=== PATIENT | male | born 1935 | race Caucasian/White ===

== ENCOUNTER 2019-06-11 15:56 | Inpatient (IN) ==
[2019-06-11 16:52] LABS: Basophils # (auto) 0.01 K/uL (0-0.2); Basophils % (auto) 0.1 %; Hematocrit (blood only) 39.3 % (42-52); Hemoglobin 13.4 g/dL (14.0-18.0); Immature Granulocytes # (auto) 0.04 K/uL (0.00-0.02); Immature Granulocytes % (auto) 0.3 %; Lymphocytes # (auto) 0.35 K/uL (1.2-3.4); Lymphocytes % (auto) 2.5 %; Mean Corpuscular Hemoglobin 33.5 pg (25-34); Mean Corpuscular Hgb Conc 34.1 g/dL (32-36); Mean Corpuscular Volume 98.3 fL (80-100); Mean Platelet Volume 10.8 fL (7.4-10.4); Monocytes % (auto) 14.4 %; Neutrophils # (auto) 11.45 K/uL (1.4-6.5); Neutrophils % (auto) 82.7 %; Platelet Count 128 K/uL (130-400); RDW Coefficient of Variation 13.3 % (11.5-14.5); White Blood Count 13.85 K/uL (4.8-10.8)
--- NOTE | 2019-06-11 16:52 | XRay Report ---
XR chest 1V portable CLINICAL HISTORY: weakness dyspnea COMPARISON STUDY: 12/17/2014 FINDINGS: The bones soft tissues and hemidiaphragms are normal. The cardiomediastinal silhouette is n ormal. The lungs are clear. The pulmonary vasculature is normal. IMPRESSION: Negative chest. ACT 112: Negative or not required by law. The above report was generated using voice recognition software. It may contain grammatical, syntax or spelling errors. Electronically signed by: Paul Lind M.D. 06/11/2019 4:51 PM
--- NOTE | 2019-06-11 17:07 | CT Scan Report ---
CT head/brain wo con CT DOSE: 1296.64 mGy.cm HISTORY: Mental status change. Neuropathy. leg weakness/fall eval for bleed TECHNIQUE: Multiaxial CT images of the head were performed without the use of intravenous contrast. A dose lowering technique was utilized adhering to the principles of ALARA. Comparison: None. Findings: The paranasal sinuses and mastoid air cells are clear. The calvarium and skull base are int act. The ventricles and sulci are within normal limits. There is no mass, hematoma, midline shift, or acute infarct. Impression: No acute intracranial abnormality. Age-related atrophy and chronic small vessel change. Note is made with a small defect of the anterior arch of C1 on image 1. This isn't not easily seen on the prior st udy of 2013. A CT of the cervical spine is suggested. ACT 112: Negative or not required by law. The above report was generated using voice recognition software. It may contain grammatical, syntax or spelling errors. Electronically signed by: Paul Lind M.D. 06/11/2019 5:06 PM
--- NOTE | 2019-06-11 17:11 | CT Scan Report ---
CT lumbar spine wo con CT DOSE: HISTORY: pain/leg weakness eval for fx TECHNIQUE: Multiaxial CT images of the lumbar spine were performed and reformatted in the sagittal an d coronal plane without the use of contrast. A dose lowering technique was utilized adhering to the principles of ALARA. COMPARISON: None. FINDINGS: Severe degenerative disc change throughout the entire lumbar region. No evidence for an acu te compression deformity. Considerable scoliosis of the lumbar spine. No evidence for compression deformity. No major compromise of the spinal canal based on CT criteria. IMPRESSION: 1. Severe degenerative change of the entire lumbar region. 2. Superimposed scoliosis. 3. No acute process. ACT 112: Negative or not required by law. The above report was generated using voice recognition software. It may contain grammatical, syntax or spelling errors. Electronically signed by: Paul Lind M.D. 06/11/2019 5:09 PM
[2019-06-11 17:19] LABS: Alanine Aminotransferase 32 U/L (12-78); Albumin Level 4.3 gm/dl (3.4-5.0); Aspartate Aminotransferase 50 U/L (15-37); BUN Creatinine Ratio 22.3 (10-20); Blood Urea Nitrogen 31 mg/dl (7-18); Calcium 9.7 mg/dl (8.5-10.1); Carbon Dioxide 24 mmol/L (21-32); Chloride 101 mmol/L (98-107); Creatinine Clr Calc Pharmacy 41.9 ml/min; Est GFR (African American) 53.6; Est GFR (Non-African American) 46.2; Glucose 137 mg/dl (70-99); Potassium 4.9 mmol/L (3.5-5.1); Sodium 132 mmol/L (136-145)
[2019-06-11 17:28] LABS: Alkaline Phosphatase 59 U/L (45-117); Bilirubin,Total 1.5 mg/dl (0.2-1); Globulin 4.1 gm/dl (2.5-4.0); Total Protein 8.4 gm/dl (6.4-8.2); Troponin I < 0.015 ng/ml (0-0.045)
[2019-06-11 17:46] LABS: Appearance Urine Clear (Clear); Bilirubin Urine Negative (Negative); Blood Urine Negative (Negative); Color Urine Yellow; Glucose Urine UA Negative (Negative); Ketones Urine Trace (Negative); Leukocyte Esterase Urine Negative (Negative); Nitrite Urine Negative (Negative); Protein Urine Negative (Negative); Specific Gravity Urine 1.021 (1.000-1.030); Urobilinogen Urine Negative (Negative); pH Urine 5.5 (4.5-7.5)
[2019-06-11 18:24] LABS: Partial Thromboplastin Ratio 1.6; Partial Thromboplastin Time 42.6 Seconds (21.0-31.0); Prothrombin Time 34.6 Seconds (9.0-12.0)
--- NOTE | 2019-06-11 18:28 | CT Scan Report ---
CT cervical spine wo con CT DOSE: 236.60 mGy.cm HISTORY: Trauma fall eval for fx TECHNIQUE: Multiaxial CT images of the cervical spine were performed and reformatted in the sagittal and coronal plane without the use of contrast. A dose lowering technique was utilized adhering to th e principles of ALARA. COMPARISON: None. FINDINGS: Severe degenerative disc changes throughout the entire cervical region. No evidence for com pression deformity. Grade 1 anterolisthesis of C4 on C5 felt to be an anatomic variation. Incomplete fusion of the anterior arch of C1. This is felt to be an anatomic variant. Transaxial imag es show degenerative changes of the posterior and lateral elements throughout. No acute fracture is i dentified. IMPRESSION: 1. Severe degenerative disc change. 2. No acute bony abnormality. 3. Small defect of the anterior arch of C1 felt to be an anatomic variant. ACT 112: Negative or not required by law. The above report was generated using voice recognition software. It may contain grammatical, syntax or spelling errors. Electronically signed by: Paul Lind M.D. 06/11/2019 6:26 PM
[2019-06-11 18:31] LABS: INR 3.7 (0.9-1.1)
[2019-06-11] MEDS ORDERED: TRAMADOL HCL 50 MG TABLET PO STA (19:34)
[2019-06-11] MEDS ORDERED: SODIUM CHLORIDE 0.9% 1000ML 1,000 ML IV ONE (19:57)
[2019-06-11 20:03] LABS: Magnesium 1.7 mg/dl (1.8-2.4)
--- NOTE | 2019-06-11 20:31 | History & Physical Report ---
Date of Service June 11, 2019 Assessment & Plan (1) Recurrent falls: Ambulatory dysfunction Mild clinical dehydration with note of ketonuria possibly contributory to weakness AF, on oral anticoagulation Rate controlled, INR therapeutic HTN, stable hyperlipidemia on statin Rx hx TIA as per records chronic back pain/history scoliosis as per patient, history of prostate cancer status post surgery, stable as per recent outpatient Urology note from last year prediabetes as per records, hemoglobin A1c of 6.20 October 2017 OBS GMF IVF PT OT eval DVT prophylaxis. Coumadin INR goal between 2 and 3 Full code History of Present Illness Chief Complaint: Recurrent falls Primary Care Provider: Sandra Dahl MD History obtained from patient and records. HPI: Medical history significant for chronic AF on oral anticoagulation, HTN, hyperlipidemia, history TIA as per records, chronic back pain/history scoliosis as per patient, history of prostate cancer status post surgery, peripheral neuropathy as per records, prediabetes as per records. Recent confinement October 2013 for probable TIA. Last few days patient has had recurrent falls from legs giving out, trouble with standing up. No chest pain, no S OB, no syncope. Usual back pain from scoliosis and arthritis as per patient. No new incontinence symptoms. Right shoulder pain follow doing injury this morning. Patient evaluated at [facility]. X-rays were negative as per patient. Pain attributed to injured right rotator cuff . RUE sling recommended. Patient consulted ER for evaluation. MEDICAL HISTORY: As above. SURGERIES: Back surgery, hip surgery, urologic procedures, tonsillectomy, vasectomy, shoulder surgery FAMILY HISTORY: Heart disease, prostate cancer, ovarian cancer, dementia PERSONAL SOCIAL HISTORY: Nonsmoker. No chronic intake of alcoholic beverages. 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 Allergies Allergy/AdvReac Type Severity Reaction Status Date / Time Penicillins Allergy Mild Rash Verified 06/11/19 17:31 fenofibrate Allergy Unknown MUSCLE Verified 06/11/19 17:31 WEAKNESS Home Medications Home Medications Medication Instructions Recorded Confirmed Type lidocaine 5 % topical patch 1 patch TOPICAL DAILY PRN ea 01/29/19 06/11/19 History aspirin 81 mg PO QPM 06/11/19 06/11/19 History atorvastatin 40 mg PO QPM 06/11/19 06/11/19 History baclofen 10 mg PO TID 06/11/19 06/11/19 History digoxin 250 mcg PO QPM 06/11/19 06/11/19 History duloxetine 20 mg PO QPM 06/11/19 06/11/19 History gabapentin 100 mg PO TID 06/11/19 06/11/19 History lisinopril 2.5 mg PO QPM 06/11/19 06/11/19 History metoprolol succinate [Toprol XL] 25 mg PO QPM 06/11/19 06/11/19 History multivitamin 1 tab PO QPM 06/11/19 06/11/19 History niacin [Niaspan Extended-Release] 1,000 mg PO QPM 06/11/19 06/11/19 History tramadol 50 mg PO TID PRN 06/11/19 06/11/19 History warfarin See Rx Instructions .ROUTE .COMPLEX 06/11/19 06/11/19 History Past Med/Surg History Medical History Aphasia (Acute 10/22/13) Atrial fibrillation (Chronic) Back pain, chronic (Chronic) DJD of shoulder (Acute) History of prostate cancer (Chronic) Hyperlipemia (Chronic) Mitral regurgitation (Chronic) Systolic CHF, chronic (Chronic) "LVEF 35%" TIA (transient ischemic attack) (Acute) Family History Other Family history non-contributory Social History Preferred Language: Albanian Communication Ability: Effective Train Operations Supervisor Required: No Beliefs That Will Affect Care: None Current Living Situation: Spouse Other Information That Helps Us Care for You: No Feels Safe at Home: Yes Safety Concerns: Feels Safe At This Time Smoking Status: Never smoker Hx Alcohol Use: Yes Alcohol type: wine Hx Substance Use: No Review of Systems Review of Systems: As per HPI, all 10 systems reviewed, all other ROS negative Physical Exam Physical Exam: GENERAL: Comfortable, pleasant, no respiratory distress SKIN: Normal color, warm HEENT: Alopecia, pink palpebral conjunctivae, no ptosis, dry buccal mucosa NECK : Supple, no tenderness CHEST : CTA, no tenderness HEART : Irregular , systolic murmur ABDOMEN: Soft, nontender EXTREMITIES : RUE sling, minimal LE swelling, no LE tenderness, no other conspicuous deformities noted NEUROLOGIC : Coherent, no facial asymmetry, MMTS BLE 4/5 (R>L, chronic as per patient ), gait and stance not assessed, no other gross focality Results & Data Vital Signs (Past 12 Hours) Vital Signs Temp Pulse Pulse Resp BP BP Pulse Ox 06/11/19 19:14 97 06/11/19 19:00 82 20 115/64 97 06/11/19 17:38 99 H 22 147/76 H 99 06/11/19 16:01 37.1 C 97 H 20 145/85 H 95 Laboratory Results Laboratory Results WBC 13.85 K/uL (4.8-10.8) H 06/11/19 16:44 RBC 4.00 M/uL (4.7-6.1) L 06/11/19 16:44 Hgb 13.4 g/dL (14.0-18.0) L 06/11/19 16:44 Hct 39.3 % (42-52) L 06/11/19 16:44 MCV 98.3 fL (80-100) 06/11/19 16:44 MCH 33.5 pg (25-34) 06/11/19 16:44 MCHC 34.1 g/dL (32-36) 06/11/19 16:44 RDW Std Deviation 48.0 fL (36.4-46.3) H 06/11/19 16:44 RDW Coeff of Ligia 13.3 % (11.5-14.5) 06/11/19 16:44 Plt Count 128 K/uL (130-400) L 06/11/19 16:44 MPV 10.8 fL (7.4-10.4) H 06/11/19 16:44 Immature Gran % (Auto) 0.3 % 06/11/19 16:44 Neut % (Auto) 82.7 % 06/11/19 16:44 Lymph % (Auto) 2.5 % 06/11/19 16:44 O'Brien % (Auto) 14.4 % 06/11/19 16:44 Eos % (Auto) 0.0 % 06/11/19 16:44 Baso % (Auto) 0.1 % 06/11/19 16:44 Immature Gran # (Auto) 0.04 K/uL (0.00-0.02) H 06/11/19 16:44 Neut # (Auto) 11.45 K/uL (1.4-6.5) H 06/11/19 16:44 Lymph # (Auto) 0.35 K/uL (1.2-3.4) L 06/11/19 16:44 O'Brien # (Auto) 2.00 K/uL (0.11-0.59) H 06/11/19 16:44 Eos # (Auto) 0.00 K/uL (0-0.5) 06/11/19 16:44 Baso # (Auto) 0.01 K/uL (0-0.2) 06/11/19 16:44 PT 34.6 Seconds (9.0-12.0) H 06/11/19 17:44 INR 3.7 (0.9-1.1) H 06/11/19 17:44 APTT 42.6 Seconds (21.0-31.0) H 06/11/19 17:44 PTT Ratio 1.6 06/11/19 17:44 Sodium 132 mmol/L (136-145) L 06/11/19 16:44 Potassium 4.9 mmol/L (3.5-5.1) 06/11/19 16:44 Chloride 101 mmol/L (98-107) 06/11/19 16:44 Carbon Dioxide 24 mmol/L (21-32) 06/11/19 16:44 Anion Gap 7.0 (3-11) 06/11/19 16:44 BUN 31 mg/dl (7-18) H 06/11/19 16:44 Creatinine 1.39 mg/dl (0.6-1.4) 06/11/19 16:44 Est Cr Clr Drug Dosing 41.9 ml/min 06/11/19 16:44 Est GFR ( Amer) 53.6 06/11/19 16:44 Est GFR (Non-Af Amer) 46.2 06/11/19 16:44 BUN/Creatinine Ratio 22.3 (10-20) H 06/11/19 16:44 Glucose 137 mg/dl (70-99) H 06/11/19 16:44 Calcium 9.7 mg/dl (8.5-10.1) 06/11/19 16:44 Magnesium 1.7 mg/dl (1.8-2.4) L 06/11/19 16:44 Total Bilirubin 1.5 mg/dl (0.2-1) H 06/11/19 16:44 AST 50 U/L (15-37) H 06/11/19 16:44 ALT 32 U/L (12-78) 06/11/19 16:44 Alkaline Phosphatase 59 U/L (45-117) 06/11/19 16:44 Troponin I < 0.015 ng/ml (0-0.045) 06/11/19 16:44 Total Protein 8.4 gm/dl (6.4-8.2) H 06/11/19 16:44 Albumin 4.3 gm/dl (3.4-5.0) 06/11/19 16:44 Globulin 4.1 gm/dl (2.5-4.0) H 06/11/19 16:44 Albumin/Globulin Ratio 1.0 (0.9-2) 06/11/19 16:44 TSH 1.390 uIu/ml (0.300-4.500) 06/11/19 16:44 Specimen Hemolysis 06/11/19 16:44 Urine Color Yellow 06/11/19 17:34 Urine Appearance Clear (Clear) 06/11/19 17:34 Urine pH 5.5 (4.5-7.5) 06/11/19 17:34 Ur Specific [place] 1.021 (1.000-1.030) 06/11/19 17:34 Urine Protein Negative (Negative) 06/11/19 17:34 Urine Glucose (UA) Negative (Negative) 06/11/19 17:34 Urine Ketones Trace (Negative) H 06/11/19 17:34 Urine Blood Negative (Negative) 06/11/19 17:34 Urine Nitrite Negative (Negative) 06/11/19 17:34 Urine Bilirubin Negative (Negative) 06/11/19 17:34 Urine Urobilinogen Negative (Negative) 06/11/19 17:34 Ur Leukocyte Esterase Negative (Negative) 06/11/19 17:[address] head: No acute intracranial abnormality. Age-related atrophy and chronic small vessel change. Note is made with a small defect of the anterior arch of C1 on image CT cervical spine: 1. Severe degenerative disc change. 2. No acute bony abnormality. 3. Small defect of the anterior arch of C1 felt to be an anatomic variant. Lumbar spine CT: 1. Severe degenerative change of the entire lumbar region. 2. Superimposed scoliosis. 3. No acute process. Chest x-ray : Negative EKG as per my interpretation : Rate 75, A. fib, LAD, LAFB, J-point elevation inferior leads, PA WP Code Status & VTE Plan VTE Prophylaxis Plan VTE Prophylaxis will be ordered: Yes
[2019-06-11 20:54] LABS: Creatine Kinase 317 U/L (39-308)
[2019-06-11] MEDS ORDERED: PROMETHAZINE HCL 12.5 MG in SODIUM CHLORIDE 0.9% 50 ML IV PRN (21:39)
[2019-06-11] MEDS ORDERED: ASPIRIN 81 MG ECTAB PO SCH (21:39)
[2019-06-11] MEDS: METOPROLOL SUCC 25MG EXT REL TAB PO SCH (22:25)
[2019-06-11] MEDS: GABAPENTIN 100 MG CAP PO SCH (22:25)
[2019-06-11] MEDS: NIACIN EXTENDED REL 500 MG TABCR PO SCH (22:25)
[2019-06-11] MEDS: BACLOFEN 10 MG TAB PO SCH (22:26)
[2019-06-11] MEDS: ATORVASTATIN 40 MG TAB PO SCH (22:26)
[2019-06-11] MEDS: DULOXETINE HCL 20 MG CAP PO SCH (22:26)
[2019-06-11] MEDS: MULTIVITAMIN TAB PO SCH (22:26)
--- NOTE | 2019-06-11 23:17 | Emergency Department Note ---
Entered by Ethan Calderon acting as a scribe for History of Present Illness General Chief complaint: Leg Weakness, Bilateral Stated complaint: LEG WEAKNESS Time Seen by Provider: 06/11/19 16:07 Source: patient History of Present Illness Provider complaint: Weakness Onset (ago): day(s) 1 Location: lower extremity, left and right Pain Consistency: + intermittent Maximum Pain Intensity: 7 Current Pain Intensity: 7 Quality: + burning Relieved By: + none Associated symptoms: + other (Back pain); no confusion, no chest pain, no fever/chills, no headaches and no shortness of breath The patient is an 83 year old male who presents to the Emergency Room with complaints of intermittent bilateral proximal lower extremity weakness that he started to notice yesterday. The patient states that he fell yesterday due to this weakness resulting in an injured right rotator cuff. He adds that he saw [facility] this morning and had x-rays done that were negative. The patient reports that today he fell 3 more times due to the weakness in his legs. The patient notes the weakness lasts for about 5 minutes and after it had resolved he was able to slowly get himself up. He also mentioned that he sometimes experiences a burning sensation in his bilateral legs. The patient also relates that for the falls that occurred today he has been able to slowly lower himself to the ground so he did not injure himself. The patient is on Coumadin and denies any head trauma or headaches. The patient endorses worsening back pain that has been chronic due to his history of scoliosis and spinal stenosis. The patient rates this pain as a 7/10 and notes it has been getting worse as of late, however he did not injure his back during the falls. The patient also mentioned that due to his history of back issues, his left leg has been weaker than his right at baseline. The patient denies any confusion, dizziness, numbness, neck pain, chest pain, shortness of breath, abdominal pain, or incontinence. The patient does endorses erectile dysfunction but notes this has been present since he had prostate surgery 8 years ago. The patient states he had a PNA and 2 shingles vaccines in the past 6 months and a flu vaccine 4 months ago. Home Medications Home Medications Medication Instructions Recorded Confirmed Type lidocaine 5 % topical patch 1 patch TOPICAL DAILY PRN ea 01/29/19 06/11/19 Hi story aspirin 81 mg PO QPM 06/11/19 06/11/19 History atorvastatin 40 mg PO QPM 06/11/19 06/11/19 History baclofen 10 mg PO TID 06/11/19 06/11/19 History digoxin 250 mcg PO QPM 06/11/19 06/11/19 History duloxetine 20 mg PO QPM 06/11/19 06/11/19 History gabapentin 100 mg PO TID 06/11/19 06/11/19 History lisinopril 2.5 mg PO QPM 06/11/19 06/11/19 History metoprolol succinate [Toprol XL] 25 mg PO QPM 06/11/19 06/11/19 History multivitamin 1 tab PO QPM 06/11/19 06/11/19 History niacin [Niaspan Extended-Release] 1,000 mg PO QPM 06/11/19 06/11/19 History tramadol 50 mg PO TID PRN 06/11/19 06/11/19 History warfarin See Rx Instructions .ROUTE .COMPLEX 06/11/19 06/11/19 History Allergies Allergy/AdvReac Type Severity Reaction Status Date / Time Penicillins Allergy Mild Rash Verified 06/11/19 17:31 fenofibrate Allergy Unknown MUSCLE Verified 06/11/19 17:31 WEAKNESS Past Med/Surg History Medical History Aphasia (Acute 10/22/13) Atrial fibrillation (Chronic) Back pain, chronic (Chronic) DJD of shoulder (Acute) History of prostate cancer (Chronic) Hyperlipemia (Chronic) Mitral regurgitation (Chronic) Systolic CHF, chronic (Chronic) "LVEF 35%" TIA (transient ischemic attack) (Acute) Family History Other Family history non-contributory Social History Preferred Language: Slovak Communication Ability: Effective Sawyer Helper Required: No Beliefs That Will Affect Care: None Current Living Situation: Spouse Other Information That Helps Us Care for You: No Feels Safe at Home: Yes Safety Concerns: Feels Safe At This Time Smoking Status: Never smoker Hx Alcohol Use: Yes Alcohol type: wine Hx Substance Use: No Review of Systems See HPI for pertinent positives & negatives. and A total of 10 systems reviewed and were otherwise negative Physical Exam Vital Signs Vital Signs - 24 hr 06/11/19 16:01 06/11/19 17:38 06/11/19 19:00 Temperature 37.1 C Temperature Source Oral Pulse Rate 97 H Pulse Rate [Left Finger] 99 H 82 Respiratory Rate 20 22 20 Blood Pressure 145/85 H Blood Pressure [Left Arm] 147/76 H 115/64 Blood Pressure Mean 105 Blood Pressure Mean [Left Arm] 99 81 Blood Pressure Position Sitting Blood Pressure Position [Left Arm] Sitting Pulse Oximetry 95 99 97 Oxygen Delivery Method Room Air Sepsis Recent Fever Within 48 Hours No Sepsis New/Unexplained Change in Mental Status No Sepsis Action Taken by Nursing No Action Required 06/11/19 19:14 Temperature Temperature Source Pulse Rate Pulse Rate [Left Finger] Respiratory Rate Blood Pressure Blood Pressure [Left Arm] Blood Pressure Mean Blood Pressure Mean [Left Arm] Blood Pressure Position Blood Pressure Position [Left Arm] Pulse Oximetry 97 Oxygen Delivery Method Room Air Sepsis Recent Fever Within 48 Hours Sepsis New/Unexplained Change in Mental Status Sepsis Action Taken by Nursing Constitutional: Vital signs reviewed. Eyes: Pupils are equal round reactive to light. Conjunctiva are noninjected. ENT: Pharynx is clear without erythema or exudate. Mucous membranes are moist. Neck supple without meningeal signs. Respiratory: Clear to auscultation bilaterally. Breath sounds are equal bilaterally. Cardiovascular: Regular rate and rhythm. No rubs or gallops. GI: Soft, nondistended and nontender. Bowel sounds are present. No pulsatile masses. 2+ bounding femoral pulses. Musculoskeletal: No peripheral edema. No lower extremity tenderness. RUE is in sling. Integumentary: No cyanosis. Neurological: The patient is awake and alert. Cranial nerves II-XII are intact. Motor is 5 out of 5 all extremities. Sensation is intact to light touch all extremities. Left left DTR are 0, right leg is 1+. Normal speech. Psychiatric: Normal affect. Course Course 160: Past medical records reviewed. The patient was evaluated in room A02, and a complete history and physical examination were performed. 1746: I reevaluated the patient and discussed the test results. The patient denies any neck pain. The patient's urine was just sent and her INR was repeated. 1917: I discussed the test results with the patient. I recommended hospitalization given his frequent falls and elevated INR. The patient requested pain medication for his shoulder[facility]: I spoke to Dr. Sabiha Mortensen Hospitalist about the patient's case. He agreed to accept the patient for further evaluation. Consultations Consultation #1: I spoke to Dr. Sabiha Jimenez about the patient's case. He agreed to accept the patient for further evaluation. Time: 19:40 Administered Medications Aspirin (Ecotrin Ectab) 81 mg PO QPM TRAVIS Stop: 07/11/19 21:38 Last Admin: 06/11/19 22:26 Dose: 81 mg Documented by: [id number] Atorvastatin Calcium (Lipitor) 40 mg PO QPM TRAVIS Stop: 07/11/19 21:38 Last Admin: 06/11/19 22:26 Dose: 40 mg Documented by: [id number] Baclofen (Lioresal) 10 mg PO TID TRAVIS Stop: 07/11/19 21:38 Last Admin: 06/11/19 22:26 Dose: 10 mg Documented by: [id number] Duloxetine HCl (Cymbalta) 20 mg PO QPM TRAVIS Stop: 07/11/19 21:38 Last Admin: 06/11/19 22:26 Dose: 20 mg Documented by: [id number] Gabapentin (Neurontin) 100 mg PO TID TRAVIS Stop: 07/11/19 21:38 Last Admin: 06/11/19 22:25 Dose: 100 mg Documented by: [id number] Sodium Chloride (Nss 1000ml) 1,000 mls @ 75 mls/hr IV .[id number] ONE Stop: 06/12/19 09:16 Last Admin: 06/11/19 20:08 Dose: 75 mls/hr Documented by: [id number] Metoprolol Succinate (Toprol Xl) 25 mg PO QPM TRAVIS Stop: 07/11/19 21:38 Last Admin: 06/11/19 22:25 Dose: 25 mg Documented by: [id number] Multivitamins (Multivitamin Tab) 1 tab PO QPM TRAVIS Stop: 07/11/19 21:38 Last Admin: 06/11/19 22:26 Dose: 1 tab Documented by: [id number] Niacin (Niaspan Extended Rel) 1,000 mg PO QPM TRAVIS Stop: 07/11/19 21:38 Last Admin: 06/11/19 22:25 Dose: 1,000 mg Documented by: [id number] Discontinued Medications Tramadol HCl (Ultram) 50 mg PO NOW STA Stop: 06/11/19 19:35 Last Admin: 06/11/19 20:04 Dose: 50 mg Documented by: [id number] Medical Decision Making Differential Diagnosis Differential Diagnosis includes: Spinal stenosis, compression fracture, lumbar disc disease, cauda equina syndrome, AAA, and Guillain-[place] syndrome, amongst others. Medical Records Attestation: I reviewed the patient's medical records. I did perform a limited focused review of portions of the patient's old chart on the electronic medical record. The patient has had no recent pertinent visits to this hospital. Home Medications Current Medication List: was personally reviewed by me Laboratory Data Attestation: I reviewed the patient's lab results. Result diagrams: 06/11/19 16:44 06/11/19 16:44 Lab Results 06/11/19 06/11/19 06/11/19 Range/Units 16:44 16:44 16:44 WBC 13.85 H (4.8-10.8) K/uL RBC 4.00 L (4.7-6.1) M/uL Hgb 13.4 L (14.0-18.0) g/dL Hct 39.3 L (42-52) % MCV 98.3 (80-100) fL MCH 33.5 (25-34) pg MCHC 34.1 (32-36) g/dL RDW Std Deviation 48.0 H (36.4-46.3) fL RDW Coeff of Ligia 13.3 (11.5-14.5) % Plt Count 128 L (130-400) K/uL MPV 10.8 H (7.4-10.4) fL Immature Gran % (Auto) 0.3 % Neut % (Auto) 82.7 % Lymph % (Auto) 2.5 % [place] % (Auto) 14.4 % Eos % (Auto) 0.0 % Baso % (Auto) 0.1 % Immature Gran # (Auto) 0.04 H (0.00-0.02) K/uL Neut # (Auto) 11.45 H (1.4-6.5) K/uL Lymph # (Auto) 0.35 L (1.2-3.4) K/uL [place] # (Auto) 2.00 H (0.11-0.59) K/uL Eos # (Auto) 0.00 (0-0.5) K/uL Baso # (Auto) 0.01 (0-0.2) K/uL PT Cancelled INR Cancelled APTT Cancelled PTT Ratio Cancelled Sodium 132 L (136-145) mmol/L Potassium 4.9 (3.5-5.1) mmol/L Chloride 101 (98-107) mmol/L Carbon Dioxide 24 (21-32) mmol/L Anion Gap 7.0 (3-11) BUN 31 H (7-18) mg/dl Creatinine 1.39 (0.6-1.4) mg/dl Est Cr Clr Drug Dosing 41.9 ml/min Est GFR ( Amer) 53.6 Est GFR (Non-Af Amer) 46.2 BUN/Creatinine Ratio 22.3 H (10-20) Glucose 137 H (70-99) mg/dl Calcium 9.7 (8.5-10.1) mg/dl Magnesium 1.7 L (1.8-2.4) mg/dl Total Bilirubin 1.5 H (0.2-1) mg/dl AST 50 H (15-37) U/L ALT 32 (12-78) U/L Alkaline Phosphatase 59 (45-117) U/L Total Creatine Kinase 317 H (39-308) U/L Troponin I < 0.015 (0-0.045) ng/ml Total Protein 8.4 H (6.4-8.2) gm/dl Albumin 4.3 (3.4-5.0) gm/dl Globulin 4.1 H (2.5-4.0) gm/dl Albumin/Globulin Ratio 1.0 (0.9-2) TSH 1.390 (0.300-4.500) uIu/ml Specimen Hemolysis Urine Color Urine Appearance (Clear) Urine pH (4.5-7.5) Ur Specific [place] (1.000-1.030) Urine Protein (Negative) Urine Glucose (UA) (Negative) Urine Ketones (Negative) Urine Blood (Negative) Urine Nitrite (Negative) Urine Bilirubin (Negative) Urine Urobilinogen (Negative) Ur Leukocyte Esterase (Negative) Digoxin (0.8-2.0) ng/ml 06/11/19 06/11/19 06/11/19 Range/Units 17:34 17:44 20:06 WBC (4.8-10.8) K/uL RBC (4.7-6.1) M/uL Hgb (14.0-18.0) g/dL Hct (42-52) % MCV (80-100) fL MCH (25-34) pg MCHC (32-36) g/dL RDW Std Deviation (36.4-46.3) fL RDW Coeff of [place]ia (11.5-14.5) % Plt Count (130-400) K/uL MPV (7.4-10.4) fL Immature Gran % (Auto) % Neut % (Auto) % Lymph % (Auto) % [place] % (Auto) % Eos % (Auto) % Baso % (Auto) % Immature Gran # (Auto) (0.00-0.02) K/uL Neut # (Auto) (1.4-6.5) K/uL Lymph # (Auto) (1.2-3.4) K/uL [place] # (Auto) (0.11-0.59) K/uL Eos # (Auto) (0-0.5) K/uL Baso # (Auto) (0-0.2) K/uL PT 34.6 H INR 3.7 H APTT 42.6 H PTT Ratio 1.6 Sodium (136-145) mmol/L Potassium (3.5-5.1) mmol/L Chloride (98-107) mmol/L Carbon Dioxide (21-32) mmol/L Anion Gap (3-11) BUN (7-18) mg/dl Creatinine (0.6-1.4) mg/dl Est Cr Clr Drug Dosing ml/min Est GFR ( Amer) Est GFR (Non-Af Amer) BUN/Creatinine Ratio (10-20) Glucose (70-99) mg/dl Calcium (8.5-10.1) mg/dl Magnesium (1.8-2.4) mg/dl Total Bilirubin (0.2-1) mg/dl AST (15-37) U/L ALT (12-78) U/L Alkaline Phosphatase (45-117) U/L Total Creatine Kinase (39-308) U/L Troponin I (0-0.045) ng/ml Total Protein (6.4-8.2) gm/dl Albumin (3.4-5.0) gm/dl Globulin (2.5-4.0) gm/dl Albumin/Globulin Ratio (0.9-2) TSH (0.300-4.500) uIu/ml Specimen Hemolysis Urine Color Yellow Urine Appearance Clear (Clear) Urine pH 5.5 (4.5-7.5) Ur Specific [place] 1.021 (1.000-1.030) Urine Protein Negative (Negative) Urine Glucose (UA) Negative (Negative) Urine Ketones Trace H (Negative) Urine Blood Negative (Negative) Urine Nitrite Negative (Negative) Urine Bilirubin Negative (Negative) Urine Urobilinogen Negative (Negative) Ur Leukocyte Esterase Negative (Negative) Digoxin 1.2 (0.8-2.0) ng/ml Imaging Data Radiologist's Impression: Radiology results as stated below per my review and the radiologist's interpretation: XR chest 1V portable CLINICAL HISTORY: weakness dyspnea COMPARISON STUDY: 12/17/2014 FINDINGS: The bones soft tissues and hemidiaphragms are normal. The cardiomediastinal silhouette is normal. The lungs are clear. The pulmonary vasculature is normal. IMPRESSION: Negative chest. ACT 112: Negative or not required by law. The above report was generated using voice recognition software. It may contain grammatical, syntax or spelling errors. Electronically signed by: Paul Lind M.D. 06/11/2019 4:[address] head/brain wo con CT DOSE: 1296.64 mGy.cm HISTORY: Mental status change. Neuropathy. leg weakness/fall eval for bleed TECHNIQUE: Multiaxial CT images of the head were performed without the use of i ntravenous contrast. A dose lowering technique was utilized adhering to the principles of ALARA. Comparison: None. Findings: The paranasal sinuses and mastoid air cells are clear. The calvarium and skull base are intact. The ventricles and sulci are within normal limits. There is no mass, hematoma, midline shift, or acute infarct. Impression: No acute intracranial abnormality. Age-related atrophy and chronic small vessel change. Note is made with a small defect of the anterior arch of C1 on image 1. This isn't not easily seen on the prior study of 2013. A CT of the cervical spine is suggested. ACT 112: Negative or not required by law. The above report was generated using voice recognition software. It may contain grammatical, syntax or spelling errors. Electronically signed by: Paul Lind M.D. 06/11/2019 5:[address] cervical spine wo con CT DOSE: 236.60 mGy.cm HISTORY: Trauma fall eval for fx TECHNIQUE: Multiaxial CT images of the cervical spine were performed and reformatted in the sagittal and coronal plane without the use of contrast. A dose lowering technique was utilized adhering to the principles of ALARA. COMPARISON: None. FINDINGS: Severe degenerative disc changes throughout the entire cervical region. No evidence for compression deformity. Grade 1 anterolisthesis of C4 on C5 felt to be an anatomic variation. Incomplete fusion of the anterior arch of C1. This is felt to be an anatomic variant. Transaxial images show degenerative changes of the posterior and lateral elements throughout. No acute fracture is identified. IMPRESSION: 1. Severe degenerative disc change. 2. No acute bony abnormality. 3. Small defect of the anterior arch of C1 felt to be an anatomic variant. ACT 112: Negative or not required by law. The above report was generated using voice recognition software. It may contain grammatical, syntax or spelling errors. Electronically signed by: Paul Lind M.D. 06/11/2019 6:[address] lumbar spine wo con CT DOSE: HISTORY: pain/leg weakness eval for fx TECHNIQUE: Multiaxial CT images of the lumbar spine were performed and reformatted in the sagittal and coronal plane without the use of contrast. A dose lowering technique was utilized adhering to the principles of ALARA. COMPARISON: None. FINDINGS: Severe degenerative disc change throughout the entire lumbar region. No evidence for an acute compression deformity. Considerable scoliosis of the lumbar spine. No evidence for compression deformity. No major compromise of the spinal canal based on CT criteria. IMPRESSION: 1. Severe degenerative change of the entire lumbar region. 2. Superimposed scoliosis. 3. No acute process. ACT 112: Negative or not required by law. The above report was generated using voice recognition software. It may contain grammatical, syntax or spelling errors. Electronically signed by: Paul Lind M.D. 06/11/2019 5:09 PM ECG Data Attestation: I personally reviewed and interpreted this ECG as follows: Indication: + weakness Rate (beats per minute): 77 Rhythm: + atrial fibrillation ECG [place]: + Left axis deviation ECG ST segments: + ST depression (Leads 1 and aVL) Comparison ECG Date: from (11/2014 and 10/2013) Change: no significant change Blood Pressure Blood Pressure Findings: Elevated blood pressure Blood Pressure Disposition: Referred to patients primary care provider MDM Narrative I did evaluate the patient as noted above. The patient is presenting with several falls over the past 2 days. The patient fell yesterday and hurt his right shoulder. He was seen at orthopedics and diagnosed with a rotator cuff injury and placed in a sling. He already had x-rays. He is here today because he almost fell 3 times today. He slowly slid himself down to the floor 3 times because he had proximal leg weakness bilaterally. He does state that he has chronic left leg weakness due to his scoliosis and spinal stenosis which has not changed. He otherwise denies any numbness or new weakness to the legs except as described above. He denies any incontinence or saddle anesthesia. He does have diminished reflexes on the left leg but states that he chronically has issues with that leg due to his spinal problems. IV access was established. I did order and personally review the patient's 12-lead EKG as described above. He has atrial fibrillation with nonspecific changes that are unchanged from his previous EKGs as described above. I did order and review the patient's blood work as noted in the electronic medical record. He has leukocytosis. He has mild anemia and thrombocytopenia. Electrolytes demonstrate a sodium 132. INR is elevated at 3.7. I did order and personally reviewed the images of the patient's chest x-ray as described above. There is no evidence of pneumonia. I did order a urine analysis. He does not have a UTI. I did order a CT of the head and lumbar spine. I did review the images myself as well as the radiology report as described above. There is no evidence of acute process within the head or lumbar spine. He did have a questionable defect in C1 and so the radi ologist recommended a CT of the cervical spine. He was placed in a cervical collar and sent back to CAT scan. CT of the cervical spine was negative and the collar was removed. I did discuss the test results with the patient. I did recommend hospitalization given his weakness and frequent falls and elevated INR. He was agreeable and I did discuss the case with the hospitalist and binder caser. Impression & Plan Bilateral leg weakness, Frequent falls, Supratherapeutic INR, Hyponatremia Discharge Plan Visit Data *Final* Discharge Date/Time: 06/11/19 20:54 Chief Complaint: Leg Weakness, Bilateral Stated Complaint: LEG WEAKNESS ED Provider: Garrick Smart Discharge Problem: Bilateral leg weakness, Frequent falls, Supratherapeutic INR, Hyponatremia Patient Disposition: Admitted As Inpatient Discharge Instructions Interventions: ED Discharge Assessment Last Done: 06/11/19 20:54 The scribe's documentation has been prepared under my direction and personally reviewed by me in its entirety. I confirm that the note above accurately reflects all work, treatment, procedures, and medical decision making performed by me.
[2019-06-12 05:42] LABS: Basophils # (auto) 0.01 K/uL (0-0.2); Basophils % (auto) 0.1 %; Eosinophils # (auto) 0.01 K/uL (0-0.5); Eosinophils % (auto) 0.1 %; Hematocrit (blood only) 36.6 % (42-52); Hemoglobin 12.3 g/dL (14.0-18.0); Immature Granulocytes # (auto) 0.05 K/uL (0.00-0.02); Immature Granulocytes % (auto) 0.4 %; Lymphocytes # (auto) 0.53 K/uL (1.2-3.4); Lymphocytes % (auto) 3.7 %; Mean Corpuscular Hemoglobin 33.2 pg (25-34); Mean Corpuscular Hgb Conc 33.6 g/dL (32-36); Mean Corpuscular Volume 98.7 fL (80-100); Mean Platelet Volume 11.1 fL (7.4-10.4); Monocytes # (auto) 2.34 K/uL (0.11-0.59); Monocytes % (auto) 16.5 %; Neutrophils # (auto) 11.28 K/uL (1.4-6.5); Neutrophils % (auto) 79.2 %; Platelet Count 118 K/uL (130-400); RDW Coefficient of Variation 13.4 % (11.5-14.5); Red Blood Count 3.71 M/uL (4.7-6.1); White Blood Count 14.22 K/uL (4.8-10.8)
[2019-06-12 06:04] LABS: Prothrombin Time 38.4 Seconds (9.0-12.0)
[2019-06-12 06:15] LABS: BUN Creatinine Ratio 21.7 (10-20); Calcium 9.2 mg/dl (8.5-10.1); Creatinine Clr Calc Pharmacy 50.7 ml/min; Est GFR (African American) 67.4; Est GFR (Non-African American) 58.1; INR 4.1 (0.9-1.1); Potassium 4.1 mmol/L (3.5-5.1)
[2019-06-12] MEDS: BACLOFEN 10 MG TAB PO SCH ×3 (08:00→20:02)
[2019-06-12] MEDS: GABAPENTIN 100 MG CAP PO SCH ×3 (08:01→20:04)
--- NOTE | 2019-06-12 15:31 | Hospitalist Progress Note ---
Date of Service June 12, 2019 Assessment & Plan (1) Recurrent falls: at baseline pt was very active at least few weeks back was going to [place] developed severe pain on rt knee last week -made him off balance and fall landing on rt shoulder pt has severe scoliosis , usually puts weight on his rt lower ext to ambulate was seen at [facility] office , Xray of shoulder showed no fracture -per pt admitted with worsening of ambulatory dysfunction , appreciate input from PT/OT recommends rehab -referral made to [facility] RIGHT SHOULDER PAIN : recent fall on rt side has limited ROM on rt arm /on sling MRI Of Rt shoulder ordered for eval : Rotator cuff tear /also rule out hematoma ( INR elevated ) LOW BACK PAIN WITH RADIATION TO LOWER EXT : ct of lumber spine : severe DJD /scoliosis MRI of lumber spine ordered for radiculopathy (2) Bilateral leg weakness: check MRI of lumber spine Ortho eval requested pt was recently seen at [facility] office (3) Supratherapeutic INR: HX of Afib on coumadin INR >4 no bleeding episode Coumadin on hold ordered to hold Aspirin if MRI of shoulder shows evidence of hematoma , will need vit k repeat INR in AM Subjective complains of continued rt shoulder pain generalized weakness , low back pain -chronic , but worse now very poor appetite no fever or chills no cough or SOB Review of Systems Review of Systems: All systems reviewed & are unremarkable except as noted in HPI & below Musculoskeletal: + back pain, + joint pain (right shoulder pain ) and + limited range of motion (right shoulder ) Neurologic: + gait abnormality, + unsteadiness, + falls and + generalized weakness Physical Exam Constitutional: WD/WN, vitals as above + thin; no acute distress Eyes: PERRL, conjunctivae normal, anicteric sclerae ENMT: external ear and nose normal, oropharynx normal Neck: trachea midline, no thyromegaly Respiratory: normal respiratory effort, lungs clear to auscultation Cardiovascular: RRR, no murmur, no edema Gastrointestinal (Abdomen): normal bowel sounds, soft, nontender, no hepatosplenomegaly Musculoskeletal: Extremities: + joint enlargement (rt shoulder pain /+ tendernress ) Skin: no rashes, warm and dry Neurologic: PERRL, EOMI, accommodation nl, no face palsy, no dysarthria Psychiatric: A+Ox3, euthymic affect Results & Data Vital Signs (Past 12 Hours) Vital Signs Temp Pulse Resp BP Pulse Ox 06/12/19 07:36 36.8 C 84 18 115/72 95
[2019-06-12] MEDS ORDERED: SODIUM CHLORIDE 0.9% 1000ML 1,000 ML IV SCH (19:30)
[2019-06-12] MEDS: LIDOCAINE 5% 1 PATCH TD SCH (20:00)
[2019-06-12] MEDS: ATORVASTATIN 40 MG TAB PO SCH (20:02)
[2019-06-12] MEDS: DIGOXIN 0.25 MG TAB PO SCH (20:02)
[2019-06-12] MEDS: METOPROLOL SUCC 25MG EXT REL TAB PO SCH (20:03)
[2019-06-12] MEDS: MULTIVITAMIN TAB PO SCH (20:03)
[2019-06-12] MEDS: DULOXETINE HCL 20 MG CAP PO SCH (20:04)
[2019-06-12] MEDS: NIACIN EXTENDED REL 500 MG TABCR PO SCH (20:05)
--- NOTE | 2019-06-12 22:21 | Magnetic Resonance Report ---
MR shoulder RT wo con CLINICAL HISTORY: 83 years-old Male presenting with right shoulder pain /possible rotator cuff injury . TECHNIQUE: Multisequence, multiplanar MR imaging of the right shoulder was performed without the use of intravenous contrast. IV contrast: None. COMPARISON: None. FINDINGS: Localizer images: Unremarkable. Bone marrow: Normal bone marrow signal intensity. No bony edema. Extensive cystic change of the rotat or cuff insertional footplate. Articular cartilage: Diffuse thinning of articular cartilage. No significant osteophytosis at the gle nohumeral joint. Labrum: Diffuse blunting of the glenoid labrum. Extensive tears of the superior labrum extending from anterior to posterior. Biceps and triceps tendons: Long head of the biceps tendon intact apart from the biceps-labral comple x, which appears distorted, amorphous, and torn. Long head of the biceps medially subluxed in the sup erior portion of the intertubercular groove though well seated more inferiorly. Short head of the bic eps tendon intact. Rotator cuff: Complete tear of the supraspinatus with significant fraying and retraction of fibers. T he tendon gap measures at least 2 cm. Full-thickness tear of the anterior to mid fibers of the infras pinatus with a prominent intralaminar extension of the tear extending to the myotendinous junction. T eres minor tendon intact. Full-thickness tear of the superior fibers of the subscapularis. The mid to inferior fibers are grossly intact. Acromioclavicular joint: Widening of the AC joint with fluid within the joint. Fluid may be secondary . Underlying degenerative change. Shoulder joint effusion: Large glenohumeral joint effusion. Significant fluid in the subacromial-subd eltoid bursa. Muscle: Diffuse muscle atrophy. Diffuse muscle edema is also evident. Superficial soft tissue: Superficial edema along the superior aspect of the shoulder. IMPRESSION: 1. Complete tear of the supraspinatus tendon. 2. Full-thickness tear of the superior portion of the subscapularis tendon. 3. Full-thickness tear of the anterior fibers of the infraspinatus with intralaminar extension to th e myotendinous junction. 4. Use muscle atrophy and edema. 5. Large glenohumeral joint effusion, which is the likely cause of the extensive surrounding fluid i ncluding fluid which distends the AC joint. 6. SLAP tear. 7. Additional findings as above. ACT 112: Negative or not required by law. Electronically signed by: Stanton Del Rio M.D. 06/12/2019 10:20 PM
[2019-06-12] MEDS ORDERED: GADOBUTROL 65ML VIAL IV PRN (22:30)
--- NOTE | 2019-06-12 22:45 | Magnetic Resonance Report ---
MR lumbar spine wo/w con CLINICAL HISTORY: 83 years-old Male presenting with low back pain with radiation to bilateral thighs, history of scoliosis, fall on [place]. TECHNIQUE: Multisequence, multiplanar MR imaging of the lumbar spine was performed before and after t he administration of intravenous contrast. IV contrast: 8 mL of Gadavist. COMPARISON: CT on 06/11/2019. FINDINGS: Localizer images: Moderate dextroscoliosis centered at L3. Hepatic and renal cysts noted. Moderate dextroscoliosis of the lumbar spine centered at L3 (36 degrees). This results in asymmetric multilevel degenerative changes and degrades evaluation. Lordosis is otherwise maintained. Vertebral bodies demonstrate slight asymmetric height loss due to scoliotic curvature. Mild fatty and edematous endplate changes at L1-2 on a degenerative basis. No bony edema elsewhere. No evidence of a fracture . Diffuse intervertebral disc desiccation with asymmetric height loss due to scoliosis. A level by le cailin analysis is further detail below: L1-2: Disc bulge, facet arthropathy, and mild ligamentum flavum thickening. Moderate effacement of th e ventral thecal sac. Moderate to severe bilateral neural foraminal narrowing. L2-3: Disc bulge eccentrically worse along the posterior left lateral aspect. Mild right and severe l eft neural foraminal narrowing. Suspected mass effect on the exiting left L2 nerve root. L3-4: Disc osteophyte complex, advanced facet arthropathy, ligamentum flavum thickening result in sev ere circumferential effacement of the thecal sac. No residual CSF. Severe bilateral neural foraminal narrowing with suspected mass effect on the exiting L3 nerve roots. L4-5: Disc osteophyte complex and advanced facet arthropathy. Circumferential effacement of the ventr al thecal sac. Severe bilateral neural foraminal narrowing with suspected mass effect on the exiting L4 nerve roots. L5-S1: Disc bulge results in mild effacement of the ventral thecal sac. Mild right. Moderate to sever e right and mild to moderate left neural foraminal narrowing. Spinal cord terminates in good position at T12. Cauda equina buckling may be present. No evidence of an epidural collection or mass. No abnormal enhancement of the nerve roots. No paraspinal muscle brittney a. Visualized portion of the sacrum intact. No abnormal enhancement apart from mild enhancement assoc iated with degenerative change. Flow voids within the vasculature preserved. Remainder the visualized soft tissues are unremarkable for age-related muscle atrophy renal cysts. IMPRESSION: 1. Moderate dextroscoliosis with resultant severe multilevel degenerative changes. 2. No acute osseous injury. 3. Severe spinal canal stenosis at L3-4 with buckling of the cauda equina concerning for impingement . Correlate clinically. 4. Severe multilevel neural foraminal narrowing as detailed above. Some degenerative changes asymmet asaf related to the presence of scoliosis. The report will be called/faxed according to standard departmental protocol. ACT 112: Negative or not required by law. Electronically signed by: Stanton Del Rio M.D. 06/12/2019 10:44 PM
--- NOTE | 2019-06-12 22:54 | Electrocardiogram Report ---
Test Reason : Blood Pressure : / mmHG Vent. Rate : 077 BPM Atrial Rate : 079 BPM P-R Int : 000 ms QRS Dur : 120 ms QT Int : 372 ms P-R-T Axes : 000 -61 077 degrees QTc Int : 420 ms Atrial fibrillation Left axis deviation Anterior infarct (cited on or before 22-OCT-2013) Abnormal ECG When compared with ECG of 17-DEC-2014 14:27, No significant change was found Confirmed by Faizan Maki ([id number]) on 06/12/2019 10:54:35 PM Referred By: REFERRED SELF Confirmed By:Faizan Maki
[2019-06-13 05:56] LABS: Hematocrit (blood only) 33.5 % (42-52); Hemoglobin 11.4 g/dL (14.0-18.0); Mean Corpuscular Hemoglobin 33.1 pg (25-34); Mean Corpuscular Volume 97.4 fL (80-100); Platelet Count 113 K/uL (130-400); RDW Coefficient of Variation 13.4 % (11.5-14.5); RDW Standard Deviation 48.1 fL (36.4-46.3); Red Blood Count 3.44 M/uL (4.7-6.1)
[2019-06-13 06:09] LABS: Prothrombin Time 28.2 Seconds (9.0-12.0)
[2019-06-13 06:27] LABS: Calcium 8.7 mg/dl (8.5-10.1); Creatinine Clr Calc Pharmacy 48.4 ml/min; Est GFR (African American) 71.1; Est GFR (Non-African American) 61.3; Potassium 3.8 mmol/L (3.5-5.1)
[2019-06-13] MEDS: BACLOFEN 10 MG TAB PO SCH ×3 (07:45→20:21)
[2019-06-13] MEDS: GABAPENTIN 100 MG CAP PO SCH ×3 (07:45→20:23)
--- NOTE | 2019-06-13 11:05 | Orthopedic Consultation ---
Date of Consultation June 13, 2019 Assessment & Plan (1) Right rotator cuff tear: Effusion noted on MRI with the rotator cuff tear. This is likely a hemarthrosis secondary to his supra therapeutic INR. Continue sling of right upper extremity. We discussed that he would have to watch the swelling of his right shoulder and make sure is not increasing. Ice to right shoulder to help with discomfort and any further swelling that may occur. Range of motion of the wrist and elbow can be performed and the sling can be adjusted as needed. Patient currently has pain medications written for. Consider Lidoderm patch as well. He will need to follow-up with Dr. [facility] to discuss possible repair of his rotator cuff tear. If he can tolerate it, he can use a platform walker for ambulation versus a hemiwalker of which I think they have been attempting. We will plan to get an x-ray of his right knee. Assuming he has some history of DJD of the knee and patient states he has a history of gout. However at this time, he is having minimal pain at this time. His effusion is not tense and I do not feel aspiration is warranted at this time. He does have a noted increase in his white count but with his current shoulder injury and his knee otherwise appearing totally benign I do not believe infection is involved. He can be weightbearing as tolerated on his right lower extremity. With his ambulatory dysfunction and frequent falls, I will ask Dr. Lennon to review his MRI of his lumbar spine films which show severe spinal canal narrowing at L3-L4 and severe foraminal narrowing. Supervising Physician Co-Signing Physician Notes Patient seen and examined, agree with above assessment and plan. ice/elevation right knee and ice to right shoulder, lidoderm path, PT/OT, follow up as outpatient with Dr. Guzman or Dr. Silvestre, who the patient has seen in the past, . Patient will likely benefit from conservative treatment at this time vs reverse TSA, can discuss options further as outpatient. Thank you for the consultation. History of Present Illness Reason for Consultation: Right shoulder pain; right knee pain. Attending Physician: Viridiana Rivera MD History of Present Illness Patient is a 83-year-old white male who states he had a fall at home in his living room earlier in the week. Patient has been having ambulatory dysfunction over period of time with weakness and multiple falls. After his latest fall, he had moderate right shoulder pain to the point where he wanted to be evaluated. He went to [facility] to be seen and was seen by Dr. Patel. Plain films were ordered and showed no fracture or dislocation. Patient was started on conservative care and sling to the right upper extremity with plans for MRI. Patient also states that he has been having knee pain in the right knee for some time. He states that overall, that the knee has been feeling better of recent. Patient denies any severe low back pain of recent. He has a history of scoliosis and states that he has had low back problems for years. This does not seem to be accentuated other than he is now having more weakness at times and ambulatory dysfunction. We have been asked to see him for his right shoulder and right knee pain. Allergies Allergy/AdvReac Type Severity Reaction Status Date / Time Penicillins Allergy Mild Rash Verified 06/11/19 17:31 fenofibrate Allergy Unknown MUSCLE Verified 06/11/19 17:31 WEAKNESS Home Medications Home Medications Medication Instructions Recorded Confirmed Type lidocaine 5 % topical patch 1 patch TOPICAL DAILY PRN ea 01/29/19 06/11/19 History aspirin 81 mg PO QPM 06/11/19 06/11/19 History atorvastatin 40 mg PO QPM 06/11/19 06/11/19 History baclofen 10 mg PO TID 06/11/19 06/11/19 History digoxin 250 mcg PO QPM 06/11/19 06/11/19 History duloxetine 20 mg PO QPM 06/11/19 06/11/19 History gabapentin 100 mg PO TID 06/11/19 06/11/19 History lisinopril 2.5 mg PO QPM 06/11/19 06/11/19 History metoprolol succinate [Toprol XL] 25 mg PO QPM 06/11/19 06/11/19 History multivitamin 1 tab PO QPM 06/11/19 06/11/19 History niacin [Niaspan Extended-Release] 1,000 mg PO QPM 06/11/19 06/11/19 History tramadol 50 mg PO TID PRN 06/11/19 06/11/19 History warfarin See Rx Instructions .ROUTE .COMPLEX 06/11/19 06/11/19 History Patient History Medical History Aphasia (Acute 10/22/13) Atrial fibrillation (Chronic) Back pain, chronic (Chronic) DJD of shoulder (Acute) History of prostate cancer (Chronic) Hyperlipemia (Chronic) Mitral regurgitation (Chronic) Systolic CHF, chronic (Chronic) "LVEF 35%" TIA (transient ischemic attack) (Acute) Surgical History History of arthroplasty of left shoulder Family History Other Family history non-contributory Social History Preferred Language: [place]an Communication Ability: Effective Nursing Teacher Required: No Beliefs That Will Affect Care: None Current Living Situation: Spouse Other Information That Helps Us Care for You: No Feels Safe at Home: Yes Safety Concerns: Feels Safe At This Time Smoking Status: Never smoker Hx Alcohol Use: Yes Alcohol type: wine Hx Substance Use: No Physical Exam Physical Exam: Patient is an elderly white male who appears his stated age. He is awake and alert and oriented x3. Pleasant and cooperative. No acute distress. He is currently sitting up in bed talking with company. Focusing the initial exam on his right shoulder, he is in a sling at this point time which is left on. He has some notable swelling of the right shoulder compared to the left. I can notice some bruising of the anterior portion of the shoulder. He is tender on palpation throughout most of the shoulder exam. He has limited range of motion at this time due to pain in the right shoulder. He has good range of motion of his right elbow and is nontender. Right wrist,hand, and fingers are within normal limits as far as range of motion. He states that sensation is essentially intact however that he has some slight numbness and t ingling in his thumb compared to the left. Capillary refill is less than 2 seconds. Examination of the right knee shows a moderate effusion but is not tense. Increased heat of the right knee compared to the left but not overtly so. He has no erythema at this time. He has minimal tenderness on palpation which is mostly over the lateral joint line. Range of motion is essentially within andre l limits. He has no overt pain with range of motion at this time. He has no complaints of the left lower extremity at this time. He is able to do straight leg raises of both lower extremities but is weaker on the left. There is no overt pain with straight leg raises in the low back area. He has no increased pain with either lower extremity consistent with shooting pains down the legs into his feet or decreased sensation. Calves are soft nontender. Results & Data Vital Signs (Past 12 Hours) Vital Signs Temp Pulse Resp BP Pulse Ox 06/13/19 07:01 36.5 C 103 H 18 143/73 H 93 06/12/19 23:19 37.2 C 128 H 18 91/52 L 95 Diagnostic Findings Patient: PRO SIEGEL Date: 06/12/19 MR#: [id number]: [address] Acct ID:[id number]: Date: 1935[facility] Zip: [place] [address] Age: 83Location: 4W Sex: M Room/Bed: [facility] Att Phy: Viridiana Rivera MDDiagnosis: RECURRENT FALLS Mariah Phy: Sandra Dahl MDService Date: 06/12/19 Fam Phy:Interpreting Phy: Stanton Del Rio MD Admit Phy: Delmar Landis MD Ordering Phy: Viridiana Rivera MD cc: ~ MR shoulder RT wo con CLINICAL HISTORY: 83 years-old Male presenting with right shoulder pain /possible rotator cuff injury. TECHNIQUE: Multisequence, multiplanar MR imaging of the right shoulder was performed without the use of intravenous contrast. IV contrast: None. COMPARISON: None. FINDINGS: Localizer images: Unremarkable. Bone marrow: Normal bone marrow signal intensity. No bony edema. Extensive cystic change of the rotator cuff insertional footplate. Articular cartilage: Diffuse thinning of articular cartilage. No significant osteophytosis at the glenohumeral joint. Labrum: Diffuse blunting of the glenoid labrum. Extensive tears of the superior labrum extending from anterior to posterior. Biceps and triceps tendons: Long head of the biceps tendon intact apart from the biceps-labral complex, which appears distorted, amorphous, and torn. Long head of the biceps medially subluxed in the superior portion of the intertubercular groove though well seated more inferiorly. Short head of the biceps tendon intact. Rotator cuff: Complete tear of the supraspinatus with significant fraying and retraction of fibers. The tendon gap measures at least 2 cm. Full-thickness tear of the anterior to mid fibers of the infraspinatus with a prominent intralaminar extension of the tear extending to the myotendinous junction. Teres minor tendon intact. Full-thickness tear of the superior fibers of the subscapularis. The mid to inferior fibers are grossly intact. Acromioclavicular joint: Widening of the AC joint with fluid within the joint. Fluid may be secondary. Underlying degenerative change. Shoulder joint effusion: Large glenohumeral joint effusion. Significant fluid in the subacromial-subdeltoid bursa. Muscle: Diffuse muscle atrophy. Diffuse muscle edema is also evident. Superficial soft tissue: Superficial edema along the superior aspect of the shoulder. IMPRESSION: 1. Complete tear of the supraspinatus tendon. 2. Full-thickness tear of the superior portion of the subscapularis tendon. 3. Full-thickness tear of the anterior fibers of the infraspinatus with intralaminar extension to the myotendinous junction. 4. Use muscle atrophy and edema. 5. Large glenohumeral joint effusion, which is the likely cause of the extensive surrounding fluid including fluid which distends the AC joint. 6. SLAP tear. 7. Additional findings as above. MR lumbar spine wo/w con CLINICAL HISTORY: 83 years-old Male presenting with low back pain with radiation to bilateral thighs, history of scoliosis, fall on Monday. TECHNIQUE: Multisequence, multiplanar MR imaging of the lumbar spine was performed before and after the administration of intravenous contrast. IV contrast: 8 mL of Gadavist. COMPARISON: CT on 06/11/2019. FINDINGS: Localizer images: Moderate dextroscoliosis centered at L3. Hepatic and renal cysts noted. Moderate dextroscoliosis of the lumbar spine centered at L3 (36 degrees). This results in asymmetric multilevel degenerative changes and degrades evaluation. Lordosis is otherwise maintained. Vertebral bodies demonstrate slight asymmetric height loss due to scoliotic curvature. Mild fatty and edematous endplate changes at L1-2 on a degenerative basis. No bony edema elsewhere. No evidence of a fracture. Diffuse intervertebral disc desiccation with asymmetric height loss due to scoliosis. A level by level analysis is further detail below: L1-2: Disc bulge, facet arthropathy, and mild ligamentum flavum thickening. Moderate effacement of the ventral thecal sac. Moderate to severe bilateral neural foraminal narrowing. L2-3: Disc bulge eccentrically worse along the posterior left lateral aspect. Mild right and severe left neural foraminal narrowing. Suspected mass effect on the exiting left L2 nerve root. L3-4: Disc osteophyte complex, advanced facet arthropathy, ligamentum flavum thickening result in severe circumferential effacement of the thecal sac. No re sidual CSF. Severe bilateral neural foraminal narrowing with suspected mass effect on the exiting L3 nerve roots. L4-5: Disc osteophyte complex and advanced facet arthropathy. Circumferential effacement of the ventral thecal sac. Severe bilateral neural foraminal narrowing with suspected mass effect on the exiting L4 nerve roots. L5-S1: Disc bulge results in mild effacement of the ventral thecal sac. Mild right. Moderate to severe right and mild to moderate left neural foraminal narrowing. Spinal cord terminates in good position at T12. Cauda equina buckling may be present. No evidence of an epidural collection or mass. No abnormal enhancement of the nerve roots. No paraspinal muscle edema. Visualized portion of the sacrum intact. No abnormal enhancement apart from mild enhancement associated with degenerative change. Flow voids within the vasculature preserved. Remainder the visualized soft tissues are unremarkable for age-related muscle atrophy renal cysts. IMPRESSION: 1. Moderate dextroscoliosis with resultant severe multilevel degenerative changes. 2. No acute osseous injury. 3. Severe spinal canal stenosis at L3-4 with buckling of the cauda equina concerning for impingement. Correlate clinically. 4. Severe multilevel neural foraminal narrowing as detailed above. Some degenerative changes asymmetric related to the presence of scoliosis. The report will be called/faxed according to standard departmental protocol. ACT 112: Negative or not required by law. Electronically signed by: Stanton Del Rio M.D. 06/12/2019 10:44 PM
--- NOTE | 2019-06-13 12:09 | XRay Report ---
XR knee RT 3V CLINICAL HISTORY: right knee pain COMPARISON STUDY: None. FINDINGS: No fracture or dislocation within the right knee. Extensive chondrocalcinosis. [id number]-[id number] rate tricompartmental cartilage space narrowing with tiny marginal osteophytes. This is consistent wi th osteoarthritis. Vascular calcifications are noted. Small knee effusion. IMPRESSION: 1. No fractures within the right knee. 2. Mild to moderate tricompartmental osteoarthritis. 3. Chondrocalcinosis. 4. Small knee effusion. ACT 112: Negative or not required by law. Electronically signed by: Girma Ashton M.D. 06/13/2019 12:08 PM
[2019-06-13] MEDS: LIDOCAINE 5% 1 PATCH TD SCH (12:47)
[2019-06-13] MEDS: OXYCODONE HCL IR 5 MG TAB (IMMEDIATE RELEASE) PO PRN ×2 (12:47→20:22)
[2019-06-13] MEDS ORDERED: PHYTONADIONE 5 MG TAB PO STA (14:12)
--- NOTE | 2019-06-13 15:05 | Consultation ---
Date of Consultation June 13, 2019 Assessment & Plan (1) Bilateral leg weakness: Had a very long discussion with the patient reviewing his MRI findings as well as clinical status. Dr. Lennon has also reviewed the images. Options have been reviewed including very conservative treatment versus ultimately surgical intervention. Surgical intervention would be quite extensive in nature. His predominant pain currently is the right shoulder. He remains extremely active despite his impressive lumbar MRI findings. He is currently not interested in pursuing any type of surgical intervention. We will continue current activity level. We will follow-up with an as-needed basis. Supervising Physician Co-Signing Physician Notes Dr. Santy Lennon History of Present Illness Pro is a very pleasant 83-year-old gentleman that we are asked to see in consultation regarding his lumbar spine. He reports he has had issues with his lower back for the past 40 years. He is actually seen Dr. William Matos in [place] several years ago for his surgical opinion. At that point in time none was offered. He has managed conservatively. At home he takes tramadol, medical marijuana and occasional oxycodone. He has been extremely active and highly functional. He goes to the [facility] 2 hours a day several days a week. 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 He does report with any standing or walking after a few minutes he will have an onset of back pain that causes him to either sit or lean forward. Ambulates independently at home. Denies radicular leg pain. Does report bilateral lower extremity weakness. Denies bowel or bladder changes/dysfunction. Does report bilateral lower extremity heaviness as well. Patient does report currently most significant pain is his right shoulder. He suffered a fall rough at home roughly 2 weeks ago after his right lower extremity/knee gave out from him. He has had right knee pain since. Attending Physician: Viridiana Rivera MD Allergies Allergy/AdvReac Type Severity Reaction Status Date / Time Penicillins Allergy Mild Rash Verified 06/11/19 17:31 fenofibrate Allergy Unknown MUSCLE Verified 06/11/19 17:31 WEAKNESS Home Medications Home Medications Medication Instructions Recorded Confirmed Type lidocaine 5 % topical patch 1 patch TOPICAL DAILY PRN ea 01/29/19 06/11/19 History aspirin 81 mg PO QPM 06/11/19 06/11/19 History atorvastatin 40 mg PO QPM 06/11/19 06/11/19 History baclofen 10 mg PO TID 06/11/19 06/11/19 History digoxin 250 mcg PO QPM 06/11/19 06/11/19 History duloxetine 20 mg PO QPM 06/11/19 06/11/19 History gabapentin 100 mg PO TID 06/11/19 06/11/19 History lisinopril 2.5 mg PO QPM 06/11/19 06/11/19 History metoprolol succinate [Toprol XL] 25 mg PO QPM 06/11/19 06/11/19 History multivitamin 1 tab PO QPM 06/11/19 06/11/19 History niacin [Niaspan Extended-Release] 1,000 mg PO QPM 06/11/19 06/11/19 History tramadol 50 mg PO TID PRN 06/11/19 06/11/19 History warfarin See Rx Instructions .ROUTE .COMPLEX 06/11/19 06/11/19 History Patient History Medical History Aphasia (Acute 10/22/13) Atrial fibrillation (Chronic) Back pain, chronic (Chronic) DJD of shoulder (Acute) History of prostate cancer (Chronic) Hyperlipemia (Chronic) Mitral regurgitation (Chronic) Systolic CHF, chronic (Chronic) "LVEF 35%" TIA (transient ischemic attack) (Acute) Surgical History History of arthroplasty of left shoulder Family History Other Family history non-contributory Social History Preferred Language: Spanish Communication Ability: Effective 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 Alert and oriented x3. Right shoulder is in a sling. He reports he is unable to stand and walk around due to loss of balance around the room. Strength is 5 5 bilateral EHL, dorsiflexion, plantarflexion, quadriceps, hamstrings, hip flexors, hip abductor's and hip adductor's. Negative logrolling bilaterally. Negative tension signs bilaterally. No evidence of ankle clonus bilaterally. Constitutional: WD/WN, vitals as above Eyes: normal visual borrego by confrontation ENMT: external ear and nose normal, oropharynx normal Neck: normal visual inspection Respiratory: normal respiratory effort Cardiovascular: Extremities: normal capillary refill Gastrointestinal (Abdomen): Inspection/Auscultation: abdomen normal to inspection Musculoskeletal: Extremities: strength 5/5 throughout Skin: no rashes, warm and dry Neurologic: normal touch/pain/proprioception, deep tendon reflexes 2+ bilaterally and moves all extremities Psychiatric: A+Ox3, euthymic affect Results & Data Vital Signs (Past 12 Hours) Vital Signs Temp Pulse Resp BP Pulse Ox 06/13/19 07:01 36.5 C 103 H 18 143/73 H 93 Diagnostic Findings Magnetic Resonance Report Patient: PRO SIEGEL Date: 06/12/19 MR#: [id number]: [id number] [facility] Acct ID:[id number]: Date: [address] [place] [address] Zip: [place] [address] Age: 83Location: 4W Sex: M Room/Bed: [facility] Att Phy: Viridiana Rivera MDDiagnosis: RECURRENT FALLS Mariah Phy: Sandra Dahl MDService Date: 06/12/19 Fam Phy:Interpreting Phy: Stanton Del Rio MD Admit Phy: Delmar Landis MD Ordering Phy: Viridiana Rivera MD cc: ~ MR lumbar spine wo/w con CLINICAL HISTORY: 83 years-old Male presenting with low back pain with radiation to bilateral thighs, history of scoliosis, fall on Monday. TECHNIQUE: Multisequence, multiplanar MR imaging of the lumbar spine was performed before and after the administration of intravenous contrast. IV contrast: 8 mL of Gadavist. COMPARISON: CT on 06/11/2019. FINDINGS: Localizer images: Moderate dextroscoliosis centered at L3. Hepatic and renal cysts noted. Moderate dextroscoliosis of the lumbar spine centered at L3 (36 degrees). This results in asymmetric multilevel degenerative changes and degrades evaluation. Lordosis is otherwise maintained. Vertebral bodies demonstrate slight asymmetric height loss due to scoliotic curvature. Mild fatty and edematous endplate changes at L1-2 on a degenerative basis. No bony edema elsewhere. No evidence of a fracture. Diffuse intervertebral disc desiccation with asymmetric height loss due to scoliosis. A level by level analysis is further detail below: L1-2: Disc bulge, facet arthropathy, and mild ligamentum flavum thickening. Moderate effacement of the ventral thecal sac. Moderate to severe bilateral neural foraminal narrowing. L2-3: Disc bulge eccentrically worse along the posterior left lateral aspect. Mild right and severe left neural foraminal narrowing. Suspected mass effect on the exiting left L2 nerve root. L3-4: Disc osteophyte complex, advanced facet arthropathy, ligamentum flavum thickening result in severe circumferential effacement of the thecal sac. No residual CSF. Severe bilateral neural foraminal narrowing with suspected mass effect on the exiting L3 nerve roots. L4-5: Disc osteophyte complex and advanced facet arthropathy. Circumferential effacement of the ventral thecal sac. Severe bilateral neural foraminal narrowing with suspected mass effect on the exiting L4 nerve roots. L5-S1: Disc bulge results in mild effacement of the ventral thecal sac. Mild right. Moderate to severe right and mild to moderate left neural foraminal narrowing. Spinal cord terminates in good position at T12. Cauda equina buckling may be present. No evidence of an epidural collection or mass. No abnormal enhancement of the nerve roots. No paraspinal muscle edema. Visualized portion of the sacrum intact. No abnormal enhancement apart from mild enhancement associated with degenerative change. Flow voids within the vasculature preserved. Remainder the visualized soft tissues are unremarkable for age-related muscle atrophy renal cysts. IMPRESSION: 1. Moderate dextroscoliosis with resultant severe multilevel degenerative changes. 2. No acute osseous injury. 3. Severe spinal canal stenosis at L3-4 with buckling of the cauda equina concerning for impingement. Correlate clinically. 4. Severe multilevel neural foraminal narrowing as detailed above. Some degenerative changes asymmetric related to the presence of scoliosis. The report will be called/faxed according to standard departmental protocol. ACT 112: Negative or not required by law. Electronically signed by: Stanton Del Rio M.D. 06/12/2019 10:44 PM Dictated: 06/12/19 2232
[2019-06-13] MEDS: TRAMADOL HCL 50 MG TABLET PO PRN (15:17)
--- NOTE | 2019-06-13 17:00 | Hospitalist Progress Note ---
Date of Service June 13, 2019 Assessment & Plan (1) Recurrent falls: at baseline pt was very active at least few weeks back was going to [place] developed severe pain on rt knee last week -made him off balance and fall landing on rt shoulder pt has severe scoliosis , usually puts weight on his rt lower ext to ambulate was seen at [facility] office , Xray of shoulder showed no fracture -per pt admitted with worsening of ambulatory dysfunction , appreciate input from PT/OT recommends rehab -referral made to [facility] RIGHT SHOULDER PAIN : recent fall on rt side has limited ROM on rt arm /on sling MRI of rt shoulder: 1. Complete tear of the supraspinatus tendon. 2. Full-thickness tear of the superior portion of the subscapularis tendon. 3. Full-thickness tear of the anterior fibers of the infraspinatus with intralaminar extension to the myotendinous junction. 4. Use muscle atrophy and edema. 5. Large glenohumeral joint effusion, which is the likely cause of the extensive surrounding fluid including fluid which distends the AC joint. Appreciate input from orthopedics, patient has significant rotator cuff injury, Recommend conservative management with sling, ice application to prevent any further swelling Outpatient follow-up with Dr. mcdowell at [facility] to discuss possible surgical repair of his right third rotator cuff tear Right shoulder hemarthrosis MRI showed large glenohumeral joint effusion Patient had a recent fall with injury to right shoulder INR has been elevated more than 3 Coumadin has been kept on hold, ordered for p.o. vitamin K Stop aspirin 81 mg daily Continue to monitor clinically, Expect to be spontaneous resolution of hemarthrosis Needs to be off anticoagulation for at least several weeks LOW BACK PAIN WITH RADIATION TO LOWER EXT : ct of lumber spine : severe DJD /scoliosis MRI of lumber spine shows severe multilevel DJD with spinal stenosis compression to cauda equina Appreciate input from spinal orthopedics Patient is very reluctant for any surgical procedure, recommend conservative approach with PT OT outpatient follow-up (2) Bilateral leg weakness: Secondary to significant lumbar spinal stenosis Ortho eval appreciated, patient was seen by Dr. Lennon Patient still reluctant for any surgical procedure, conservative management with PT OT (3) Supratherapeutic INR: HX of Afib on coumadin INR >4 no bleeding episode Coumadin on hold ordered to hold Aspirin MRI of shoulder shows evidence of hematoma , ordered for vitamin K repeat INR in AM Disposition: Patient will need acute rehab on discharge from hospital, referral made to [facility] Subjective rt shoulder pain a bit better with pain medication has chronic low back pain , but tolerable appetite is the same no fever or chills Review of Systems Review of Systems: As per HPI, all 10 systems reviewed, all other ROS negative Musculoskeletal: + back pain, + joint pain (right shoulder pain ) and + limited range of motion (right shoulder ) Neurologic: + gait abnormality, + unsteadiness, + falls and + generalized weakness Physical Exam Constitutional: WD/WN, vitals as above + thin; no acute distress Eyes: PERRL, conjunctivae normal, anicteric sclerae ENMT: external ear and nose normal, oropharynx normal Neck: trachea midline, no thyromegaly Respiratory: normal respiratory effort, lungs clear to auscultation Cardiovascular: RRR, no murmur, no edema Gastrointestinal (Abdomen): normal bowel sounds, soft, nontender, no hepatosplenomegaly Musculoskeletal: Extremities: + joint enlargement (rt shoulder pain /+ tendernress ) Skin: no rashes, warm and dry Neurologic: PERRL, EOMI, accommodation nl, no face palsy, no dysarthria Psychiatric: A+Ox3, euthymic affect Results & Data Vital Signs (Past 12 Hours) Vital Signs Temp Pulse Resp BP Pulse Ox 06/13/19 15:08 36.6 C 101 H 18 130/81 93 06/13/19 07:01 36.5 C 103 H 18 143/73 H 93
[2019-06-13] MEDS: METOPROLOL SUCC 25MG EXT REL TAB PO SCH (20:21)
[2019-06-13] MEDS: DIGOXIN 0.25 MG TAB PO SCH (20:21)
[2019-06-13] MEDS: MULTIVITAMIN TAB PO SCH (20:21)
[2019-06-13] MEDS: ATORVASTATIN 40 MG TAB PO SCH (20:21)
[2019-06-13] MEDS: DULOXETINE HCL 20 MG CAP PO SCH (20:21)
[2019-06-13] MEDS: NIACIN EXTENDED REL 500 MG TABCR PO SCH (20:22)
[2019-06-14] MEDS: LIDOCAINE 5% 1 PATCH TD SCH (08:17)
[2019-06-14] MEDS: GABAPENTIN 100 MG CAP PO SCH ×3 (08:18→20:46)
[2019-06-14] MEDS: BACLOFEN 10 MG TAB PO SCH ×3 (08:18→20:45)
[2019-06-14] MEDS: TRAMADOL HCL 50 MG TABLET PO PRN (15:23)
[2019-06-14] MEDS: OXYCODONE HCL IR 5 MG TAB (IMMEDIATE RELEASE) PO PRN (15:24)
[2019-06-14 16:04] LABS: INR 1.3 (0.9-1.1); Prothrombin Time 13.2 Seconds (9.0-12.0)
[2019-06-14] MEDS ORDERED: WARFARIN SOD 1 MG TAB PO SCH (16:45)
--- NOTE | 2019-06-14 16:54 | Hospitalist Progress Note ---
Date of Service June 14, 2019 Assessment & Plan (1) Recurrent falls: Multifactorial, deconditioning after right rotator cuff injury, right shoulder pain Has severe spinal stenosis with chronic radicular pain, scoliosis at baseline pt was very active at least few weeks back was going to [place] developed severe pain on rt knee last week -made him off balance and fall landing on rt shoulder pt has severe scoliosis , usually puts weight on his rt lower ext to ambulate was seen at [facility] office , Xray of shoulder showed no fracture -per pt admitted with worsening of ambulatory dysfunction , appreciate input from PT/OT recommends rehab -referral made to [facility] Rotator cuff injury of right shoulder with hemarthrosis recent fall on rt side has limited ROM on rt arm /on sling MRI of rt shoulder: 1. Complete tear of the supraspinatus tendon. 2. Full-thickness tear of the superior portion of the subscapularis tendon. 3. Full-thickness tear of the anterior fibers of the infraspinatus with intralaminar extension to the myotendinous junction. 4. Use muscle atrophy and edema. 5. Large glenohumeral joint effusion, which is the likely cause of the extensive surrounding fluid including fluid which distends the AC joint. Appreciate input from orthopedics, patient has significant rotator cuff injury, Recommend conservative management with sling, ice application to prevent any further swelling Outpatient follow-up with Dr. Ibrahim at [facility] to discuss possible surgical repair of his right third rotator cuff tear Right shoulder hemarthrosis MRI showed large glenohumeral joint effusion Patient had a recent fall with injury to right shoulder INR has been elevated more than 3 Was given vitamin K, INR 1.3 subtherapeutic today Stop aspirin 81 mg daily EKG showed rate controlled A. 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 Citlalli Patient still reluctant for any surgical procedure, conservative management with PT OT Will need acute inpatient rehab (3) Supratherapeutic INR: Coumadin resumed on low-dose, as INR 1.3 Disposition: Patient will need acute rehab on discharge from hospital, referral made to [facility] Subjective Patient seen sitting on chair, More weak and tired today, Right shoulder pain bothering him more No fever or chills, No chest pain no shortness of breath appetite fair Review of Systems Review of Systems: As per HPI, all 10 systems reviewed, all other ROS negative Musculoskeletal: + back pain, + joint pain (right shoulder pain ) and + limited range of motion (right shoulder ) Neurologic: + unsteadiness, + falls and + generalized weakness Physical Exam Constitutional: WD/WN, vitals as above + thin; no acute distress Eyes: PERRL, conjunctivae normal, anicteric sclerae ENMT: external ear and nose normal, oropharynx normal Neck: trachea midline, no thyromegaly Respiratory: normal respiratory effort, lungs clear to auscultation Cardiovascular: RRR, no murmur, no edema Gastrointestinal (Abdomen): normal bowel sounds, soft, nontender, no hepatosplenomegaly Musculoskeletal: Extremities: + joint enlargement (rt shoulder pain /+ tendernress ) Skin: no rashes, warm and dry Neurologic: PERRL, EOMI, accommodation nl, no face palsy, no dysarthria Psychiatric: A+Ox3, euthymic affect Results & Data Vital Signs (Past 12 Hours) Vital Signs Temp Pulse Resp BP Pulse Ox 06/14/19 14:56 36.6 C 93 H 18 139/80 94 06/14/19 07:09 36.7 C 103 H 18 150/89 H 98
[2019-06-14] MEDS: ATORVASTATIN 40 MG TAB PO SCH (20:45)
[2019-06-14] MEDS: MULTIVITAMIN TAB PO SCH (20:45)
[2019-06-14] MEDS: DIGOXIN 0.25 MG TAB PO SCH (20:45)
[2019-06-14] MEDS: DULOXETINE HCL 20 MG CAP PO SCH (20:45)
[2019-06-14] MEDS: NIACIN EXTENDED REL 500 MG TABCR PO SCH (20:46)
[2019-06-14] MEDS: METOPROLOL SUCC 25MG EXT REL TAB PO SCH (20:46)
[2019-06-15] MEDS: TRAMADOL HCL 50 MG TABLET PO PRN (04:00)
[2019-06-15 06:40] LABS: INR 1.3 (0.9-1.1); Prothrombin Time 12.9 Seconds (9.0-12.0)
[2019-06-15] MEDS: LIDOCAINE 5% 1 PATCH TD SCH (08:42)
[2019-06-15] MEDS: GABAPENTIN 100 MG CAP PO SCH ×3 (08:43→20:14)
[2019-06-15] MEDS: BACLOFEN 10 MG TAB PO SCH ×3 (08:43→20:16)
--- NOTE | 2019-06-15 11:16 | Hospitalist Progress Note ---
Date of Service June 15, 2019 Assessment & Plan (1) Recurrent falls: RIGHT KNEE PAIN : possible acute gout attack rt knee + swelling, tenderness , and increased pain , and redness ordered for PO Prednisone symptomatic tx with ice pack , pain control wt bearing as tolerated RT SHOULDER ROTATOR CUFF INJURY : at baseline pt was very active at least few weeks back was going to [place] developed severe pain on rt knee last week( possible acute gout ) -made him off balance and fall landing on rt shoulder pt has severe scoliosis , usually puts weight on his rt lower ext to ambulate was seen at [facility] office , Xray of shoulder showed no fracture -per pt admitted with worsening of ambulatory dysfunction , appreciate input from PT/OT recommends rehab -referral made to [facility] Rotator cuff injury of right shoulder with hemarthrosis recent fall on rt side has limited ROM on rt arm /on sling MRI of rt shoulder: 1. Complete tear of the supraspinatus tendon. 2. Full-thickness tear of the superior portion of the subscapularis tendon. 3. Full-thickness tear of the anterior fibers of the infraspinatus with intralaminar extension to the myotendinous junction. 4. Use muscle atrophy and edema. 5. Large glenohumeral joint effusion, which is the likely cause of the extensive surrounding fluid including fluid which distends the AC joint. Appreciate input from orthopedics, patient has significant rotator cuff injury, Recommend conservative management with sling, ice application to prevent any further swelling Outpatient follow-up with Dr. Ibrahim at [facility] to discuss possible surgical repair of his right third rotator cuff tear Right shoulder hemarthrosis MRI showed large glenohumeral joint effusion Patient had a recent fall with injury to right shoulder INR has been elevated more than 3 Was given vitamin K, INR 1.3 EKG showed rate controlled A. 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 Lennon Patient still reluctant for any surgical procedure, conservative management with PT OT Will need acute inpatient rehab (3) Supratherapeutic INR: Coumadin resumed on low-dose, as INR 1.3 Disposition: Patient will need acute rehab on discharge from hospital, referral made to [facility] Subjective complains of rt knee pain legs are weak rt shoulder pain is much better , no pain at rest no fever or chills no other discomfort Physical Exam Constitutional: WD/WN, vitals as above + thin; no acute distress Eyes: PERRL, conjunctivae normal, anicteric sclerae normal visual borrego by confrontation ENMT: external ear and nose normal, oropharynx normal Neck: trachea midline, no thyromegaly normal visual inspection Respiratory: normal respiratory effort, lungs clear to auscultation normal respiratory effort Cardiovascular: RRR, no murmur, no edema Extremities: normal capillary refill Gastrointestinal (Abdomen): normal bowel sounds, soft, nontender, no hepatosplenomegaly Inspection/Auscultation: abdomen normal to inspection Musculoskeletal: Extremities: + joint enlargement (rt shoulder pain /+ tendernress ) and strength 5/5 throughout Skin: no rashes, warm and dry Neurologic: PERRL, EOMI, accommodation nl, no face palsy, no dysarthria normal touch/pain/proprioception, deep tendon reflexes 2+ bilaterally and moves all extremities Psychiatric: A+Ox3, euthymic affect Results & Data Vital Signs (Past 12 Hours) Vital Signs Temp Pulse Resp BP Pulse Ox 06/15/19 07:31 36.7 C 67 18 121/72 92 06/14/19 23:15 37 C 98 H 20 95
[2019-06-15] MEDS ORDERED: predniSONE 20 MG TAB PO STA (11:29)
[2019-06-15] MEDS ORDERED: KETOROLAC TROMETHAMINE 15 MG/ML VIAL IV ONE (11:29)
[2019-06-15] MEDS ORDERED: KETOROLAC TROMETHAMINE 15 MG/ML VIAL IV PRN (11:33)
[2019-06-15] MEDS: WARFARIN SOD 2 MG TAB PO SCH (16:14)
[2019-06-15] MEDS: DIGOXIN 0.25 MG TAB PO SCH (20:09)
[2019-06-15] MEDS: ATORVASTATIN 40 MG TAB PO SCH (20:09)
[2019-06-15] MEDS: NIACIN EXTENDED REL 500 MG TABCR PO SCH (20:13)
[2019-06-15] MEDS: DULOXETINE HCL 20 MG CAP PO SCH (20:14)
[2019-06-15] MEDS: METOPROLOL SUCC 25MG EXT REL TAB PO SCH (20:14)
[2019-06-15] MEDS: MULTIVITAMIN TAB PO SCH (20:14)
[2019-06-16] MEDS: TRAMADOL HCL 50 MG TABLET PO PRN (02:35)
--- NOTE | 2019-06-16 06:10 | Ultrasound Report ---
BILATERAL LOWER EXTREMITY VENOUS DOPPLER HISTORY: Acute bilateral lower extremity pain leg pain , subtheraputic INR COMPARISON STUDY: None. FINDINGS: There is normal compressibility, flow, and augmentation within the bilateral lower extremit y deep venous systems. IMPRESSION: No DVT within the right or left lower extremity. ACT 112: Negative or not required by law. Electronically signed by: Nael Baltazar M.D. 06/16/2019 6:08 AM
--- NOTE | 2019-06-16 06:11 | Ultrasound Report ---
US venous doppler UE RT HISTORY: 83 years-old Male rt arm pain and swelling acute pain and swelling of the right upper extre mity COMPARISON: None available TECHNIQUE: Multiple real-time sonographic images of the right upper extremity deep venous structures were obtained assessing grayscale appearance, color and spectral flow FINDINGS: Normal flow, compressibility and phasicity of the right upper extremity deep venous structures. Mild nonspecific subcutaneous edema. IMPRESSION: No sonographic evidence of deep venous thrombosis. ACT 112: Negative or not required by law. The above report was generated using voice recognition software. It may contain grammatical, syntax o r spelling errors. Electronically signed by: Nael Baltazar M.D. 06/16/2019 6:10 AM
[2019-06-16 07:27] LABS: Hematocrit (blood only) 34.1 % (42-52); Hemoglobin 11.7 g/dL (14.0-18.0); Immature Granulocytes # (auto) 0.06 K/uL (0.00-0.02); Immature Granulocytes % (auto) 0.4 %; Lymphocytes # (auto) 0.49 K/uL (1.2-3.4); Lymphocytes % (auto) 3.3 %; Mean Corpuscular Hemoglobin 33.4 pg (25-34); Mean Corpuscular Hgb Conc 34.3 g/dL (32-36); Mean Corpuscular Volume 97.4 fL (80-100); Mean Platelet Volume 10.2 fL (7.4-10.4); Monocytes # (auto) 1.68 K/uL (0.11-0.59); Monocytes % (auto) 11.3 %; Neutrophils # (auto) 12.58 K/uL (1.4-6.5); Platelet Count 179 K/uL (130-400); RDW Coefficient of Variation 13.2 % (11.5-14.5); RDW Standard Deviation 46.8 fL (36.4-46.3); White Blood Count 14.81 K/uL (4.8-10.8)
[2019-06-16] MEDS: allopurinoL 100 MG TAB PO SCH (07:35)
[2019-06-16] MEDS: predniSONE 20 MG TAB PO SCH (07:35)
[2019-06-16] MEDS: GABAPENTIN 100 MG CAP PO SCH ×3 (07:35→20:08)
[2019-06-16 07:37] LABS: INR 1.6 (0.9-1.1); Prothrombin Time 16.1 Seconds (9.0-12.0)
[2019-06-16] MEDS: BACLOFEN 10 MG TAB PO SCH ×3 (09:09→20:10)
[2019-06-16] MEDS: LIDOCAINE 5% 1 PATCH TD SCH (09:10)
--- NOTE | 2019-06-16 10:59 | Hospitalist Progress Note ---
Date of Service June 16, 2019 Assessment & Plan (1) Recurrent falls: RIGHT KNEE PAIN : Improved after starting on p.o. prednisone possible acute gout attack rt knee + swelling, tenderness , and increased pain , and redness Started on allopurinol symptomatic tx with ice pack , pain control wt bearing as tolerated RT SHOULDER ROTATOR CUFF INJURY : Pain has improved somewhat at baseline pt was very active at least few weeks back was going to [place] developed severe pain on rt knee last week( possible acute gout ) -made him off balance and fall landing on rt shoulder pt has severe scoliosis , usually puts weight on his rt lower ext to ambulate was seen at [facility] office , Xray of shoulder showed no fracture -per pt admitted with worsening of ambulatory dysfunction , appreciate input from PT/OT recommends rehab -referral made to rehab-given patient's limitation of right s houlder movement skilled rehab would be appropriate Rotator cuff injury of right shoulder with hemarthrosis recent fall on rt side has limited ROM on rt arm /on sling MRI of rt shoulder: 1. Complete tear of the supraspinatus tendon. 2. Full-thickness tear of the superior portion of the subscapularis tendon. 3. Full-thickness tear of the anterior fibers of the infraspinatus with intralaminar extension to the myotendinous junction. 4. Use muscle atrophy and edema. 5. Large glenohumeral joint effusion, which is the likely cause of the extensive surrounding fluid including fluid which distends the AC joint. Appreciate input from orthopedics, patient has significant rotator cuff injury, Recommend conservative management with sling, ice application to prevent any further swelling Outpatient follow-up with Dr. Ibrahim at [facility] to discuss possible surgical repair of his right third rotator cuff tear Right shoulder hemarthrosis MRI showed large glenohumeral joint effusion Patient had a recent fall with injury to right shoulder INR has been elevated more than 3 Was given vitamin K, INR 1.3 EKG showed rate controlled A. 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 Lennon Patient still reluctant for any surgical procedure, conservative management with PT OT Will need skilled rehab Lower extremity Doppler negative for DVT (3) Supratherapeutic INR: Presented with elevated INR more than 4 Even vitamin K, Was found to be subtherapeutic 1.3, low-dose Coumadin resumed INR 1.6 now, goal 23 No bridge therapy with IV heparin is recommended secondary large right shoulder hemarthrosis Disposition: Will need to skilled rehab, referral made to [facility] Subjective left knee pain has improved markedly, Minimal swelling, redness Minimal pain and tenderness on right shoulder as well No cough no fever or chills Improvement of swelling of right hand and right arm Doppler of right arm no DVT bilateral lower extremity Doppler negative for DVT as Review of Systems Review of Systems: All systems reviewed & are unremarkable except as noted in HPI & below Musculoskeletal: + joint pain (Improved left knee pain) and + limited range of motion (On right shoulder secondary to rotator cuff injury) Physical Exam Constitutional: WD/WN, vitals as above + thin; no acute distress Eyes: PERRL, conjunctivae normal, anicteric sclerae ENMT: external ear and nose normal, oropharynx normal Neck: trachea midline, no thyromegaly normal visual inspection Respiratory: normal respiratory effort, lungs clear to auscultation Cardiovascular: RRR, no murmur, no edema Gastrointestinal (Abdomen): normal bowel sounds, soft, nontender, no hepatosplenomegaly Inspection/Auscultation: abdomen normal to inspection Musculoskeletal: Extremities: + joint enlargement (rt shoulder pain /+ tendernress ) Skin: no rashes, warm and dry Neurologic: PERRL, EOMI, accommodation nl, no face palsy, no dysarthria Psychiatric: A+Ox3, euthymic affect Results & Data Vital Signs (Past 12 Hours) Vital Signs Temp Pulse Resp BP Pulse Ox 06/16/19 07:28 36.8 C 68 18 137/82 98
[2019-06-16] MEDS: WARFARIN SOD 2 MG TAB PO SCH (16:33)
[2019-06-16] MEDS: NIACIN EXTENDED REL 500 MG TABCR PO SCH (20:05)
[2019-06-16] MEDS: DIGOXIN 0.25 MG TAB PO SCH (20:05)
[2019-06-16] MEDS: METOPROLOL SUCC 25MG EXT REL TAB PO SCH (20:05)
[2019-06-16] MEDS: MULTIVITAMIN TAB PO SCH (20:05)
[2019-06-16] MEDS: ATORVASTATIN 40 MG TAB PO SCH (20:05)
[2019-06-16] MEDS: DULOXETINE HCL 20 MG CAP PO SCH (20:08)
[2019-06-16] MEDS: OXYCODONE HCL IR 5 MG TAB (IMMEDIATE RELEASE) PO PRN (20:10)
[2019-06-17 06:21] LABS: INR 2.2 (0.9-1.1); Prothrombin Time 21.2 Seconds (9.0-12.0)
[2019-06-17] MEDS: LIDOCAINE 5% 1 PATCH TD SCH (08:08)
[2019-06-17] MEDS: GABAPENTIN 100 MG CAP PO SCH ×3 (08:09→20:07)
[2019-06-17] MEDS: allopurinoL 100 MG TAB PO SCH (08:09)
[2019-06-17] MEDS: predniSONE 20 MG TAB PO SCH (08:09)
[2019-06-17] MEDS: BACLOFEN 10 MG TAB PO SCH ×3 (08:24→20:03)
--- NOTE | 2019-06-17 11:04 | Hospitalist Progress Note ---
Date of Service June 17, 2019 Assessment & Plan (1) Recurrent falls: RIGHT KNEE PAIN : Symptom has resolved, able to participate in occupational therapy able to get out of bed and managed to ambulate without significant pain or discomfort or gait instability Severe acute right knee pain: Possible acute gout attack : Symptom resolved after steroids rt knee + swelling, tenderness , and increased pain , and redness Started on allopurinol for chronic prophylaxis Rotator cuff injury of right shoulder with hemarthrosis recent fall on rt side has limited ROM on rt arm /on sling MRI of rt shoulder: 1. Complete tear of the supraspinatus tendon. 2. Full-thickness tear of the superior portion of the subscapularis tendon. 3. Full-thickness tear of the anterior fibers of the infraspinatus with intralaminar extension to the myotendinous junction. 4. Use muscle atrophy and edema. 5. Large glenohumeral joint effusion, which is the likely cause of the extensive surrounding fluid including fluid which distends the AC joint. Appreciate input from orthopedics, Recommend conservative management with sling, ice application to prevent any further swelling Likely has improved, will need rehab Outpatient follow-up with Dr. 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 Lennon Will need skilled rehab Lower extremity Doppler negative for DVT (3) Supratherapeutic INR: Presented with elevated INR more than 4 Even vitamin K, Was found to be subtherapeutic 1.3, low-dose Coumadin resumed INR therapeutic Disposition: Will need to skilled rehab, referral made to [facility] She is medically stable to be transition to rehab when insurance authorization, rehab bed available available Subjective Does not have any right knee pain, able to participate in occupational therapy, able to be out of bed and bear weight, Shoulder pain has improved, Patient is very happy with his to this performance of PT OT, He encouraged that he can do weightbearing, does not have bilateral lower extremity weakness Review of Systems Review of Systems: All systems reviewed & are unremarkable except as noted in HPI & below Physical Exam Constitutional: WD/WN, vitals as above + thin; no acute distress Eyes: PERRL, conjunctivae normal, anicteric sclerae normal visual borrego by confrontation ENMT: external ear and nose normal, oropharynx normal Neck: trachea midline, no thyromegaly normal visual inspection Respiratory: normal respiratory effort, lungs clear to auscultation normal respiratory effort Cardiovascular: RRR, no murmur, no edema Extremities: normal capillary refill Gastrointestinal (Abdomen): normal bowel sounds, soft, nontender, no hepatos plenomegaly Inspection/Auscultation: abdomen normal to inspection Musculoskeletal: Extremities: + joint enlargement (Right knee pain improved, able to bear weight, resolution of swelling tenderness) Skin: no rashes, warm and dry Neurologic: PERRL, EOMI, accommodation nl, no face palsy, no dysarthria normal touch/pain/proprioception, deep tendon reflexes 2+ bilaterally and moves all extremities Psychiatric: A+Ox3, euthymic affect Results & Data Vital Signs (Past 12 Hours) Vital Signs Temp Pulse Resp BP Pulse Ox 06/17/19 07:41 36.3 C L 88 18 125/70 95
[2019-06-17] MEDS ORDERED: methylPREDNISolone 4 MG TAB, 6 DAY TAPER PO SCH (14:45)
[2019-06-17] MEDS ORDERED: WARFARIN SOD 0.5 MG TAB PO SCH (16:00)
[2019-06-17] MEDS: TRAMADOL HCL 50 MG TABLET PO PRN (20:02)
[2019-06-17] MEDS: ATORVASTATIN 40 MG TAB PO SCH (20:03)
[2019-06-17] MEDS: DULOXETINE HCL 20 MG CAP PO SCH (20:04)
[2019-06-17] MEDS: METOPROLOL SUCC 25MG EXT REL TAB PO SCH (20:06)
[2019-06-17] MEDS: DIGOXIN 0.25 MG TAB PO SCH (20:06)
[2019-06-17] MEDS: NIACIN EXTENDED REL 500 MG TABCR PO SCH (20:07)
[2019-06-17] MEDS: MULTIVITAMIN TAB PO SCH (20:07)
[2019-06-17] MEDS: DICLOFENAC SOD 1% GEL 100 GM TUBE EXT SCH ×2 (20:08→20:10)
[2019-06-18 06:58] VITALS: BP 121/74; PULSE 72; TEMP 97.9; O2SAT 95
[2019-06-18] MEDS ORDERED: methylPREDNISolone 4 MG TAB PO SCH ×2 (07:00→13:00)
[2019-06-18] MEDS: LIDOCAINE 5% 1 PATCH TD SCH (08:30)
[2019-06-18] MEDS: GABAPENTIN 100 MG CAP PO SCH ×2 (08:30→14:05)
[2019-06-18] MEDS: allopurinoL 100 MG TAB PO SCH (08:31)
[2019-06-18] MEDS: DICLOFENAC SOD 1% GEL 100 GM TUBE EXT SCH (08:42)
[2019-06-18] MEDS: BACLOFEN 10 MG TAB PO SCH ×2 (09:35→14:04)
--- NOTE | 2019-06-18 10:21 | Hospitalist Progress Note ---
Date of Service June 18, 2019 Assessment & Plan (1) Recurrent falls: RIGHT KNEE PAIN /ACUTE GOUT ATTACK : Symptom has resolved, able to participate in occupational therapy able to get out of bed and managed to ambulate without significant pain or discomfort or gait instability developed Severe acute right knee pain: Possible acute gout attack : Symptom resolved after steroids Started on allopurinol for chronic prophylaxis Will be discharged on Medrol Dose pack Rotator cuff injury of right shoulder with hemarthrosis symptom has resolved recent fall on rt side has limited ROM on rt arm /on sling MRI of rt shoulder: 1. Complete tear of the supraspinatus tendon. 2. Full-thickness tear of the superior portion of the subscapularis tendon. 3. Full-thickness tear of the anterior fibers of the infraspinatus with intralaminar extension to the myotendinous junction. 4. Use muscle atrophy and edema. 5. Large glenohumeral joint effusion, which is the likely cause of the extensive surrounding fluid including fluid which distends the AC joint. Appreciate input from orthopedics, Recommend conservative management with sling, ice application to prevent any further swelling Likely has improved, will need rehab/will be transferred to [facility] to Outpatient follow-up with Dr. 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 Lennon Will need skilled rehab Lower extremity Doppler negative for DVT (3) Supratherapeutic INR: Presented with elevated INR more than 4 Even vitamin K, Was found to be subtherapeutic 1.3, low-dose Coumadin resumed INR therapeutic Disposition: Will need to skilled rehab, referral made to [facility] stable to transfer to [facility] Subjective feels well rt shoulder pain has improved no pain or discomfort on knee able to walk stable to be transferred to [facility] for rehab Review of Systems Musculoskeletal: + joint pain (Improved left knee pain) and + limited range of motion (rt shoulder rotator cuff injury ) Physical Exam Constitutional: WD/WN, vitals as above + thin; no acute distress Eyes: PERRL, conjunctivae normal, anicteric sclerae normal visual borrego by confrontation ENMT: external ear and nose normal, oropharynx normal Neck: trachea midline, no thyromegaly normal visual inspection Respiratory: normal respiratory effort, lungs clear to auscultation normal respiratory effort Cardiovascular: RRR, no murmur, no edema Extremities: normal capillary refill Gastrointestinal (Abdomen): normal bowel sounds, soft, nontender, no hepatosplenomegaly Inspection/Auscultation: abdomen normal to inspection Musculoskeletal: Extremities: + joint enlargement (Right knee pain improved, able to bear weight, resolution of swelling tenderness) Skin: no rashes, warm and dry Neurologic: PERRL, EOMI, accommodation nl, no face palsy, no dysarthria normal touch/pain/proprioception, deep tendon reflexes 2+ bilaterally and moves all extremities Psychiatric: A+Ox3, euthymic affect Results & Data Vital Signs (Past 12 Hours) Vital Signs Temp Pulse Resp BP Pulse Ox 06/18/19 06:57 36.6 C 72 20 121/74 95 06/17/19 23:00 36.5 C 84 22 120/69 97
--- NOTE | 2019-06-18 15:45 | Discharge Summary ---
Date of Service June 18, 2019 Admission HPI Per Admitting Provider History obtained from patient and records. HPI: Medical history significant for chronic AF on oral anticoagulation, HTN, hyperlipidemia, history TIA as per records, chronic back pain/history scoliosis as per patient, history of prostate cancer status post surgery, peripheral neuropathy as per records, prediabetes as per records. Recent confinement October 2013 for probable TIA. Last few days patient has had recurrent falls from legs giving out, trouble with standing up. No chest pain, no S OB, no syncope. Usual back pain from scoliosis and arthritis as per patient. No new incontinence symptoms. Right shoulder pain follow doing injury this morning. Patient evaluated [place] [facility] [place]. X-rays were negative as per patient. Pain attributed to injured right rotator cuff . RUE sling recommended. Patient consulted ER for evaluation. MEDICAL HISTORY: As above. SURGERIES: Back surgery, hip surgery, urologic procedures, tonsillectomy, vasectomy, shoulder surgery FAMILY HISTORY: Heart disease, prostate cancer, ovarian cancer, dementia PERSONAL SOCIAL HISTORY: Nonsmoker. No chronic intake of alcoholic beverages. 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 Principal Diagnosis RIGHT ROTATOR CUFF INJURY /LUMBER SPINE STENOSIS , ACUTE GOUT OF RIGHT KNEE AMBULATORY DYSFUNCTION Discharge Exam Constitutional WD/WN, vitals as above + thin; no acute distress Eyes PERRL, conjunctivae normal, anicteric sclerae normal visual borrego by confrontation ENMT external ear and nose normal, oropharynx normal Neck trachea midline, no thyromegaly normal visual inspection Respiratory normal respiratory effort, lungs clear to auscultation normal respiratory effort Cardiovascular RRR, no murmur, no edema Extremities: normal capillary refill Gastrointestinal (Abdomen) normal bowel sounds, soft, nontender, no hepatosplenomegaly Inspection/Auscultation: abdomen normal to inspection Musculoskeletal Extremities: + joint enlargement (Right knee pain improved, able to bear weight, resolution of swelling tenderness) Skin no rashes, warm and dry Neurologic PERRL, EOMI, accommodation nl, no face palsy, no dysarthria normal touch/pain/proprioception, deep tendon reflexes 2+ bilaterally and moves all extremities Psychiatric A+Ox3, euthymic affect Discharge Data Allergies Allergy/AdvReac Type Severity Reaction Status Date / Time Penicillins Allergy Mild Rash Verified 06/11/19 17:31 fenofibrate Allergy Unknown MUSCLE Verified 06/11/19 17:31 WEAKNESS Consultations 06/11/19 19:22 ED Decision to Admit Stat 06/12/19 18:20 Consult Orthopedic Surgery Routine 06/13/19 14:47 Consult Orthopedic Surgery Routine Ordered Studies 06/11/19 16:23 CT head/brain wo con Stat CT lumbar spine wo con Stat 06/11/19 17:39 CT cervical spine wo con Stat 06/12/19 18:32 MR lumbar spine wo/w con Routine 06/12/19 18:45 MR shoulder RT wo con Routine 06/15/19 15:24 US venous doppler LE BI Routine US venous doppler UE RT Routine Hospital Course (1) Recurrent falls: RIGHT KNEE PAIN /ACUTE GOUT ATTACK : Symptom has resolved, able to participate in occupational therapy able to get out of bed and managed to ambulate without significant pain or discomfort or gait instability developed Severe acute right knee pain: Possible acute gout attack : Symptom resolved after steroids Started on allopurinol for chronic prophylaxis Will be discharged on Medrol Dose pack Rotator cuff injury of right shoulder with hemarthrosis symptom has resolved recent fall on rt side has limited ROM on rt arm /on sling MRI of rt shoulder: 1. Complete tear of the supraspinatus tendon. 2. Full-thickness tear of the superior portion of the subscapularis tendon. 3. Full-thickness tear of the anterior fibers of the infraspinatus with intralaminar extension to the myotendinous junction. 4. Use muscle atrophy and edema. 5. Large glenohumeral joint effusion, which is the likely cause of the extensive surrounding fluid including fluid which distends the AC joint. Appreciate input from orthopedics, Recommend conservative management with sling, ice application to prevent any further swelling Likely has improved, will need rehab/will be transferred to [facility] Outpatient follow-up with Dr. 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 Lennon Will need skilled rehab Lower extremity Doppler negative for DVT (3) Supratherapeutic INR: Presented with elevated INR more than 4 Even vitamin K, Was found to be subtherapeutic 1.3, low-dose Coumadin resumed INR therapeutic Disposition: Will need to skilled rehab, referral made to [facility] stable to transfer to [facility] Total Time Total Time Spent Total Time Spent (In Minutes): approx 40 mins Total Time Includes: Examination of the Patient, Discharge Planning and Medication Reconciliation Discharge Plan Discharge Items Patient Disposition: Transfer [facility] Fac Reason For Visit: RECURRENT FALLS Discharge Diagnosis: RIGHT ROTATOR CUFF INJURY /LUMBER SPINE STENOSIS , ACUTE GOUT OF RIGHT KNEE AMBULATORY DYSFUNCTION Activity: Per Instructions section Activity Comment: CONTINUE PHYSICAL THERAPY /OCCUPATIONAL THERPY AT REHAB Non-emergency contact: Primary Care Provider Call non-emergency contact if: you have any medication questions Follow-up/Referrals: Sandra Dahl MD [Primary Care Provider] - Stanton Guzman MD [Surgeon] - (Follow up after discharge from Rehab for rt shoulder rotator cuff injury ) Diet: Heart Healthy Addtl Attending Provider Instructions: Orthopedics follow up with Dr Guzman for rt shoulder rotator cuff injury Pending Studies at Discharge: No Stand-Alone Forms: My [facility] Skilled Items Patient informed of condition?: Yes DNR: No Discharge Level of Care: Skilled Communicable Disease: No Discharge Prognosis: Stable Lines: None Urinary Catheter: No Medications and DC Order Prescriptions: New allopurinol 100 mg Tablet 100 mg PO DAILY 30 Days Qty: 30 RF: 0 lidocaine 5 % Adhesive Patch,Medicated 1 patch transdermal QAM 30 Days Qty: 30 RF: 0 diclofenac sodium [Voltaren] 1 % Gel 2 g EXT BID 30 Days Qty: 1 RF: 0 methylprednisolone [Medrol (Raul)] 4 mg tablets,dose pack 4 mg PO UD Qty: 21 RF: 0 tramadol 50 mg tablet 50 mg PO TID PRN (Reason: Pain) Qty: 10 RF: 0 Continued lidocaine 5 % adhesive patch,medicated 1 patch topical DAILY PRN (Reason: Pain) RF: 0 atorvastatin 40 mg tablet 40 mg PO QPM RF: 0 niacin [Niaspan Extended-Release] 1,000 mg tablet extended release 24 hr 1,000 mg PO QPM RF: 0 digoxin 250 mcg (0.25 mg) tablet 250 mcg PO QPM RF: 0 baclofen 10 mg tablet 10 mg PO TID RF: 0 warfarin 2 mg tablet See Rx Instructions .ROUTE .COMPLEX RF: 0 gabapentin 100 mg capsule 100 mg PO TID RF: 0 metoprolol succinate [Toprol XL] 25 mg tablet extended release 24 hr 25 mg PO QPM RF: 0 lisinopril 2.5 mg tablet 2.5 mg PO QPM RF: 0 duloxetine 20 mg capsule,delayed release(DR/EC) 20 mg PO QPM RF: 0 aspirin 81 mg Tablet,Delayed Release (Dr/Ec) 81 mg PO QPM RF: 0 multivitamin Tablet 1 tab PO QPM RF: 0 Discharge Orders: Discharge Order (Routine); Ordered 06/18/19 Ordered By: Viridiana Rivera Admission Data Admit Date/Time: 06/12/19 19:26 Attending Provider: Viridiana Rivera Admit Provider: Delmar Landis Primary Care Provider: Sandra Dahl Other Providers: Delmar Landis ; [facility] ; [facility] ; Santy Lennon ; Placido Pichardo ; Eugene Blackman ; Alissa Fuentes Thomas J ; Jacinta Cruz ; Yovani Sawant ; Paul Bess ; Brody Gramajo ; Paul Simms Andrew J. ; Brody Fraser ; Yaya Medina ; Beto Saha ; Gerson Silvestre ; Stanton Guzman ; Fer Davis ; Jacinta Berry Casey R ; Jj [address] ; Leeroy Connor Other Interventions: Discharge Summary Assessment (RN) Last Done: 06/18/19 14:12
[2019-06-19] MEDS ORDERED: methylPREDNISolone 4 MG TAB PO SCH ×2 (07:00→21:00)
[2019-06-20] MEDS ORDERED: methylPREDNISolone 4 MG TAB PO SCH (07:00)
[2019-06-21] MEDS ORDERED: methylPREDNISolone 4 MG TAB PO SCH (07:00)
[2019-06-22] MEDS ORDERED: methylPREDNISolone 4 MG TAB PO SCH (07:00)
[2019-06-23] MEDS ORDERED: methylPREDNISolone 4 MG TAB PO SCH (07:00)
== END 2019-06-18 16:18 | DRG 558 ==
LOC: 4W 15:56 → ED 15:56 → 4W 20:54

== ENCOUNTER 2019-10-01 17:55 | Inpatient (IN) ==
[2019-10-01] MEDS ORDERED: SODIUM CHLORIDE 0.9% 250 ML IV PRN ×2 (18:01→22:26)
[2019-10-01] MEDS ORDERED: PANTOprazole 40 MG in SYRINGE 0 ML IV ONE (18:04)
--- NOTE | 2019-10-01 18:20 | Emergency Department Note ---
Impression & Plan Acute upper gastrointestinal bleeding, Anemia, Weakness, FIELD (dyspnea on exertion) ED Provider Note NAME: PRO SIEGEL AGE: 83 SEX: M : 1935 ARRIVES VIA: Ambulance INFORMANT: Patient, ED PROVIDER(S): Nicho Sanabria DO CHIEF COMPLAINT: Shortness of breath and weakness. HPI: The patient is an 83-year-old male who presented to the emergency department for generalized weakness and shortness of breath with exertion. The patient states that he is noticed the symptoms for approximately 3 to 4 weeks. His symptoms continue to worsen. He also complains of dark stool. He scheduled a follow-up appointment with his family doctor today. He was seen by his family doctor and sent to the emergency department after routine laboratory studies revealed a hemoglobin that was very low. The patient denies having any recent falls. He denies having any chest pain. He does complain of lower extremity weakness which is bilateral. He does not have any abdominal pain nausea or vomiting. He denies ever having a history of GI bleeding in the past and has never had an upper endoscopy as far as he knows. The patient is agreeable to blood transfusion. ROS: See above HPI for pertinent positives & negatives. A total of 10 systems reviewed and were otherwise negative. PAST MEDICAL HISTORY: See Below PAST SURGICAL HISTORY: See Below FAMILY HISTORY: See Below SOCIAL HISTORY: See Below HOME MEDICATIONS: See Below ALLERGIES: See Below VITALS: See Below PHYSICAL EXAMINATION: GENERAL: The patient is awake and alert. He appears comfortable EYES: The conjunctivae are pale. The pupils are round and reactive. EARS, NOSE, MOUTH AND THROAT: The nose is without any evidence of any deformity. Mucous membranes are dry NECK: The neck is nontender and supple. RESPIRATORY: Normal respiratory effort is noted there is no evidence of wheezing rhonchi or rales CARDIOVASCULAR: Irregular rhythm was noted to auscultation. There is no definite murmur. GASTROINTESTINAL: The abdomen is soft. Abdomen is nontender. Rectal exam revealed black stool which was heme positive. MUSCULOSKELETAL/EXTREMITIES: There is no evidence of gross deformity full range of motion is noted in the hips and shoulders. SKIN: There is no obvious evidence of any rash. Trace pedal edema was noted bilaterally. NEUROLOGIC: Patient is awake alert and oriented x3. MEDICAL DECISION MAKING: The patient is an 83-year-old male who presented to the emergency department for an evaluation of generalized weakness and dyspnea on exertion. The patient does take Coumadin for atrial fibrillation. He has noticed over the last few days that he has had dark stool. He was found to have heme positive stool in the emergency department. He was treated with Protonix. He also had a blood transf usion ordered in the emergency department. I consented the patient for transfusion. I discussed the patient's laboratory and radiographic studies with him. He was seen by his primary care physician prior to arrival in the emergency department. He did have outpatient laboratory studies which showed he had a hemoglobin that was very low. The patient's use of blood thinners for his chronic atrial fibrillation may also complicate the matter. For this reason I feel he requires inpatient management and transfusion. The patient was reevaluated and was feeling somewhat improved at rest. Triage Nursing notes reviewed. Prior medical records reviewed Vital Signs: reviewed and remarkable for tachycardia. Differential diagnosis: Diverticulosis, AVM, coagulopathy, colitis, inflammatory bowel disease, malignancy, Dahlia-Stanton tear, esophagitis, peptic ulcer disease, variceal bleed, gastritis, epistaxis, fissure, hemorrhoids, as well as other pathologies. ER treatment provided: See below Diagnostics interpreted by me: ECG: EKG was obtained in the emergency department. My interpretation is atrial fibrillation at 76 bpm. There were no PVCs. Lateral ST depressions were noted. This was compared to a tracing from June 11, 2019. No significant changes were noted. Cardiac Monitoring: An order was placed for continuous cardiac monitoring. The monitor shows a rate of 88 with atrial fibrillation rhythm. Laboratory studies: As stated above and show below. Imaging studies: See below Consultation(s): 1840: I discussed this case with Dr. Toussaint. She was on-call for the [facility] hospitalist group. They have agreed to evaluate the patient in the emergency department for further management and disposition. ED COURSE: Procedures: none PDMP:reviewed and no issues Critical Care: I have personally spent greater than 45 minutes of critical care time in the direct management of this patient. This includes bedside care, interpretation of diagnostic studies, and testing, discussion with consultants, patient, and family members, and other required patient management activities. This 45 minutes is in excess of all separately billable procedures. Past Med/Surg History Medical History Aphasia (Acute 10/22/13) Arthritis Atrial fibrillation (Chronic) On warfarin Back pain, chronic (Chronic) SCOLIOSIS Bilateral leg weakness Likely what precipitated fall, which injured shoulder DJD of shoulder (Acute) History of prostate cancer (Chronic) Hyperlipemia (Chronic) Mitral regurgitation (Chronic) On anticoagulant therapy Sleep apnea BIPAP Systolic CHF, chronic (Chronic) H/O reduced systolic function as low as 35%, but resolved to 56% on most recent echo from 2017. TIA (transient ischemic attack) 2-3yrs ago, despite being on Coumadin. ASA 81mg added. Surgical History History of arthroplasty of left shoulder History of cardiac cath 2015? NO STENTS NEEDED [facility] History of colonoscopy History of cryosurgery FOR PROSTATE CANCER History of esophagogastroduodenoscopy (EGD) History of total hip arthroplasty LEFT Family History Other Family history non-contributory Social History Preferred Language: Romansh Communication Ability: Effective Yarn Dumper Required: No Beliefs That Will Affect Care: None Current Living Situation: Spouse Feels Safe at Home: Yes Smoking Status: Never smoker Second Hand Exposure: Yes (VERY SELDOM) ; Hx Alcohol Use: Yes Alcohol type: wine Hx Substance Use: No Allergies Allergies Allergy/AdvReac Type Severity Reaction Status Date / Time Penicillins Allergy Mild Rash Verified 07/18/19 15:11 fenofibrate Allergy Unknown MUSCLE Verified 07/18/19 15:11 WEAKNESS dronabinol [From Marinol] AdvReac Confusion Verified 07/24/19 11:33 Home Meds Home Medications Medication Instructions Recorded Confirmed lidocaine 5 % topical patch 1 patch TOPICAL DAILY PRN ea 01/29/19 07/18/19 aspirin 81 mg PO QPM 06/11/19 07/18/19 atorvastatin 40 mg PO QPM 06/11/19 07/18/19 baclofen 10 mg PO TID 06/11/19 07/18/19 digoxin 250 mcg PO QPM 06/11/19 07/18/19 duloxetine 20 mg PO BID 06/11/19 07/18/19 gabapentin 100 mg PO TID 06/11/19 07/18/19 metoprolol succinate [Toprol XL] 25 mg PO QPM 06/11/19 07/18/19 multivitamin 1 tab PO QPM 06/11/19 07/18/19 niacin [Niaspan Extended-Release] 1,000 mg PO QPM 06/11/19 07/18/19 warfarin 1 - 2 mg PO QPM 06/11/19 07/18/19 allopurinol 100 mg PO QPM 07/18/19 07/18/19 loratadine [Claritin] 10 mg PO QAM 07/18/19 07/18/19 Previous Rx's Medication Instructions Recorded tramadol 50 mg PO TID PRN #10 tab 06/18/19 Results & Data (ED) Vital Signs Vital Signs - 24 hr 10/01/19 18:15 Temperature 36.7 C Temperature Source Oral Pulse Rate 98 H Pulse Rate [Finger] 98 H Respiratory Rate 21 Respiratory Effort / Characteristics Non-Labored Spontaneous Respiratory Depth Normal Respiratory Pattern Regular Blood Pressure 100/65 Blood Pressure [Right Arm] 100/65 Blood Pressure Mean 76 Blood Pressure Mean [Right Arm] 76 Pulse Oximetry 91 Oxygen Delivery Method Room Air Sepsis Recent Fever Within 48 Hours No Sepsis New/Unexplained Change in Mental Status No Sepsis Action Taken by Nursing No Action Required Home Medications Current Medication List: was personally reviewed by me Laboratory Data Attestation: I reviewed the patient's lab results. Result diagrams: 10/01/19 18:07 10/01/19 18:07 Lab Results 10/01/19 10/01/19 10/01/19 Range/Units 18:07 18:07 18:07 WBC 7.80 (4.8-10.8) K/uL RBC 1.81 L (4.7-6.1) M/uL Hgb 5.4 L* (14.0-18.0) g/dL Hct 17.4 L* (42-52) % MCV 96.1 (80-100) fL MCH 29.8 (25-34) pg MCHC 31.0 L (32-36) g/dL RDW Std Deviation 53.7 H (36.4-46.3) fL RDW Coeff of Ligia 15.2 H (11.5-14.5) % Plt Count 215 (130-400) K/uL MPV 8.4 (7.4-10.4) fL Immature Gran % (Auto) 0.3 % Neut % (Auto) 68.7 % Lymph % (Auto) 15.4 % [place] % (Auto) 14.0 % Eos % (Auto) 1.2 % Baso % (Auto) 0.4 % Immature Gran # (Auto) 0.02 (0.00-0.02) K/uL Neut # (Auto) 5.37 (1.4-6.5) K/uL Lymph # (Auto) 1.20 (1.2-3.4) K/uL [place] # (Auto) 1.09 H (0.11-0.59) K/uL Eos # (Auto) 0.09 (0-0.5) K/uL Baso # (Auto) 0.03 (0-0.2) K/uL Polychromasia 1+ Anisocytosis Present PT 25.2 H (9.0-12.0) Seconds INR 2.5 H (0.9-1.1) APTT 30.8 (21.0-31.0) Seconds PTT Ratio 1.1 Sodium (136-145) mmol/L Potassium (3.5-5.1) mmol/L Chloride (98-107) mmol/L Carbon Dioxide (21-32) mmol/L Anion Gap (3-11) BUN (7-18) mg/dl Creatinine (0.6-1.4) mg/dl Est Cr Clr Drug Dosing ml/min Est GFR ( Amer) Est GFR (Non-Af Amer) BUN/Creatinine Ratio (10-20) Glucose (70-99) mg/dl Calcium (8.5-10.1) mg/dl Magnesium (1.8-2.4) mg/dl Total Bilirubin (0.2-1) mg/dl AST (15-37) U/L ALT (12-78) U/L Alkaline Phosphatase (45-117) U/L Troponin I (0-0.045) ng/ml Total Protein (6.4-8.2) gm/dl Albumin (3.4-5.0) gm/dl Globulin (2.5-4.0) gm/dl Albumin/Globulin Ratio (0.9-2) Digoxin (0.8-2.0) ng/ml Blood Type O Positive Antibody Screen NEGATIVE Crossmatch See Detail 10/01/19 10/01/19 Range/Units 18:07 18:07 WBC (4.8-10.8) K/uL RBC (4.7-6.1) M/uL Hgb (14.0-18.0) g/dL Hct (42-52) % MCV (80-100) fL MCH (25-34) pg MCHC (32-36) g/dL RDW Std Deviation (36.4-46.3) fL RDW Coeff of Ligia (11.5-14.5) % Plt Count (130-400) K/uL MPV (7.4-10.4) fL Immature Gran % (Auto) % Neut % (Auto) % Lymph % (Auto) % [place] % (Auto) % Eos % (Auto) % Baso % (Auto) % Immature Gran # (Auto) (0.00-0.02) K/uL Neut # (Auto) (1.4-6.5) K/uL Lymph # (Auto) (1.2-3.4) K/uL [place] # (Auto) (0.11-0.59) K/uL Eos # (Auto) (0-0.5) K/uL Baso # (Auto) (0-0.2) K/uL Polychromasia Anisocytosis PT (9.0-12.0) Seconds INR (0.9-1.1) APTT (21.0-31.0) Seconds PTT Ratio Sodium 139 (136-145) mmol/L Potassium 4.2 (3.5-5.1) mmol/L Chloride 109 H (98-107) mmol/L Carbon Dioxide 23 (21-32) mmol/L Anion Gap 7.0 (3-11) BUN 30 H (7-18) mg/dl Creatinine 1.27 (0.6-1.4) mg/dl Est Cr Clr Drug Dosing 38.7 ml/min Est GFR ( Amer) 59.7 Est GFR (Non-Af Amer) 51.5 BUN/Creatinine Ratio 23.7 H (10-20) Glucose 140 H (70-99) mg/dl Calcium 8.2 L (8.5-10.1) mg/dl Magnesium 1.9 (1.8-2.4) mg/dl Total Bilirubin 0.4 (0.2-1) mg/dl AST 20 (15-37) U/L ALT 21 (12-78) U/L Alkaline Phosphatase 65 (45-117) U/L Troponin I < 0.015 (0-0.045) ng/ml Total Protein 6.3 L (6.4-8.2) gm/dl Albumin 3.2 L (3.4-5.0) gm/dl Globulin 3.1 (2.5-4.0) gm/dl Albumin/Globulin Ratio 1.0 (0.9-2) Digoxin 1.0 (0.8-2.0) ng/ml Blood Type Antibody Screen Crossmatch Imaging Data Radiologist's Impression: XR chest 1V portable CLINICAL HISTORY: Dyspnea COMPARISON STUDY: Chest radiograph June 11, 2019. FINDINGS: Incidental note is made of a left shoulder arthroplasty. Cardiomediastinal silhouette is stable. There is no evidence for pulmonary edema. No pneumothorax or pleural effusion is noted. There is no consolidation. The appearance of the chest is unchanged. IMPRESSION: No acute cardiopulmonary findings. ACT 112: Negative or not required by law. Electronically signed by: Ede Gloria M.D. 10/01/2019 6:55 PM Dictated: 10/01/191846 Transcribed: 10/01/191846 Blood Pressure Blood Pressure Findings: Normal blood pressure Discharge Plan Visit Data Chief Complaint: Shortness of Breath/Dyspnea Stated Complaint: SOB ED Provider: Nicho Sanabria Discharge Problem: Acute upper gastrointestinal bleeding, Anemia, Weakness, FIELD (dyspnea on exertion) Patient Disposition: Being Evaluated by Hospitalist Condition: Good Forms Stand Alone Forms: My [facility] Mark media Prescriptions Prescriptions: No Action lidocaine 5 % adhesive patch,medicated 1 patch topical DAILY PRN (Reason: Pain) RF: 0 atorvastatin 40 mg tablet 40 mg PO QPM RF: 0 niacin [Niaspan Extended-Release] 1,000 mg tablet extended release 24 hr 1,000 mg PO QPM RF: 0 digoxin 250 mcg (0.25 mg) tablet 250 mcg PO QPM RF: 0 baclofen 10 mg tablet 10 mg PO TID RF: 0 warfarin 2 mg tablet 1 - 2 mg PO QPM RF: 0 gabapentin 100 mg capsule 100 mg PO TID RF: 0 metoprolol succinate [Toprol XL] 25 mg tablet extended release 24 hr 25 mg PO QPM RF: 0 duloxetine 20 mg capsule,delayed release(DR/EC) 20 mg PO BID RF: 0 aspirin 81 mg Tablet,Delayed Release (Dr/Ec) 81 mg PO QPM RF: 0 multivitamin Tablet 1 tab PO QPM RF: 0 tramadol 50 mg tablet 50 mg PO TID PRN (Reason: Pain) Qty: 10 RF: 0 allopurinol 100 mg Tablet 100 mg PO QPM RF: 0 loratadine [Claritin] 10 mg Tablet 10 mg PO QAM RF: 0 Referrals Referrals: Sandra Dahl MD [Primary Care Provider] -
[2019-10-01 18:23] LABS: Hematocrit (blood only) 17.4 % (42-52); Hemoglobin 5.4 g/dL (14.0-18.0); Mean Corpuscular Hemoglobin 29.8 pg (25-34); Mean Corpuscular Volume 96.1 fL (80-100); Mean Platelet Volume 8.4 fL (7.4-10.4); Platelet Count 215 K/uL (130-400); RDW Coefficient of Variation 15.2 % (11.5-14.5); RDW Standard Deviation 53.7 fL (36.4-46.3); Red Blood Count 1.81 M/uL (4.7-6.1)
[2019-10-01 18:26] LABS: INR 2.5 (0.9-1.1); Partial Thromboplastin Ratio 1.1; Partial Thromboplastin Time 30.8 Seconds (21.0-31.0); Prothrombin Time 25.2 Seconds (9.0-12.0)
[2019-10-01 18:34] LABS: Alanine Aminotransferase 21 U/L (12-78); Albumin Level 3.2 gm/dl (3.4-5.0); Aspartate Aminotransferase 20 U/L (15-37); BUN Creatinine Ratio 23.7 (10-20); Blood Urea Nitrogen 30 mg/dl (7-18); Calcium 8.2 mg/dl (8.5-10.1); Carbon Dioxide 23 mmol/L (21-32); Chloride 109 mmol/L (98-107); Creatinine Clr Calc Pharmacy 38.7 ml/min; Est GFR (African American) 59.7; Est GFR (Non-African American) 51.5; Glucose 140 mg/dl (70-99); Magnesium 1.9 mg/dl (1.8-2.4); Potassium 4.2 mmol/L (3.5-5.1); Sodium 139 mmol/L (136-145)
[2019-10-01 18:38] LABS: Anisocytosis Present; Basophils # (auto) 0.03 K/uL (0-0.2); Basophils % (auto) 0.4 %; Eosinophils # (auto) 0.09 K/uL (0-0.5); Eosinophils % (auto) 1.2 %; Immature Granulocytes # (auto) 0.02 K/uL (0.00-0.02); Immature Granulocytes % (auto) 0.3 %; Lymphocytes % (auto) 15.4 %; Monocytes # (auto) 1.09 K/uL (0.11-0.59); Neutrophils # (auto) 5.37 K/uL (1.4-6.5); Neutrophils % (auto) 68.7 %; Polychromasia 1+
[2019-10-01 18:39] LABS: Alkaline Phosphatase 65 U/L (45-117); Bilirubin,Total 0.4 mg/dl (0.2-1); Globulin 3.1 gm/dl (2.5-4.0); Total Protein 6.3 gm/dl (6.4-8.2); Troponin I < 0.015 ng/ml (0-0.045)
--- NOTE | 2019-10-01 18:56 | XRay Report ---
XR chest 1V portable CLINICAL HISTORY: Dyspnea COMPARISON STUDY: Chest radiograph June 11, 2019. FINDINGS: Incidental note is made of a left shoulder arthroplasty. Cardiomediastinal silhouette is st able. There is no evidence for pulmonary edema. No pneumothorax or pleural effusion is noted. There i s no consolidation. The appearance of the chest is unchanged. IMPRESSION: No acute cardiopulmonary findings. ACT 112: Negative or not required by law. Electronically signed by: Ede Gloria M.D. 10/01/2019 6:55 PM
--- NOTE | 2019-10-01 19:43 | History & Physical Report ---
Date of Service October 01, 2019 Assessment & Plan (1) Acute upper gastrointestinal bleeding: (2) Anemia: (3) Weakness: (4) FIELD (dyspnea on exertion): Patient presenting to the ED with severe anemia likely secondary to GI bleeding. The patient has been having black stools x 2-3 weeks. He has no known history of GI bleeding. EKG stable. Chronic Afib. Vitals stable. Anticipated to receive 2 units of FFB and PRBCs. HOLD Warfarin and ASA for now. Recheck INR in the AM Recheck Hgb after PRBCs tonight. Recheck CBC and BMP in the AM O2 PRN Fall precautions. Consult GI. NPO after midnight. Continue Protonix drip (5) Atrial fibrillation: Rate controlled at this time. Continue metoprolol. Repeat EKG in the AM Admit to PCU for monitoring (6) Sleep apnea: Patient unsure of BiPAP settings. Ordered RT protocol for BiPAP (7) DVT prophylaxis: SCDs only for now History of Present Illness Chief Complaint: Anemia, SOB, weakness Primary Care Provider: Sandra Dahl MD Patient is an 83 yo male who goes by "Wyatt" with history of chronic Afib, dyslipidemia, TIA, gout, sleep apnea on BiPAP, HTN, essential mixed cryoglobulinemia, PVD, right rotator cuff tear, idiopathic scoliosis, and spinal stenosis who presented to the ED at the recommendation of Dr. Kendal Moreira after evaluation outpatient today. The patient has been complaining of weakness, SOB, & FIELD x 1 week. He has had black stools x 2-3 weeks. He has no history of GI bleeding that he knows of. He initially had diarrhea but now his stools have been formed. Last moved his bowels 2 days ago. He typically does not have any SOB other than if he really exerts himself. He does have chronic Afib and follows with Dr. Goodwin as an outpatient. He is chronically on Coumadin and ASA 81 mg due to history of AFib and TIA while on Coumadin. He has no chest pain, palpitations, lightheadedness/dizziness, headache, abdominal pain , N/V/D, or peripheral edema. Patient states that he has had a colonoscopy before but it was many years ago. He had an EGD in 2004 which showed Grade A esophagitis and gastropathy but no ulceration/bleeding. His appetite has been good. No dysphagia. EKG Stable in the ED compared to priorr. Hgb 5.4 in the ED. He is expected to receive 2 units FFP and 2 units PRBCs. Vitals are stable otherwise. He has no pain or discomfort currently. INR 2.5. CXR showed no acute findings. Allergies Allergy/AdvReac Type Severity Reaction Status Date / Time Penicillins Allergy Mild Rash Verified 10/01/19 19:53 fenofibrate Allergy Unknown MUSCLE Verified 10/01/19 19:53 WEAKNESS dronabinol [From Marinol] AdvReac Confusion Verified 07/24/19 11:33 Home Medications Home Medications Medication Instructions Recorded Confirmed Type lidocaine 5 % topical patch 1 patch TOPICAL DAILY PRN ea 01/29/19 10/01/19 History aspirin 81 mg PO QPM 06/11/19 10/01/19 History atorvastatin 40 mg PO QPM 06/11/19 10/01/19 History baclofen 10 mg PO TID 06/11/19 10/01/19 History digoxin 250 mcg PO QPM 06/11/19 10/01/19 History duloxetine 20 mg PO BID 06/11/19 10/01/19 History gabapentin 100 mg PO TID 06/11/19 10/01/19 History metoprolol succinate [Toprol XL] 25 mg PO QPM 06/11/19 10/01/19 History multivitamin 1 tab PO QPM 06/11/19 10/01/19 History niacin [Niaspan Extended-Release] 1,000 mg PO QPM 06/11/19 10/01/19 History warfarin 1 - 2 mg PO QPM 06/11/19 10/01/19 History tramadol 50 mg PO TID PRN #10 tab 06/18/19 10/01/19 Rx allopurinol 100 mg PO QPM 07/18/19 10/01/19 History loratadine [Claritin] 10 mg PO QAM 07/18/19 10/01/19 History diclofenac sodium 2 g TOPICAL QID PRN 10/01/19 10/01/19 History Past Med/Surg History Medical History Aphasia (Resolved 10/22/13) Arthritis Atrial fibrillation (Chronic) On warfarin Back pain, chronic (Chronic) SCOLIOSIS Bilateral leg weakness Likely what precipitated fall, which injured shoulder DJD of shoulder (Acute) History of prostate cancer (Chronic) Hyperlipemia (Chronic) Mitral regurgitation (Chronic) On anticoagulant therapy Sleep apnea BIPAP Systolic CHF, chronic (Chronic) H/O reduced systolic function as low as 35%, but resolved to 56% on most recent echo from 2017. TIA (transient ischemic attack) 2-3yrs ago, despite being on Coumadin. ASA 81mg added. Surgical History History of arthroplasty of left shoulder History of cardiac cath 2016? NO STENTS NEEDED [facility] History of colonoscopy History of cryosurgery FOR PROSTATE CANCER History of esophagogastroduodenoscopy (EGD) History of total hip arthroplasty LEFT Family History Other Family history non-contributory Social History Preferred Language: Tuvaluan Communication Ability: Effective Water Resources Program Director Required: No Beliefs That Will Affect Care: None Current Living Situation: Spouse Other Information That Helps Us Care for You: No Feels Safe at Home: Yes Safety Concerns: Feels Safe At This Time Smoking Status: Never smoker Do You Dip or Chew Tobacco: No ; Second Hand Exposure: No ; Tobacco Cessation Education Requested by Patient: No Hx Alcohol Use: No Hx Substance Use: No Review of Systems Review of Systems: All systems reviewed & are unremarkable except as noted in HPI & below Physical Exam Constitutional: WD/WN, vitals as above + thin; no acute distress Eyes: PERRL, conjunctivae normal, anicteric sclerae ENMT: external ear and nose normal, oropharynx normal Neck: trachea midline, no thyromegaly Respiratory: normal respiratory effort, lungs clear to auscultation Cardiovascular: Rate/Rhythm: regular rate; + abnormal rhythm (AFIB) Heart Sounds: no murmur Gastrointestinal (Abdomen): normal bowel sounds, soft, nontender, no hepatosplenomegaly Musculoskeletal: Trace B/L LE Edema Skin: no rashes, warm and dry Neurologic: PERRL, EOMI, accommodation nl, no face palsy, no dysarthria CN's II-XI intact bilaterally Results & Data Results & Data ([facility]) Vital Signs (Past 12 Hours) Vital Signs Temp Pulse Pulse Resp BP BP Pulse Ox 05/12/20 19:35 36.6 C 85 22 129/64 99 10/01/19 18:15 36.7 C 98 H 98 H 21 100/65 100/65 91 Laboratory Results Laboratory Results - last 24 hr 10/01/19 10/01/19 10/01/19 18:07 18:07 18:07 WBC 7.80 RBC 1.81 L Hgb 5.4 L* Hct 17.4 L* MCV 96.1 MCH 29.8 MCHC 31.0 L RDW Std Deviation 53.7 H RDW Coeff of Ligia 15.2 H Plt Count 215 MPV 8.4 Immature Gran % (Auto) 0.3 Neut % (Auto) 68.7 Lymph % (Auto) 15.4 [place] % (Auto) 14.0 Eos % (Auto) 1.2 Baso % (Auto) 0.4 Immature Gran # (Auto) 0.02 Neut # (Auto) 5.37 Lymph # (Auto) 1.20 [place] # (Auto) 1.09 H Eos # (Auto) 0.09 Baso # (Auto) 0.03 Polychromasia 1+ Anisocytosis Present PT 25.2 H INR 2.5 H APTT 30.8 PTT Ratio 1.1 Sodium Potassium Chloride Carbon Dioxide Anion Gap BUN Creatinine Est Cr Clr Drug Dosing Est GFR ( Amer) Est GFR (Non-Af Amer) BUN/Creatinine Ratio Glucose Calcium Magnesium Total Bilirubin AST ALT Alkaline Phosphatase Troponin I Total Protein Albumin Globulin Albumin/Globulin Ratio Digoxin Blood Type O Positive Antibody Screen NEGATIVE Crossmatch See Detail 10/01/19 10/01/19 18:07 18:07 WBC RBC Hgb Hct MCV MCH MCHC RDW Std Deviation RDW Coeff of Ligia Plt Count MPV Immature Gran % (Auto) Neut % (Auto) Lymph % (Auto) [place] % (Auto) Eos % (Auto) Baso % (Auto) Immature Gran # (Auto) Neut # (Auto) Lymph # (Auto) [place] # (Auto) Eos # (Auto) Baso # (Auto) Polychromasia Anisocytosis PT INR APTT PTT Ratio Sodium 139 Potassium 4.2 Chloride 109 H Carbon Dioxide 23 Anion Gap 7.0 BUN 30 H Creatinine 1.27 Est Cr Clr Drug Dosing 38.7 Est GFR ( Amer) 59.7 Est GFR (Non-Af Amer) 51.5 BUN/Creatinine Ratio 23.7 H Glucose 140 H Calcium 8.2 L Magnesium 1.9 Total Bilirubin 0.4 AST 20 ALT 21 Alkaline Phosphatase 65 Troponin I < 0.015 Total Protein 6.3 L Albumin 3.2 L Globulin 3.1 Albumin/Globulin Ratio 1.0 Digoxin 1.0 Blood Type Antibody Screen Crossmatch Diagnostic Findings CXR: IMPRESSION: No acute cardiopulmonary findings. Code Status & VTE Plan VTE Prophylaxis Plan VTE Prophylaxis will be ordered: Yes Supervising Physician Co-Signing Physician Notes Pt seen and examined by me in the ED, care coordinated with Jovita Chung PA-C. Pt is a very pleasant 83 yo male who goes by "Wyatt" with history of chronic Afib (on coumadin), dyslipidemia, TIA (on ASA), sleep apnea on BiPAP, HTN, essential mixed cryoglobulinemia, PVD who presented to the ED at recommendation of his PCP. The patient has been complaining of weakness, shortness of breath, and dyspnea on exertion x 1 week. He has had black stools x 2-3 weeks. In ED he was found to be profoundly anemic with Hgb of 5.4. INR therapeutic at 2.5. Pt takes ASA. FOBT positive. Pt denies any prior hx of GI bleed or any gross bleeding. Had EGD more recently, also reports remote hx of colonoscopy. Currently lying in bed, in NAD, hemodynamically stable, able to answer questions appropriately and w/o difficulty. Heart sounds irregular, but rate well controlled at 80s. Lung sounds clear to auscultation, no wheezing, rhonchi or crackles. Abdomen is soft, nontender, nondistended, positive bowel sounds. Pt is moving all extremities spontaneously and w/o difficulty. 2 units of pRBCs and 2 units of FFP ordered. IV PPI. Hold warfarin and ASA. Monitor H&H. Supervisor [facility] aware. NPO. GI, Dr. Hopper, contacted and aware of the pt. Plan for likely endoscopy tomorrow AM. MD Frankie (1) Anemia Anemia type: unspecified type Qualified Code(s): D64.9 - Anemia, unspecified (2) Atrial fibrillation Atrial fibrillation type: permanent Qualified Code(s): I48.21 - Permanent atrial fibrillation
[2019-10-01] MEDS ORDERED: ONDANSETRON INJ 2 MG/ML 2 ML VIAL IV PRN (20:32)
[2019-10-01] MEDS ORDERED: ACETAMINOPHEN 325 MG TAB PO PRN (20:32)
[2019-10-01] MEDS ORDERED: ATORVASTATIN 40 MG TAB PO SCH (21:00)
[2019-10-01] MEDS ORDERED: allopurinoL 100 MG TAB PO SCH (21:00)
[2019-10-01] MEDS ORDERED: NIACIN EXTENDED REL 500 MG TABCR PO SCH (21:00)
[2019-10-01] MEDS ORDERED: METOPROLOL SUCC 25MG EXT REL TAB PO SCH (21:00)
[2019-10-01] MEDS: PANTOprazole 40 MG in DEXTROSE 5% 100 ML IV SCH (21:31)
[2019-10-01] MEDS: DIGOXIN 0.25 MG TAB PO SCH (21:31)
[2019-10-01] MEDS: BACLOFEN 10 MG TAB PO SCH (21:32)
[2019-10-01] MEDS: GABAPENTIN 100 MG CAP PO SCH (21:33)
[2019-10-01] MEDS: DULOXETINE HCL 20 MG CAP PO SCH (21:33)
[2019-10-01] MEDS: MULTIVITAMIN TAB PO SCH (21:33)
[2019-10-02] MEDS: PANTOprazole 40 MG in DEXTROSE 5% 100 ML IV SCH ×5 (01:55→22:47)
[2019-10-02 05:50] LABS: Hematocrit (blood only) 19.9 % (42-52); Hemoglobin 6.5 g/dL (14.0-18.0); Mean Corpuscular Hemoglobin 30.1 pg (25-34); Mean Corpuscular Hgb Conc 32.7 g/dL (32-36); Mean Corpuscular Volume 92.1 fL (80-100); Mean Platelet Volume 8.4 fL (7.4-10.4); Platelet Count 149 K/uL (130-400); RDW Coefficient of Variation 15.8 % (11.5-14.5); RDW Standard Deviation 53.4 fL (36.4-46.3); Red Blood Count 2.16 M/uL (4.7-6.1); White Blood Count 6.68 K/uL (4.8-10.8)
[2019-10-02] MEDS ORDERED: SODIUM CHLORIDE 0.9% 250 ML IV PRN (05:55)
[2019-10-02 06:05] LABS: INR 1.8 (0.9-1.1); Prothrombin Time 18.2 Seconds (9.0-12.0)
[2019-10-02 06:12] LABS: BUN Creatinine Ratio 20.6 (10-20); Calcium 8.1 mg/dl (8.5-10.1); Creatinine Clr Calc Pharmacy 45.6 ml/min; Est GFR (African American) 73.5; Est GFR (Non-African American) 63.4; Potassium 4.1 mmol/L (3.5-5.1)
[2019-10-02] MEDS: BACLOFEN 10 MG TAB PO SCH ×3 (08:08→19:58)
[2019-10-02] MEDS: DULOXETINE HCL 20 MG CAP PO SCH ×2 (08:09→19:57)
[2019-10-02] MEDS: GABAPENTIN 100 MG CAP PO SCH ×3 (08:10→19:58)
--- NOTE | 2019-10-02 09:08 | Gastrointestinal Consultation ---
Date of Consultation October 02, 2019 Assessment & Plan (1) Anemia: 83 year old female with chronic afib, dyslipidemia, TIA, gout, sleep apnea on BiPAP, HTN, essential mixed cryoglobulinemia, PVD, right rotator cuff tear, idiopathic scoliosis, and spinal stenosis presenting with progressive SOB, dark stooles anemia w/ slight BUN elevation. S/P RBCs x 2 units, repeat HGB pending. NPO IV PPI Tentative plan for EGD Hold ASA Hold coumadin Trend HGG Monitor and document GI output Transfuse PRN Thank you for allowing us to participate in the care of this patient. Please call with any acute changes, questions or concerns. Please see addendum below with additional recommendation from my supervising physician. Supervising Physician Co-Signing Physician Notes I have personally seen and examined the patient with LILIAN Contreras. Her note reflects my exam and findings. I agree with her impression and plan. Follow H/H, transfuse as need be and will arrange EGD for acute GI bleed. Carlos Alberto Weaver M.D. History of Present Illness Reason for Consultation: anemia, GIB Requesting Physician: Norbert Attending Physician: Cyrus Toussaint MD History of Present Illness 83 year odl male with chronic afib, dyslipidemia, TIA, gout, sleep apnea on BiPAP, HTN, essential mixed cryoglobulinemia, PVD, right rotator cuff tear, idiopathic scoliosis, and spinal stenosis who presented to the ED at the recommendation of Dr. Kendal Moreira after evaluation outpatient today showing anemia - GI asked to evaluate. Pt was seen and evaluated. Has received 2 units RBC has a unit hanging and an additional unit pending. He notes that over the past week he has had progressive weakness, SOB associated with a change in BM noting dark, black stools 1-2 times daily that were tarry. No BRB. No UGI symptoms. Denies nausea/vomiting or prior episdoes of hematemesis or coffee ground emesis. He is on ASA, coumadin suggests he had INR over 4 last week. No fever, chills, CP. No weight loss. On arrival, HGB 5.4 w/ slight BUN elevation 30 w/ normal creatinine. He was made NPO, started on IV PPI w/ coumadin and ASA held. He denies further dark stools since admission. EGD 2005: LA Grade A reflux esophagitis. Biopsied. Hiatus hernia. Non-bleeding erythematous gastropathy. Normal examined duodenum. Colonoscopy: years ago per patient but I cannot find records. Allergies Allergy/AdvReac Type Severity Reaction Status Date / Time Penicillins Allergy Mild Rash Verified 10/01/19 19:53 fenofibrate Allergy Unknown MUSCLE Verified 10/01/19 19:53 WEAKNESS dronabinol [From Marinol] AdvReac Confusion Verified 07/24/19 11:33 Home Medications Home Medications Medication Instructions Recorded Confirmed Type lidocaine 5 % topical patch 1 patch TOPICAL DAILY PRN ea 01/29/19 10/01/19 History aspirin 81 mg PO QPM 06/11/19 10/01/19 History atorvastatin 40 mg PO QPM 06/11/19 10/01/19 History baclofen 10 mg PO TID 06/11/19 10/01/19 History digoxin 250 mcg PO QPM 06/11/19 10/01/19 History duloxetine 20 mg PO BID 06/11/19 10/01/19 History gabapentin 100 mg PO TID 06/11/19 10/01/19 History metoprolol succinate [Toprol XL] 25 mg PO QPM 06/11/19 10/01/19 History multivitamin 1 tab PO QPM 06/11/19 10/01/19 History niacin [Niaspan Extended-Release] 1,000 mg PO QPM 06/11/19 10/01/19 History warfarin 1 - 2 mg PO QPM 06/11/19 10/01/19 History tramadol 50 mg PO TID PRN #10 tab 06/18/19 10/01/19 Rx allopurinol 100 mg PO QPM 07/18/19 10/01/19 History loratadine [Claritin] 10 mg PO QAM 07/18/19 10/01/19 History diclofenac sodium 2 g TOPICAL QID PRN 10/01/19 10/01/19 History Patient History Medical History Aphasia (Resolved 10/22/13) Arthritis Atrial fibrillation (Chronic) On warfarin Back pain, chronic (Chronic) SCOLIOSIS Bilateral leg weakness Likely what precipitated fall, which injured shoulder DJD of shoulder (Acute) History of prostate cancer (Chronic) Hyperlipemia (Chronic) Mitral regurgitation (Chronic) On anticoagulant therapy Sleep apnea BIPAP Systolic CHF, chronic (Chronic) H/O reduced systolic function as low as 35%, but resolved to 56% on most recent echo from 2017. TIA (transient ischemic attack) 2-3yrs ago, despite being on Coumadin. ASA 81mg added. Surgical History History of arthroplasty of left shoulder History of cardiac cath 2016? NO STENTS NEEDED [facility] History of colonoscopy History of cryosurgery FOR PROSTATE CANCER History of esophagogastroduodenoscopy (EGD) History of total hip arthroplasty LEFT Family History Other Family history non-contributory Social History Preferred Language: Setswana Communication Ability: Effective Remnant Sorter Required: No Beliefs That Will Affect Care: None Current Living Situation: Spouse Other Information That Helps Us Care for You: No Feels Safe at Home: Yes Safety Concerns: Feels Safe At This Time Smoking Status: Never smoker Do You Dip or Chew Tobacco: No ; Second Hand Exposure: No ; Tobacco Cessation Education Requested by Patient: No Hx Alcohol Use: No Hx Substance Use: No Review of Systems Constitutional: + fatigue; no fever and no chills Respiratory: + dyspnea on exertion; no cough Cardiovascular: no chest pain Gastrointestinal: no abdominal pain, no nausea and no vomiting Physical Exam Constitutional: + thin; no acute distress Neck: trachea midline Gastrointestinal (Abdomen): Inspection/Auscultation: normal bowel sounds Percussion/Palpation: abdomen soft; abdomen nontender Skin: no rashes, warm and dry Results & Data ([facility]) Vital Signs (Past 12 Hours) Vital Signs Temp Pulse Resp BP Pulse Ox 10/02/19 09:00 36.8 C 18 L 18 107/63 99 10/02/19 08:55 72 10/02/19 08:30 36.6 C 72 18 107/61 96 10/02/19 08:00 36.8 C 75 18 107/60 98 10/02/19 07:30 36.8 C 76 18 109/63 98 10/02/19 06:59 36.9 C 87 17 103/62 96 10/02/19 06:45 36.8 C 76 18 106/62 10/02/19 06:33 36.9 C 75 18 105/54 L 96 10/02/19 04:27 36.5 C 75 18 105/61 96 10/02/19 03:43 36.6 C 85 20 115/58 L 97 10/02/19 02:43 36.6 C 76 18 113/65 98 10/02/19 02:13 36.9 C 70 17 110/68 100 10/02/19 01:58 36.4 C L 70 18 116/69 100 10/02/19 01:42 36.6 C 59 L 18 119/62 100 10/02/19 01:29 36.8 C 67 20 120/61 100 10/02/19 01:00 36.8 C 73 18 113/64 98 10/02/19 00:45 36.7 C 80 20 115/66 98 10/02/19 00:29 36.5 C 82 18 118/65 99 10/02/19 00:10 36.8 C 69 18 111/64 100 10/01/19 23:44 89 10/01/19 23:28 36.6 C 86 20 118/61 98 10/01/19 22:28 36.6 C 80 18 111/52 L 100 10/01/19 21:58 36.8 C 87 18 123/65 96 10/01/19 21:43 36.4 C L 71 18 145/62 H 100 10/01/19 21:31 89 10/01/19 21:27 36.6 C 89 18 118/69 99 10/01/19 21:14 36.8 C 85 18 128/71 99 Laboratory Results 10/02/19 10/02/19 10/02/19 Range/Units 05:21 05:21 05:21 WBC (4.8-10.8) K/uL RBC (4.7-6.1) M/uL Hgb Cancelled (14.0-18.0) g/dL Hct (42-52) % MCV (80-100) fL MCH (25-34) pg MCHC (32-36) g/dL RDW Std Deviation (36.4-46.3) fL RDW Coeff of Ligia (11.5-14.5) % Plt Count (130-400) K/uL MPV (7.4-10.4) fL Immature Gran % (Auto) % Neut % (Auto) % Lymph % (Auto) % O'Brien % (Auto) % Eos % (Auto) % Baso % (Auto) % Immature Gran # (Auto) (0.00-0.02) K/uL Neut # (Auto) (1.4-6.5) K/uL Lymph # (Auto) (1.2-3.4) K/uL O'Brien # (Auto) (0.11-0.59) K/uL Eos # (Auto) (0-0.5) K/uL Baso # (Auto) (0-0.2) K/uL Polychromasia Anisocytosis PT 18.2 H (9.0-12.0) Seconds INR 1.8 H (0.9-1.1) APTT (21.0-31.0) Seconds PTT Ratio Sodium 141 (136-145) mmol/L Potassium 4.1 (3.5-5.1) mmol/L Chloride 110 H (98-107) mmol/L Carbon Dioxide 25 (21-32) mmol/L Anion Gap 6.0 (3-11) BUN 22 H (7-18) mg/dl Creatinine 1.07 (0.6-1.4) mg/dl Est Cr Clr Drug Dosing 45.6 ml/min Est GFR ( Amer) 73.5 Est GFR (Non-Af Amer) 63.4 BUN/Creatinine Ratio 20.6 H (10-20) Glucose 117 H (70-99) mg/dl Calcium 8.1 L (8.5-10.1) mg/dl Magnesium (1.8-2.4) mg/dl Total Bilirubin (0.2-1) mg/dl AST (15-37) U/L ALT (12-78) U/L Alkaline Phosphatase (45-117) U/L Troponin I (0-0.045) ng/ml Total Protein (6.4-8.2) gm/dl Albumin (3.4-5.0) gm/dl Globulin (2.5-4.0) gm/dl Albumin/Globulin Ratio (0.9-2) Digoxin (0.8-2.0) ng/ml Blood Type Antibody Screen Crossmatch 10/02/19 10/01/19 10/01/19 Range/Units 05:21 18:07 18:07 WBC 6.68 (4.8-10.8) K/uL RBC 2.16 L (4.7-6.1) M/uL Hgb 6.5 L* (14.0-18.0) g/dL Hct 19.9 L* (42-52) % MCV 92.1 (80-100) fL MCH 30.1 (25-34) pg MCHC 32.7 (32-36) g/dL RDW Std Deviation 53.4 H (36.4-46.3) fL RDW Coeff of Ligia 15.8 H (11.5-14.5) % Plt Count 149 (130-400) K/uL MPV 8.4 (7.4-10.4) fL Immature Gran % (Auto) % Neut % (Auto) % Lymph % (Auto) % O'Brien % (Auto) % Eos % (Auto) % Baso % (Auto) % Immature Gran # (Auto) (0.00-0.02) K/uL Neut # (Auto) (1.4-6.5) K/uL Lymph # (Auto) (1.2-3.4) K/uL O'Brien # (Auto) (0.11-0.59) K/uL Eos # (Auto) (0-0.5) K/uL Baso # (Auto) (0-0.2) K/uL Polychromasia Anisocytosis PT (9.0-12.0) Seconds INR (0.9-1.1) APTT (21.0-31.0) Seconds PTT Ratio Sodium 139 (136-145) mmol/L Potassium 4.2 (3.5-5.1) mmol/L Chloride 109 H (98-107) mmol/L Carbon Dioxide 23 (21-32) mmol/L Anion Gap 7.0 (3-11) BUN 30 H (7-18) mg/dl Creatinine 1.27 (0.6-1.4) mg/dl Est Cr Clr Drug Dosing 38.7 ml/min Est GFR ( Amer) 59.7 Est GFR (Non-Af Amer) 51.5 BUN/Creatinine Ratio 23.7 H (10-20) Glucose 140 H (70-99) mg/dl Calcium 8.2 L (8.5-10.1) mg/dl Magnesium 1.9 (1.8-2.4) mg/dl Total Bilirubin 0.4 (0.2-1) mg/dl AST 20 (15-37) U/L ALT 21 (12-78) U/L Alkaline Phosphatase 65 (45-117) U/L Troponin I < 0.015 (0-0.045) ng/ml Total Protein 6.3 L (6.4-8.2) gm/dl Albumin 3.2 L (3.4-5.0) gm/dl Globulin 3.1 (2.5-4.0) gm/dl Albumin/Globulin Ratio 1.0 (0.9-2) Digoxin 1.0 (0.8-2.0) ng/ml Blood Type Antibody Screen Crossmatch 10/01/19 10/01/19 10/01/19 Range/Units 18:07 18:07 18:07 WBC 7.80 (4.8-10.8) K/uL RBC 1.81 L (4.7-6.1) M/uL Hgb 5.4 L* (14.0-18.0) g/dL Hct 17.4 L* (42-52) % MCV 96.1 (80-100) fL MCH 29.8 (25-34) pg MCHC 31.0 L (32-36) g/dL RDW Std Deviation 53.7 H (36.4-46.3) fL RDW Coeff of Ligia 15.2 H (11.5-14.5) % Plt Count 215 (130-400) K/uL MPV 8.4 (7.4-10.4) fL Immature Gran % (Auto) 0.3 % Neut % (Auto) 68.7 % Lymph % (Auto) 15.4 % O'Brien % (Auto) 14.0 % Eos % (Auto) 1.2 % Baso % (Auto) 0.4 % Immature Gran # (Auto) 0.02 (0.00-0.02) K/uL Neut # (Auto) 5.37 (1.4-6.5) K/uL Lymph # (Auto) 1.20 (1.2-3.4) K/uL O'Brien # (Auto) 1.09 H (0.11-0.59) K/uL Eos # (Auto) 0.09 (0-0.5) K/uL Baso # (Auto) 0.03 (0-0.2) K/uL Polychromasia 1+ Anisocytosis Present PT 25.2 H (9.0-12.0) Seconds INR 2.5 H (0.9-1.1) APTT 30.8 (21.0-31.0) Seconds PTT Ratio 1.1 Sodium (136-145) mmol/L Potassium (3.5-5.1) mmol/L Chloride (98-107) mmol/L Carbon Dioxide (21-32) mmol/L Anion Gap (3-11) BUN (7-18) mg/dl Creatinine (0.6-1.4) mg/dl Est Cr Clr Drug Dosing ml/min Est GFR ( Amer) Est GFR (Non-Af Amer) BUN/Creatinine Ratio (10-20) Glucose (70-99) mg/dl Calcium (8.5-10.1) mg/dl Magnesium (1.8-2.4) mg/dl Total Bilirubin (0.2-1) mg/dl AST (15-37) U/L ALT (12-78) U/L Alkaline Phosphatase (45-117) U/L Troponin I (0-0.045) ng/ml Total Protein (6.4-8.2) gm/dl Albumin (3.4-5.0) gm/dl Globulin (2.5-4.0) gm/dl Albumin/Globulin Ratio (0.9-2) Digoxin (0.8-2.0) ng/ml Blood Type O Positive Antibody Screen NEGATIVE Crossmatch See Detail (1) Anemia Anemia type: unspecified type Qualified Code(s): D64.9 - Anemia, unspecified
[2019-10-02] MEDS ORDERED: PROPOFOL IV EMULSION 10 MG/ML 20 ML VIAL IV ONE (09:57)
[2019-10-02] MEDS ORDERED: LIDOCAINE HCL 2% 2 ML VIAL/AMP(20MG/ML) INFIL ONE (09:57)
--- NOTE | 2019-10-02 10:17 | Anesthesiology Consultation ---
Date of Service October 02, 2019 Assessment & Plan (1) Encounter for pre-operative examination: History Surgery Operation Date: 10/02/19 16:00 Proposed Procedures p Esophagogastroduodenoscopy Dr Owen Weaver Height/Weight Height: 5 ft 8 in Weight: 62.8 kg Allergies Allergy/AdvReac Type Severity Reaction Status Date / Time Penicillins Allergy Mild Rash Verified 10/01/19 19:53 fenofibrate Allergy Unknown MUSCLE Verified 10/01/19 19:53 WEAKNESS dronabinol [From Marinol] AdvReac Confusion Verified 07/24/19 11:33 Medications Home Medications Medication Instructions Recorded Confirmed Last Taken lidocaine 5 % topical patch 1 patch TOPICAL DAILY PRN ea 01/29/19 10/01/19 Unknown aspirin 81 mg PO QPM 06/11/19 10/01/19 06/10/19 atorvastatin 40 mg PO QPM 06/11/19 10/01/19 06/10/19 baclofen 10 mg PO TID 06/11/19 10/01/19 06/11/19 15:00 digoxin 250 mcg PO QPM 06/11/19 10/01/19 06/10/19 duloxetine 20 mg PO BID 06/11/19 10/01/19 06/10/19 gabapentin 100 mg PO TID 06/11/19 10/01/19 06/11/19 15:00 metoprolol succinate [Toprol XL] 25 mg PO QPM 06/11/19 10/01/19 06/10/19 multivitamin 1 tab PO QPM 06/11/19 10/01/19 06/10/19 niacin [Niaspan Extended-Release] 1,000 mg PO QPM 06/11/19 10/01/19 06/10/19 warfarin 1 - 2 mg PO QPM 06/11/19 10/01/19 06/10/19 1 MG tramadol 50 mg PO TID PRN #10 tab 06/18/19 10/01/19 Unknown allopurinol 100 mg PO QPM 07/18/19 10/01/19 Unknown loratadine [Claritin] 10 mg PO QAM 07/18/19 10/01/19 Unknown diclofenac sodium 2 g TOPICAL QID PRN 10/01/19 10/01/19 Unknown Active Medications Generic Name Dose Route Start Last Admin Trade Name Freq PRN Reason Stop Dose Admin Allopurinol 100 mg 10/01/19 21:00 10/01/19 21:32 Zyloprim PO 10/31/19 20:59 100 mg QPM TRAVIS Administration Atorvastatin Calcium 40 mg 10/01/19 21:00 10/01/19 21:31 Lipitor PO 10/31/19 20:59 40 mg QPM TRAVIS Administration Baclofen 5 mg 10/01/19 21:00 10/02/19 08:08 Lioresal PO 10/31/19 20:59 5 mg TID TRAVIS Administration Digoxin 0.25 mg 10/01/19 21:00 10/01/19 21:31 Lanoxin PO 10/31/19 20:59 0.25 mg QPM TRAVIS Administration Duloxetine HCl 20 mg 10/01/19 21:00 10/02/19 08:09 Cymbalta PO 10/31/19 20:59 20 mg BID TRAVIS Administration Gabapentin 100 mg 10/01/19 21:00 10/02/19 08:10 Neurontin PO 10/31/19 20:59 100 mg TID TRAVIS Administration Pantoprazole Sodium 40 mg/ 100 mls @ 20 mls/hr 10/01/19 21:00 10/02/19 06:42 Dextrose IV 10/31/19 20:59 8 mg/hr Q5H TRAVIS 20 mls/hr Administration 8 MG/HR Metoprolol Succinate 25 mg 10/01/19 21:00 10/01/19 21:32 Toprol Xl PO 10/31/19 20:59 25 mg QPM TRAVIS Administration Multivitamins 1 tab 10/01/19 21:00 10/01/19 21:33 Multivitamin Tab PO 10/31/19 20:59 1 tab QPM TRAVIS Administration Niacin 1,000 mg 10/01/19 21:00 10/01/19 21:33 Niaspan Extended Rel PO 10/31/19 20:59 1,000 mg QPM TRAVIS Administration Past Medical History Medical History Aphasia (Resolved 10/22/13) Arthritis Atrial fibrillation (Chronic) On warfarin Back pain, chronic (Chronic) SCOLIOSIS Bilateral leg weakness Likely what precipitated fall, which injured shoulder DJD of shoulder (Acute) History of prostate cancer (Chronic) Hyperlipemia (Chronic) Mitral regurgitation (Chronic) On anticoagulant therapy Sleep apnea BIPAP Systolic CHF, chronic (Chronic) H/O reduced systolic function as low as 35%, but resolved to 56% on most re cent echo from 2017. TIA (transient ischemic attack) 2-3yrs ago, despite being on Coumadin. ASA 81mg added. Past Family History Family History Other Family history non-contributory Past Surgical History Surgical History History of arthroplasty of left shoulder History of cardiac cath 2015? NO STENTS NEEDED [facility] History of colonoscopy History of cryosurgery FOR PROSTATE CANCER History of esophagogastroduodenoscopy (EGD) History of total hip arthroplasty LEFT Social History Smoking Status: Never smoker Do You Dip or Chew Tobacco: No Hx Alcohol Use: No Alcohol type: wine alcohol intake frequency: a few times a month Hx Substance Use: No Substance Use Type Other:: CBD oil Physical Exam Vital Signs Last Vital Signs Temp 36.6 C 10/02/19 09:55 Pulse 63 10/02/19 09:55 Resp 18 10/02/19 09:55 BP 114/65 10/02/19 09:55 Pulse Ox 97 10/02/19 09:55 Testing Laboratory Results 10/02/19 05:21 10/02/19 05:21 PT 18.2 Seconds (9.0-12.0) H 10/02/19 05:21 INR 1.8 (0.9-1.1) H 10/02/19 05:21 APTT 30.8 Seconds (21.0-31.0) 10/01/19 18:07 Blood Type O Positive 10/01/19 18:07 Antibody Screen NEGATIVE 10/01/19 18:07 Electrocardiogram Date: 10/02/19 Atrial fibrillation Left axis deviation Minimal voltage criteria for LVH, may be normal variant ( Gilmer product ) Anterior infarct (cited on or before 22-OCT-2013) Abnormal ECG When compared with ECG of 01-OCT-2019 18:04, (unconfirmed) No significant change was found Chest X-Ray Date: 10/01/19 Findings: + NAD Echocardiogram Date: 01/02/15 EF: 35-39% LV hypokineses at rest
[2019-10-02] MEDS ORDERED: BENZOCAIN/TETRACA/BUTAM SPRAY 200 APPLN/20 GM SPRY EXT ONE ×2 (11:27→12:03)
[2019-10-02] MEDS ORDERED: PHENYLEPHRINE 100MCG/ML 5ML SYR ONE (11:44)
[2019-10-02] MEDS ORDERED: ePHEDrine sulfate 50 MG/ML SYR ONE (11:44)
--- NOTE | 2019-10-02 11:46 | GI REPORT ---
Patient Name: Sebastian Joel Procedure Date: 10/02/2019 11:28 AM Date of : 1935 Admit Type: Inpatient Age: 83 Gender: Male Attending MD: Carlos Alberto Weaver MD Procedure: Upper GI endoscopy Providers: Carlos Alberto Weaver MD Referring MD: Viridiana Rivera Indications: Acute post hemorrhagic anemia, Melena - EGD is necessary during this viral pandemic because of acute GI bleed and risk of advanced pathology needing risk assessment and possible therapeutics. Medicines: See the Anesthesia note for documentation of the administered medications Complications: No immediate complications. Estimated Blood Loss: Estimated blood loss: none. Procedure: Pre-Anesthesia Assessment: - Prior to the procedure, a History and Physical was performed, and patient medications, allergies and sensitivities were reviewed. The patient's tolerance of previous anesthesia was reviewed. - The risks and benefits of the procedure and the sedation options and risks were discussed with the patient. All questions were answered and informed consent was obtained. - Patient identification and proposed procedure were verified prior to the procedure by the physician and the nurse. The procedure was verified in the pre-procedure area. - Pre-procedure physical examination revealed no contraindications to sedation. - After reviewing the risks and benefits, the patient was deemed in satisfactory condition to undergo the procedure. After obtaining informed consent, the endoscope was passed under direct vision. Throughout the procedure, the patient's blood pressure, pulse, and oxygen saturations were monitored continuously. The Endoscope was introduced through the mouth, and advanced to the third part of duodenum. The upper GI endoscopy was accomplished without difficulty. The patient tolerated the procedure well. Findings: The esophagus was normal. Multiple non-bleeding erosions were found in the gastric antrum. There were no stigmata of recent bleeding. The examined duodenum was normal. The cardia and gastric fundus were normal on retroflexion. Impression: - Normal esophagus. - Gastric erosions without bleeding. - No blood seen in stomach. - Normal examined duodenum. - No specimens collected. Recommendation: - Return patient to [facility] for ongoing care. - Perform a colonoscopy tomorrow. Carlos Alberto Weaver M.D. Carlos Alberto Weaver MD 10/02/2019 11:45:50 AM This report has been signed electronically. Note Initiated On: 10/02/2019 11:28 AM Number of Addenda: 0 I attest to the content of the Intraoperative Record and orders documented therein, exceptions below {[id number]}
--- NOTE | 2019-10-02 12:01 | Anesthesiology Progress Note ---
Date of Service October 02, 2019 Anesthesia Post Procedure Vital Signs Vital Signs: Temp Pulse Pulse Resp BP BP Pulse Ox 10/02/19 11:45 68 16 97/57 L 100 10/02/19 11:41 36.2 C L 61 16 97/57 L 99 10/02/19 11:18 36.2 C L 71 20 111/63 97 10/02/19 10:56 36.6 C 65 18 112/63 96 10/02/19 10:26 36.6 C 62 18 110/62 97 10/02/19 10:10 36.6 C 63 18 114/65 97 10/02/19 09:55 36.6 C 63 18 114/65 97 10/02/19 09:00 36.8 C 18 L 18 107/63 99 10/02/19 08:55 72 10/02/19 08:30 36.6 C 72 18 107/61 96 10/02/19 08:00 36.8 C 75 18 107/60 98 10/02/19 07:30 36.8 C 76 18 109/63 98 10/02/19 06:59 36.9 C 87 17 103/62 96 10/02/19 06:45 36.8 C 76 18 106/62 10/02/19 06:33 36.9 C 75 18 105/54 L 96 10/02/19 04:27 36.5 C 75 18 105/61 96 10/02/19 03:43 36.6 C 85 20 115/58 L 97 10/02/19 02:43 36.6 C 76 18 113/65 98 10/02/19 02:13 36.9 C 70 17 110/68 100 10/02/19 01:58 36.4 C L 70 18 116/69 100 10/02/19 01:42 36.6 C 59 L 18 119/62 100 10/02/19 01:29 36.8 C 67 20 120/61 100 10/02/19 01:00 36.8 C 73 18 113/64 98 10/02/19 00:45 36.7 C 80 20 115/66 98 10/02/19 00:29 36.5 C 82 18 118/65 99 10/02/19 00:10 36.8 C 69 18 111/64 100 10/01/19 23:44 89 05/12/20 23:28 36.6 C 86 20 118/61 98 10/01/19 22:28 36.6 C 80 18 111/52 L 100 10/01/19 21:58 36.8 C 87 18 123/65 96 10/01/19 21:43 36.4 C L 71 18 145/62 H 100 10/01/19 21:31 89 10/01/19 21:27 36.6 C 89 18 118/69 99 10/01/19 21:14 36.8 C 85 18 128/71 99 10/01/19 20:52 36.5 C 85 18 145/70 H 99 10/01/19 20:49 36.8 C 68 18 133/72 99 10/01/19 20:27 36.5 C 85 18 145/70 H 99 10/01/19 20:24 100 H 10/01/19 19:57 36.8 C 88 24 125/68 98 10/01/19 19:50 75 35 H 100 10/01/19 19:40 96 H 27 H 10/01/19 19:35 36.6 C 74 25 H 129/64 98 10/01/19 19:30 82 25 H 132/62 10/01/19 19:20 96 H 27 H 100 10/01/19 19:10 88 21 92 10/01/19 19:00 92 H 30 H 132/53 L 94 10/01/19 18:50 82 26 H 96 10/01/19 18:40 77 26 H 96 10/01/19 18:31 87 27 H 125/65 100 10/01/19 18:30 85 23 10/01/19 18:20 75 24 100 10/01/19 18:15 36.7 C 98 H 98 H 21 100/65 100/65 91 10/01/19 18:10 88 26 H 10/01/19 18:06 75 26 H 98 10/01/19 18:02 89 24 100/65 97 Transfer of Care Handoff Completed per policy Notes Mental Status: alert / awake / arousable and participated in evaluation Patient Amnestic to Procedure: Yes Nausea / Vomiting: adequately controlled Pain: adequately controlled Airway Patency, RR, SpO2: stable & adequate BP & HR: stable & adequate Hydration State: stable & adequate Anesthetic Complications: no major complications apparent and Pt Satisfied with anesthetic care
[2019-10-02 12:12] LABS: iSTAT Creatinine 1.1 mg/dl (0.6-1.3); iSTAT Hemoglobin 7.8 g/dl (14.0-18.0); iSTAT Ionized Calcium 1.29 mmol/l (1.12-1.32); iSTAT Potassium 4.2 mmol/L (3.3-5.0)
--- NOTE | 2019-10-02 12:56 | Hospitalist Progress Note ---
Date of Service October 02, 2019 Assessment & Plan (1) Acute upper gastrointestinal bleeding: reports of black stools x 2-3 weeks. Patient presenting to the ED with severe anemia likely secondary to GI bleeding. Hb 5.4 Coumadin and Aspirin kept on hold s/p 2 units of FFB to correct coagulopathy received 4 units of PRBC tx Protonix drip appreciate GI eval s/p EGD today plan for colonoscopy in AM (2) Acute blood loss anemia: Acute blood loss anemia presented with FIELD : anemia : H&H 5.4 g/dl and 17.4% in the setting of GI bleed. pt was transfused 4 units of PRBC no evidence of GI bleed since admission Hb improved > 9 after PRBC tx GI eval , s/p EGD : multiple non bleeding erosion in gastric antrum without stigmata of acute bleeding normal deudenum plan for colonoscopy in am (3) Weakness: due to above (4) FIELD (dyspnea on exertion): due to symptomatic anemia (5) Atrial fibrillation: Rate controlled at this time. Continue metoprolol. coumadin on hold for GI bleed (6) Sleep apnea: Patient unsure of BiPAP settings. Ordered RT protocol for BiPAP (7) DVT prophylaxis: SCDs no pharmachological anticoagualtion due to GI bleed FULL CODE Admission and Anticipated Discharge Date Admission Date: October 01, 2019 Subjective no bowel movement since admission no complain of abdominal pain, no nausea or vomiting Review of Systems Review of Systems: All systems reviewed & are unremarkable except as noted in HPI & below Gastrointestinal: no abdominal pain, no nausea, no vomiting and no blood in stools Physical Exam Constitutional: WD/WN, vitals as above + ill appearing; no acute distress Eyes: PERRL, conjunctivae normal, anicteric sclerae ENMT: external ear and nose normal, oropharynx normal Neck: trachea midline, no thyromegaly Respiratory: normal respiratory effort, lungs clear to auscultation Cardiovascular: RRR, no murmur, no edema Gastrointestinal (Abdomen): Inspection/Auscultation: normal bowel sounds Percussion/Palpation: abdomen soft; abdomen nontender Musculoskeletal: no cyanosis or clubbing, extremities motor strength 5/5 Skin: no rashes, warm and dry Neurologic: PERRL, EOMI, accommodation nl, no face palsy, no dysarthria Psychiatric: A+Ox3, euthymic affect Results & Data Results & Data ([facility]) Vital Signs (Past 12 Hours) Vital Signs Temp Pulse Pulse Resp BP BP Pulse Ox 10/02/19 12:14 63 16 112/62 97 10/02/19 12:01 59 L 16 108/67 96 10/02/19 11:45 68 16 97/57 L 100 10/02/19 11:41 36.2 C L 61 16 97/57 L 99 10/02/19 11:18 36.2 C L 71 20 111/63 97 10/02/19 10:56 36.6 C 65 18 112/63 96 10/02/19 10:26 36.6 C 62 18 110/62 97 10/02/19 10:10 36.6 C 63 18 114/65 97 10/02/19 09:55 36.6 C 63 18 114/65 97 10/02/19 09:00 36.8 C 18 L 18 107/63 99 10/02/19 08:55 72 10/02/19 08:30 36.6 C 72 18 107/61 96 10/02/19 08:00 36.8 C 75 18 107/60 98 10/02/19 07:30 36.8 C 76 18 109/63 98 10/02/19 06:59 36.9 C 87 17 103/62 96 10/02/19 06:45 36.8 C 76 18 106/62 10/02/19 06:33 36.9 C 75 18 105/54 L 96 10/02/19 04:27 36.5 C 75 18 105/61 96 10/02/19 03:43 36.6 C 85 20 115/58 L 97 10/02/19 02:43 36.6 C 76 18 113/65 98 10/02/19 02:13 36.9 C 70 17 110/68 100 10/02/19 01:58 36.4 C L 70 18 116/69 100 10/02/19 01:42 36.6 C 59 L 18 119/62 100 10/02/19 01:29 36.8 C 67 20 120/61 100 10/02/19 01:00 36.8 C 73 18 113/64 98 (1) Atrial fibrillation Atrial fibrillation type: permanent Qualified Code(s): I48.21 - Permanent atrial fibrillation
--- NOTE | 2019-10-02 13:02 | Anesthesiology Progress Note ---
Date of Service October 02, 2019 Anesthesia Post Procedure Vital Signs Vital Signs: Temp Pulse Pulse Resp BP BP BP 10/02/19 12:55 36.6 C 75 19 114/62 10/02/19 12:14 63 16 112/62 10/02/19 12:01 59 L 16 108/67 10/02/19 11:45 68 16 97/57 L 10/02/19 11:41 36.2 C L 61 16 97/57 L 10/02/19 11:18 36.2 C L 71 20 111/63 10/02/19 10:56 36.6 C 65 18 112/63 10/02/19 10:26 36.6 C 62 18 110/62 10/02/19 10:10 36.6 C 63 18 114/65 10/02/19 09:55 36.6 C 63 18 114/65 10/02/19 09:00 36.8 C 18 L 18 107/63 10/02/19 08:55 72 10/02/19 08:30 36.6 C 72 18 107/61 10/02/19 08:00 36.8 C 75 18 107/60 10/02/19 07:30 36.8 C 76 18 109/63 10/02/19 06:59 36.9 C 87 17 103/62 10/02/19 06:45 36.8 C 76 18 106/62 10/02/19 06:33 36.9 C 75 18 105/54 L 10/02/19 04:27 36.5 C 75 18 105/61 10/02/19 03:43 36.6 C 85 20 115/58 L 10/02/19 02:43 36.6 C 76 18 113/65 10/02/19 02:13 36.9 C 70 17 110/68 10/02/19 01:58 36.4 C L 70 18 116/69 10/02/19 01:42 36.6 C 59 L 18 119/62 10/02/19 01:29 36.8 C 67 20 120/61 10/02/19 01:00 36.8 C 73 18 113/64 10/02/19 00:45 36.7 C 80 20 115/66 10/02/19 00:29 36.5 C 82 18 118/65 10/02/19 00:10 36.8 C 69 18 111/64 10/01/19 23:44 89 10/01/19 23:28 36.6 C 86 20 118/61 10/01/19 22:28 36.6 C 80 18 111/52 L 10/01/19 21:58 36.8 C 87 18 123/65 10/01/19 21:43 36.4 C L 71 18 145/62 H 10/01/19 21:31 89 10/01/19 21:27 36.6 C 89 18 118/69 10/01/19 21:14 36.8 C 85 18 128/71 10/01/19 20:52 36.5 C 85 18 145/70 H 10/01/19 20:49 36.8 C 68 18 133/72 10/01/19 20:27 36.5 C 85 18 145/70 H 10/01/19 20:24 100 H 10/01/19 19:57 36.8 C 88 24 125/68 10/01/19 19:50 75 35 H 10/01/19 19:40 96 H 27 H 10/01/19 19:35 36.6 C 74 25 H 129/64 10/01/19 19:30 82 25 H 132/62 10/01/19 19:20 96 H 27 H 10/01/19 19:10 88 21 10/01/19 19:00 92 H 30 H 132/53 L 10/01/19 18:50 82 26 H 10/01/19 18:40 77 26 H 10/01/19 18:31 87 27 H 125/65 10/01/19 18:30 85 23 10/01/19 18:20 75 24 10/01/19 18:15 36.7 C 98 H 98 H 21 100/65 100/65 10/01/19 18:10 88 26 H 10/01/19 18:06 75 26 H 10/01/19 18:02 89 24 100/65 Pulse Ox 10/02/19 12:55 100 10/02/19 12:14 97 10/02/19 12:01 96 10/02/19 11:45 100 10/02/19 11:41 99 10/02/19 11:18 97 10/02/19 10:56 96 10/02/19 10:26 97 10/02/19 10:10 97 10/02/19 09:55 97 05/13/20 09:00 99 10/02/19 08:55 10/02/19 08:30 96 10/02/19 08:00 98 10/02/19 07:30 98 10/02/19 06:59 96 10/02/19 06:45 10/02/19 06:33 96 10/02/19 04:27 96 10/02/19 03:43 97 10/02/19 02:43 98 10/02/19 02:13 100 10/02/19 01:58 100 10/02/19 01:42 100 10/02/19 01:29 100 10/02/19 01:00 98 10/02/19 00:45 98 10/02/19 00:29 99 10/02/19 00:10 100 10/01/19 23:44 10/01/19 23:28 98 10/01/19 22:28 100 10/01/19 21:58 96 10/01/19 21:43 100 10/01/19 21:31 10/01/19 21:27 99 10/01/19 21:14 99 10/01/19 20:52 99 10/01/19 20:49 99 10/01/19 20:27 99 10/01/19 20:24 10/01/19 19:57 98 10/01/19 19:50 100 10/01/19 19:40 10/01/19 19:35 98 10/01/19 19:30 10/01/19 19:20 100 10/01/19 19:10 92 10/01/19 19:00 94 10/01/19 18:50 96 10/01/19 18:40 96 10/01/19 18:31 100 10/01/19 18:30 10/01/19 18:20 100 10/01/19 18:15 91 10/01/19 18:10 10/01/19 18:06 98 10/01/19 18:02 97 Transfer of Care Handoff Completed per policy Notes Mental Status: alert / awake / arousable and participated in evaluation Patient Amnestic to Procedure: Yes Nausea / Vomiting: adequately controlled Pain: adequately controlled Airway Patency, RR, SpO2: stable & adequate BP & HR: stable & adequate Hydration State: stable & adequate Anesthetic Complications: no major complications apparent and Pt Satisfied with anesthetic care
[2019-10-02 13:20] LABS: Hematocrit (blood only) 29.4 % (42-52); Hemoglobin 9.5 g/dL (14.0-18.0)
--- NOTE | 2019-10-02 16:28 | Electrocardiogram Report ---
Test Reason : Blood Pressure : / mmHG Vent. Rate : 076 BPM Atrial Rate : 052 BPM P-R Int : 000 ms QRS Dur : 106 ms QT Int : 334 ms P-R-T Axes : 000 -51 092 degrees QTc Int : 375 ms Atrial fibrillation Left axis deviation Anteroseptal infarct (cited on or before 22-OCT-2013) Abnormal ECG When compared with ECG of 11-JUN-2019 16:35, ST no longer elevated in Anterior leads Confirmed by Faizan Maki ([id number]) on 10/02/2019 4:28:17 PM Referred By: REFERRED SELF Confirmed By:Faizan Maki
[2019-10-02] MEDS ORDERED: LAVAGE SOLUTION 4000ML PO ONE (18:00)
[2019-10-02] MEDS: MULTIVITAMIN TAB PO SCH (19:58)
[2019-10-02] MEDS: DIGOXIN 0.25 MG TAB PO SCH (20:02)
[2019-10-03] MEDS: PANTOprazole 40 MG in DEXTROSE 5% 100 ML IV SCH ×2 (03:16→10:35)
--- NOTE | 2019-10-03 05:54 | Electrocardiogram Report ---
Test Reason : Blood Pressure : / mmHG Vent. Rate : 070 BPM Atrial Rate : 000 BPM P-R Int : 000 ms QRS Dur : 110 ms QT Int : 364 ms P-R-T Axes : 000 -54 090 degrees QTc Int : 393 ms Atrial fibrillation Left axis deviation Minimal voltage criteria for LVH, may be normal variant Anteroseptal infarct Abnormal ECG When compared with ECG of 01-OCT-2019 18:04, No significant change was found Confirmed by Faizan Maki ([id number]) on 10/03/2019 5:54:28 AM Referred By: REFERRED SELF Confirmed By:Faizan Maki
[2019-10-03 07:46] LABS: Hematocrit (blood only) 27.1 % (42-52)
[2019-10-03 08:01] LABS: INR 2.4 (0.9-1.1); Prothrombin Time 24.1 Seconds (9.0-12.0)
--- NOTE | 2019-10-03 08:54 | History & Physical Report ---
Date of Service October 03, 2019 Assessment & Plan (1) GI bleed: stable for colonoscopy History of Present Illness Chief Complaint: Acute anemia from GI bleeding/melena Primary Care Provider: Sandra Dahl MD Pt with acute GI bleed and anemia. symptoms concerning for advanced pathology. Given these symptoms and risk of sinister pathology, this colonoscopy is necessary during the viral pandemic. Allergies Allergy/AdvReac Type Severity Reaction Status Date / Time Penicillins Allergy Mild Rash Verified 10/01/19 19:53 fenofibrate Allergy Unknown MUSCLE Verified 10/01/19 19:53 WEAKNESS dronabinol [From Marinol] AdvReac Confusion Verified 07/24/19 11:33 Home Medications Home Medications Medication Instructions Recorded Confirmed Type lidocaine 5 % topical patch 1 patch TOPICAL DAILY PRN ea 01/29/19 10/01/19 History aspirin 81 mg PO QPM 06/11/19 10/01/19 History atorvastatin 40 mg PO QPM 06/11/19 10/01/19 History baclofen 10 mg PO TID 06/11/19 10/01/19 History digoxin 250 mcg PO QPM 06/11/19 10/01/19 History duloxetine 20 mg PO BID 06/11/19 10/01/19 History gabapentin 100 mg PO TID 06/11/19 10/01/19 History metoprolol succinate [Toprol XL] 25 mg PO QPM 06/11/19 10/01/19 History multivitamin 1 tab PO QPM 06/11/19 10/01/19 History niacin [Niaspan Extended-Release] 1,000 mg PO QPM 06/11/19 10/01/19 History warfarin 1 - 2 mg PO QPM 06/11/19 10/01/19 History tramadol 50 mg PO TID PRN #10 tab 06/18/19 10/01/19 Rx allopurinol 100 mg PO QPM 07/18/19 10/01/19 History loratadine [Claritin] 10 mg PO QAM 07/18/19 10/01/19 History diclofenac sodium 2 g TOPICAL QID PRN 10/01/19 10/01/19 History Past Med/Surg History Medical History Aphasia (Resolved 10/22/13) Arthritis Atrial fibrillation (Chronic) On warfarin Back pain, chronic (Chronic) SCOLIOSIS Bilateral leg weakness Likely what precipitated fall, which injured shoulder DJD of shoulder (Acute) History of prostate cancer (Chronic) Hyperlipemia (Chronic) Mitral regurgitation (Chronic) On anticoagulant therapy Sleep apnea BIPAP Systolic CHF, chronic (Chronic) H/O reduced systolic function as low as 35%, but resolved to 56% on most recent echo from 2017. TIA (transient ischemic attack) 2-3yrs ago, despite being on Coumadin. ASA 81mg added. Surgical History History of arthroplasty of left shoulder History of cardiac cath 2015? NO STENTS NEEDED 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 Beliefs That Will Affect Care: None Current Living Situation: Spouse Other Information That Helps Us Care for You: No Feels Safe at Home: Yes Safety Concerns: Feels Safe At This Time Smoking Status: Never smoker Do You Dip or Chew Tobacco: No ; Second Hand Exposure: No ; Tobacco Cessation Education Requested by Patient: No Hx Alcohol Use: No Hx Substance Use: No Physical Exam Constitutional: WD/WN, vitals as above Respiratory: normal respiratory effort, lungs clear to auscultation Cardiovascular: RRR, no murmur, no edema Gastrointestinal (Abdomen): normal bowel sounds, soft, nontender, no hepatosplenomegaly Results & Data Vital Signs (Past 12 Hours) Vital Signs Temp Pulse Pulse Resp BP Pulse Ox 10/03/19 08:00 70 10/03/19 07:14 36.7 C 95 H 17 115/65 94 10/03/19 04:00 36.6 C 79 18 120/61 96 10/03/19 00:01 68 10/02/19 23:55 37.1 C 72 18 132/74 98 Code Status & VTE Plan VTE Prophylaxis Plan VTE Prophylaxis will be ordered: Yes
[2019-10-03] MEDS ORDERED: PROPOFOL IV EMULSION 10 MG/ML 20 ML VIAL IV ONE ×2 (08:58→09:29)
[2019-10-03] MEDS ORDERED: LIDOCAINE HCL 2% 2 ML VIAL/AMP(20MG/ML) INFIL ONE (08:58)
[2019-10-03] MEDS ORDERED: PHENYLEPHRINE 100MCG/ML 5ML SYR ONE (09:29)
--- NOTE | 2019-10-03 09:49 | Anesthesiology Progress Note ---
Date of Service October 03, 2019 Anesthesia Post Procedure Vital Signs Vital Signs: Temp Pulse Pulse Resp BP BP BP 10/03/19 09:45 76 18 117/69 10/03/19 09:31 75 16 101/59 L 10/03/19 08:00 70 10/03/19 07:14 36.7 C 95 H 17 115/65 10/03/19 04:00 36.6 C 79 18 120/61 10/03/19 00:01 68 10/02/19 23:55 37.1 C 72 18 132/74 10/02/19 20:02 57 L 10/02/19 19:43 36.4 C L 70 18 113/68 10/02/19 14:55 36.4 C L 69 18 99/46 L 10/02/19 13:10 36.6 C 65 18 107/60 10/02/19 12:55 36.6 C 75 19 114/62 10/02/19 12:14 63 16 112/62 10/02/19 12:01 59 L 16 108/67 10/02/19 11:45 68 16 97/57 L 10/02/19 11:41 36.2 C L 61 16 97/57 L 10/02/19 11:18 36.2 C L 71 20 111/63 10/02/19 10:56 36.6 C 65 18 112/63 10/02/19 10:26 36.6 C 62 18 110/62 10/02/19 10:10 36.6 C 63 18 114/65 10/02/19 09:55 36.6 C 63 18 114/65 Pulse Ox 10/03/19 09:45 100 10/03/19 09:31 100 10/03/19 08:00 10/03/19 07:14 94 10/03/19 04:00 96 10/03/19 00:01 10/02/19 23:55 98 10/02/19 20:02 10/02/19 19:43 99 10/02/19 14:55 98 10/02/19 13:10 97 10/02/19 12:55 100 10/02/19 12:14 97 10/02/19 12:01 96 10/02/19 11:45 100 10/02/19 11:41 99 10/02/19 11:18 97 10/02/19 10:56 96 10/02/19 10:26 97 10/02/19 10:10 97 10/02/19 09:55 97 Transfer of Care Handoff Completed per policy Notes Mental Status: alert / awake / arousable and participated in evaluation Patient Amnestic to Procedure: Yes Nausea / Vomiting: adequately controlled Pain: adequately controlled Airway Patency, RR, SpO2: stable & adequate BP & HR: stable & adequate Hydration State: stable & adequate Anesthetic Complications: no major complications apparent and Pt Satisfied with anesthetic care
--- NOTE | 2019-10-03 09:53 | GI REPORT ---
Patient Name: Sebastian Joel Procedure Date: 10/03/2019 8:20 AM Date of : 1935 Admit Type: Inpatient Age: 83 Gender: Male Attending MD: Carlos Alberto Weaver MD Procedure: Colonoscopy Providers: Carlos Alberto Weaver MD Referring MD: Viridiana Rivera Indications: Melena, Acute post hemorrhagic anemia - procedure necessary because of acute symptoms concerning for advanced pathology and it's associated morbidity Medicines: See the Anesthesia note for documentation of the administered medications Complications: No immediate complications. Estimated Blood Loss: Estimated blood loss was minimal. Procedure: Pre-Anesthesia Assessment: - Prior to the procedure, a History and Physical was performed, and patient medications, allergies and sensitivities were reviewed. The patient's tolerance of previous anesthesia was reviewed. - The risks and benefits of the procedure and the sedation options and risks were discussed with the patient. All questions were answered and informed consent was obtained. - Patient identification and proposed procedure were verified prior to the procedure by the physician and the nurse. The procedure was verified in the pre-procedure area. - Pre-procedure physical examination revealed no contraindications to sedation. - After reviewing the risks and benefits, the patient was deemed in satisfactory condition to undergo the procedure. After I obtained informed consent, the scope was passed under direct vision. Throughout the procedure, the patient's blood pressure, pulse, and oxygen saturations were monitored continuously. The Colonoscope was introduced through the anus and advanced to the cecum, identified by appendiceal orifice and ileocecal valve. The colonoscopy was performed without difficulty. The patient tolerated the procedure well. The quality of the bowel preparation was good. Findings: The perianal and digital rectal examinations were normal. A single small angioectasia with bleeding was found in the proximal ascending colon. Coagulation for hemostasis using monopolar probe was successful. For hemostasis, one hemostatic clip was successfully placed (MR conditional). There was no bleeding at the end of the procedure. Estimated blood loss was minimal. Multiple small-mouthed diverticula were found in the sigmoid colon. No additional abnormalities were found on retroflexion. Impression: - A single bleeding colonic angioectasia. Treated with a monopolar probe. Clip (MR conditional) was placed. - Diverticulosis in the sigmoid colon. - No specimens collected. Recommendation: - Return patient to [facility] for ongoing care. Carlos Alberto Weaver M.D. Carlos Alberto Weaver MD 10/03/2019 9:52:26 AM This report has been signed electronically. Note Initiated On: 10/03/2019 8:20 AM Number of Addenda: 0 I attest to the content of the Intraoperative Record and orders documented therein, exceptions below {[id number]}
[2019-10-03] MEDS: BACLOFEN 10 MG TAB PO SCH ×2 (10:45→14:18)
[2019-10-03] MEDS: DULOXETINE HCL 20 MG CAP PO SCH (10:45)
[2019-10-03] MEDS: GABAPENTIN 100 MG CAP PO SCH ×2 (10:45→14:18)
[2019-10-03] MEDS ORDERED: DICLOFENAC SOD 1% GEL 100 GM TUBE EXT PRN (14:06)
[2019-10-03] MEDS ORDERED: LIDOCAINE 5% 1 PATCH TD PRN (14:06)
[2019-10-03] MEDS ORDERED: TRAMADOL HCL 50 MG TABLET PO PRN (14:06)
--- NOTE | 2019-10-03 17:56 | Hospitalist Progress Note ---
Date of Service October 03, 2019 Assessment & Plan (1) GI bleed: reports of black stools x 2-3 weeks. Patient presented to the ED with severe anemia likely secondary to GI bleeding. Hb 5.4 Coumadin and Aspirin kept on hold s/p 2 units of FFB to correct coagulopathy received 4 units of PRBC tx : H&H been stable was on Protonix drip appreciate GI eval s/p EGD 10/02/19: colonoscopy today 10/03/19 : single small angioectasia with bleeding was found in the proximal ascending colon, heat coagulation with monopolar probe followed by single hemostatic clip was placed . pt did not had any further episode of GI bleed /melanotic stool diet advanced , tolerating well stable to be discharged home today asked to hold Aspirin for 2 more days Coumadin can be resumed in next 48 hrs if no more dark stool pt is very high risk for future thromboembolic event -given chronic afib /prior hx of TIA repeat CBC in a week and close monitoring of H&H or any evidence of GI bleed (2) Acute blood loss anemia: Acute blood loss anemia presented with FIELD : anemia : H&H 5.4 g/dl and 17.4% in the setting of GI bleed. pt was transfused 4 units of PRBC no evidence of GI bleed since admission Hb improved > 9 after PRBC tx GI eval , s/p EGD : multiple non bleeding erosion in gastric antrum without stigmata of acute bleeding normal deudenum colonsocopy as above (3) Weakness: due to above symptoms resolved, energy back to base line after correction of anemia and resolution of GI bleed (4) FIELD (dyspnea on exertion): due to symptomatic anemia symptoms has resolved , no hypxia, SOB or FIELD noted (5) Atrial fibrillation: chronic /parmanent Afib rate controlled with beta bernadette high risk for thromboembolic phenomenon -with discontinuation of anticoagulation coumadin resumed on lower dose 1 mg daily close monitoring of PT/INR and H&H to assess anemia (6) Sleep apnea: Patient unsure of BiPAP settings. Ordered RT protocol for BiPAP (7) DVT prophylaxis: Coumadin FULL CODE DISPOSITION : Stable to be discharged home today Admission and Anticipated Discharge Date Admission Date: October 01, 2019 Subjective pt is sitting up feeling fine had colonoscopy earlier today no bowel movement after colonoscopic prep vitals and H&H stable tolerating solid diet stable to be discharged home today Review of Systems Review of Systems: All systems reviewed & are unremarkable except as noted in HPI & below Gastrointestinal: no abdominal pain, no nausea, no vomiting, no blood in stools and no melena Physical Exam Constitutional: WD/WN, vitals as above + ill appearing; no acute distress Eyes: PERRL, conjunctivae normal, anicteric sclerae ENMT: external ear and nose normal, oropharynx normal Neck: trachea midline, no thyromegaly Respiratory: normal respiratory effort, lungs clear to auscultation Cardiovascular: RRR, no murmur, no edema Gastrointestinal (Abdomen): Inspection/Auscultation: normal bowel sounds Percussion/Palpation: abdomen soft; abdomen nontender Musculoskeletal: no cyanosis or clubbing, extremities motor strength 5/5 Skin: no rashes, warm and dry Neurologic: PERRL, EOMI, accommodation nl, no face palsy, no dysarthria Psychiatric: A+Ox3, euthymic affect Results & Data Results & Data ([facility]) Vital Signs (Past 12 Hours) Vital Signs Temp Pulse Pulse Resp BP BP Pulse Ox 10/03/19 16:01 36.4 C L 80 18 122/67 95 10/03/19 15:21 82 10/03/19 13:15 36.4 C L 68 18 128/70 98 10/03/19 11:06 36.3 C L 73 18 122/78 98 10/03/19 09:56 73 18 118/72 98 10/03/19 09:45 76 18 117/69 100 10/03/19 09:31 75 16 101/59 L 100 10/03/19 08:00 70 10/03/19 07:14 36.7 C 95 H 17 115/65 94 (1) GI bleed GI bleed type/associated pathology: melena Qualified Code(s): K92.1 - Melena (2) Atrial fibrillation Atrial fibrillation type: permanent Qualified Code(s): I48.21 - Permanent atrial fibrillation
--- NOTE | 2019-10-03 18:43 | Discharge Summary ---
Date of Service October 03, 2019 Admission HPI Per Admitting Provider Pt with acute GI bleed and anemia. symptoms concerning for advanced pathology. Given these symptoms and risk of sinister pathology, this colonoscopy is necessary during the viral pandemic. Principal Diagnosis GI BLEED . ACUTE BLOOD LOSS ANEMIA Discharge Exam Constitutional WD/WN, vitals as above no acute distress Eyes PERRL, conjunctivae normal, anicteric sclerae ENMT external ear and nose normal, oropharynx normal Neck trachea midline, no thyromegaly Respiratory normal respiratory effort, lungs clear to auscultation Cardiovascular RRR, no murmur, no edema Gastrointestinal (Abdomen) Inspection/Auscultation: normal bowel sounds Percussion/Palpation: abdomen soft; abdomen nontender Musculoskeletal no cyanosis or clubbing, extremities motor strength 5/5 Skin no rashes, warm and dry Neurologic PERRL, EOMI, accommodation nl, no face palsy, no dysarthria Psychiatric A+Ox3, euthymic affect Discharge Data Allergies Allergy/AdvReac Type Severity Reaction Status Date / Time Penicillins Allergy Mild Rash Verified 10/03/19 09:03 fenofibrate Allergy Unknown MUSCLE Verified 10/03/19 09:03 WEAKNESS dronabinol [From Marinol] AdvReac Confusion Verified 10/03/19 09:03 Consultations 10/01/19 18:29 ED Decision to Admit Stat 10/01/19 20:32 Consult Case Management - Discharge Planning Routine Consult Gastroenterology Routine Procedures Performed Operation Date: 10/02/19 16:00 Actual Procedures p Esophagogastroduodenoscopy - Carlos Alberto Weaver Operation Date: 10/03/19 08:30 Actual Procedures p Colonoscopy Hemostasis - Carlos Alberto Weaver Hospital Course (1) GI bleed: reports of black stools x 2-3 weeks. Patient presented to the ED with severe anemia likely secondary to GI bleeding. Hb 5.4 Coumadin and Aspirin kept on hold s/p 2 units of FFB to correct coagulopathy received 4 units of PRBC tx : H&H been stable was on Protonix drip appreciate GI eval s/p EGD 10/02/19: colonoscopy today 10/03/19 : single small angioectasia with bleeding was found in the proximal ascending colon, heat coagulation with monopolar probe followed by single hemostatic clip was placed . pt did not had any further episode of GI bleed /melanotic stool diet advanced , tolerating well stable to be discharged home today asked to hold Aspirin for 2 more days Coumadin can be resumed in next 48 hrs if no more dark stool pt is very high risk for future thromboembolic event -given chronic afib /prior hx of TIA repeat CBC in a week and close monitoring of H&H or any evidence of GI bleed (2) Acute blood loss anemia: Acute blood loss anemia presented with FIELD : anemia : H&H 5.4 g/dl and 17.4% in the setting of GI bleed. pt was transfused 4 units of PRBC no evidence of GI bleed since admission Hb improved > 9 after PRBC tx GI eval , s/p EGD : multiple non bleeding erosion in gastric antrum without stigmata of acute bleeding normal deudenum colonsocopy as above (3) Weakness: due to above symptoms resolved, energy back to base line after correction of anemia and resolution of GI bleed (4) FIELD (dyspnea on exertion): due to symptomatic anemia symptoms has resolved , no hypxia, SOB or FIELD noted (5) Atrial fibrillation: chronic /parmanent Afib rate controlled with beta bernadette high risk for thromboembolic phenomenon -with discontinuation of anticoagulation coumadin resumed on lower dose 1 mg daily close monitoring of PT/INR and H&H to assess anemia (6) Sleep apnea: Patient unsure of BiPAP settings. Ordered RT protocol for BiPAP (7) DVT prophylaxis: Coumadin FULL CODE DISPOSITION : Stable to be discharged home today Total Time Total Time Spent Total Time Spent (In Minutes): 35 mins Total Time Includes: Examination of the Patient, Discharge Planning and Medication Reconciliation Discharge Plan Discharge Items Patient Disposition: Home - Self-Care Reason For Visit: ANEMIA,SOB Discharge Diagnosis: GI BLEED , ACUTE BLOOD LOSS ANEMIA Condition on Discharge: Good Activity: Resume your previous activity Non-emergency contact: Primary Care Provider Call non-emergency contact if: you have any medication questions Follow-up/Referrals: Sandra Dahl MD [Primary Care Provider] - Diet: Heart Healthy Ambulatory Orders: Complete Blood Count no Diff (Routine) Timeframe: 20191007 Location: Determined by Patient Ordered By: Viridiana Rivera Prothrombin Time INR (Routine) Timeframe: 20191007 Location: Determined by Patient Ordered By: Viridiana Rivera Addtl Attending Provider Instructions: DO NOT TAKE ASPIRIN TILL MONDAY RESUME COUMADIN WITH LOW DOSE 1 MG DAILY STARTING FROM MONDAY PLEASE NOTIFY YOUR FAMILY PHYSICIAN WITH ANY RECURRENCE OF [facility] FOLLOW UP WITH FAMILY PHYSICAN IN A WEEK Pending Studies at Discharge: Yes Studies:: COMPLETE BLOOD WORK ON MONDAY THEN WEEKLY CHECK OF HEMOGLOBIN TO ASSESS ANEMIA FOR AT LEAST 2 WEEKS INR CHECK ON MONDAY Stand-Alone Forms: My [facility], Smoking Cessation Medications and DC Order Prescriptions: Continued lidocaine 5 % adhesive patch,medicated 1 patch topical DAILY PRN (Reason: Back Pain) RF: 0 diclofenac sodium 1 % gel 2 g TOPICAL QID PRN (Reason: Back Pain) RF: 0 atorvastatin 40 mg tablet 40 mg PO QPM RF: 0 niacin [Niaspan Extended-Release] 1,000 mg tablet extended release 24 hr 1,000 mg PO QPM RF: 0 digoxin 250 mcg (0.25 mg) tablet 250 mcg PO QPM RF: 0 baclofen 10 mg tablet 10 mg PO TID RF: 0 gabapentin 100 mg capsule 100 mg PO TID RF: 0 metoprolol succinate [Toprol XL] 25 mg tablet extended release 24 hr 25 mg PO QPM RF: 0 duloxetine 20 mg capsule,delayed release(DR/EC) 20 mg PO BID RF: 0 aspirin 81 mg Tablet,Delayed Release (Dr/Ec) 81 mg PO QPM RF: 0 multivitamin Tablet 1 tab PO QPM RF: 0 tramadol 50 mg tablet 50 mg PO TID PRN (Reason: Pain) Qty: 10 RF: 0 allopurinol 100 mg Tablet 100 mg PO QPM RF: 0 loratadine [Claritin] 10 mg Tablet 10 mg PO QAM RF: 0 Changed warfarin 2 mg tablet 1 mg PO QPM Qty: 0 RF: 0 Discharge Orders: Discharge Order (Routine); Ordered 10/03/19 Ordered By: Viridiana Rivera Admission Data Admit Date/Time: 10/01/19 19:29 Attending Provider: Viridiana Rivera Admit Provider: Cyrus Toussaint Primary Care Provider: Sandra Dahl Other Providers: Cyrus Toussaint ; Sosa Hopper Other Interventions: Discharge Summary Assessment (RN) Last Done: 10/03/19 18:52 DC Date/Time DO NOT enter until pt leaves facility: 10/03/19 19:56
--- NOTE | 2019-10-03 22:41 | Electrocardiogram Report ---
Test Reason : Blood Pressure : / mmHG Vent. Rate : 079 BPM Atrial Rate : 097 BPM P-R Int : 000 ms QRS Dur : 114 ms QT Int : 366 ms P-R-T Axes : 000 -54 095 degrees QTc Int : 419 ms Atrial fibrillation Left axis deviation Anterior infarct Abnormal ECG When compared with ECG of 02-OCT-2019 06:22, No significant change was found Confirmed by Faizan Maki ([id number]) on 10/03/2019 10:41:24 PM Referred By: REFERRED SELF Confirmed By:Faizan Maki
[2019-10-04] MEDS ORDERED: LORATADINE 10 MG TAB PO SCH (09:00)
== END 2019-10-03 19:56 | disposition home or self-care (01) | DRG 378 ==
LOC: ED 17:55 → 2S 19:29 → SUATTDRO 19:29 → 2S 20:02 → 2N 10-03 14:18

== ENCOUNTER 2019-11-06 07:45 | Inpatient (IN) ==
--- NOTE | 2019-11-05 08:41 | Anesthesiology Consultation ---
Date of Service November 05, 2019 Assessment & Plan Chart Review Chart Review: Acceptable Risk for Surgery and Patient NOT seen in Pre Admission Testing 10/31/19 COVID testing negative, low risk screening PT/INR preop ordered Consults Requested none History Surgery Operation Date: 11/06/19 07:30 Proposed Procedures p Right Total Reversed Shoulder Arthroplasty - Gerson Silvestre MD Height/Weight Height: 5 ft 8 in Weight: 63.503 kg Allergies Allergy/AdvReac Type Severity Reaction Status Date / Time Penicillins Allergy Mild Rash Verified 11/01/19 11:39 fenofibrate Allergy Unknown MUSCLE Verified 11/01/19 11:39 WEAKNESS dronabinol [From Marinol] AdvReac Confusion Verified 11/01/19 11:39 Medications Home Medications Medication Instructions Recorded Confirmed Last Taken lidocaine 5 % topical patch 1 patch TOPICAL DAILY PRN ea 01/29/19 11/01/19 Unknown aspirin 81 mg PO QPM 06/11/19 11/01/19 06/10/19 atorvastatin 40 mg PO QPM 06/11/19 11/01/19 06/10/19 baclofen 10 mg PO TID PRN 06/11/19 11/01/19 06/11/19 15:00 digoxin 250 mcg PO QPM 06/11/19 11/01/19 06/10/19 duloxetine 20 mg PO QPM 06/11/19 11/01/19 06/10/19 gabapentin 100 mg PO TID 06/11/19 11/01/19 06/11/19 15:00 metoprolol succinate [Toprol XL] 25 mg PO QPM 06/11/19 11/01/19 06/10/19 multivitamin 1 tab PO QPM 06/11/19 11/01/19 06/10/19 niacin [Niaspan Extended-Release] 1,000 mg PO QPM 06/11/19 11/01/19 06/10/19 tramadol 50 mg PO TID PRN #10 tab 06/18/19 11/01/19 Unknown allopurinol 100 mg PO QPM 07/18/19 11/01/19 Unknown loratadine [Claritin] 10 mg PO QAM 07/18/19 11/01/19 Unknown diclofenac sodium 2 g TOPICAL BID PRN 10/01/19 11/01/19 Unknown warfarin 1 mg PO UD 10/19/19 11/01/19 Unknown Past Medical History Medical History (Updated 11/05/19 @ 08:30 by Rosemary Huber DO) Acute blood loss anemia RECEIVED 5 UNITS BLOOD/2 PLASMA [facility]- single small angioectasia coagulated 10/03/19 Aphasia (Resolved 10/22/13) Arthritis Atrial fibrillation (Chronic) On warfarin Back pain, chronic (Chronic) SCOLIOSIS Bilateral leg weakness Likely what precipitated fall, which injured shoulder DJD of shoulder (Acute) History of prostate cancer (Chronic) Hyperlipemia (Chronic) Mitral regurgitation (Chronic) On anticoagulant therapy Sleep apnea BIPAP Systolic CHF, chronic (Chronic) H/O reduced systolic function as low as 35%, but resolved to 56% on most recent echo from 2017. TIA (transient ischemic attack) 2-3yrs ago, despite being on Coumadin. ASA 81mg added-NO ISSUES SINCE Past Family History Family History Other Family history non-contributory Past Surgical History Surgical History History of arthroplasty of left shoulder History of cardiac cath 2015? NO STENTS NEEDED [facility] History of colonoscopy History of cryosurgery FOR PROSTATE CANCER History of esophagogastroduodenoscopy (EGD) History of total hip arthroplasty LEFT Past Anesthesia History No Hx of Anesthesia Complications and No Family Hx of Anesthesia Complications History of PONV No Hx of PONV and No Hx of Motion Sickness Social History Smoking Status: Never smoker Do You Dip or Chew Tobacco: No Hx Alcohol Use: Yes Alcohol type: wine alcohol intake frequency: a few times a week Hx Substance Use: No Substance Use Type Other:: CBD oil Testing Laboratory Results 10/19/2019 H/H 10.1/31.7 PLT 180 K 4.1 BUN 18 Creat 1.27 gluc 143 11/01/19 COVID NEGATIVE Electrocardiogram Date: 10/19/19 Findings: + AFIB @ (82bpm) old anteroseptal infarct (prior to 2013) no changes from prior EKG Chest X-Ray Date: 10/19/19 Findings: + NAD and + cardiomegaly (stable, chronic L basilar scarring) Echocardiogram Date: 07/26/16 EF: 56 LV Function: normal RWMA: + none and + hypokinetic (diffuse LV) Other Findings: + atrial enlargement (left) Valvular Disease: + no significant valvular disease and + MR (mild) PASP=40mmHg AF noted Stress Test Date: 12/23/14 Type: DSE Findings: no EKG changes, no CP and no ischemia Resting EF: 35-39 Resting LV Function: dysfunctional (mod diffuse hypokinesis) Valvular Disease: no significant valvular disease
--- NOTE | 2019-11-05 17:56 | History and Physical Report ---
DATE OF ADMISSION: 11/06/2019 CHIEF COMPLAINT: Chronic right shoulder pain and weakness. HISTORY OF PRESENT ILLNESS: This is an 83-year-old male patient of Dr. Silvestre'elijah complaining of chronic right shoulder pain and weakness. The patient has failed conservative treatment. He has been diagnosed with rotator cuff arthropathy and wishes to proceed with a right reverse total shoulder arthroplasty. PAST MEDICAL HISTORY: Coronary artery disease, status post TIA. He has got atrial fibrillation, sleep apnea with use of CPAP, history of anemia, spine problems, sciatica, scoliosis, prostate cancer. SOCIAL HISTORY: Nonsmoker, occasional drinker. PAST SURGICAL HISTORY: Left shoulder replacement, prostate surgery, left hip replacement. FAMILY HISTORY: Noncontributory. REVIEW OF SYSTEMS: Chronic right shoulder pain and weakness, status post an injury in 05/2019. Otherwise, denies any shortness of breath, chest pain, nausea, vomiting or any other joint complaint. MEDICATIONS: 1. Digoxin 250 mcg daily. 2. Vitamin D3 2000 units daily. 3. Coumadin 2 mg daily. 4. Niacin 1000 mg at bedtime. 5. Lidocaine 5% topical patch transdermal to affected area q.12 hours as needed. 6. Atorvastatin 40 mg daily. 7. Aspirin 81 mg daily. 8. Baclofen 10 mg 3 times daily. 9. Gabapentin 100 mg 3 times daily. 10. Tramadol 50 mg every 8 hours as needed. 11. Voltaren 1% topical gel, applied 2 times daily to affected area as needed. 12. Cymbalta 20 mg twice daily. 13. Metoprolol 25 mg daily. 14. Allopurinol 100 mg daily. ALLERGIES: AMOXICILLIN, FENOFIBRATE. PHYSICAL EXAMINATION: GENERAL: Well-developed, well-nourished 83-year-old male in no acute distress. He is alert and oriented x3 and pleasant. HEENT: Normocephalic, atraumatic. Extraocular motions are intact. Pupils are equal and reactive to light. HEART: Regular rate and rhythm, no murmurs. LUNGS: Clear. ABDOMEN: Soft and nontender. Bowel sounds present. EXTREMITIES: Right shoulder, positive impingement maneuvering. He has pain with range of motion. He has limited range of motion of 0-115. He has diffuse tenderness. He has 3-4/5 strength globally. Neurologically and neurovascularly he is intact in his right upper extremity. DIAGNOSES: Right shoulder rotator cuff arthropathy, history of transient ischemic attack, hypercholesterolemia, atrial fibrillation, sleep apnea with use of CPAP, history of anemia, spine problems, sciatica, severe scoliosis, prostate cancer. PLAN: The patient was advised of his diagnosis. Indications, risks, benefits, postop course have all been reviewed. The patient wished to proceed with a right reverse total shoulder arthroplasty. Necessary consent forms, preoperative testing and clearances will be obtained.
[~2019-11-06 07:45] MED LIST: ACETAMINOPHEN 500 MG TAB PO SCH; CeleBREX 200 MG CAP PO SCH; FAMOTIDINE 20 MG TAB PO SCH; GABAPENTIN 300 MG CAP PO SCH; LR 15ML/HR IV SCH; METOCLOPRAMIDE HCL 10 MG TABLET PO SCH; VANCOMYCIN HCL 1,000 MG/270 ML BAG IV SCH; dexAMETHasone 4 MG TAB PO SCH
[2019-11-06] MEDS ORDERED: BUPIVACAINE/EPINEPHRINE 0.25% 1:200,000 30 ML VIAL ONE (07:50)
[2019-11-06] MEDS ORDERED: MIDAZOLAM HCL 1 MG/ML 2ML VIAL ONE (08:24)
[2019-11-06] MEDS ORDERED: fentaNYL citrate 100 MCG/2 ML VIAL ONE (08:24)
[2019-11-06] MEDS ORDERED: PROPOFOL IV EMULSION 10 MG/ML 20 ML VIAL IV ONE (08:25)
[2019-11-06] MEDS ORDERED: ROCURONIUM BROMIDE 10 MG/ML 5 ML VIAL IV ONE (08:31)
[2019-11-06] MEDS ORDERED: LIDOCAINE HCL 2% 2 ML VIAL/AMP(20MG/ML) INFIL ONE (08:31)
[2019-11-06 08:45] LABS: INR 1.7 (0.9-1.1); Partial Thromboplastin Ratio 1.2; Partial Thromboplastin Time 34.5 Seconds (21.0-31.0); Prothrombin Time 17.1 Seconds (9.0-12.0)
--- NOTE | 2019-11-06 10:43 | History & Physical Bridge Note ---
Date of Service November 06, 2019 History & Physical Bridge Note I have examined the patient, reviewed the History & Physical and in the interval since the performance of the History & Physical I have noted the following changes of clinical significance: no changes noted
[2019-11-06] MEDS ORDERED: BACITRACIN INJ 50,000 UNIT VIAL ONE (10:53)
[2019-11-06] MEDS ORDERED: GLYCOPYRROLATE 0.2 MG/ML VIAL ONE (13:15)
[2019-11-06] MEDS ORDERED: NEOSTIGMINE METHYLSULFATE 5 MG/5 ML SYR ONE (13:15)
--- NOTE | 2019-11-06 13:56 | Post Operative Brief Note ---
Immediate Post Op Note v1 Date of Surgery November 06, 2019 Pre & Post Diagnosis Operation Date: 11/06/19 09:35 Pre-Op Diagnosis: Right Shoulder Rotator Cuff Arthropathy, irreparable rotator cuff tear Post-Op Diagnosis: Right Shoulder Rotator Cuff Arthropathy, irreparable rotator cuff tear I identified the patient and participated in the time-out.: Yes Procedure Operation Date: 11/06/19 09:35 Actual Procedures p Right Total Reversed Shoulder Arthroplasty(Right) - Gerson Silvestre MD Surgeon Gerson Silvestre MD Toolroom Machinist JORGE Khan Estimated Blood Loss 300 Findings Consistent with Post-Op Diagnosis Specimens Humeral head Drains Hemovac Drain Anesthesia Type General Regional Complications none Disposition Accompanied Patient To Recovery: No Disposition: Recovery Room Overlapping Procedure I was immediately available: during the entire case.
--- NOTE | 2019-11-06 14:25 | Operative Report ---
Post Operative Report Pre & Post Diagnosis Operation Date: 11/06/19 09:35 Pre-Op Diagnosis: Right Shoulder Rotator Cuff Arthropathy Post-Op Diagnosis: Right Shoulder Rotator Cuff Arthropathy I identified the patient and participated in the time-out.: Yes Procedure Operation Date: 11/06/19 09:35 Actual Procedures p Right Total Reversed Shoulder Arthroplasty(Right) - Gerson Silvestre MD Surgeon Gerson Silvestre MD Annealing Operator JORGE Khan Estimated Blood Loss 300 Findings Consistent with Post-Op Diagnosis Specimens Humeral head Drains 2 Hemovac Anesthesia Type General Regional Complications none Disposition Accompanied Patient To Recovery: No Indications 83-year-old male with posttraumatic large rotator cuff tear with proximal migration humerus nonunion subacromial space clinical biceps rupture with retraction. Patient had a large cuff tear of the upper subscapularis and supraspinatus with retraction that had to be put off due to COVID-19 issues. At this point he has a chronically retracted tear and prognosis for repair is guarded and recommendation was to proceed with reverse shoulder replacement. Description of Procedure The patient was taken to the operating room and anesthetized under regional block and general anesthetic. The patient was positioned on the operating table in a 30 beachchair position with a towel roll under the medial border of the right scapula. The arm was draped free to be able to manipulate the shoulder as needed. The right upper extremity was prepped and draped in usual sterile fashion. Exam demonstrated good passive range of motion including 180 degrees forward elevation 90 degrees of external rotation. An anterior deltopectoral approach was performed. A longitudinal incision was made in the deltopectoral interval. The skin was incised sharply. Subcutaneous flaps were elevated off the fascia. The cephalic vein was dissected out and retracted lateral with the deltoid. The clavipectoral fascia was divided at the lateral margin of the conjoined tendon and extended up to the CA ligament. The following findings were noted: There was scarred thickened bursal tissue overlying the subscapularis. The upper third of subscapularis was torn and retracted medially there was a comma type tissue that was still intact that was attached to the remnants of the supraspinatus. Supraspinatus was completely torn and retracted and the infraspinatus was still intact and teres minor was still intact. There was chronic subacromial and subdeltoid bursitis. The upper centimeter of the pectoralis was released for inferior exposure. The biceps tendon findings demonstrated torn and retracted biceps tendon.The portion of the subscapularis that was still attached was taken down off the lesser tuberosity using a subperiosteal dissection. A #1 Vicryl traction suture was placed into the free end of the subscapularis tendon and capsule. The subscapular muscle fibers were split longitudinally at the level of the circumflex vessels. The circumflex vessels were identified and tied off with silk ties and divided laterally. A Kitner elevator was used to free up the inf erior fibers of the subscapularis off of the capsule. The axillary nerve was identified with a tug test and protected with a blunt Marisol retractor between the nerve and the capsule. The subscapularis tendon was then taken down off of the lesser tuberosity subperiosteally and subperiosteal dissection was performed along the neck of the humerus as the arm is gradually externally rotated exposing the humeral head. The humeral head findings demonstrated mild arthritic changes. A Juan elevator was used to assist in releasing the capsule of the neck of the humerus. The capsule was divided under direct visualization with Mera scissors down to the glenoid released off the anterior glenoid and the rotator interval was released to meet the capsular release and a 360 release of the subscapularis was accomplished. A Fukuda retractor was placed into the joint retracting the humeral head posterior. Glenoid findings demonstrated mild to moderate OA no exposed bone no wear of the articular cartilage but a chronically degenerative circumferential labral tear and absent long head biceps tendon due to rupture. There was tendinopathy of the intact infraspinatus and retracted supraspinatus tendon tissue. The labrum was resected. an anterior- inferior and posterior inferior capsular release were performed with electrocautery and a Juan elevator on bone with the axillary nerve protected in feriorly by the retractor. Attention was then taken to the humeral preparation. The cutting guide was placed into the humeral head. It was positioned at 20 of retroversion. Oscillating saw was used to resect the humeral head giving the cut above the level of the posterior rotator cuff insertion site. The humerus was then prepared for the stem. I used the ascend flex stem from [employer]. The sizing broaches were used followed by trial broaches up to a size 4B which had the appropriate fit and fill. The appropriate sized cut protector was placed. The humerus was then retracted posterior to the glenoid. The glenoid was sized for a 25 baseplate. The guide for the baseplate was positioned in a 10 inferior tilt and the central drill hole was made. The reamer for the aequalis 25 mm hydroxyapatite-coated baseplate was used. The central drill was widened for the peg. The aequalis 25 mm hydroxyapatite-coated baseplate was impacted into position. The base plate was transfixed with superior and inferior locking screws and anterior and posterior compression screws with stable fixation. The fan reamer was used for the 36 millimeter glenoid sphere. After irrigation the 36 with +2 inferior offset glenoid sphere was impacted onto the baseplate and the screw was tightened. Attention was taken back to the humerus. The cut protector was removed and the +0 high offset humeral tray trial was assembled to the trial stem rotated appropriately to get bony coverage and then screwed in position. A trial reduction was performed. A 9 mm trial insert demonstrated good stability and no shuck. The trials were removed. 3 drill holes are made into the harder bone in the bicipital groove area and 3 #5 FiberWire sutures were placed transosseously. The canal was irrigated with antibiotic solution with bacitracin. The final component was assembled. The final component was 4B ascend flex 20 a long stem assembled to the high offset +0 reversed tray assembled to the 36+9 mm reversed polyethylene insert. This was then impacted into the humerus with a tight press-fit. It was reduced to the glenoid sphere. Stability was verified. Subscapularis was repaired with the #5 FiberWire sutures using Eugene-Savage suture technique. Lateral row soft tissue repair was performed with #2 FiberWire [id number] sutures. The pectoralis was repaired with #2 FiberWire [id number] sutures . The arm was taken through a range of motion which demonstrated no tension on repair of the 45 degrees external rotation and 170 degrees forward elevation 90 degrees of abduction no subacromial impingement. The implant was stable through the range of motion tested. The wound was copiously irrigated. 2 Hemovac drains were placed. The deltopectoral interval was closed with [id number] #1 Vicryl sutures. The subcutaneous tissues were closed with 2-0 Vicryl sutures. The skin was closed with isaiah. Sterile dressings were applied and a shoulder immobilizer. There was more than typical bleeding for the type of procedure likely due to patient being bridged with Lovenox preop for cardiac issues. JORGE Khan my physician quality assurance assistant assisted in the procedure to the entire procedure including patient positioning arm positioning prepping and draping soft tissue retraction instrument management suture management and performed the subcutaneous and skin closure and will participate in the postoperative care of the patient. I attest to the content of the Intraoperative Record and any orders documented therein. Any exceptions are noted below.
--- NOTE | 2019-11-06 14:51 | Anesthesiology Progress Note ---
Date of Service November 06, 2019 Anesthesia Post Procedure Vital Signs Vital Signs: Temp Pulse Pulse Resp BP Pulse Ox 11/06/19 14:50 94 H 15 101/52 L 95 11/06/19 14:40 36.4 C L 107 H 14 98/54 L 95 11/06/19 14:30 99 H 14 94/57 L 95 11/06/19 14:20 89 14 102/65 98 11/06/19 14:12 36.3 C L 107 H 14 85/61 L 98 11/06/19 09:53 83 20 130/83 99 11/06/19 09:17 36.7 C 75 22 133/83 95 Transfer of Care Handoff Completed per policy Notes Mental Status: alert / awake / arousable and participated in evaluation Patient Amnestic to Procedure: Yes Nausea / Vomiting: adequately controlled Pain: adequately controlled Airway Patency, RR, SpO2: stable & adequate BP & HR: stable & adequate Hydration State: stable & adequate Anesthetic Complications: no major complications apparent and Pt Satisfied with anesthetic care
--- NOTE | 2019-11-06 15:07 | XRay Report ---
XR shoulder RT min 2V routine CLINICAL HISTORY: Post shoulder surgery COMPARISON: None. DISCUSSION: Anatomic alignment posttotal right shoulder arthroplasty. Could contact between prostheti c and underlying bone. Expected postoperative soft tissue change. IMPRESSION: Anatomic alignment post total right shoulder arthroplasty. ACT 112: Negative or not required by law. The above report was generated using voice recognition software. It may contain grammatical, syntax or spelling errors. Electronically signed by: Paul Lind M.D. 11/06/2019 3:06 PM
[2019-11-06] MEDS ORDERED: TRAMADOL HCL 50 MG TABLET PO PRN (15:30)
[2019-11-06] MEDS ORDERED: VANCOMYCIN CONSULT ACTIVE PRN (15:30)
[2019-11-06] MEDS ORDERED: OXYCODONE HCL IR 5 MG TAB (IMMEDIATE RELEASE) PO PRN (15:30)
[2019-11-06] MEDS ORDERED: ONDANSETRON INJ 2 MG/ML 2 ML VIAL IV PRN (15:30)
[2019-11-06] MEDS ORDERED: MAGNESIUM HYDROXIDE SUSP 30 ML UDC PO PRN (15:30)
[2019-11-06] MEDS ORDERED: BACLOFEN 10 MG TAB PO PRN (15:30)
[2019-11-06] MEDS ORDERED: HYDROmorphone INJ 0.5 MG/0.5 ML SYR IV PRN (15:30)
[2019-11-06] MEDS ORDERED: LIDOCAINE 5% 1 PATCH TD PRN (15:30)
[2019-11-06] MEDS ORDERED: NALOXONE HCL 0.4 MG/1 ML VIAL/CARP IV PRN (15:30)
[2019-11-06] MEDS ORDERED: bisacodyL 10 MG SUPP PR PRN (15:30)
[2019-11-06] MEDS: SODIUM CHLORIDE 0.9% 1000ML 1,000 ML IV SCH (15:30)
[2019-11-06] MEDS ORDERED: DICLOFENAC SOD 1% GEL 100 GM TUBE EXT PRN (15:30)
--- NOTE | 2019-11-06 17:08 | Consultation ---
Date of Consultation November 06, 2019 Assessment & Plan (1) S/p reverse total shoulder arthroplasty: Post op day# 0 S/P right total reverse shoulder arthroplasty by Dr Silvestre EBL#300ml -pain management per ortho -wound management per ortho -PT/OT as appropriate -DVT prophylaxis per ortho -incentive spirometry -monitor H&H for acute blood loss anemia; pre-op Hgb: 10.9 (2) Atrial fibrillation: chronic a-fib on Coumadin Coumadin held since 11/01/19 and on lovenox bridge per cardiology recommendations -current rate controlled -Continue Lovenox and can resume Coumadin as per ortho -Continue metoprolol and digoxin (3) HTN (hypertension): Bp's on low side SBP's 90's-low 100's. Asymptomatic -IVF -Continue metoprolol with holding parameters (4) CKD (chronic kidney disease), stage III: Pre-op Cr: ~1.2 -Monitor renal functions -Avoid nephrotoxic agents when possible (5) TIA (transient ischemic attack): -Continue aspirin (6) Sleep apnea: -Home bipap HS (7) Gout: -continue allopurinol DVT Prophylaxis -On Lovenox SQ bridge Disposition per primary service Follows with Dr Dahl for routine care Pt was seen and care coordinated with Dr Mendez. See addendum Thank you for this consultation. We will follow the patient with you during their hospital stay. You can reach a member of the [facility] Hospitalist Team 12/12 via pager @ [phone]. Supervising Physician Co-Signing Physician Notes Patient is an 83-year-old male with history of hypertension, TIA, history of prostate cancer, CKD 3 and other medical problems was seen and examined postop for medical management after having right total reversed shoulder arthroplasty by Dr. Silvestre. Patient is doing well postop. Blood pressure noted to be on lower side. Denies any significant shoulder pain at surgical site. States having some numbness of the right arm. Denies any chest pain, shortness of breath, dizziness. Offers no other complaints. On exam patient is thin, normoc ephalic atraumatic, no apparent distress, decreased breath sounds, lungs are clear to auscultation, irregularly irregular, no murmur, abdomen soft nontender, no pedal edema, right shoulder surgical site in dressing, grossly no focal neurological deficits. Patient is consulted for postop medical management. Monitor for postop anemia. Pain control, wound care, activity as per primary team. On Lovenox and Coumadin. Continue bowel regimen to prevent constipation. Continue IV fluids. Continue beta-bernadette with holding parameters for atrial fibrillation. Monitor renal function. I personally reviewed the record. Patient is interviewed and examined at bedside. Patient's care is coordinated with Yanira Benson PA-C. Please refer to the documentation above for details of patient's presentation and for discussion of other issues. History of Present Illness Requesting Physician: Dr Silvestre Reason for Consultation: Post op medical management Attending Physician: Gerson Silvestre MD History of Present Illness Pt is 83 y/o M with PMH HTN, dyslipidemia, TIA, h/o prostate CA s/p cryoablation, gout, sleep apnea, CKD III seen in medical consultation s/p right total reverse shoulder arthroplasty by Dr Silvestre today. Post op pt feels well without nausea, vomiting, CP, SOB. Reports right arm still with numbness. Denies fever/chills, diaphoresis, NAILS, dizziness, syncope, vision changes, neck pain, orthopnea, palpitations, cough, sore throat, choking, otalgia, rhinorrhea, abdominal pain, extremity edema, rashes, urinary symptoms. Allergies Allergy/AdvReac Type Severity Reaction Status Date / Time Penicillins Allergy Mild Rash Verified 11/06/19 09:03 fenofibrate Allergy Unknown MUSCLE Verified 11/06/19 09:03 WEAKNESS warfarin [From Coumadin] AdvReac Intermediate bruisng Verified 11/06/19 09:05 dronabinol [From Marinol] AdvReac Confusion Verified 11/06/19 09:03 Home Medications Home Medications Medication Instructions Recorded Confirmed Type lidocaine 5 % topical patch 1 patch TOPICAL DAILY PRN ea 01/29/19 11/06/19 History aspirin 81 mg PO QPM 06/11/19 11/06/19 History atorvastatin 40 mg PO QPM 06/11/19 11/06/19 History baclofen 10 mg PO TID PRN 06/11/19 11/06/19 History digoxin 250 mcg PO QPM 06/11/19 11/06/19 History duloxetine 20 mg PO QPM 06/11/19 11/06/19 History gabapentin 100 mg PO TID 06/11/19 11/06/19 History metoprolol succinate [Toprol XL] 25 mg PO QPM 06/11/19 11/06/19 History multivitamin 1 tab PO QPM 06/11/19 11/06/19 History niacin [Niaspan Extended-Release] 1,000 mg PO QPM 06/11/19 11/06/19 History tramadol 50 mg PO TID PRN #10 tab 06/18/19 11/06/19 Rx allopurinol 100 mg PO QPM 07/18/19 11/06/19 History loratadine [Claritin] 10 mg PO QAM 07/18/19 11/06/19 History diclofenac sodium 2 g TOPICAL BID PRN 10/01/19 11/06/19 History warfarin 1 mg PO DAILY 10/19/19 11/06/19 History enoxaparin [Lovenox] 40 mg SUBCUT Q12H 11/06/19 11/06/19 History Patient History Medical History (Updated 11/06/19 @ 19:13 by Yanira Benson PA-C) Acute blood loss anemia RECEIVED 5 UNITS BLOOD/2 PLASMA [facility]- single small angioectasia coagulated 10/03/19 Aphasia (Resolved 10/22/13) Arthritis Atrial fibrillation (Chronic) On warfarin Back pain, chronic (Chronic) SCOLIOSIS Bilateral leg weakness Likely what precipitated fall, which injured shoulder DJD of shoulder (Acute) Gout History of prostate cancer (Chronic) Hyperlipemia (Chronic) Mitral regurgitation (Chronic) On anticoagulant therapy Sleep apnea BIPAP Systolic CHF, chronic (Chronic) H/O reduced systolic function as low as 35%, but resolved to 56% on most recent echo from 2017. TIA (transient ischemic attack) 2-3yrs ago, despite being on Coumadin. ASA 81mg added-NO ISSUES SINCE Surgical History (Updated 11/06/19 @ 19:13 by Yanira Benson PA-C) History of arthroplasty of left shoulder History of cardiac cath 2016? NO STENTS NEEDED [facility] History of colonoscopy History of cryosurgery FOR PROSTATE CANCER History of esophagogastroduodenoscopy (EGD) History of total hip arthroplasty LEFT Family History Other Family history non-contributory Social History Preferred Language: Samoan Communication Ability: Effective Roll Press Operator Required: No Beliefs That Will Affect Care: None Current Living Situation: Spouse and Other Other Information That Helps Us Care for You: No Feels Safe at Home: Yes Safety Concerns: Feels Safe At This Time Smoking Status: Never smoker Do You Dip or Chew Tobacco: No ; Second Hand Exposure: No ; Hx Alcohol Use: Yes Alcohol type: wine Hx Substance Use: No Review of Systems Review of Systems: All systems reviewed & are unremarkable except as noted in HPI & below Physical Exam Physical Exam: General: no distress, WDWN Head: normocephalic, atraumatic Eyes: conjunctiva non-injected, anicteric ENT: normal inspection external ears, nose, mucous membranes moist Neck: supple, trachea midline Lungs: clear, no respiratory distress, no wheezing/rhonchi/rales CV: irregularly irregular, rate 96, no pretibial edema Abd: normal BS, soft, non-tender Ext: no calf tenderness; right arm in sling, anterior shoulder with surgical dressing in place; limited ROM fingers on right hand Neuro: A&O x 3, no focal deficits noted, normal affect Skin: warm, dry Results & Data ([facility]) Vital Signs (Past 12 Hours) Vital Signs Temp Pulse Pulse Pulse Resp BP Pulse Ox 11/06/19 16:25 36.4 C L 89 17 108/55 L 96 11/06/19 15:55 35.9 C L 97 H 18 97/60 L 93 11/06/19 15:25 36.5 C 86 16 98/68 L 95 11/06/19 15:15 97 H 15 96/58 L 95 11/06/19 15:00 100 H 15 97/50 L 95 11/06/19 14:50 94 H 15 101/52 L 95 11/06/19 14:40 36.4 C L 107 H 14 98/54 L 95 11/06/19 14:30 99 H 14 94/57 L 95 11/06/19 14:20 89 14 102/65 98 11/06/19 14:12 36.3 C L 107 H 14 85/61 L 98 11/06/19 09:53 83 20 130/83 99 11/06/19 09:17 36.7 C 75 22 133/83 95 (1) Atrial fibrillation Atrial fibrillation type: permanent Qualified Code(s): I48.21 - Permanent atrial fibrillation
[2019-11-06] MEDS: WARFARIN SOD 1 MG TAB PO SCH (17:16)
[2019-11-06] MEDS ORDERED: SODIUM CHLORIDE 0.9% 1000ML 500 ML IV ONE (18:52)
[2019-11-06] MEDS: allopurinoL 100 MG TAB PO SCH (20:39)
[2019-11-06] MEDS: ASPIRIN 81 MG ECTAB PO SCH (20:39)
[2019-11-06] MEDS: DIGOXIN 0.25 MG TAB PO SCH (20:39)
[2019-11-06] MEDS: DULOXETINE HCL 20 MG CAP PO SCH (20:39)
[2019-11-06] MEDS: DOCUSATE SODIUM 100 MG CAP PO SCH (20:39)
[2019-11-06] MEDS: ATORVASTATIN 40 MG TAB PO SCH (20:39)
[2019-11-06] MEDS: NIACIN EXTENDED REL 500 MG TABCR PO SCH (20:39)
[2019-11-06] MEDS: GABAPENTIN 100 MG CAP PO SCH (20:39)
[2019-11-06] MEDS: SENNA 8.6 MG TAB PO SCH (20:39)
[2019-11-06] MEDS: METOPROLOL SUCC 25MG EXT REL TAB PO SCH (20:39)
[2019-11-06] MEDS ORDERED: MULTIVITAMIN TAB PO SCH (21:00)
[2019-11-06] MEDS ORDERED: VANCOMYCIN HCL 1,000 MG in SODIUM CHLORIDE 0.9% 250 ML IV SCH (21:00)
[2019-11-06] MEDS: ACETAMINOPHEN 500 MG TAB PO SCH (21:53)
[2019-11-07] MEDS: SODIUM CHLORIDE 0.9% 1000ML 1,000 ML IV SCH (00:15)
[2019-11-07] MEDS: ACETAMINOPHEN 500 MG TAB PO SCH ×3 (05:43→21:02)
[2019-11-07 06:05] LABS: Basophils # (auto) 0.01 K/uL (0-0.2); Basophils % (auto) 0.1 %; Hematocrit (blood only) 27.6 % (42-52); Hemoglobin 8.8 g/dL (14.0-18.0); Immature Granulocytes # (auto) 0.07 K/uL (0.00-0.02); Immature Granulocytes % (auto) 0.4 %; Lymphocytes # (auto) 0.93 K/uL (1.2-3.4); Lymphocytes % (auto) 5.7 %; Mean Corpuscular Hemoglobin 29.6 pg (25-34); Mean Corpuscular Hgb Conc 31.9 g/dL (32-36); Mean Corpuscular Volume 92.9 fL (80-100); Mean Platelet Volume 9.9 fL (7.4-10.4); Monocytes % (auto) 6.7 %; Neutrophils # (auto) 14.35 K/uL (1.4-6.5); Neutrophils % (auto) 87.1 %; Platelet Count 214 K/uL (130-400); RDW Coefficient of Variation 17.5 % (11.5-14.5); RDW Standard Deviation 59.2 fL (36.4-46.3); Red Blood Count 2.97 M/uL (4.7-6.1); White Blood Count 16.46 K/uL (4.8-10.8)
[2019-11-07 06:13] LABS: INR 2.1 (0.9-1.1); Prothrombin Time 21.4 Seconds (9.0-12.0)
[2019-11-07 06:36] LABS: BUN Creatinine Ratio 13.9 (10-20); Creatinine Clr Calc Pharmacy 19.8 ml/min; Est GFR (Non-African American) 23.3; Potassium 5.1 mmol/L (3.5-5.1)
--- NOTE | 2019-11-07 08:04 | Orthopedic Progress Note ---
Date of Service November 07, 2019 Assessment & Plan (1) Right rotator cuff tear: POD #1, Right reverse TSA PT/ OT DVT proph- resume coumadin w lovenox bridging D/C plans- Home w HEP As per medicine- September D/C lovenox as INR is 2.1 this AM Hgb 8.8, as per medicine. Admission and Anticipated Discharge Date Admission Date: November 06, 2019 Subjective POD #1, Feeling well. Denies SOB, CP, N/V, dizziness Pain controlled well. Wishes home w HEP on D/C. Hgb 8.8 this AM INR 2.1 Physical Exam Physical Exam: Right shoulder dressing/ drain in tact. Sling in tact. Fingers mobile. A&Ox3 Results & Data ([facility]) Vital Signs (Past 12 Hours) Vital Signs Temp Pulse Resp BP Pulse Ox 11/07/19 07:20 36.3 C L 80 18 105/68 96 11/07/19 03:08 36.3 C L 94 H 24 117/75 96 11/06/19 23:25 36.3 C L 83 22 121/72 97 11/06/19 20:35 98 H 16 114/65 97
[2019-11-07] MEDS: LORATADINE 10 MG TAB PO SCH (08:52)
[2019-11-07] MEDS: DOCUSATE SODIUM 100 MG CAP PO SCH ×2 (08:52→20:43)
[2019-11-07] MEDS: MULTIVITAMIN TAB PO SCH (08:52)
[2019-11-07] MEDS: GABAPENTIN 100 MG CAP PO SCH ×3 (08:53→20:43)
--- NOTE | 2019-11-07 08:59 | Cardiology Consultation ---
Date of Consultation November 07, 2019 Assessment & Plan (1) S/p reverse total shoulder arthroplasty: (2) Atrial fibrillation: (3) TIA (transient ischemic attack): (4) Systolic CHF, chronic: (5) CKD (chronic kidney disease), stage III: The patient has been placed back on his warfarin dose. His INR this morning is 2.1. I think we can stop the Lovenox. He should contact the coag clinic after discharge and have an INR drawn later this week or early next week. Otherwise the patient is hemodynamically stable and can be discharged per orthopedics. History of Present Illness Attending Physician: Gerson Silvestre MD History of Present Illness This is an 83-year-old male patient with a history of chronic atrial fibrillation on outpatient anticoagulation. The patient underwent a shoulder replacement yesterday which was non-complicated. He is currently on Lovenox and his warfarin has been restarted. Cardiac history: 1.Chronic (permanent) rate controlled atrial fibrillation 2.History of transient ischemic attack with no residual neurologic deficits 3.Mitral regurgitation, felt to be moderate in severity on transesophageal echocardiogram performed 2013 4.Dyslipidemia 5.Chronic low back pain due to scoliosis and disc disease Allergies Allergy/AdvReac Type Severity Reaction Status Date / Time Penicillins Allergy Mild Rash Verified 11/06/19 09:03 fenofibrate Allergy Unknown MUSCLE Verified 11/06/19 09:03 WEAKNESS warfarin [From Coumadin] AdvReac Intermediate bruisng Verified 11/06/19 09:05 dronabinol [From Marinol] AdvReac Confusion Verified 11/06/19 09:03 Home Medications Home Medications Medication Instructions Recorded Confirmed Type lidocaine 5 % topical patch 1 patch TOPICAL DAILY PRN ea 01/29/19 11/06/19 History aspirin 81 mg PO QPM 06/11/19 11/06/19 History atorvastatin 40 mg PO QPM 06/11/19 11/06/19 History baclofen 10 mg PO TID PRN 06/11/19 11/06/19 History digoxin 250 mcg PO QPM 06/11/19 11/06/19 History duloxetine 20 mg PO QPM 06/11/19 11/06/19 History gabapentin 100 mg PO TID 06/11/19 11/06/19 History metoprolol succinate [Toprol XL] 25 mg PO QPM 06/11/19 11/06/19 History multivitamin 1 tab PO QPM 06/11/19 11/06/19 History niacin [Niaspan Extended-Release] 1,000 mg PO QPM 06/11/19 11/06/19 History tramadol 50 mg PO TID PRN #10 tab 06/18/19 11/06/19 Rx allopurinol 100 mg PO QPM 07/18/19 11/06/19 History loratadine [Claritin] 10 mg PO QAM 07/18/19 11/06/19 History diclofenac sodium 2 g TOPICAL BID PRN 10/01/19 11/06/19 History warfarin 1 mg PO DAILY 10/19/19 11/06/19 History enoxaparin [Lovenox] 40 mg SUBCUT Q12H 11/06/19 11/06/19 History Patient History Medical History Acute blood loss anemia RECEIVED 5 UNITS BLOOD/2 PLASMA [facility]- single small angioectasia coagulated 10/03/19 Aphasia (Resolved 10/22/13) Arthritis Atrial fibrillation (Chronic) On warfarin Back pain, chronic (Chronic) SCOLIOSIS Bilateral leg weakness Likely what precipitated fall, which injured shoulder DJD of shoulder (Acute) Gout History of prostate cancer (Chronic) Hyperlipemia (Chronic) Mitral regurgitation (Chronic) On anticoagulant therapy Sleep apnea BIPAP Systolic CHF, chronic (Chronic) H/O reduced systolic function as low as 35%, but resolved to 56% on most recent echo from 2017. TIA (transient ischemic attack) 2-3yrs ago, despite being on Coumadin. ASA 81mg added-NO ISSUES SINCE Surgical History History of arthroplasty of left shoulder History of cardiac cath 2016? NO STENTS NEEDED [facility] [place] History of colonoscopy History of cryosurgery FOR PROSTATE CANCER History of esophagogastroduodenoscopy (EGD) History of total hip arthroplasty LEFT Family History Other Family history non-contributory Social History Preferred Language: Irish Communication Ability: Effective Supply Teacher Required: No Beliefs That Will Affect Care: None Current Living Situation: Spouse and Other Other Information That Helps Us Care for You: No Feels Safe at Home: Yes Safety Concerns: Feels Safe At This Time Smoking Status: Never smoker Do You Dip or Chew Tobacco: No ; Second Hand Exposure: No ; Hx Alcohol Use: Yes Alcohol type: wine Hx Substance Use: No Review of Systems Review of Systems: All systems reviewed & are unremarkable except as noted in HPI & below Nothing additional to add Physical Exam Physical Exam: General: no acute distress and stated age Head: normocephalic, no masses, lesions, tenderness or abnormalities Eyes: conjunctiva are pink and non-injected, sclera clear Neck: supple, no adenopathy, no bruits, normal jugular venous pulse, no hepatojugular reflux Chest: normal shape and normal respiratory effort Lungs: clear to auscultation and percussion Cardiac Exam: -Irregular rate & rhythm, no murmurs gallops or rubs - normal S1, normal S2 Pulses: 2(+) throughout Abdomen: abdomen soft, non-tender, no abnormal masses and no hepatosplenomegaly Musculoskeletal: no gait disturbance, no joint inflammation, no deforming arthritis Extremities: Right shoulder is postop Neuro: grossly normal exam Results & Data ([facility]) Vital Signs (Past 12 Hours) Vital Signs Temp Pulse Resp BP Pulse Ox 11/07/19 07:20 36.3 C L 80 18 105/68 96 11/07/19 03:08 36.3 C L 94 H 24 117/75 96 11/06/19 23:25 36.3 C L 83 22 121/72 97 Laboratory Results Laboratory Results - last 24 hr 11/07/19 11/07/19 11/07/19 05:45 05:45 05:45 WBC 16.46 H RBC 2.97 L Hgb 8.8 L Hct 27.6 L MCV 92.9 MCH 29.6 MCHC 31.9 L RDW Std Deviation 59.2 H RDW Coeff of Ligia 17.5 H Plt Count 214 MPV 9.9 Immature Gran % (Auto) 0.4 Neut % (Auto) 87.1 Lymph % (Auto) 5.7 Catron % (Auto) 6.7 Eos % (Auto) 0.0 Baso % (Auto) 0.1 Immature Gran # (Auto) 0.07 H Neut # (Auto) 14.35 H Lymph # (Auto) 0.93 L Catron # (Auto) 1.10 H Eos # (Auto) 0.00 Baso # (Auto) 0.01 PT 21.4 H INR 2.1 H Sodium 139 Potassium 5.1 Chloride 112 H Carbon Dioxide 18 L Anion Gap 9.0 BUN 34 H Creatinine 2.45 H Est Cr Clr Drug Dosing 19.8 Est GFR ( Amer) 27.0 Est GFR (Non-Af Amer) 23.3 BUN/Creatinine Ratio 13.9 Glucose 176 H Calcium 8.0 L Medications Administered Current Inpatient Medications Acetaminophen (Tylenol) 1,000 mg PO Q8 [facility] Stop: 12/06/19 21:59 Last Admin: 11/07/19 05:43 Dose: 1,000 mg Documented by: Allopurinol (Zyloprim) 100 mg PO QPM [facility] Stop: 12/06/19 20:59 Last Admin: 11/06/19 20:39 Dose: 100 mg Documented by: Aspirin (Ecotrin Ectab) 81 mg PO QPM [facility] Stop: 12/06/19 20:59 Last Admin: 11/06/19 20:39 Dose: 81 mg Documented by: Atorvastatin Calcium (Lipitor) 40 mg PO QPM [facility] Stop: 12/06/19 20:59 Last Admin: 11/06/19 20:39 Dose: 40 mg Documented by: Baclofen (Lioresal) 10 mg PO TID PRN PRN Reason: Muscle Spasm Stop: 12/06/19 15:29 Bisacodyl (Dulcolax) 10 mg IA DAILY PRN PRN Reason: Constipation Stop: 12/06/19 15:29 Diclofenac Sodium (Voltaren 1% Top) 2 gm EXT BID PRN PRN Reason: Back Pain Stop: 12/06/19 15:29 Digoxin (Lanoxin) 0.25 mg PO QPM [facility] Stop: 12/06/19 20:59 Last Admin: 11/06/19 20:39 Dose: 0.25 mg Documented by: Diphenhydramine HCl (Benadryl Capsule) 25 mg PO Q8H PRN PRN Reason: Itching Stop: 12/06/19 15:29 Docusate Sodium (Colace) 100 mg PO BID [facility] Stop: 12/06/19 20:59 Last Admin: 11/07/19 08:52 Dose: 100 mg Documented by: Duloxetine HCl (Cymbalta) 20 mg PO QPM [facility] Stop: 12/06/19 20:59 Last Admin: 11/06/19 20:39 Dose: 20 mg Documented by: Enoxaparin Sodium (Lovenox) 40 mg SQ Q12H [facility] Stop: 12/07/19 14:14 Gabapentin (Neurontin) 100 mg PO TID [facility] Stop: 12/06/19 20:59 Last Admin: 11/07/19 08:53 Dose: 100 mg Documented by: Hydromorphone HCl (Dilaudid) 0.5 mg IV Q4H PRN PRN Reason: Pain or Pre PT Stop: 11/20/19 15:29 Lidocaine (Lidoderm 5%) 1 patch TD DAILY PRN PRN Reason: Back Pain Stop: 12/06/19 15:29 Loratadine (Claritin) 10 mg PO QAM [facility] Stop: 12/07/19 08:59 Last Admin: 11/07/19 08:52 Dose: 10 mg Documented by: Magnesium Hydroxide (Milk Of Magnesia) 30 ml PO Q6H PRN PRN Reason: Constipation Stop: 12/06/19 15:29 Metoprolol Succinate (Toprol Xl) 25 mg PO QPM [facility] Stop: 12/06/19 20:59 Last Admin: 11/06/19 20:39 Dose: 25 mg Documented by: Miscellaneous (Remove Lidoderm Patch) 1 ea N/A DAILY@2100 [facility] Stop: 12/06/19 20:59 Last Admin: 11/06/19 20:40 Dose: Not Given Documented by: Multivitamins (Multivitamin Tab) [facility] [place] [facility] [place]: 12/07/19 08:59 Last Admin: 11/07/19 08:52 Dose: 1 tab Documented by: Naloxone HCl (Narcan) 0.1 mg IV Q5M PRN PRN Reason: Oversedation/Resp Depression Stop: 12/06/19 15:29 Niacin (Niaspan Extended Rel) 1,000 mg PO QPM [facility] Stop: 12/06/19 20:59 Last Admin: 11/06/19 20:39 Dose: 1,000 mg Documented by: Ondansetron HCl (Zofran) 4 mg IV Q6H PRN PRN Reason: Nausea And Vomiting Stop: 12/06/19 15:29 Oxycodone HCl (Roxicodone Immediate Rel) 5 - 10 mg PO Q4H PRN PRN Reason: Pain or Pre PT Stop: 11/20/19 15:29 Sennosides (Senokot) 17.2 mg PO HS [facility] Stop: 12/06/19 20:59 Last Admin: 11/06/19 20:39 Dose: 17.2 mg Documented by: Tramadol HCl (Ultram) 50 - 100 mg PO Q4H PRN PRN Reason: Pain & Pre PT Stop: 12/06/19 15:29 Warfarin Sodium (Coumadin) 1 mg PO SuMoWeThFrSa@1600 [facility] Stop: 12/06/19 15:59 Last Admin: 11/06/19 17:16 Dose: 1 mg Documented by: Warfarin Sodium (Coumadin) 2 mg PO Tu@1600 [facility] Stop: 12/12/19 15:59 (1) Atrial fibrillation Atrial fibrillation type: permanent Qualified Code(s): I48.21 - Permanent atrial fibrillation
--- NOTE | 2019-11-07 09:53 | Hospitalist Progress Note ---
Date of Service November 07, 2019 Assessment & Plan (1) Gqgvm-[id number]-rhujfvl kidney injury: Creatinine 2.4 today with a baseline 1.3. Slightly lower UOP for him. Will give 1 L NSS overnight. No nephrotoxic medications. Renally dose meds as apporpriate. (2) S/p reverse total shoulder arthroplasty: Post op day#1 S/P right total reverse shoulder arthroplasty by Dr Nirmala GOETZ#300ml -pain management per ortho -wound management per ortho -PT/OT as appropriate -DVT prophylaxis per ortho -incentive spirometry -some decrease in H/H present on morning labs post-operatively. (3) Atrial fibrillation: chronic a-fib on Coumadin, recently completed Lovenox bridge and INR therapeutic. Rate controlled on Toprol and digoxin. Trend INR (4) HTN (hypertension): cont (5) TIA (transient ischemic attack): h/o TIA-cont aspirin and lipitor 40 per home regimen. (6) Sleep apnea: -Home bipap HS (7) Gout: cont allopurinol per home regimen (8) DVT prophylaxis: warfarin Full Code Dispo-per Orthopedics Thank you for this consultation. We will continue to follow this patient's progress through this hospital stay. Peggy Guardado DO [facility] Hospitalist Admission and Anticipated Discharge Date Admission Date: November 06, 2019 Subjective pain under control Pt feels his UOP is lower than usual-usually urinates 4-5 times by now and he has only gone twice today Tolerating PO Hemovac in place-we reviewed labs including his H/H Reviewed his INR level Cardiology recommends ok to stop lovenox and cont coumadin Review of Systems Review of Systems: All systems reviewed & are unremarkable except as noted in Subjective Physical Exam Physical Exam: CONSTITUTIONAL: WNWD, vitals as above, generally well- appearing EYES: normal conjunctivae, no scleral icterus ENT: external ear and nose normal, MMM RESPIRATORY: clear to auscultation bilaterally, no crackles, rales or wheezes, normal respiratory effort CARDIOVASCULAR: regular rate and rhythm, S1 and 2 heard without murmurs, gallops or rubs, no JVD, no peripheral edema GASTROINTESTINAL: soft, nontender, nondistended MUSCULOSKELETAL: RUE n sling with some decreased sensation in 2 and 3 fingers on the right. Otherwise moves other extremities equally and with ease. SKIN: warm and dry, surgical incision site covered with dressing and not visible. Hemovac drain in place. NEUROLOGIC: No facial palsy, no dysarthria. CN 2-12 grossly intact, no sensory deficit, normal cognition, normal speech, no gross focal deficits. PSYCHIATRIC: alert cooperative and oriented to person, place and time. Results & Data Results & Data ([facility]) Vital Signs (Past 12 Hours) Vital Signs Temp Pulse Resp BP Pulse Ox 11/07/19 07:20 36.3 C L 80 18 105/68 96 11/07/19 03:08 36.3 C L 94 H 24 117/75 96 11/06/19 23:25 36.3 C L 83 22 121/72 97 Laboratory Results Short CBC 11/07/19 Range/Units 05:45 WBC 16.46 H (4.8-10.8) K/uL Hgb 8.8 L (14.0-18.0) g/dL Hct 27.6 L (42-52) % Plt Count 214 (130-400) K/uL BMP 11/07/19 05:45 Sodium 139 Potassium 5.1 Chloride 112 H Carbon Dioxide 18 L BUN 34 H Creatinine 2.45 H Glucose 176 H Calcium 8.0 L Medications Administered Current Inpatient Medications Acetaminophen (Tylenol) 1,000 mg PO Q8 [facility] Stop: 12/06/19 21:59 Last Admin: 11/07/19 05:43 Dose: 1,000 mg Documented by: Allopurinol (Zyloprim) 100 mg PO QPM [facility] Stop: 12/06/19 20:59 Last Admin: 11/06/19 20:39 Dose: 100 mg Documented by: Aspirin (Ecotrin Ectab) 81 mg PO QPM [facility] Stop: 12/06/19 20:59 Last Admin: 11/06/19 20:39 Dose: 81 mg Documented by: Atorvastatin Calcium (Lipitor) 40 mg PO QPM [facility] Stop: 12/06/19 20:59 Last Admin: 11/06/19 20:39 Dose: 40 mg Documented by: Baclofen (Lioresal) 10 mg PO TID PRN PRN Reason: Muscle Spasm Stop: 12/06/19 15:29 Bisacodyl (Dulcolax) 10 mg [place] DAILY PRN PRN Reason: Constipation Stop: 12/06/19 15:29 Diclofenac Sodium (Voltaren 1% Top) 2 gm EXT BID PRN PRN Reason: Back Pain Stop: 12/06/19 15:29 Digoxin (Lanoxin) 0.25 mg PO QPM [facility] Stop: 12/06/19 20:59 Last Admin: 11/06/19 20:39 Dose: 0.25 mg Documented by: Diphenhydramine HCl (Benadryl Capsule) 25 mg PO Q8H PRN PRN Reason: Itching Stop: 12/06/19 15:29 Docusate Sodium (Colace) 100 mg PO BID [facility] Stop: 12/06/19 20:59 Last Admin: 11/07/19 08:52 Dose: 100 mg Documented by: Duloxetine HCl (Cymbalta) 20 mg PO QPM [facility] Stop: 12/06/19 20:59 Last Admin: 11/06/19 20:39 Dose: 20 mg Documented by: Enoxaparin Sodium (Lovenox) 40 mg SQ Q12H [facility] Stop: 12/07/19 14:14 Gabapentin (Neurontin) 100 mg PO TID [facility] Stop: 12/06/19 20:59 Last Admin: 11/07/19 08:53 Dose: 100 mg Documented by: Hydromorphone HCl (Dilaudid) 0.5 mg IV Q4H PRN PRN Reason: Pain or Pre PT Stop: 11/20/19 15:29 Lidocaine (Lidoderm 5%) 1 patch TD DAILY PRN PRN Reason: Back Pain Stop: 12/06/19 15:29 Loratadine (Claritin) 10 mg PO QAM [facility] Stop: 12/07/19 08:59 Last Admin: 11/07/19 08:52 Dose: 10 mg Documented by: Magnesium Hydroxide (Milk Of Magnesia) 30 ml PO Q6H PRN PRN Reason: Constipation Stop: 12/06/19 15:29 Metoprolol Succinate (Toprol Xl) 25 mg PO QPM [facility] Stop: 12/06/19 20:59 Last Admin: 11/06/19 20:39 Dose: 25 mg Documented by: Miscellaneous (Remove Lidoderm Patch) 1 ea N/A DAILY@2100 [facility] Stop: 12/06/19 20:59 Last Admin: 11/06/19 20:40 Dose: Not Given Documented by: Multivitamins (Multivitamin Tab) 1 tab PO QAM [facility] Stop: 12/07/19 08:59 Last Admin: 11/07/19 08:52 Dose: 1 tab Documented by: Naloxone HCl (Narcan) 0.1 mg IV Q5M PRN PRN Reason: Oversedation/Resp Depression Stop: 12/06/19 15:29 Niacin (Niaspan Extended Rel) 1,000 mg PO QPM [facility] Stop: 12/06/19 20:59 Last Admin: 11/06/19 20:39 Dose: 1,000 mg Documented by: Ondansetron HCl (Zofran) 4 mg IV Q6H PRN PRN Reason: Nausea And Vomiting Stop: 12/06/19 15:29 Oxycodone HCl (Roxicodone Immediate Rel) 5 - 10 mg PO Q4H PRN PRN Reason: Pain or Pre PT Stop: 11/20/19 15:29 Sennosides (Senokot) 17.2 mg PO HS [facility] Stop: 12/06/19 20:59 Last Admin: 11/06/19 20:39 Dose: 17.2 mg Documented by: Tramadol HCl (Ultram) 50 - 100 mg PO Q4H PRN PRN Reason: Pain & Pre PT Stop: 12/06/19 15:29 Warfarin Sodium (Coumadin) 1 mg PO SuMoWeThFrSa@1600 [facility] Stop: 12/06/19 15:59 Last Admin: 11/06/19 17:16 Dose: 1 mg Documented by: Warfarin Sodium (Coumadin) 2 mg PO Tu@1600 [facility] Stop: 12/12/19 15:59 (1) Atrial fibrillation Atrial fibrillation type: permanent Qualified Code(s): I48.21 - Permanent atrial fibrillation
[2019-11-07] MEDS ORDERED: ENOXAPARIN INJ 40 MG/0.4 ML SYR SQ SCH (14:15)
[2019-11-07] MEDS: WARFARIN SOD 1 MG TAB PO SCH (16:31)
[2019-11-07] MEDS ORDERED: SODIUM CHLORIDE 0.9% 1000ML 1,000 ML IV SCH (16:45)
[2019-11-07] MEDS: ASPIRIN 81 MG ECTAB PO SCH (20:42)
[2019-11-07] MEDS: METOPROLOL SUCC 25MG EXT REL TAB PO SCH (20:42)
[2019-11-07] MEDS: SENNA 8.6 MG TAB PO SCH (20:42)
[2019-11-07] MEDS: NIACIN EXTENDED REL 500 MG TABCR PO SCH (20:42)
[2019-11-07] MEDS: DULOXETINE HCL 20 MG CAP PO SCH (20:42)
[2019-11-07] MEDS: DIGOXIN 0.25 MG TAB PO SCH (20:43)
[2019-11-07] MEDS: ATORVASTATIN 40 MG TAB PO SCH (20:43)
[2019-11-07] MEDS: allopurinoL 100 MG TAB PO SCH (20:43)
[2019-11-07 21:42] LABS: Creatinine Urine Random 70.1 mg/dl
[2019-11-08] MEDS: ACETAMINOPHEN 500 MG TAB PO SCH ×3 (05:56→20:58)
[2019-11-08 06:03] LABS: Hematocrit (blood only) 21.5 % (42-52); Hemoglobin 6.9 g/dL (14.0-18.0); Mean Corpuscular Hemoglobin 30.1 pg (25-34); Mean Corpuscular Hgb Conc 32.1 g/dL (32-36); Mean Corpuscular Volume 93.9 fL (80-100); Mean Platelet Volume 9.4 fL (7.4-10.4); Platelet Count 125 K/uL (130-400); RDW Standard Deviation 60.5 fL (36.4-46.3); Red Blood Count 2.29 M/uL (4.7-6.1); White Blood Count 10.22 K/uL (4.8-10.8)
[2019-11-08 06:08] LABS: INR 2.8 (0.9-1.1); Prothrombin Time 27.8 Seconds (9.0-12.0)
[2019-11-08] MEDS ORDERED: SODIUM CHLORIDE 0.9% 250 ML IV PRN (06:15)
[2019-11-08 06:27] LABS: BUN Creatinine Ratio 17.4 (10-20); Calcium 7.4 mg/dl (8.5-10.1); Creatinine Clr Calc Pharmacy 19.2 ml/min; Est GFR (Non-African American) 22.4; Potassium 4.5 mmol/L (3.5-5.1)
[2019-11-08 06:28] LABS: Anisocytosis Present; Basophils # (auto) 0.01 K/uL (0-0.2); Basophils % (auto) 0.1 %; Eosinophils # (auto) 0.02 K/uL (0-0.5); Eosinophils % (auto) 0.2 %; Immature Granulocytes # (auto) 0.04 K/uL (0.00-0.02); Immature Granulocytes % (auto) 0.4 %; Lymphocytes # (auto) 1.09 K/uL (1.2-3.4); Lymphocytes % (auto) 10.7 %; Monocytes # (auto) 1.17 K/uL (0.11-0.59); Monocytes % (auto) 11.4 %; Neutrophils # (auto) 7.89 K/uL (1.4-6.5); Neutrophils % (auto) 77.2 %; Ovalocytes 1+
[2019-11-08] MEDS: LORATADINE 10 MG TAB PO SCH (08:36)
[2019-11-08] MEDS: MULTIVITAMIN TAB PO SCH (08:36)
[2019-11-08] MEDS: GABAPENTIN 100 MG CAP PO SCH ×3 (08:36→20:55)
[2019-11-08] MEDS: DOCUSATE SODIUM 100 MG CAP PO SCH ×2 (08:37→20:50)
--- NOTE | 2019-11-08 09:42 | Hospitalist Progress Note ---
Date of Service November 08, 2019 Assessment & Plan (1) Pjvon-xb-epalwdy kidney injury: Creatinine 2.3 today with a baseline 1.3. Only slightly improved from creat yesterday and FeNa is <1 indicating pre-renal azotemia. Anemia concerning for acute blood loss, so that is a consideration with a h/o GI bleed and warfarin use. He also did receive some IVF overnight so that may have added to the anemia through hemodilution. For now, he will receive two units of blood and will reassess volume status before considering additional fluids. He appears hemodynamically stable and has no overt blood loss present outside of his surgical drain. After the blood transfusion, lungs were clear and he was doing well. Post op H/H was 9.3/28.4. Creat was 2.2, Will continue with some more IVF at this time and repeat BMP in am. (2) S/p reverse total shoulder arthroplasty: Post op day#2 S/P right total reverse shoulder arthroplasty by Dr Nirmala GOETZ#300ml -pain management per ortho -wound management per ortho -PT/OT as appropriate -DVT prophylaxis per ortho -incentive spirometry (3) Atrial fibrillation: chronic a-fib on Coumadin, recently completed Lovenox bridge and INR therapeutic. With drop in H/H and h/o severe GI bleed, cardiology recommends holding anticoagulation at this time. Rate controlled on Toprol and digoxin. (4) TIA (transient ischemic attack): h/o TIA-cont aspirin and lipitor 40 per home regimen. (5) Sleep apnea: -Home bipap HS (6) Gout: cont allopurinol per home regimen (7) DVT prophylaxis: SCDs/ambulation as tolerated. Full Code Dispo-per Orthopedics Thank you for this consultation. We will continue to follow this patient's progress through this hospital stay. Peggy Guardado DO [facility] Hospitalist Admission and Anticipated Discharge Date Admission Date: November 06, 2019 Subjective Feeling well today 2 Units of blood transfused no overt bleeding denies pain post-operatively tolerating PO Review of Systems Review of Systems: All systems reviewed & are unremarkable except as noted in Subjective Physical Exam Physical Exam: CONSTITUTIONAL: WNWD, vitals as above, generally well- appearing EYES: normal conjunctivae, no scleral icterus ENT: external ear and nose normal, MMM RESPIRATORY: clear to auscultation bilaterally, no crackles, rales or wheezes, normal respiratory effort CARDIOVASCULAR: regular rate and rhythm, S1 and 2 heard without murmurs, gallops or rubs, no JVD, no peripheral edema GASTROINTESTINAL: soft, nontender, nondistended MUSCULOSKELETAL: RUE in sling with some decreased sensation in 2 and 3 fingers on the right. Otherwise moves other extremities equally and with ease. SKIN: warm and dry, surgical incision site covered with dressing and not visible. NEUROLOGIC: No facial palsy, no dysarthria. CN 2-12 grossly intact, no sensory deficit, normal cognition, normal speech, no gross focal deficits. PSYCHIATRIC: alert cooperative and oriented to person, place and time. Results & Data Results & Data ([facility]) Vital Signs (Past 12 Hours) Vital Signs Temp Pulse Pulse Resp BP BP BP 11/08/19 09:14 36.4 C L 66 18 107/47 L 11/08/19 08:45 36.7 C 70 18 112/53 L 11/08/19 08:13 36.4 C L 66 18 105/52 L 11/08/19 07:58 36.4 C L 63 18 109/83 11/08/19 07:41 36.4 C L 65 18 129/79 11/08/19 07:18 36.2 C L 65 14 110/49 L 11/07/19 23:19 36.4 C L 78 22 119/61 Pulse Ox 11/08/19 09:14 100 11/08/19 08:45 97 11/08/19 08:13 94 11/08/19 07:58 95 11/08/19 07:41 11/08/19 07:18 99 11/07/19 23:19 97 Laboratory Results Short CBC 11/08/19 Range/Units 05:41 WBC 10.22 (4.8-10.8) K/uL Hgb 6.9 L* (14.0-18.0) g/dL Hct 21.5 L (42-52) % Plt Count 125 L (130-400) K/uL BMP 11/08/19 05:41 Sodium 142 Potassium 4.5 Chloride 114 H Carbon Dioxide 22 BUN 44 H Creatinine 2.53 H Glucose 100 H Calcium 7.4 L Medications Administered Current Inpatient Medications Acetaminophen (Tylenol) 1,000 mg PO Q8 [facility] Stop: 12/06/19 21:59 Last Admin: 11/08/19 05:56 Dose: 1,000 mg Documented by: Allopurinol (Zyloprim) 100 mg PO QPM [facility] Stop: 12/06/19 20:59 Last Admin: 11/07/19 20:43 Dose: 100 mg Documented by: Aspirin (Ecotrin Ectab) 81 mg PO QPM [facility] Stop: 12/06/19 20:59 Last Admin: 11/07/19 20:42 Dose: 81 mg Documented by: Atorvastatin Calcium (Lipitor) 40 mg PO QPM [facility] Stop: 12/06/19 20:59 Last Admin: 11/07/19 20:43 Dose: 40 mg Documented by: Baclofen (Lioresal) 10 mg PO TID PRN PRN Reason: Muscle Spasm Stop: 12/06/19 15:29 Bisacodyl (Dulcolax) 10 mg [place] DAILY PRN PRN Reason: Constipation Stop: 12/06/19 15:29 Diclofenac Sodium (Voltaren 1% Top) 2 gm EXT BID PRN PRN Reason: Back Pain Stop: 12/06/19 15:29 Digoxin (Lanoxin) 0.25 mg PO QPM [facility] Stop: 12/06/19 20:59 Last Admin: 11/07/19 20:43 Dose: 0.25 mg Documented by: Diphenhydramine HCl (Benadryl Capsule) 25 mg PO Q8H PRN PRN Reason: Itching Stop: 12/06/19 15:29 Docusate Sodium (Colace) 100 mg PO BID [facility] Stop: 12/06/19 20:59 Last Admin: 11/08/19 08:37 Dose: 100 mg Documented by: Duloxetine HCl (Cymbalta) 20 mg PO QPM [facility] Stop: 12/06/19 20:59 Last Admin: 11/07/19 20:42 Dose: 20 mg Documented by: Gabapentin (Neurontin) 100 mg PO TID [facility] Stop: 12/06/19 20:59 Last Admin: 11/08/19 08:36 Dose: 100 mg Documented by: Hydromorphone HCl (Dilaudid) 0.5 mg IV Q4H PRN PRN Reason: Pain or Pre PT Stop: 11/20/19 15:29 Sodium Chloride (Nss) 250 mls @ 15 mls/hr IV .[id number] PRN PRN Reason: For Transfusion Stop: 11/08/19 16:15 Lidocaine (Lidoderm 5%) 1 patch TD DAILY PRN PRN Reason: Back Pain Stop: 12/06/19 15:29 Loratadine (Claritin) 10 mg PO QAM [facility] Stop: 12/07/19 08:59 Last Admin: 11/08/19 08:36 Dose: 10 mg Documented by: Magnesium Hydroxide (Milk Of Magnesia) 30 ml PO Q6H PRN PRN Reason: Constipation Stop: 12/06/19 15:29 Metoprolol Succinate (Toprol Xl) 25 mg PO QPM [facility] Stop: 12/06/19 20:59 Last Admin: 11/07/19 20:42 Dose: 25 mg Documented by: Miscellaneous (Remove Lidoderm Patch) 1 ea N/A DAILY@2100 [facility] Stop: 12/06/19 20:59 Last Admin: 11/07/19 20:44 Dose: Not Given Documented by: Multivitamins ([facility]amin Tab) [facility] Stop: 12/07/19 08:59 Last Admin: 11/08/19 08:36 Dose: 1 tab Documented by: Naloxone HCl (Narcan) 0.1 mg IV Q5M PRN PRN Reason: Oversedation/Resp Depression Stop: 12/06/19 15:29 Niacin (Niaspan Extended Rel) 1,000 mg PO QPM [facility] Stop: 12/06/19 20:59 Last Admin: 11/07/19 20:42 Dose: 1,000 mg Documented by: Ondansetron HCl (Zofran) 4 mg IV Q6H PRN PRN Reason: Nausea And Vomiting Stop: 12/06/19 15:29 Oxycodone HCl (Roxicodone Immediate Rel) 5 - 10 mg PO Q4H PRN PRN Reason: Pain or Pre PT Stop: 11/20/19 15:29 Sennosides (Senokot) 17.2 mg PO HS [facility] Stop: 12/06/19 20:59 Last Admin: 11/07/19 20:42 Dose: 17.2 mg Documented by: Tramadol HCl (Ultram) 50 - 100 mg PO Q4H PRN PRN Reason: Pain & Pre PT Stop: 12/06/19 15:29 Warfarin Sodium (Coumadin) 1 mg PO SuMoWeThFrSa@1600 [facility] Stop: 12/06/19 15:59 Last Admin: 11/07/19 16:31 Dose: 1 mg Documented by: Warfarin Sodium (Coumadin) 2 mg PO Tu@1600 [facility] Stop: 12/12/19 15:59 (1) Atrial fibrillation Atrial fibrillation type: permanent Qualified Code(s): I48.21 - Permanent atrial fibrillation
--- NOTE | 2019-11-08 10:13 | Cardiology Progress Note ---
Date of Service November 08, 2019 Assessment & Plan (1) S/p reverse total shoulder arthroplasty: (2) Atrial fibrillation: (3) TIA (transient ischemic attack): (4) Systolic CHF, chronic: (5) CKD (chronic kidney disease), stage III: This patient had GI bleeding in September. According to the patient and records his hemoglobin went down to 4. He underwent a GI work-up and there were several areas that were suspected but it was felt that the Coumadin contributed to the bleeding. His anticoagulation was held for a time and then restarted as an outpatient. I do not believe the patient should be discharged today. He should receive his blood transfusions and we should gather serial blood counts to make sure he is not actively bleeding. I would also hold his warfarin and consider not starting it after discharge. Subjective Patient has no new complaints this morning however, his hemoglobin dropped to under 7 and he is receiving blood transfusions. Review of Systems Review of Systems: All systems reviewed & are unremarkable except as noted in HPI & below Nothing additional to add Physical Exam Physical Exam: General: no acute distress and stated age Head: normocephalic, no masses, lesions, tenderness or abnormalities Eyes: conjunctiva are pink and non-injected, sclera clear Neck: supple, no adenopathy, no bruits, normal jugular venous pulse, no hepatojugular reflux Chest: normal shape and normal respiratory effort Lungs: clear to auscultation and percussion Cardiac Exam: - regular rate & rhythm, no murmurs gallops or rubs - normal S1, normal S2 Pulses: 2(+) throughout Abdomen: abdomen soft, non-tender, no abnormal masses and no hepatosplenomegaly Musculoskeletal: no gait disturbance, no joint inflammation, no deforming arthritis Extremities: Status post right shoulder surgery Neuro: grossly normal exam Results & Data Vital Signs (Past 12 Hours) Vital Signs Temp Pulse Pulse Resp BP BP BP 11/08/19 09:55 36.5 C 62 16 112/58 L 11/08/19 09:14 36.4 C L 66 18 107/47 L 11/08/19 08:45 36.7 C 70 18 112/53 L 11/08/19 08:13 36.4 C L 66 18 105/52 L 11/08/19 07:58 36.4 C L 63 18 109/83 11/08/19 07:41 36.4 C L 65 18 129/79 06/19/20 07:18 36.2 C L 65 14 110/49 L 11/07/19 23:19 36.4 C L 78 22 119/61 Pulse Ox 11/08/19 09:55 98 11/08/19 09:14 100 11/08/19 08:45 97 11/08/19 08:13 94 11/08/19 07:58 95 11/08/19 07:41 11/08/19 07:18 99 11/07/19 23:19 97 Laboratory Results Laboratory Results - last 24 hr 11/06/19 11/07/19 11/07/19 08:16 Unknown Unknown WBC RBC Hgb Hct MCV MCH MCHC RDW Std Deviation RDW Coeff of Ligia Plt Count MPV Immature Gran % (Auto) Neut % (Auto) Lymph % (Auto) [place] % (Auto) Eos % (Auto) Baso % (Auto) Immature Gran # (Auto) Neut # (Auto) Lymph # (Auto) [place] # (Auto) Eos # (Auto) Baso # (Auto) Anisocytosis Ovalocytes PT INR Sodium Potassium Chloride Carbon Dioxide Anion Gap BUN Creatinine Est Cr Clr Drug Dosing Est GFR ( Amer) Est GFR (Non-Af Amer) BUN/Creatinine Ratio Glucose Calcium Urine Osmolality 252 L Ur Random Creatinine 70.1 Ur Random Sodium 23 Blood Type O Positive Antibody Screen NEGATIVE Crossmatch See Detail 11/07/19 11/08/19 11/08/19 Unknown 05:41 05:41 WBC 10.22 RBC 2.29 L Hgb 6.9 L* Hct 21.5 L MCV 93.9 MCH 30.1 MCHC 32.1 RDW Std Deviation 60.5 H RDW Coeff of Ligia 18.0 H Plt Count 125 L MPV 9.4 Immature Gran % (Auto) 0.4 Neut % (Auto) 77.2 Lymph % (Auto) 10.7 [place] % (Auto) 11.4 Eos % (Auto) 0.2 Baso % (Auto) 0.1 Immature Gran # (Auto) 0.04 H Neut # (Auto) 7.89 H Lymph # (Auto) 1.09 L [place] # (Auto) 1.17 H Eos # (Auto) 0.02 Baso # (Auto) 0.01 Anisocytosis Present Ovalocytes 1+ PT 27.8 H INR 2.8 H Sodium Potassium Chloride Carbon Dioxide Anion Gap BUN Creatinine Est Cr Clr Drug Dosing Est GFR ( Amer) Est GFR (Non-Af Amer) BUN/Creatinine Ratio Glucose Calcium Urine Osmolality Ur Random Creatinine Ur Random Sodium Cancelled Blood Type Antibody Screen Crossmatch 11/08/19 05:41 WBC RBC Hgb Hct MCV MCH MCHC RDW Std Deviation RDW Coeff of Ligia Plt Count MPV Immature Gran % (Auto) Neut % (Auto) Lymph % (Auto) [place] % (Auto) Eos % (Auto) Baso % (Auto) Immature Gran # (Auto) Neut # (Auto) Lymph # (Auto) [place] # (Auto) Eos # (Auto) Baso # (Auto) Anisocytosis Ovalocytes PT INR Sodium 142 Potassium 4.5 Chloride 114 H Carbon Dioxide 22 Anion Gap 6.0 BUN 44 H Creatinine 2.53 H Est Cr Clr Drug Dosing 19.2 Est GFR ( Amer) 26.0 Est GFR (Non-Af Amer) 22.4 BUN/Creatinine Ratio 17.4 Glucose 100 H Calcium 7.4 L Urine Osmolality Ur Random Creatinine Ur Random Sodium Blood Type Antibody Screen Crossmatch Medications Administered Current Inpatient Medications Acetaminophen (Tylenol) 1,000 mg PO Q8 [facility] Stop: 12/06/19 21:59 Last Admin: 11/08/19 05:56 Dose: 1,000 mg Documented by: Allopurinol (Zyloprim) 100 mg PO QPM [facility] Stop: 12/06/19 20:59 Last Admin: 11/07/19 20:43 Dose: 100 mg Documented by: Aspirin (Ecotrin Ectab) 81 mg PO QPM [facility] Stop: 12/06/19 20:59 Last Admin: 11/07/19 20:42 Dose: 81 mg Documented by: Atorvastatin Calcium (Lipitor) 40 mg PO QPM [facility] Stop: 12/06/19 20:59 Last Admin: 11/07/19 20:43 Dose: 40 mg Documented by: Baclofen (Lioresal) 10 mg PO TID PRN PRN Reason: Muscle Spasm Stop: 12/06/19 15:29 Bisacodyl (Dulcolax) [address] DAILY PRN PRN Reason: Constipation Stop: 12/06/19 15:29 Diclofenac Sodium (Voltaren 1% Top) 2 gm EXT BID PRN PRN Reason: Back Pain Stop: 12/06/19 15:29 Digoxin (Lanoxin) 0.25 mg PO QPM [facility] Stop: 12/06/19 20:59 Last Admin: 11/07/19 20:43 Dose: 0.25 mg Documented by: Diphenhydramine HCl (Benadryl Capsule) 25 mg PO Q8H PRN PRN Reason: Itching Stop: 12/06/19 15:29 Docusate Sodium (Colace) 100 mg PO BID [facility] Stop: 12/06/19 20:59 Last Admin: 11/08/19 08:37 Dose: 100 mg Documented by: Duloxetine HCl (Cymbalta) 20 mg PO QPM [facility] Stop: 12/06/19 20:59 Last Admin: 11/07/19 20:42 Dose: 20 mg Documented by: Gabapentin (Neurontin) 100 mg PO TID [facility] Stop: 12/06/19 20:59 Last Admin: 11/08/19 08:36 Dose: 100 mg Documented by: Hydromorphone HCl (Dilaudid) 0.5 mg IV Q4H PRN PRN Reason: Pain or Pre PT Stop: 11/20/19 15:29 Sodium Chloride (Nss) 250 mls @ 15 mls/hr IV .[id number] PRN PRN Reason: For Transfusion Stop: 11/08/19 16:15 Lidocaine (Lidoderm 5%) 1 patch TD DAILY PRN PRN Reason: Back Pain Stop: 12/06/19 15:29 Loratadine (Claritin) 10 mg PO QAM [facility] Stop: 12/07/19 08:59 Last Admin: 11/08/19 08:36 Dose: 10 mg Documented by: Magnesium Hydroxide (Milk Of Magnesia) 30 ml PO Q6H PRN PRN Reason: Constipation Stop: 12/06/19 15:29 Metoprolol Succinate (Toprol Xl) 25 mg PO QPM [facility] Stop: 12/06/19 20:59 Last Admin: 11/07/19 20:42 Dose: 25 mg Documented by: Miscellaneous (Remove Lidoderm Patch) 1 ea N/A DAILY@2100 [facility] Stop: 12/06/19 20:59 Last Admin: 11/07/19 20:44 Dose: Not Given Documented by: Multivitamins (Multivitamin Tab) [facility] [place] Stop: 12/07/19 08:59 Last Admin: 11/08/19 08:36 Dose: 1 tab Documented by: Naloxone HCl (Narcan) 0.1 mg IV Q5M PRN PRN Reason: Oversedation/Resp Depression Stop: 12/06/19 15:29 Niacin (Niaspan Extended Rel) 1,000 mg PO QPM [facility] Stop: 12/06/19 20:59 Last Admin: 11/07/19 20:42 Dose: 1,000 mg Documented by: Ondansetron HCl (Zofran) 4 mg IV Q6H PRN PRN Reason: Nausea And Vomiting Stop: 12/06/19 15:29 Oxycodone HCl (Roxicodone Immediate Rel) 5 - 10 mg PO Q4H PRN PRN Reason: Pain or Pre PT Stop: 11/20/19 15:29 Sennosides (Senokot) 17.2 mg PO HS [facility] Stop: 12/06/19 20:59 Last Admin: 11/07/19 20:42 Dose: 17.2 mg Documented by: Tramadol HCl (Ultram) 50 - 100 mg PO Q4H PRN PRN Reason: Pain & Pre PT Stop: 12/06/19 15:29 Warfarin Sodium (Coumadin) 1 mg PO [id number]@1600 [facility] Stop: 12/06/19 15:59 Last Admin: 11/07/19 16:31 Dose: 1 mg Documented by: Warfarin Sodium (Coumadin) 2 mg PO Tu@1600 [facility] Stop: 12/12/19 15:59 (1) Atrial fibrillation Atrial fibrillation type: permanent Qualified Code(s): I48.21 - Permanent atrial fibrillation
--- NOTE | 2019-11-08 11:09 | Orthopedic Progress Note ---
Date of Service November 08, 2019 Assessment & Plan (1) Right rotator cuff tear: POD #2, Right reverse TSA PT/ OT DVT proph- coumadin D/C plans- Home w HEP, possible tomorrow 11.09.2019. Appreciate medicine and cardiology input. Currently receiving transfusion. Admission and Anticipated Discharge Date Admission Date: November 06, 2019 Subjective Patient has no new complaints this morning. State he does not have any pain in the right shoulder. Only using Tylenol but hasn't had to use any as of late. No right shoulder complaints. Denies CP. Has been lying in bed and currently receiving transfusion. Physical Exam Constitutional: WD/WN, vitals as above Musculoskeletal: Shoulder: + surgical incision (Right shoulder dressing is C/D/I.) and + limited ROM; shoulder normal to inspection, no skin erythema, no ecchymosis and no crepitation with shoulder ROM Skin: no rashes, warm and dry Neurologic: normal touch/pain/proprioception RUE: fingers are mobile. Mild paresthesias at the tips of the right middle and ring fingers, otherwise normal sensation. Cap refill 2 seconds. Psychiatric: A+Ox3, euthymic affect Speech: normal rate/rhythm/volume of speech Results & Data ([facility]) Vital Signs (Past 12 Hours) Vital Signs Temp Pulse Pulse Resp BP BP BP 11/08/19 10:46 36.5 C 69 18 114/67 11/08/19 10:32 36.4 C L 66 18 161/62 H 11/08/19 09:55 36.5 C 62 16 112/58 L 11/08/19 09:14 36.4 C L 66 18 107/47 L 11/08/19 08:45 36.7 C 70 18 112/53 L 11/08/19 08:13 36.4 C L 66 18 105/52 L 11/08/19 07:58 36.4 C L 63 18 109/83 11/08/19 07:41 36.4 C L 65 18 129/79 11/08/19 07:18 36.2 C L 65 14 110/49 L 11/07/19 23:19 36.4 C L 78 22 119/61 Pulse Ox 11/08/19 10:46 95 11/08/19 10:32 11/08/19 09:55 98 11/08/19 09:14 100 11/08/19 08:45 97 11/08/19 08:13 94 11/08/19 07:58 95 11/08/19 07:41 11/08/19 07:18 99 11/07/19 23:19 97 Laboratory Results Laboratory Tests 11/07/19 11/08/19 11/08/19 05:45 05:41 05:41 Hgb 8.8 L 6.9 L* PT 27.8 H INR 2.8 H
[2019-11-08 17:22] LABS: Hematocrit (blood only) 28.4 % (42-52); Hemoglobin 9.3 g/dL (14.0-18.0); Mean Corpuscular Hemoglobin 29.8 pg (25-34); Mean Corpuscular Hgb Conc 32.7 g/dL (32-36); Mean Platelet Volume 9.7 fL (7.4-10.4); Platelet Count 142 K/uL (130-400); RDW Coefficient of Variation 19.2 % (11.5-14.5); RDW Standard Deviation 62.4 fL (36.4-46.3); Red Blood Count 3.12 M/uL (4.7-6.1); White Blood Count 10.86 K/uL (4.8-10.8)
[2019-11-08 17:44] LABS: BUN Creatinine Ratio 16.8 (10-20); Creatinine Clr Calc Pharmacy 21.8 ml/min; Est GFR (African American) 30.2; Est GFR (Non-African American) 26.1; Potassium 4.6 mmol/L (3.5-5.1)
[2019-11-08] MEDS ORDERED: SODIUM CHLORIDE 0.9% 1000ML 1,000 ML IV SCH (19:45)
[2019-11-08] MEDS: SENNA 8.6 MG TAB PO SCH (20:52)
[2019-11-08] MEDS: DIGOXIN 0.25 MG TAB PO SCH (20:55)
[2019-11-08] MEDS: DULOXETINE HCL 20 MG CAP PO SCH (20:56)
[2019-11-08] MEDS: NIACIN EXTENDED REL 500 MG TABCR PO SCH (20:56)
[2019-11-08] MEDS: allopurinoL 100 MG TAB PO SCH (20:57)
[2019-11-08] MEDS: METOPROLOL SUCC 25MG EXT REL TAB PO SCH (20:57)
[2019-11-08] MEDS: ASPIRIN 81 MG ECTAB PO SCH (20:57)
[2019-11-08] MEDS: ATORVASTATIN 40 MG TAB PO SCH (20:57)
[2019-11-09] MEDS: ACETAMINOPHEN 500 MG TAB PO SCH ×2 (05:01→14:00)
[2019-11-09 06:48] LABS: INR 1.8 (0.9-1.1); Prothrombin Time 18.2 Seconds (9.0-12.0)
--- NOTE | 2019-11-09 09:29 | Orthopedic Progress Note ---
Date of Service November 09, 2019 Assessment & Plan (1) Right rotator cuff tear: POD #3, Right reverse TSA PT/ OT Acute Blood Loss Anemia - Hgb 9.4 yesterday after transfusion. H/H today pending DVT proph- coumadin; Current INR is 1.8 D/C plans- Home w HEP when ok with Med Service Appreciate medicine and cardiology input. Admission and Anticipated Discharge Date Admission Date: November 06, 2019 Subjective Postop day 3 Patient is currently sitting up in bed eating breakfast. Awake and alert and oriented. No complaints this morning. Denies shortness of breath, chest pain, lightheadedness. Patient states he is hoping to go home today. Physical Exam Physical Exam: Dressing has been changed and is clean, dry, and intact. Denies pain at the elbow or wrist and has good range of motion of both and good range of motion of his fingers. He states he has a little stiffness in his index and middle fingers which basically was there prior. Sensation is intact. Capillary refill is less than 2 seconds. Results & Data ([facility]) Vital Signs (Past 12 Hours) Vital Signs Temp Pulse Resp BP Pulse Ox 11/09/19 07:52 85 143/87 H 11/09/19 07:28 36.5 C 91 H 16 175/79 H 94 11/08/19 22:57 36.4 C L 54 L 16 120/71 98
[2019-11-09 09:50] LABS: Mean Corpuscular Hemoglobin 29.7 pg (25-34); Mean Corpuscular Hgb Conc 32.1 g/dL (32-36); Mean Corpuscular Volume 92.4 fL (80-100); Mean Platelet Volume 10.6 fL (7.4-10.4); Platelet Count 134 K/uL (130-400); RDW Coefficient of Variation 19.4 % (11.5-14.5); RDW Standard Deviation 64.9 fL (36.4-46.3); Red Blood Count 3.03 M/uL (4.7-6.1); White Blood Count 9.37 K/uL (4.8-10.8)
[2019-11-09] MEDS: GABAPENTIN 100 MG CAP PO SCH ×2 (10:03→14:01)
[2019-11-09] MEDS: MULTIVITAMIN TAB PO SCH (10:03)
[2019-11-09] MEDS: LORATADINE 10 MG TAB PO SCH (10:03)
[2019-11-09] MEDS: DOCUSATE SODIUM 100 MG CAP PO SCH (10:04)
[2019-11-09 11:15] LABS: BUN Creatinine Ratio 20.7 (10-20); Calcium 8.1 mg/dl (8.5-10.1); Creatinine Clr Calc Pharmacy 31.3 ml/min; Est GFR (African American) 46.9; Est GFR (Non-African American) 40.5
--- NOTE | 2019-11-09 11:48 | Hospitalist Progress Note ---
Date of Service November 09, 2019 Assessment & Plan (1) Ojbow-sp-hlkotgf kidney injury: Improvement with blood and IVF hydration. Cont PO hydration at home. Recommend repeat BMP (nonfasting) with primary care physician in one week to ensure he is completely back to baseline. Would avoid NSAIDs if possible until that time. (2) S/p reverse total shoulder arthroplasty: Post op day#3 S/P right total reverse shoulder arthroplasty by Dr Nirmala GOETZ#300ml -pain management per ortho -wound management per ortho -PT/OT as appropriate -DVT prophylaxis per ortho -incentive spirometry (3) Atrial fibrillation: chronic a-fib on Coumadin, recently completed Lovenox bridge and INR therapeutic. He developed a post-operative anemia and received two units of blood with expected improvement and stability of H/H demonstrated. No overt bleeding was present. However, in discussion with cardiology, he presents too high of a risk for continued anticoagulation moving forward and will be maintained on ASA 81mg daily. Coumadin should be stopped and follow-up as outpatient with Dr. Goodwin from [facility] is recommended. Cont rate control with Toprol and digoxin. (4) TIA (transient ischemic attack): h/o TIA-cont aspirin and lipitor 40 per home regimen. (5) Sleep apnea: -Home bipap HS (6) Gout: cont allopurinol per home regimen (7) DVT prophylaxis: SCDs/ambulation as tolerated. Full Code Dispo-per Orthopedics, however, he is cleared for discharge from a medicine perspective. Recommend one week follow-up with primary care provider, requesting BMP in one week to monitor renal function. Also needs Cardiology outpatient followup with Dr. Goodwin. Thank you for this consultation. Peggy Guardado DO [facility] Hospitalist Admission and Anticipated Discharge Date Admission Date: November 06, 2019 Subjective Pt feeling well today Denies pain Tolerating PO Discussed care plan with respect to his coumadin-all questions answered Discussed the need for follow-up BP by PCP in one week-he verbalized understanding with intent to comply. Review of Systems Review of Systems: All systems reviewed & are unremarkable except as noted in Subjective Physical Exam Physical Exam: CONSTITUTIONAL: WNWD, vitals as above, generally well- appearing EYES: normal conjunctivae, no scleral icterus ENT: external ear and nose normal, MMM RESPIRATORY: clear to auscultation bilaterally, no crackles, rales or wheezes, normal respiratory effort CARDIOVASCULAR: regular rate and rhythm, S1 and 2 heard without murmurs, gallops or rubs, no JVD, no peripheral edema GASTROINTESTINAL: soft, nontender, nondistended MUSCULOSKELETAL: RUE in sling with some decreased sensation in 2 and 3 fingers on the right. Otherwise moves other extremities equally and with ease. SKIN: warm and dry, surgical incision site covered with dressing and not visible. NEUROLOGIC: No facial palsy, no dysarthria. CN 2-12 grossly intact, no sensory deficit, normal cognition, normal speech, no gross focal deficits. PSYCHIATRIC: alert cooperative and oriented to person, place and time. Results & Data Results & Data ([facility]) Vital Signs (Past 12 Hours) Vital Signs Temp Pulse Resp BP Pulse Ox 11/09/19 07:52 85 143/87 H 11/09/19 07:28 36.5 C 91 H 16 175/79 H 94 Laboratory Results Short CBC 11/08/19 11/09/19 Range/Units 17:08 05:45 WBC 10.86 H 9.37 (4.8-10.8) K/uL Hgb 9.3 L 9.0 L (14.0-18.0) g/dL Hct 28.4 L 28.0 L (42-52) % Plt Count 142 134 (130-400) K/uL BMP 11/08/19 11/09/19 17:08 05:46 Sodium 140 142 Potassium 4.6 5.0 Chloride 113 H 117 H Carbon Dioxide 22 21 BUN 38 H 32 H Creatinine 2.23 H D 1.55 H D Glucose 101 H 91 Calcium 8.0 L 8.1 L Medications Administered Current Inpatient Medications Acetaminophen (Tylenol) 1,000 mg PO Q8 [facility] Stop: 12/06/19 21:59 Last Admin: 11/09/19 05:01 Dose: 1,000 mg Documented by: Allopurinol (Zyloprim) 100 mg PO QPM [facility] Stop: 12/06/19 20:59 Last Admin: 11/08/19 20:57 Dose: 100 mg Documented by: Aspirin (Ecotrin Ectab) 81 mg PO QPM [facility] Stop: 12/06/19 20:59 Last Admin: 11/08/19 20:57 Dose: 81 mg Documented by: Atorvastatin Calcium (Lipitor) 40 mg PO QPM [facility] Stop: 12/06/19 20:59 Last Admin: 11/08/19 20:57 Dose: 40 mg Documented by: Baclofen (Lioresal) 10 mg PO TID PRN PRN Reason: Muscle Spasm Stop: 12/06/19 15:29 Bisacodyl (Dulcolax) 10 mg MO DAILY PRN PRN Reason: Constipation Stop: 12/06/19 15:29 Diclofenac Sodium (Voltaren 1% Top) 2 gm EXT BID PRN PRN Reason: Back Pain Stop: 12/06/19 15:29 Digoxin (Lanoxin) 0.25 mg PO QPM [facility] Stop: 12/06/19 20:59 Last Admin: 11/08/19 20:55 Dose: 0.25 mg Documented by: Diphenhydramine HCl (Benadryl Capsule) 25 mg PO Q8H PRN PRN Reason: Itching Stop: 12/06/19 15:29 Docusate Sodium (Colace) 100 mg PO BID [facility] Stop: 12/06/19 20:59 Last Admin: 11/09/19 10:04 Dose: Not Given Documented by: Duloxetine HCl (Cymbalta) 20 mg PO QPM [facility] Stop: 12/06/19 20:59 Last Admin: 11/08/19 20:56 Dose: 20 mg Documented by: Gabapentin (Neurontin) 100 mg PO TID [facility] Stop: 12/06/19 20:59 Last Admin: 11/09/19 10:03 Dose: 100 mg Documented by: Hydromorphone HCl (Dilaudid) 0.5 mg IV Q4H PRN PRN Reason: Pain or Pre PT Stop: 11/20/19 15:29 Lidocaine (Lidoderm 5%) 1 patch TD DAILY PRN PRN Reason: Back Pain Stop: 12/06/19 15:29 Loratadine (Claritin) 10 mg PO QAM [facility] Stop: 12/07/19 08:59 Last Admin: 11/09/19 10:03 Dose: 10 mg Documented by: Magnesium Hydroxide (Milk Of Magnesia) 30 ml PO Q6H PRN PRN Reason: Constipation Stop: 12/06/19 15:29 Metoprolol Succinate (Toprol Xl) 25 mg PO QPM [facility] Stop: 12/06/19 20:59 Last Admin: 06/19/20 20:57 Dose: 25 mg Documented by: Miscellaneous (Remove Lidoderm Patch) 1 ea N/A DAILY@2100 [facility] Stop: 12/06/19 20:59 Last Admin: 11/08/19 20:52 Dose: Not Given Documented by: Multivitamins (Multivitamin Tab) 1 tab PO QAM [facility] Stop: 12/07/19 08:59 Last Admin: 11/09/19 10:03 Dose: 1 tab Documented by: Naloxone HCl (Narcan) 0.1 mg IV Q5M PRN PRN Reason: Oversedation/Resp Depression Stop: 12/06/19 15:29 Niacin (Niaspan Extended Rel) 1,000 mg PO QPM [facility] Stop: 12/06/19 20:59 Last Admin: 11/08/19 20:56 Dose: 1,000 mg Documented by: Ondansetron HCl (Zofran) 4 mg IV Q6H PRN PRN Reason: Nausea And Vomiting Stop: 12/06/19 15:29 Oxycodone HCl (Roxicodone Immediate Rel) 5 - 10 mg PO Q4H PRN PRN Reason: Pain or Pre PT Stop: 11/20/19 15:29 Sennosides (Senokot) 17.2 mg PO HS [facility] Stop: 12/06/19 20:59 Last Admin: 11/08/19 20:52 Dose: Not Given Documented by: Tramadol HCl (Ultram) 50 - 100 mg PO Q4H PRN PRN Reason: Pain & Pre PT Stop: 12/06/19 15:29 Warfarin Sodium (Coumadin) 1 mg PO SuMoWeThFrSa@1600 [facility] Stop: 12/06/19 15:59 Last Admin: 11/07/19 16:31 Dose: 1 mg Documented by: Warfarin Sodium (Coumadin) 2 mg PO Tu@1600 [facility] Stop: 12/12/19 15:59 (1) Atrial fibrillation Atrial fibrillation type: permanent Qualified Code(s): I48.21 - Permanent atrial fibrillation
[2019-11-12] MEDS ORDERED: WARFARIN SOD 2 MG TAB PO SCH (16:00)
--- NOTE | 2019-11-24 22:08 | Discharge Summary (DS) ---
HISTORY OF PRESENT ILLNESS: This is an 83-year-old male patient of Dr. Silvestre's complaining of chronic right shoulder pain and weakness. He has failed conservative treatment. He has been diagnosed with rotator cuff arthropathy and elected to proceed with a right reversed total shoulder arthroplasty. PAST MEDICAL HISTORY: Coronary artery disease status post TIA, atrial fibrillation, sleep apnea, anemia, spine problems, sciatica, scoliosis and prostate cancer. POSTOPERATIVE COURSE: The patient underwent a right reversed total shoulder arthroplasty on 11/06/2019. He was followed closely with medical consultation, DVT prophylaxis and physical therapy. By postoperative day #2, his hemoglobin dropped to 6.9. Cardiology will intervene due to his heart history. He was transfused 2 units of blood. His Coumadin was held. He was put on aspirin only. On postoperative day #3, his hemoglobin was stable at 9.0 and he was cleared by Medicine for discharge. PHYSICAL EXAMINATION: On discharge, right shoulder incision was clean, dry and intact. Chandra were intact. Skin edges were approximated well. There was no redness or drainage. Neurologically and neurovascularly intact in his right upper extremity. DIAGNOSES: Status post right reverse total shoulder arthroplasty, coronary artery disease, status post TIA, atrial fibrillation, sleep apnea, anemia, spine problems, sciatica, scoliosis, prostate cancer, postoperative anemia with 2 units of packed red blood cells transfused. PLAN: The patient was discharged home with home exercises only. Hemoglobin was stable. He will continue aspirin only for DVT prophylaxis. Follow up with cardiology next week as an outpatient and follow up with Dr. Silvestre as an outpatient. CARTER
== END 2019-11-09 15:07 | disposition home or self-care (01) | DRG 483 ==
LOC: ASU 07:45 → 3E 14:17

== ENCOUNTER 2020-05-11 21:38 | Observation (INO) ==
[2020-05-11] MEDS ORDERED: SODIUM CHLORIDE 0.9% 500 ML IV ONE (21:51)
--- NOTE | 2020-05-11 21:51 | Emergency Department Note ---
Impression & Plan Brain TIA, Atrial fibrillation ED Provider Note NAME: PRO SIEGEL AGE: 84 SEX: M : 1935 ARRIVES VIA: Walk-In INFORMANT: Patient, ED PROVIDER(S): Segundo Hsieh MD Chief Complaint: Speech difficulty HPI: Patient does present with concern for speech difficulty. The patient states that approximate 30 minutes prior to arrival the patient was trying to talk and was not able to say anything that made sense. Patient states he had been watching the [employer] which she states may have contributed to his symptoms as they were not playing well. Patient states that he has been taking his medications. The patient does have a known history of A. fib but does not take anticoagulant medication but a baby aspirin as the patient did have a history of GI bleeding requiring transfusion in the past. The patient states that his symptoms have resolved and he denies any numbness tingling or weakness. Patient denies any fevers, chills, chest pains or shortness of breath. The patient states that his appetite is appropriate. The patient denies symptoms of Covid including GI symptoms upper respiratory symptoms or loss of taste or smell. Patient states he did have a similar episode to this approximate 4 to 5 years ago and was diagnosed with a TIA at that time. ROS: See HPI for pertinent positives and negatives. A total of 10 systems were reviewed and otherwise negative. Past medical history: See below Surgical history: See below Social history: See below Physical Exam: GENERAL: Wearing a mask. EYE EXAM: Normal conjunctiva. PERRL, no anisocoria and EOM's grossly intact w/o pain. NECK: Supple, no nuchal rigidity, no adenopathy, non-tender. No signs of meningismus. LUNGS: Clear to auscultation. Normal chest wall mechanics. HEART: Irregularly irregular, no MRG. ABDOMEN: Abdomen soft, non-tender, normo-active bowel sounds, no masses, no rebound or guarding. BACK: No CVA TTP. SKIN: No rashes and no bruising. UPPER EXTREMITIES: Upper extremities are grossly normal. LOWER EXTREMITIES: Grossly normal, no edema. NEURO EXAM: A&O x3, cranial nerves II-XII grossly intact, normal speech, moves all 4 extremities on command w/o issue. No sensory deficit, good [id number], no drift. Differential diagnoses: Infection, dehydration, metabolic abnormality, hypo/hyperglycemia, electrolyte disturbance, anemia, hypoxia, cardiac sources, intracerebral event, toxicologic, neurologic, as well as other pathologies. Course: Patient was seen and evaluated the bedside. Full history physical exam was performed. EKG: Indication: A. fib, PVCs noted, rate of 85, normal QRS duration, left axis deviation. Imaging Studies: CT head: No ICH mass-effect or edema. No evidence of acute cortical stroke. Sinuses clear. Mild age-related generalized cerebral volume loss and presumed chronic microvascular ischemic changes of the supratentorial white matter. CTA head: The intracranial vasculature is patent no large vessel occlusion. There are atherosclerotic calcifications of left and right intracranial internal carotid arteries at the carotid siphons without hemodynamic significant stenosis. Patent dural venous sinuses. CTA neck: There are mild atherosclerotic calcifications of both carotid bulbs without hemodynamically significant stenosis. No occlusion of the common or internal carotid arteries. Dominant left vertebral. No occlusion or hemodynamically significant stenosis of the vertebral arteries within the neck. Cardiac monitoring: An order was placed for continuous cardiac monitoring. The monitor shows a rate of 85 with irregularly irregular rhythm. MDM: Patient did present with speech difficulty which is subsequently resolved. The patient does have a known history of A. fib but is not anticoagulated. Patient's EKG does show A. fib with controlled rate. Blood work is obtained along with an EKG troponin and CT and CTA of the head neck. Patient's blood work shows a normal white count with a hemoglobin of 12. Platelet count is unremarkable. Kidney function unremarkable. BUN and glucose slightly elevated. Troponin is undetectable. CT head and CTA head and neck with no acute stroke occlusion or aneurysm or dissection. Patient did not pass his dysphagia screen so patient was not given additional aspirin. The patient did not receive any additional aspirin as I specifically had spoken with the nurse as well. Patient was admitted to the hospitalist service for further evaluation and treatment. Patient was admitted by Dr. Landis. Past Med/Surg History Medical History (Updated 05/12/20 @ 00:36 by Segundo Hsieh MD) Acute blood loss anemia RECEIVED 5 UNITS BLOOD/2 PLASMA [facility]- single small angioectasia coagulated 10/03/19 Aphasia (10/22/13) Arthritis Atrial fibrillation On warfarin Back pain, chronic SCOLIOSIS Bilateral leg weakness Likely what precipitated fall, which injured shoulder DJD of shoulder Gout History of prostate cancer Hyperlipemia Mitral regurgitation On anticoagulant therapy Sleep apnea BIPAP Systolic CHF, chronic H/O reduced systolic function as low as 35%, but resolved to 56% on most recent echo from 2017. TIA (transient ischemic attack) 2-3yrs ago, despite being on Coumadin. ASA 81mg added-NO ISSUES SINCE Surgical History History of arthroplasty of left shoulder History of cardiac cath 2016? 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 Required: No Beliefs That Will Affect Care: None marital status: Current Living Situation: Spouse and Other Feels Safe at Home: Yes Assistive Devices: Walker Allergies Allergies Allergy/AdvReac Type Severity Reaction Status Date / Time Penicillins Allergy Mild Rash Verified 05/11/20 23:14 fenofibrate Allergy Unknown MUSCLE Verified 05/11/20 23:14 WEAKNESS warfarin [From Coumadin] AdvReac Intermediate bruisng Verified 05/11/20 23:14 dronabinol [From Marinol] AdvReac Confusion Verified 05/11/20 23:14 Home Meds Home Medications Medication Instructions Recorded Confirmed lidocaine 5 % topical patch 1 patch TOPICAL DAILY PRN ea 01/29/19 05/11/20 aspirin 81 mg PO QPM 06/11/19 05/11/20 atorvastatin 40 mg PO QPM 06/11/19 05/11/20 digoxin 250 mcg PO QPM 06/11/19 05/11/20 duloxetine 20 mg PO QPM 06/11/19 05/11/20 metoprolol succinate [Toprol XL] 25 mg PO QPM 06/11/19 05/11/20 niacin [Niaspan Extended-Release] 1,000 mg PO QPM 06/11/19 05/11/20 allopurinol 100 mg PO QPM 07/18/19 05/11/20 loratadine [Claritin] 10 mg PO QPM 07/18/19 05/11/20 diclofenac sodium 2 g TOPICAL BID PRN 10/01/19 05/11/20 ibuprofen 400 mg PO Q6H PRN 05/11/20 05/11/20 ibuprofen-diphenhydramine HCl 1 cap PO HS PRN 05/11/20 05/11/20 [Ibuprofen PM] Results & Data (ED) Vital Signs Vital Signs - 24 hr 05/11/20 21:46 05/11/20 23:00 Temperature 36.8 C Temperature Source Oral Pulse Rate 112 H 100 H Pulse Rate from SpO2 Sensor 94 H Pulse Rhythm Regular Pulse Strength Normal Respiratory Rate 16 20 Respiratory Effort / Characteristics Non-Labored Respiratory Depth Normal Respiratory Pattern Regular Blood Pressure 150/80 H 135/89 Blood Pressure Mean 103 110 Blood Pressure Position Sitting Pulse Oximetry 98 98 Oxygen Delivery Method Room Air Sepsis Recent Fever Within 48 Hours No Sepsis New/Unexplained Change in Mental Status N/A Sepsis Action Taken by Nursing No Action Required Home Medications Current Medication List: was personally reviewed by me Laboratory Data Attestation: I reviewed the patient's lab results. Result diagrams: 05/11/20 22:34 05/11/20 22:34 Lab Results 05/11/20 05/11/20 05/11/20 Range/Units 22:31 22:34 22:34 WBC 8.22 (4.8-10.8) K/uL RBC 3.88 L (4.7-6.1) M/uL Hgb 12.7 L (14.0-18.0) g/dL Hct 37.4 L (42-52) % MCV 96.4 (80-100) fL MCH 32.7 (25-34) pg MCHC 34.0 (32-36) g/dL RDW Std Deviation 52.0 H (36.4-46.3) fL RDW Coeff of Ligia 14.8 H (11.5-14.5) % Plt Count 166 (130-400) K/uL MPV 10.6 H (7.4-10.4) fL Immature Gran % (Auto) 0.1 % Neut % (Auto) 65.3 % Lymph % (Auto) 17.8 % Bailey % (Auto) 11.4 % Eos % (Auto) 5.0 % Baso % (Auto) 0.4 % Neut # (Auto) 5.37 (1.4-6.5) K/uL Lymph # (Auto) 1.46 (1.2-3.4) K/uL Bailey # (Auto) 0.94 H (0.11-0.59) K/uL Eos # (Auto) 0.41 (0-0.5) K/uL Baso # (Auto) 0.03 (0-0.2) K/uL Immature Gran # (Auto) 0.01 (0.00-0.02) K/uL PT 10.5 (9.0-12.0) Seconds INR 1.0 (0.9-1.1) APTT 26.5 (21.0-31.0) Seconds PTT Ratio 0.9 Sodium (136-145) mmol/L Potassium (3.5-5.1) mmol/L Chloride (98-107) mmol/L Carbon Dioxide (21-32) mmol/L Anion Gap (3-11) BUN (7-18) mg/dl Creatinine (0.6-1.4) mg/dl Est Cr Clr Drug Dosing ml/min Est GFR ( Amer) Est GFR (Non-Af Amer) BUN/Creatinine Ratio (10-20) Glucose (70-99) mg/dl POC Glucose 170 H (70-99) mg/dl Calcium (8.5-10.1) mg/dl Magnesium (1.8-2.4) mg/dl Total Bilirubin (0.2-1) mg/dl AST (15-37) U/L ALT (12-78) U/L Alkaline Phosphatase (45-117) U/L Troponin I (0-0.045) ng/ml Total Protein (6.4-8.2) gm/dl Albumin (3.4-5.0) gm/dl Globulin (2.5-4.0) gm/dl Albumin/Globulin Ratio (0.9-2) 05/11/20 Range/Units 22:34 WBC (4.8-10.8) K/uL RBC (4.7-6.1) M/uL Hgb (14.0-18.0) g/dL Hct (42-52) % MCV (80-100) fL MCH (25-34) pg MCHC (32-36) g/dL RDW Std Deviation (36.4-46.3) fL RDW Coeff of Ligia (11.5-14.5) % Plt Count (130-400) K/uL MPV (7.4-10.4) fL Immature Gran % (Auto) % Neut % (Auto) % Lymph % (Auto) % Bailey % (Auto) % Eos % (Auto) % Baso % (Auto) % Neut # (Auto) (1.4-6.5) K/uL Lymph # (Auto) (1.2-3.4) K/uL Bailey # (Auto) (0.11-0.59) K/uL Eos # (Auto) (0-0.5) K/uL Baso # (Auto) (0-0.2) K/uL Immature Gran # (Auto) (0.00-0.02) K/uL PT (9.0-12.0) Seconds INR (0.9-1.1) APTT (21.0-31.0) Seconds PTT Ratio Sodium 141 (136-145) mmol/L Potassium 3.8 (3.5-5.1) mmol/L Chloride 108 H (98-107) mmol/L Carbon Dioxide 26 (21-32) mmol/L Anion Gap 7.0 (3-11) BUN 22 H (7-18) mg/dl Creatinine 1.18 (0.6-1.4) mg/dl Est Cr Clr Drug Dosing 42.5 ml/min Est GFR ( Amer) 64.8 Est GFR (Non-Af Amer) 55.9 BUN/Creatinine Ratio 18.3 (10-20) Glucose 156 H (70-99) mg/dl POC Glucose (70-99) mg/dl Calcium 9.0 (8.5-10.1) mg/dl Magnesium 1.8 (1.8-2.4) mg/dl Total Bilirubin 0.4 (0.2-1) mg/dl AST 29 (15-37) U/L ALT 28 (12-78) U/L Alkaline Phosphatase 95 (45-117) U/L Troponin I < 0.015 (0-0.045) ng/ml Total Protein 7.2 (6.4-8.2) gm/dl Albumin 3.5 (3.4-5.0) gm/dl Globulin 3.7 (2.5-4.0) gm/dl Albumin/Globulin Ratio 0.9 (0.9-2) Administered Medications Discontinued Medications Aspirin (Aspirin Chew 324 Mg) 243 mg PO NOW STA Stop: 05/12/20 00:28 Last Admin: 05/12/20 00:32 Dose: Not Given Documented by: Dexamethasone (Dexamethasone Sod Inj 10 Mg/Ml Vial) 6 mg IV NOW ONE Stop: 05/11/20 22:04 Last Admin: 05/11/20 23:07 Dose: 6 mg Documented by: [id number] Sodium Chloride (Nss) 500 mls @ 999 mls/hr IV .Q31M ONE Stop: 05/11/20 22:21 Last Infusion: 05/11/20 23:07 Dose: 0 mls/hr Documented by: [id number] Admin: 05/11/20 22:33 Dose: 999 mls/hr Documented by: [id number] Ioversol (Optiray 320 125ml) 125 ml IV ONCE ONE Stop: 05/11/20 23:39 Last Admin: 05/11/20 23:39 Dose: 117 ml Documented by: [id number] Discharge Plan Visit Data Chief Complaint: TIA Symptoms Stated Complaint: TIA ED Provider: Segundo Hsieh Discharge Problem: Brain TIA, Atrial fibrillation Forms Stand Alone Forms: [facility] Prescriptions Prescriptions: No Action lidocaine 5 % adhesive patch,medicated 1 patch topical DAILY PRN (Reason: Back Pain) RF: 0 diclofenac sodium 1 % gel 2 g TOPICAL BID PRN (Reason: Back Pain) RF: 0 atorvastatin 40 mg tablet 40 mg PO QPM RF: 0 niacin [Niaspan Extended-Release] 1,000 mg tablet extended release 24 hr 1,000 mg PO QPM RF: 0 digoxin 250 mcg (0.25 mg) tablet 250 mcg PO QPM RF: 0 metoprolol succinate [Toprol XL] 25 mg tablet extended release 24 hr 25 mg PO QPM RF: 0 duloxetine 20 mg capsule,delayed release(DR/EC) 20 mg PO QPM RF: 0 aspirin 81 mg Tablet,Delayed Release (Dr/Ec) 81 mg PO QPM RF: 0 allopurinol 100 mg Tablet 100 mg PO QPM RF: 0 loratadine [Claritin] 10 mg Tablet 10 mg PO QPM RF: 0 ibuprofen 200 mg Tablet 400 mg PO Q6H PRN (Reason: Fever Or Pain) RF: 0 Ibuprofen PM 200-25 mg Capsule 1 cap PO HS PRN (Reason: Insomnia) RF: 0 Discharge Problem: Atrial fibrillation Qualifiers: Atrial fibrillation type: longstanding persistent Qualified Code(s): I48.11 - Longstanding persistent atrial fibrillation
[2020-05-11] MEDS ORDERED: DEXAMETHASONE SOD INJ 10 MG/ML VIAL IV ONE (22:03)
[2020-05-11 22:46] LABS: Basophils # (auto) 0.03 K/uL (0-0.2); Basophils % (auto) 0.4 %; Eosinophils # (auto) 0.41 K/uL (0-0.5); Hematocrit (blood only) 37.4 % (42-52); Hemoglobin 12.7 g/dL (14.0-18.0); Immature Granulocytes # (auto) 0.01 K/uL (0.00-0.02); Immature Granulocytes % (auto) 0.1 %; Lymphocytes # (auto) 1.46 K/uL (1.2-3.4); Lymphocytes % (auto) 17.8 %; Mean Corpuscular Hemoglobin 32.7 pg (25-34); Mean Corpuscular Volume 96.4 fL (80-100); Mean Platelet Volume 10.6 fL (7.4-10.4); Monocytes # (auto) 0.94 K/uL (0.11-0.59); Monocytes % (auto) 11.4 %; Neutrophils # (auto) 5.37 K/uL (1.4-6.5); Neutrophils % (auto) 65.3 %; Platelet Count 166 K/uL (130-400); RDW Coefficient of Variation 14.8 % (11.5-14.5); Red Blood Count 3.88 M/uL (4.7-6.1); White Blood Count 8.22 K/uL (4.8-10.8)
[2020-05-11 22:58] LABS: Partial Thromboplastin Ratio 0.9; Partial Thromboplastin Time 26.5 Seconds (21.0-31.0); Prothrombin Time 10.5 Seconds (9.0-12.0)
[2020-05-11 23:02] LABS: Alanine Aminotransferase 28 U/L (12-78); Albumin Level 3.5 gm/dl (3.4-5.0); BUN Creatinine Ratio 18.3 (10-20); Blood Urea Nitrogen 22 mg/dl (7-18); Carbon Dioxide 26 mmol/L (21-32); Chloride 108 mmol/L (98-107); Creatinine Clr Calc Pharmacy 42.5 ml/min; Est GFR (African American) 64.8; Est GFR (Non-African American) 55.9; Glucose 156 mg/dl (70-99); Magnesium 1.8 mg/dl (1.8-2.4); Potassium 3.8 mmol/L (3.5-5.1); Sodium 141 mmol/L (136-145)
[2020-05-11 23:07] LABS: Albumin Globulin Ratio 0.9 (0.9-2); Alkaline Phosphatase 95 U/L (45-117); Aspartate Aminotransferase 29 U/L (15-37); Bilirubin,Total 0.4 mg/dl (0.2-1); Globulin 3.7 gm/dl (2.5-4.0); Total Protein 7.2 gm/dl (6.4-8.2); Troponin I < 0.015 ng/ml (0-0.045)
[2020-05-11] MEDS ORDERED: OPTIRAY 320 125ml IV ONE (23:38)
[2020-05-12] MEDS ORDERED: ASPIRIN CHEW 324 MG PO STA (00:27)
--- NOTE | 2020-05-12 01:43 | History & Physical Report ---
Date of Service May 12, 2020 Assessment & Plan (1) Aphasia: Transient aphasia Possible recurrent TIA hx A. 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 DVT prophylaxis with Lovenox subcu Full code Text document was generated using [employer] voice recognition software. It may contain grammatical or spelling errors. Kindly contact undersigned for clarification of any documentation item in question. History of Present Illness Chief Complaint: Aphasia Primary Care Provider: Sandra Dahl MD History obtained from patient and records. 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 Last confinement October 2019 under Orthopedics service for right shoulder surgery. Patient has been off Coumadin since orthopedic surgery due to anemia, GI bleed as per records. Patient on aspirin with accepted increased risk of stroke as per outpatient cardiology note from November 2019. Patient was watching television last night when he noted sudden onset aphasia symptoms, not able to say anything that made sense. Similar to TIA event from 2013. Patient compliant with home medications. Denies chest pain, S OB, headache symptoms. Symptoms improved upon arrival at the ER. MEDICAL HISTORY: As above. SURGERIES: Shoulder surgery, hip replacement, prostate surgery, eye surgery, tonsillectomy, cataract surgery, vasectomy FAMILY HISTORY: Heart disease. PERSONAL SOCIAL HISTORY: Nonsmoker. No chronic intake of alcoholic beverages. 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 Allergies Allergy/AdvReac Type Severity Reaction Status Date / Time Penicillins Allergy Mild Rash Verified 05/11/20 23:14 fenofibrate Allergy Unknown MUSCLE Verified 05/11/20 23:14 WEAKNESS warfarin [From Coumadin] AdvReac Intermediate bruisng Verified 05/11/20 23:14 dronabinol [From Marinol] AdvReac Confusion Verified 05/11/20 23:14 Home Medications Medication Instructions Recorded Confirmed Type lidocaine 5 % topical patch 1 patch TOPICAL DAILY PRN ea 01/29/19 05/11/20 History aspirin 81 mg PO QPM 06/11/19 05/11/20 History atorvastatin 40 mg PO QPM 06/11/19 05/11/20 History digoxin 250 mcg PO QPM 06/11/19 05/11/20 History duloxetine 20 mg PO QPM 06/11/19 05/11/20 History metoprolol succinate [Toprol XL] 25 mg PO QPM 06/11/19 05/11/20 History niacin [Niaspan Extended-Release] 1,000 mg PO QPM 06/11/19 05/11/20 History allopurinol 100 mg PO QPM 07/18/19 05/11/20 History loratadine [Claritin] 10 mg PO QPM 07/18/19 05/11/20 History diclofenac sodium 2 g TOPICAL BID PRN 10/01/19 05/11/20 History ibuprofen 400 mg PO Q6H PRN 05/11/20 05/11/20 History ibuprofen-diphenhydramine HCl 1 cap PO HS PRN 05/11/20 05/11/20 History [Ibuprofen PM] Past Med/Surg History Medical History (Updated 05/12/20 @ 06:55 by Delmar Landis MD) Acute blood loss anemia RECEIVED 5 UNITS BLOOD/2 PLASMA [facility]- single small angioectasia coagulated 10/03/19 Aphasia (10/22/13) Arthritis Atrial fibrillation On warfarin Back pain, chronic SCOLIOSIS Bilateral leg weakness Likely what precipitated fall, which injured shoulder DJD of shoulder Gout History of prostate cancer Hyperlipemia Mitral regurgitation On anticoagulant therapy Sleep apnea BIPAP Systolic CHF, chronic H/O reduced systolic function as low as 35%, but resolved to 56% on most recent echo from 2017. TIA (transient ischemic attack) 2-3yrs ago, despite being on Coumadin. ASA 81mg added-NO ISSUES SINCE Surgical History History of arthroplasty of left shoulder History of cardiac cath 2016? NO STENTS NEEDED [facility] History of colonoscopy History of cryosurgery FOR PROSTATE CANCER History of esophagogastroduodenoscopy (EGD) History of total hip arthroplasty LEFT Family History Other Family history non-contributory Social History Smoking Status: Never smoker Second Hand Exposure: No; Hx Alcohol Use: Yes Alcohol type: wine Hx Substance Use: No Preferred Language: Lithuanian Communication Ability: Effective Collection Advisor Required: No Beliefs That Will Affect Care: None marital status: Current Living Situation: Spouse Other Information That Helps Us Care for You: No Feels Safe at Home: Yes Safety Concerns: Feels Safe At This Time Assistive Devices: Cane and Walker Review of Systems Review of Systems: As per HPI, all 10 systems reviewed, all other ROS negative Physical Exam Physical Exam: GENERAL: Comfortable, pleasant, no respiratory distress SKIN: Pallor, warm HEENT: Alopecia, pale palpebral conjunctivae, no ptosis, dry buccal mucosa NECK : Supple, no tenderness CHEST : CTA, no tenderness HEART : Irregular, systolic murmur ABDOMEN: No distention, nontender EXTREMITIES : No LE swelling/tenderness, no other conspicuous deformities noted NEUROLOGIC : Coherent, no facial asymmetry, no other gross focality Results & Data Results & Data ([facility]) Vital Signs (Past 12 Hours) Vital Signs Temp Pulse Resp BP Pulse Ox 05/12/20 00:30 86 20 128/90 97 05/12/20 00:00 85 20 126/84 97 05/11/20 23:00 100 H 20 135/89 98 05/11/20 21:46 36.8 C 112 H 16 150/80 H 98 Laboratory Results Laboratory Results WBC 8.22 K/uL (4.8-10.8) 05/11/20 22:34 RBC 3.88 M/uL (4.7-6.1) L 05/11/20 22:34 Hgb 12.7 g/dL (14.0-18.0) L 05/11/20 22:34 Hct 37.4 % (42-52) L 05/11/20 22:34 MCV 96.4 fL (80-100) 05/11/20 22:34 MCH 32.7 pg (25-34) 05/11/20 22:34 MCHC 34.0 g/dL (32-36) 05/11/20 22:34 RDW Std Deviation 52.0 fL (36.4-46.3) H 05/11/20 22:34 RDW Coeff of Ligia 14.8 % (11.5-14.5) H 05/11/20 22:34 Plt Count 166 K/uL (130-400) 05/11/20 22:34 MPV 10.6 fL (7.4-10.4) H 05/11/20 22:34 Immature Gran % (Auto) 0.1 % 05/11/20 22:34 Neut % (Auto) 65.3 % 05/11/20 22:34 Lymph % (Auto) 17.8 % 05/11/20 22:34 [place] % (Auto) 11.4 % 05/11/20 22:34 Eos % (Auto) 5.0 % 05/11/20:34 Baso % (Auto) 0.4 % 05/11/20 22:34 Neut # (Auto) 5.37 K/uL (1.4-6.5) 05/11/20 22:34 Lymph # (Auto) 1.46 K/uL (1.2-3.4) 05/11/20 22:34 [place] # (Auto) 0.94 K/uL (0.11-0.59) H 05/11/20 22:34 Eos # (Auto) 0.41 K/uL (0-0.5) 05/11/20 22:34 Baso # (Auto) 0.03 K/uL (0-0.2) 05/11/20 22:34 Immature Gran # (Auto) 0.01 K/uL (0.00-0.02) 05/11/20 22:34 PT 10.5 Seconds (9.0-12.0) 05/11/20 22:34 INR 1.0 (0.9-1.1) 05/11/20 22:34 APTT 26.5 Seconds (21.0-31.0) 05/11/20 22:34 PTT Ratio 0.9 05/11/20 22:34 Sodium 141 mmol/L (136-145) 05/11/20 22:34 Potassium 3.8 mmol/L (3.5-5.1) 05/11/20 22:34 Chloride 108 mmol/L (98-107) H 05/11/20 22:34 Carbon Dioxide 26 mmol/L (21-32) 05/11/20 22:34 Anion Gap 7.0 (3-11) 05/11/20 22:34 BUN 22 mg/dl (7-18) H 05/11/20 22:34 Creatinine 1.18 mg/dl (0.6-1.4) 05/11/20 22:34 Est Cr Clr Drug Dosing 42.5 ml/min 05/11/20 22:34 Est GFR ( Amer) 64.8 05/11/20 22:34 Est GFR (Non-Af Amer) 55.9 05/11/20 22:34 BUN/Creatinine Ratio 18.3 (10-20) 05/11/20 22:34 Glucose 156 mg/dl (70-99) H 05/11/20 22:34 POC Glucose 170 mg/dl (70-99) H 05/11/20 22:31 Calcium 9.0 mg/dl (8.5-10.1) 05/11/20 22:34 Magnesium 1.8 mg/dl (1.8-2.4) 05/11/20 22:34 Total Bilirubin 0.4 mg/dl (0.2-1) 05/11/20 22:34 AST 29 U/L (15-37) 05/11/20 22:34 ALT 28 U/L (12-78) 05/11/20 22:34 Alkaline Phosphatase 95 U/L (45-117) 05/11/20 22:34 Troponin I < 0.015 ng/ml (0-0.045) 05/11/20 22:34 Total Protein 7.2 gm/dl (6.4-8.2) 05/11/20 22:34 Albumin 3.5 gm/dl (3.4-5.0) 05/11/20 22:34 Globulin 3.7 gm/dl (2.5-4.0) 05/11/20 22:34 Albumin/Globulin Ratio 0.9 (0.9-2) 05/11/20 22:34 SARS-CoV-2 Ag (Rapid) Negative (Negative) 05/12/[address] head initial read: No acute intracranial hemorrhage, mass-effect or edema. No evidence of acute cortical stroke. Cerebral volume loss and presumed chronic microvascular ischemic changes of the supratentorial white matter. CTA head initial read: No large vessel occlusion is seen. Intracranial vasculature is patent. Atherosclerotic ossification left and right intracranial internal carotid arteries at the carotid siphons without hemodynamically significant stenosis. CTA neck initial read: Mild atherosclerotic ossification both carotid bulbs without hemodynamically significant stenosis. Dominant left vertebral artery. No significant stenosis vertebral arteries within the neck. EKG as per my interpretation rate 85, A. fib, LAD, LAFB, PVCs
[2020-05-12] MEDS ORDERED: ACETAMINOPHEN 325 MG TAB PO PRN (02:54)
[2020-05-12] MEDS ORDERED: PHARMACIST DISCHARGE MED REC CONSULT PRN (02:54)
[2020-05-12] MEDS ORDERED: LACTATED RINGER'S 1,000 ML IV ONE (02:54)
[2020-05-12] MEDS ORDERED: DIGOXIN 250 MCG in SYRINGE 9 ML IV STA (04:27)
[2020-05-12] MEDS ORDERED: METOPROLOL TARTRATE 25 MG TAB PO STA (06:31)
--- NOTE | 2020-05-12 07:10 | Magnetic Resonance Report ---
MR brain wo con HISTORY: 84 years-old Male TIA, speech difficulty acute strokelike symptoms COMPARISON: CTA head neck of same day, MRI brain 10/23/2013 TECHNIQUE: Multiplanar multisequence MRI of the brain was obtained without the use of IV contrast. FINDINGS: Financial Planning Adviser localizer images demonstrate no gross extracranial abnormality. There is no restricted diffusio n to suggest acute or subacute infarct. The midline structures including the corpus callosum, brainst em, optic chiasm, pituitary and pineal glands appear unremarkable in sagittal T1 series. No cerebella r tonsillar herniation. Slow venous flow noted within the left transverse and sigmoid sinus. No acute intracranial hemorrhage, midline shift, abnormal extra-axial collection, hydrocephalus or in tracranial mass. There is no pathologic blooming artifact on the T2 star series. Age-related involuti onal changes with ex vacuo ventriculomegaly. Moderate to extensive T2/FLAIR hyperintensities about th e white matter of the cerebral hemispheres suggest chronic microvascular ischemic disease. Probable c hronic microvascular ischemic changes of the valeria. The cerebral venous sinuses and major arterial lucia w voids at the level of the skull base appear patent. Prior bilateral lens are Mild mucosal thickening of the ethmoid air cells. Mastoid air cells are clear. The skull and soft tis sues are unremarkable. IMPRESSION: 1. No acute intracranial abnormality, specifically there is no evidence of acute or subacute infarct. 2. Age-related involutional changes with chronic microvascular ischemic disease. ACT 112: Negative or not required by law. The above report was generated using voice recognition software. It may contain grammatical, syntax o r spelling errors. Electronically signed by: Nael Baltazar M.D. 05/12/2020 7:09 AM
--- NOTE | 2020-05-12 07:12 | CT Scan Report ---
CT OF THE HEAD WITHOUT CONTRAST CLINICAL HISTORY: Stroke Like Symptoms COMPARISON STUDY: Head CT October 19, 2019. TECHNIQUE: Helical axial images of the head were obtained without IV contrast. Automated exposure con trol was utilized for the study. A dose lowering technique was utilized adhering to the principles o f ALARA. FINDINGS: No acute intracranial hemorrhage, midline shift or mass effect is present. The ventricular system is stable. White matter hypodensities are unchanged and suggest small vessel disease. The basa l cisterns are patent. No extra-axial collections are present. There are no findings to suggest acute dural sinus thrombosis or acute territorial infarct. No significant calvarial abnormalities are pres ent. Visualized portions of the sinuses and mastoid air cells are clear. A linear defect within the a nterior arch of C1 is unchanged. IMPRESSION: No acute intracranial findings. No change in appearance of the brain. ACT 112: Negative or not required by law. Electronically signed by: Ede Gloria M.D. 05/12/2020 7:10 AM
--- NOTE | 2020-05-12 07:16 | CT Scan Report ---
CT angio neck with con, CT angio head w con CLINICAL HISTORY: 84 years-old Male with Stroke Like Symptoms. Acute strokelike symptoms COMPARISON STUDY: Head CT and brain MRI studies of same day TECHNIQUE: Following the IV administration of 117 mL of Optiray 320, CT angiogram of the head and nec k was performed from the aortic arch to the skull apex. Images are reviewed in the axial, sagittal, a nd coronal planes. 3-D MIPS images are created and assessed. IV contrast was administered without com plication. All measurements were calculated based on NASCET criteria. A dose lowering technique was utilized adhering to the principles of ALARA. CT DOSE: 1271.69 mGy.cm FINDINGS: The imaged opacified pulmonary arterial tree is unremarkable. Moderate mixed plaque of the thoracic a ortic arch. Patency of the innominate and imaged subclavian arteries. Common carotid arteries are pat ent. There is moderate mixed plaque of the carotid bulbs and proximal cervical segments of the supply chain intern al carotid arteries resulting in less than 50% stenosis bilaterally. Calcified plaque of the cavernou s and supraclinoid segments is also noted without significant stenosis. The middle and anterior cereb ral arteries are patent. Calcified plaque at the origin of the bilateral vertebral arteries also in a t least mild stenosis. Dominant left vertebral artery. Diminutive and somewhat irregular distal V2 se gment of the right vertebral artery at the level of C2. The basilar artery is diminutive and patent. origin of the bilateral posterior cerebral arteries. No aneurysm, dissection, high-grade stenos is or proximal branch occlusion. Cerebral venous sinuses are patent. There is no abnormal intracrania l enhancement. Lung apices are clear without pneumothorax. Unremarkable soft tissues. Multilevel degenerative change s of the cervical spine. Remote ununited fracture involves the anterior arch of C1. IMPRESSION:Unremarkable CTA of the head and neck. ACT 112: Negative or not required by law. The above report was generated using voice recognition software. It may contain grammatical, syntax o r spelling errors. Electronically signed by: Nael Baltazar M.D. 05/12/2020 7:15 AM
[2020-05-12 07:37] LABS: Basophils # (auto) 0.01 K/uL (0-0.2); Basophils % (auto) 0.1 %; Eosinophils # (auto) 0.01 K/uL (0-0.5); Eosinophils % (auto) 0.1 %; Hematocrit (blood only) 36.6 % (42-52); Hemoglobin 12.1 g/dL (14.0-18.0); Immature Granulocytes # (auto) 0.02 K/uL (0.00-0.02); Immature Granulocytes % (auto) 0.3 %; Lymphocytes # (auto) 0.72 K/uL (1.2-3.4); Lymphocytes % (auto) 9.3 %; Mean Corpuscular Hemoglobin 31.8 pg (25-34); Mean Corpuscular Hgb Conc 33.1 g/dL (32-36); Mean Corpuscular Volume 96.1 fL (80-100); Mean Platelet Volume 10.8 fL (7.4-10.4); Monocytes % (auto) 5.2 %; Neutrophils # (auto) 6.55 K/uL (1.4-6.5); Platelet Count 141 K/uL (130-400); RDW Coefficient of Variation 14.4 % (11.5-14.5); Red Blood Count 3.81 M/uL (4.7-6.1); White Blood Count 7.71 K/uL (4.8-10.8)
[2020-05-12 08:11] LABS: BUN Creatinine Ratio 17.7 (10-20); Calcium 8.9 mg/dl (8.5-10.1); Creatinine Clr Calc Pharmacy 48.3 ml/min; Est GFR (African American) 79.2; Est GFR (Non-African American) 68.3; Estimated Average Glucose 128 mg/dl; Hemoglobin A1C 6.1 % (4.5-5.6); Potassium 4.2 mmol/L (3.5-5.1)
[2020-05-12] MEDS ORDERED: ENOXAPARIN INJ 30 MG/0.3 ML SYR SQ SCH (09:00)
[2020-05-12 11:17] VITALS: TEMP 97.5
--- NOTE | 2020-05-12 14:45 | Neurology Consultation ---
Date of Consultation May 12, 2020 Assessment & Plan (1) Aphasia: 1. MRI brain with no evidence of CVA 2. CTA head /neck- no acute findings 3. optimize HTN HLD, DM LDL <70- consider patients age 4. stop aspirin 5. follow up as scheduled with Dr Glover as outpatient no additional follow up needed Present on Admission?: Yes (2) Atrial fibrillation: 1. cardiology - started Eliquis 2.5 mg BID 2. follow with cards for further medication management Present on Admission?: Yes Supervising Physician Co-Signing Physician Notes I have seen and discussed above patient with Dr Leeroy Glover, neurology I know Mr. Almeida I have seen him for years regarding a painful peripheral neuropathy of unknown cause, possibly prediabetic and actually saw him about 5 years ago when he had a brief TIA and he is now in for about 5 to 10 seconds of speech arrest that resolved, and the work-up is again essentially negative in terms of revealing no ischemic event of acute type on his MRI, nothing in the carotids, but does show the dilated atria and the low ejection fraction consistent with his cardiomyopathy He was on Coumadin it was stopped due to bleeding (gastrointestinal in origin) but this event occurred after he had been on aspirin and frankly this is not surprising as aspirin and Plavix or even a combination related does not do much to prevent thromboembolic events from atrial fibrillation His exam now is absolutely normal with exception of the evidence for his polyneuropathy which is minor and consists of some sensory loss in the feet and he does have his kyphosis which he has had for years is [place] no language disturbance cranial neuropathies hemiparesis or indeed any other signs that he had a significant hemispheric event Cardiology has been consulted unfortunately his attending treasury management sales consultant Dr. Goodwin was in-house today. He was assessed and I believe appropriately placed now on a trial of Eliquis which hopefully will have slightly less propensity to cause bleeding issues I do not think neurology needs to see him acutely due to this event. I do see him on a yearly basis and I think we could wait until that appointment comes due. Obviously he needs to be off the aspirin Leeroy Glover MD History of Present Illness Reason for Consultation: recurrent TIA Requesting Physician: Cyrus Toussaint MD Attending Physician: Cyrus Toussaint MD History of Present Illness Sebastian is a 84 year old male who presented to the ED because about 30 minutes prior to arrival he was trying to talk and was not able to say anything that made sense. He was watching the Steelers who were not playing well. He has known history of A. fib but had not been on anticoagulant after a history of GI bleeding requiring transfusion in the past. He does take a baby aspirin. He did have a similar episode about 5 years ago and was diagnosed with a TIA at that ti ri. He feels back to his base line. he does see Dr Glover in our office yearly for peripheral neuropathy. denies CP, SOB, abdominal pain, one sided weakness, numbness tingling falls. Allergies Allergy/AdvReac Type Severity Reaction Status Date / Time Penicillins Allergy Mild Rash Verified 05/11/20 23:14 fenofibrate Allergy Unknown MUSCLE Verified 05/11/20 23:14 WEAKNESS warfarin [From Coumadin] AdvReac Intermediate bruisng Verified 05/11/20 23:14 dronabinol [From Marinol] AdvReac Confusion Verified 05/11/20 23:14 Home Medications Medication Instructions Recorded Confirmed Type lidocaine 5 % topical patch 1 patch TOPICAL DAILY PRN ea 01/29/19 05/11/20 History aspirin 81 mg PO QPM 06/11/19 05/11/20 History atorvastatin 40 mg PO QPM 06/11/19 05/11/20 History digoxin 250 mcg PO QPM 06/11/19 05/11/20 History duloxetine 20 mg PO QPM 06/11/19 05/11/20 History metoprolol succinate [Toprol XL] 25 mg PO QPM 06/11/19 05/11/20 History niacin [Niaspan Extended-Release] 1,000 mg PO QPM 06/11/19 05/11/20 History allopurinol 100 mg PO QPM 07/18/19 05/11/20 History loratadine [Claritin] 10 mg PO QPM 07/18/19 05/11/20 History diclofenac sodium 2 g TOPICAL BID PRN 10/01/19 05/11/20 History ibuprofen 400 mg PO Q6H PRN 05/11/20 05/11/20 History ibuprofen-diphenhydramine HCl 1 cap PO HS PRN 05/11/20 05/11/20 History [Ibuprofen PM] Patient History Medical History Acute blood loss anemia RECEIVED 5 UNITS BLOOD/2 PLASMA [facility]- single small angioectasia coagulated 10/03/19 Aphasia (10/22/13) Arthritis Atrial fibrillation On warfarin Back pain, chronic SCOLIOSIS Bilateral leg weakness Likely what precipitated fall, which injured shoulder DJD of shoulder Gout History of prostate cancer Hyperlipemia Mitral regurgitation On anticoagulant therapy Sleep apnea BIPAP Systolic CHF, chronic H/O reduced systolic function as low as 35%, but resolved to 56% on most recent echo from 2017. TIA (transient ischemic attack) 2-3yrs ago, despite being on Coumadin. ASA 81mg added-NO ISSUES SINCE Surgical History History of arthroplasty of left shoulder History of cardiac cath 2015? 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 Required: No Beliefs That Will Affect Care: None marital status: Current Living Situation: Spouse Other Information That Helps Us Care for You: No Feels Safe at Home: Yes Safety Concerns: Feels Safe At This Time Assistive Devices: Cane and Walker Review of Systems Review of Systems: All systems reviewed & are unremarkable except as noted in HPI & below and All systems reviewed & are unremarkable except as noted in Subjective Physical Exam Physical Exam: Physical Exam: Constitutional: appearance nourished, very thin pale Ears, Nose, Mouth and Throat: mucous membranes moist, no injection and skin norm al, eyes normal Cardiovascular: irregular Respiratory: course breath sounds Musculoskeletal: no peripheral edema and good distal pulses Skin: no stigmata of neurocutaneous disease noted and normal and intact Eyes: extraocular muscles intact (EOMI) and pupils equal, round and reactive to light (PERRL) NEUROLOGIC EXAMINATION: Mental status: Alert and interactive Oriented to full date and location Oriented to person, identifies, button thumb, stethescope Speech fluent with no evidence of aphasia Cranial Nerves smile eye brow raise symmetric Reflexes: Deep tendon reflexes were symmetrical LE decreased, neutral toes Sensory: intact to light cool touch Coordination: finger to nose no bi pass Gait/Stance: Posture normal. gait not assessed Motor: Negative for pronator drift of out stretched arms with eyes closed. Strength: hand analytics leader biceps triceps 5/5, hip flex plantar flex ext 5/5 Results & Data ([facility]) Vital Signs (Past 12 Hours) Vital Signs Temp Pulse Pulse Resp BP Pulse Ox Pulse Ox 05/12/20 11:16 36.4 C L 88 16 131/88 97 05/12/20 07:02 36.8 C 94 H 16 137/78 96 05/12/20 05:18 114 H 05/12/20 03:21 36.8 C 100 H 16 157/91 H 96 05/12/20 03:20 96 05/12/20 03:15 36.8 C 100 H 16 157/91 H 96 Laboratory Results Abnormal lab results 05/11/20 05/11/20 05/11/20 Range/Units 22:31 22:34 22:34 RBC 3.88 L (4.7-6.1) M/uL Hgb 12.7 L (14.0-18.0) g/dL Hct 37.4 L (42-52) % RDW Std Deviation 52.0 H (36.4-46.3) fL RDW Coeff of Ligia 14.8 H (11.5-14.5) % MPV 10.6 H (7.4-10.4) fL Neut # (Auto) (1.4-6.5) K/uL Lymph # (Auto) (1.2-3.4) K/uL [place] # (Auto) 0.94 H (0.11-0.59) K/uL Chloride 108 H (98-107) mmol/L BUN 22 H (7-18) mg/dl Glucose 156 H (70-99) mg/dl POC Glucose 170 H (70-99) mg/dl Hemoglobin A1c (4.5-5.6) % 05/12/20 05/12/20 05/12/20 Range/Units 07:11 07:11 07:11 RBC 3.81 L (4.7-6.1) M/uL Hgb 12.1 L (14.0-18.0) g/dL Hct 36.6 L (42-52) % RDW Std Deviation 51.0 H (36.4-46.3) fL RDW Coeff of Ligia (11.5-14.5) % MPV 10.8 H (7.4-10.4) fL Neut # (Auto) 6.55 H (1.4-6.5) K/uL Lymph # (Auto) 0.72 L (1.2-3.4) K/uL [place] # (Auto) (0.11-0.59) K/uL Chloride 110 H (98-107) mmol/L BUN (7-18) mg/dl Glucose 139 H (70-99) mg/dl POC Glucose (70-99) mg/dl Hemoglobin A1c 6.1 H (4.5-5.6) % Diagnostic Findings MRI brain-No acute intracranial abnormality, specifically there is no evidence of acute or subacute infarct. Age-related involutional changes with chronic microvascular ischemic disease. CTA head and neck- no acute findings TTE- EF 35-40% no ASD (1) Atrial fibrillation Atrial fibrillation type: longstanding persistent Qualified Code(s): I48.11 - Longstanding persistent atrial fibrillation
--- NOTE | 2020-05-12 14:53 | Cardiology Consultation ---
Date of Consultation May 12, 2020 Assessment & Plan (1) Brain TIA: (2) Atrial fibrillation: Patient presents with recurrent TIA event. He has been off of anticoagulation with Coumadin for around 6 months having had severe somatic anemia then. His hemoglobin has trended toward improvement, with measurements of 12.7 on presentation last night and 12.1 today. At present, I recommend placing him back on anticoagulation. Would advise Eliquis 2.5 mg twice daily as compared to warfarin to avoid risk of bleeding associated with labile INR measurements, and this will allow the patient to liberalize his vitamin K in terms of dietary intake, and will minimize the need for frequent blood draws. 2.5 mg Eliquis dose is appropriate for him as his weight historically has been just about 60 kg, and he is over 79 years old. Would recommend Eliquis monotherapy, without aspirin. His predicted [id number] cost for a short-term 30 prescription to the [facility] pharmacy we have on file is $20. Can transition him to his mail order pharmacy in the future. I called the patient's son Grant, and updated him. Case discussed with Bebeto Wagoner of neurology via secure provider to provider [place] [employer]. History of Present Illness Attending Physician: Cyrus Toussaint MD History of Present Illness Wyatt Joel is an 84-year-old male seen in cardiology consultation per the request of Yane Wagoner PA-C for advice with regards to stroke prophylaxis in this patient with permanent atrial fibrillation. The patient is well-known to the undersigned as I have followed him as an outpatient for years. He has a longstanding history of permanent atrial fibrillation, moderate to severe mitral regurgitation which has been treated conservatively. He has a past history of TIA for which he did previously been treated with both aspirin and Coumadin. In October,, he had been diagnosed with significant anemia, with Hemoccult stool, and also had acute blood loss anemia in the setting of a recent shoulder surgery at that time. His hemoglobin was 6.5 on 10/02/2019, and subsequently 6.9 on 11/08/2019. His Coumadin was therefore placed on hold in October, and I had to continue to hold it as an outpatient. Last evening, he was watching a [employer] game, and had a transient episode of expressive aphasia. He could not form words to have a conversation with his spouse and also noted a transient left-sided visual deficit. His symptoms had completely resolved by the time he arrived, and he believes that his difficulty speaking occurred for approximately 5-minute episode. CT and MRI have been unrevealing with no evidence of acute intracranial hemorrhage, or evidence of stroke. Allergies Allergy/AdvReac Type Severity Reaction Status Date / Time Penicillins Allergy Mild Rash Verified 05/11/20 23:14 fenofibrate Allergy Unknown MUSCLE Verified 05/11/20 23:14 WEAKNESS warfarin [From Coumadin] AdvReac Intermediate bruisng Verified 05/11/20 23:14 dronabinol [From Marinol] AdvReac Confusion Verified 05/11/20 23:14 Home Medications Medication Instructions Recorded Confirmed Type lidocaine 5 % topical patch 1 patch TOPICAL DAILY PRN ea 01/29/19 05/11/20 History aspirin 81 mg PO QPM 06/11/19 05/11/20 History atorvastatin 40 mg PO QPM 06/11/19 05/11/20 History digoxin 250 mcg PO QPM 06/11/19 05/11/20 History duloxetine 20 mg PO QPM 06/11/19 05/11/20 History metoprolol succinate [Toprol XL] 25 mg PO QPM 06/11/19 05/11/20 History niacin [Niaspan Extended-Release] 1,000 mg PO QPM 06/11/19 05/11/20 History allopurinol 100 mg PO QPM 07/18/19 05/11/20 History loratadine [Claritin] 10 mg PO QPM 07/18/19 05/11/20 History diclofenac sodium 2 g TOPICAL BID PRN 10/01/19 05/11/20 History ibuprofen 400 mg PO Q6H PRN 05/11/20 05/11/20 History ibuprofen-diphenhydramine HCl 1 cap PO HS PRN 05/11/20 05/11/20 History [Ibuprofen PM] Patient History Medical History Acute blood loss anemia RECEIVED 5 UNITS BLOOD/2 PLASMA [facility]- single small angioectasia coagulated 10/03/19 Aphasia (10/22/13) Arthritis Atrial fibrillation On warfarin Back pain, chronic SCOLIOSIS Bilateral leg weakness Likely what precipitated fall, which injured shoulder DJD of shoulder Gout History of prostate cancer Hyperlipemia Mitral regurgitation On anticoagulant therapy Sleep apnea BIPAP Systolic CHF, chronic H/O reduced systolic function as low as 35%, but resolved to 56% on most recent echo from 2017. TIA (transient ischemic attack) 2-3yrs ago, despite being on Coumadin. ASA 81mg added-NO ISSUES SINCE Surgical History History of arthroplasty of left shoulder History of cardiac cath 2016? 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 Beliefs That Will Affect Care: None marital status: Current Living Situation: Spouse Other Information That Helps Us Care for You: No Feels Safe at Home: Yes Safety Concerns: Feels Safe At This Time Assistive Devices: Cane and Walker Review of Systems Review of Systems: All systems reviewed & are unremarkable except as noted in HPI & below Physical Exam Physical Exam: Temp Pulse Resp BP Pulse Ox 36.4 C L 88 16 131/88 97 05/12/20 11:16 05/12/20 11:16 05/12/20 11:16 05/12/20 11:16 05/12/20 11:16 Constitutional: Chronically ill in appearance, frail, no acute distress Respiratory: normal respiratory effort, lungs clear to auscultation Cardiovascular: Rate/Rhythm: + irregularly irregular Heart Sounds: + murmur (1-2/6 sm) Vessels: no JVD Extremities: no edema Gastrointestinal (Abdomen): normal bowel sounds, soft, nontender, no hepatosplenomegaly Neurologic: PERRL, EOMI, accommodation nl, no face palsy, no dysarthria Results & Data ([facility]) Vital Signs (Past 12 Hours) Vital Signs Temp Pulse Pulse Resp BP Pulse Ox Pulse Ox 05/12/20 11:16 36.4 C L 88 16 131/88 97 05/12/20 07:02 36.8 C 94 H 16 137/78 96 05/12/20 05:18 114 H 05/12/20 03:21 36.8 C 100 H 16 157/91 H 96 05/12/20 03:20 96 05/12/20 03:15 36.8 C 100 H 16 157/91 H 96 Laboratory Results Cardiac Enzymes 05/11/20 Range/Units 22:34 AST 29 (15-37) U/L Troponin I < 0.015 (0-0.045) ng/ml Coagulation 05/11/20 Range/Units 22:34 PT 10.5 (9.0-12.0) Seconds APTT 26.5 (21.0-31.0) Seconds Lipids 05/12/20 Range/Units 07:11 Triglycerides 37 (0-150) mg/dl Cholesterol 107 (0-200) mg/dl HDL Cholesterol 60 mg/dl Cholesterol/HDL Ratio 2 CBC 05/11/20 05/12/20 Range/Units 22:34 07:11 WBC 8.22 7.71 (4.8-10.8) K/uL RBC 3.88 L 3.81 L (4.7-6.1) M/uL Hgb 12.7 L 12.1 L (14.0-18.0) g/dL Hct 37.4 L 36.6 L (42-52) % Plt Count 166 141 (130-400) K/uL Neut # (Auto) 5.37 6.55 H (1.4-6.5) K/uL Lymph # (Auto) 1.46 0.72 L (1.2-3.4) K/uL [place] # (Auto) 0.94 H 0.40 (0.11-0.59) K/uL Eos # (Auto) 0.41 0.01 (0-0.5) K/uL Baso # (Auto) 0.03 0.01 (0-0.2) K/uL Comprehensive Metabolic Panel 05/11/20 05/12/20 Range/Units 22:34 07:11 Sodium 141 141 (136-145) mmol/L Potassium 3.8 4.2 (3.5-5.1) mmol/L Chloride 108 H 110 H (98-107) mmol/L Carbon Dioxide 26 23 (21-32) mmol/L BUN 22 H 18 (7-18) mg/dl Creatinine 1.18 1.00 (0.6-1.4) mg/dl Glucose 156 H 139 H (70-99) mg/dl Calcium 9.0 8.9 (8.5-10.1) mg/dl AST 29 (15-37) U/L ALT 28 (12-78) U/L Alkaline Phosphatase 95 (45-117) U/L Total Protein 7.2 (6.4-8.2) gm/dl Albumin 3.5 (3.4-5.0) gm/dl Intake and Output 05/11/20 05/12/20 05/12/20 22:59 06:59 14:59 Intake Total 500 / 500 Balance 500 / 500 Intake: IV 500 / 500 Nss 500 ml @ 999 mls/hr IV . 500 / 500 Q31M ONE Rx#:[id number] Other: Other Intake Source npo Weight 65.6 kg 63.2 kg Weight Measurement Method Chair Scale Standing Scale Diagnostic Findings EKG performed 05/11/20202207 revealed atrial fibrillation at 85 bpm with 1 PVC, age-indeterminate anteroseptal infarction pattern, chronic finding dating back to 2013. Transthoracic echocardiogram performed 05/12/2020 and reviewed independently revealed moderate global left ventricular hypokinesis with an ejection fraction in the range of 35 to 40%, to severe mitral regurgitation. Unchanged compared to prior. (1) Atrial fibrillation Atrial fibrillation type: longstanding persistent Qualified Code(s): I48.11 - Longstanding persistent atrial fibrillation
[2020-05-12] MEDS ORDERED: APIXABAN 2.5 MG TAB PO ONE (15:00)
[2020-05-12 15:43] VITALS: BP 151/73; PULSE 79; O2SAT 94
--- NOTE | 2020-05-12 15:52 | Hospitalist Progress Note ---
Date of Service May 12, 2020 Assessment & Plan (1) Aphasia: Transient aphasia Possible recurrent TIA hx A. 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 He is currently sitting up in bed in no acute distress. He has no neurological symptoms. Answers questions appropriately. Also denies any palpitations, chest pain, shortness of breath. Review of Systems Review of Systems: All systems reviewed & are unremarkable except as noted in HPI & below Constitutional: no fever and no chills Respiratory: no cough and no dyspnea Cardiovascular: no chest pain, no palpitations and no edema Gastrointestinal: no abdominal pain, no nausea and no vomiting Physical Exam Physical Exam: GENERAL: elderly frail male, sitting up in bed in NAD, pleasant HEENT: Alopecia, pale palpebral conjunctivae, no ptosis NECK : Supple, no tenderness CHEST : CTAb, no wheezing, rhonchi, crackles HEART : Irregular, soft systolic murmur ABDOMEN: No distention, nontender, nondistended, + bowel sounds SKIN: Pallor, warm EXTREMITIES : No LE swelling/tenderness, moves extremities spontaneously NEUROLOGIC : alert and oriented x3, speech fluent, moves extremities Results & Data Results & Data ([facility]) Vital Signs (Past 12 Hours) Vital Signs Temp Pulse Pulse Resp BP Pulse Ox 05/12/20 15:43 36.4 C L 79 18 151/73 H 94 05/12/20 15:33 96 H 05/12/20 11:16 36.4 C L 88 16 131/88 97 05/12/20 07:02 36.8 C 94 H 16 137/78 96 05/12/20 05:18 114 H Laboratory Results 05/12/20 05/12/20 05/12/20 Range/Units Unknown 07:11 07:11 WBC 7.71 (4.8-10.8) K/uL RBC 3.81 L (4.7-6.1) M/uL Hgb 12.1 L (14.0-18.0) g/dL Hct 36.6 L (42-52) % MCV 96.1 (80-100) fL MCH 31.8 (25-34) pg MCHC 33.1 (32-36) g/dL RDW Std Deviation 51.0 H (36.4-46.3) fL RDW Coeff of Ligia 14.4 (11.5-14.5) % Plt Count 141 (130-400) K/uL MPV 10.8 H (7.4-10.4) fL Immature Gran % (Auto) 0.3 % Neut % (Auto) 85.0 % Lymph % (Auto) 9.3 % [place] % (Auto) 5.2 % Eos % (Auto) 0.1 % Baso % (Auto) 0.1 % Neut # (Auto) 6.55 H (1.4-6.5) K/uL Lymph # (Auto) 0.72 L (1.2-3.4) K/uL [place] # (Auto) 0.40 (0.11-0.59) K/uL Eos # (Auto) 0.01 (0-0.5) K/uL Baso # (Auto) 0.01 (0-0.2) K/uL Immature Gran # (Auto) 0.02 (0.00-0.02) K/uL PT (9.0-12.0) Seconds INR (0.9-1.1) APTT (21.0-31.0) Seconds PTT Ratio Sodium 141 (136-145) mmol/L Potassium 4.2 (3.5-5.1) mmol/L Chloride 110 H (98-107) mmol/L Carbon Dioxide 23 (21-32) mmol/L Anion Gap 8.0 (3-11) BUN 18 (7-18) mg/dl Creatinine 1.00 (0.6-1.4) mg/dl Est Cr Clr Drug Dosing 48.3 ml/min Est GFR ( Amer) 79.2 Est GFR (Non-Af Amer) 68.3 BUN/Creatinine Ratio 17.7 (10-20) Glucose 139 H (70-99) mg/dl POC Glucose (70-99) mg/dl Estimat Average Glucose mg/dl Hemoglobin A1c (4.5-5.6) % Calcium 8.9 (8.5-10.1) mg/dl Magnesium (1.8-2.4) mg/dl Total Bilirubin (0.2-1) mg/dl AST (15-37) U/L ALT (12-78) U/L Alkaline Phosphatase (45-117) U/L Troponin I (0-0.045) ng/ml Total Protein (6.4-8.2) gm/dl Albumin (3.4-5.0) gm/dl Globulin (2.5-4.0) gm/dl Albumin/Globulin Ratio (0.9-2) Triglycerides 37 (0-150) mg/dl Cholesterol 107 (0-200) mg/dl LDL Cholesterol, Calc 40 mg/dl VLDL Cholesterol, Calc 7 mg/dl HDL Cholesterol 60 mg/dl Cholesterol/HDL Ratio 2 Digoxin (0.8-2.0) ng/ml SARS-CoV-2 Ag (Rapid) Negative (Negative) 05/12/20 05/12/20 05/11/20 Range/Units 07:11 01:25 22:34 WBC (4.8-10.8) K/uL RBC (4.7-6.1) M/uL Hgb (14.0-18.0) g/dL Hct (42-52) % MCV (80-100) fL MCH (25-34) pg MCHC (32-36) g/dL RDW Std Deviation (36.4-46.3) fL RDW Coeff of Lgiia (11.5-14.5) % Plt Count (130-400) K/uL MPV (7.4-10.4) fL Immature Gran % (Auto) % Neut % (Auto) % Lymph % (Auto) % [place] % (Auto) % Eos % (Auto) % Baso % (Auto) % Neut # (Auto) (1.4-6.5) K/uL Lymph # (Auto) (1.2-3.4) K/uL [place] # (Auto) (0.11-0.59) K/uL Eos # (Auto) (0-0.5) K/uL Baso # (Auto) (0-0.2) K/uL Immature Gran # (Auto) (0.00-0.02) K/uL PT (9.0-12.0) Seconds INR (0.9-1.1) APTT (21.0-31.0) Seconds PTT Ratio Sodium 141 (136-145) mmol/L Potassium 3.8 (3.5-5.1) mmol/L Chloride 108 H (98-107) mmol/L Carbon Dioxide 26 (21-32) mmol/L Anion Gap 7.0 (3-11) BUN 22 H (7-18) mg/dl Creatinine 1.18 (0.6-1.4) mg/dl Est Cr Clr Drug Dosing 42.5 ml/min Est GFR ( Amer) 64.8 Est GFR (Non-Af Amer) 55.9 BUN/Creatinine Ratio 18.3 (10-20) Glucose 156 H (70-99) mg/dl POC Glucose (70-99) mg/dl Estimat Average Glucose 128 mg/dl Hemoglobin A1c 6.1 H (4.5-5.6) % Calcium 9.0 (8.5-10.1) mg/dl Magnesium 1.8 (1.8-2.4) mg/dl Total Bilirubin 0.4 (0.2-1) mg/dl AST 29 (15-37) U/L ALT 28 (12-78) U/L Alkaline Phosphatase 95 (45-117) U/L Troponin I < 0.015 (0-0.045) ng/ml Total Protein 7.2 (6.4-8.2) gm/dl Albumin 3.5 (3.4-5.0) gm/dl Globulin 3.7 (2.5-4.0) gm/dl Albumin/Globulin Ratio 0.9 (0.9-2) Triglycerides (0-150) mg/dl Cholesterol (0-200) mg/dl LDL Cholesterol, Calc mg/dl VLDL Cholesterol, Calc mg/dl HDL Cholesterol mg/dl Cholesterol/HDL Ratio Digoxin 0.8 (0.8-2.0) ng/ml SARS-CoV-2 Ag (Rapid) (Negative) 05/11/20 05/11/20 05/11/20 Range/Units 22:34 22:34 22:31 WBC 8.22 (4.8-10.8) K/uL RBC 3.88 L (4.7-6.1) M/uL Hgb 12.7 L (14.0-18.0) g/dL Hct 37.4 L (42-52) % MCV 96.4 (80-100) fL MCH 32.7 (25-34) pg MCHC 34.0 (32-36) g/dL RDW Std Deviation 52.0 H (36.4-46.3) fL RDW Coeff of Ligia 14.8 H (11.5-14.5) % Plt Count 166 (130-400) K/uL MPV 10.6 H (7.4-10.4) fL Immature Gran % (Auto) 0.1 % Neut % (Auto) 65.3 % Lymph % (Auto) 17.8 % [place] % (Auto) 11.4 % Eos % (Auto) 5.0 % Baso % (Auto) 0.4 % Neut # (Auto) 5.37 (1.4-6.5) K/uL Lymph # (Auto) 1.46 (1.2-3.4) K/uL [place] # (Auto) 0.94 H (0.11-0.59) K/uL Eos # (Auto) 0.41 (0-0.5) K/uL Baso # (Auto) 0.03 (0-0.2) K/uL Immature Gran # (Auto) 0.01 (0.00-0.02) K/uL PT 10.5 (9.0-12.0) Seconds INR 1.0 (0.9-1.1) APTT 26.5 (21.0-31.0) Seconds PTT Ratio 0.9 Sodium (136-145) mmol/L Potassium (3.5-5.1) mmol/L Chloride (98-107) mmol/L Carbon Dioxide (21-32) mmol/L Anion Gap (3-11) BUN (7-18) mg/dl Creatinine (0.6-1.4) mg/dl Est Cr Clr Drug Dosing ml/min Est GFR ( Amer) Est GFR (Non-Af Amer) BUN/Creatinine Ratio (10-20) Glucose (70-99) mg/dl POC Glucose 170 H (70-99) mg/dl Estimat Average Glucose mg/dl Hemoglobin A1c (4.5-5.6) % Calcium (8.5-10.1) mg/dl Magnesium (1.8-2.4) mg/dl Total Bilirubin (0.2-1) mg/dl AST (15-37) U/L ALT (12-78) U/L Alkaline Phosphatase (45-117) U/L Troponin I (0-0.045) ng/ml Total Protein (6.4-8.2) gm/dl Albumin (3.4-5.0) gm/dl Globulin (2.5-4.0) gm/dl Albumin/Globulin Ratio (0.9-2) Triglycerides (0-150) mg/dl Cholesterol (0-200) mg/dl LDL Cholesterol, Calc mg/dl VLDL Cholesterol, Calc mg/dl HDL Cholesterol mg/dl Cholesterol/HDL Ratio Digoxin (0.8-2.0) ng/ml SARS-CoV-2 Ag (Rapid) (Negative) Medications Administered Current Inpatient Medications Acetaminophen (Acetaminophen 325 Mg Tab) 650 mg PO Q4H PRN PRN Reason: Pain or Fever Stop: 06/11/20 02:53 Allopurinol (Allopurinol 100 Mg Tab) 100 mg PO QPM [facility] Stop: 06/11/20 20:59 Apixaban (Apixaban 2.5 Mg Tab) 2.5 mg PO BID [facility] Stop: 06/12/20 08:59 Atorvastatin Calcium (Atorvastatin 40 Mg Tab) 40 mg PO QPM [facility] Stop: 06/11/20 20:59 Digoxin (Digoxin 0.25 Mg Tab) 0.25 mg PO QPM [facility] Stop: 06/11/20 20:59 Duloxetine HCl (Duloxetine Hcl 20 Mg Cap) 20 mg PO QPM [facility] Stop: 06/11/20 20:59 Loratadine (Loratadine 10 Mg Tab) 10 mg PO QPM [facility] Stop: 06/11/20 20:59 Metoprolol Succinate (Metoprolol Succ 25mg Ext Rel Tab) 25 mg PO QPM [facility] Stop: 06/11/20 20:59 Miscellaneous Information (Pharmacist Discharge Med Rec Consult) 1 ea N/A UD PRN PRN Reason: Consult Stop: 06/11/20 02:53 Miscellaneous Information (Stroke Patient Discharge) 1 ea N/A NOW STA Stop: 05/12/20 15:59 Niacin (Niacin Extended Rel 500 Mg Tabcr) 1,000 mg PO QPM [facility] Stop: 06/11/20 20:59
[2020-05-12] MEDS ORDERED: STROKE PATIENT DISCHARGE STA (15:58)
--- NOTE | 2020-05-12 16:11 | Discharge Summary ---
Date of Service May 12, 2020 Admission HPI Per Admitting Provider History obtained from patient and records. 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 Last confinement October 2019 under Orthopedics service for right shoulder surgery. Patient has been off Coumadin since orthopedic surgery due to anemia, GI bleed as per records. Patient on aspirin with accepted increased risk of stroke as per outpatient cardiology note from November 2019. Patient was watching television last night when he noted sudden onset aphasia symptoms, not able to say anything that made sense. Similar to TIA event from 2013. Patient compliant with home medications. Denies chest pain, S OB, headache symptoms. Symptoms improved upon arrival at the ER. MEDICAL HISTORY: As above. SURGERIES: Shoulder surgery, hip replacement, prostate surgery, eye surgery, tonsillectomy, cataract surgery, vasectomy FAMILY HISTORY: Heart disease. PERSONAL SOCIAL HISTORY: Nonsmoker. No chronic intake of alcoholic beverages. 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 Admission Exam Per Admitting Provider GENERAL: Comfortable, pleasant, no respiratory distress SKIN: Pallor, warm HEENT: Alopecia, pale palpebral conjunctivae, no ptosis, dry buccal mucosa NECK : Supple, no tenderness CHEST : CTA, no tenderness HEART : Irregular, systolic murmur ABDOMEN: No distention, nontender EXTREMITIES : No LE swelling/tenderness, no other conspicuous deformities noted NEUROLOGIC : Coherent, no facial asymmetry, no other gross focality Principal Diagnosis Aphasia / TIA pAfib Discharge Exam GENERAL: elderly frail male, sitting up in bed in NAD, pleasant HEENT: Alopecia, pale palpebral conjunctivae, no ptosis NECK : Supple, no tenderness CHEST : CTAb, no wheezing, rhonchi, crackles HEART : Irregular, soft systolic murmur ABDOMEN: No distention, nontender, nondistended, + bowel sounds SKIN: Pallor, warm EXTREMITIES : No LE swelling/tenderness, moves extremities spontaneously NEUROLOGIC : alert and oriented x3, speech fluent, moves extremities Discharge Data Allergies Allergy/AdvReac Type Severity Reaction Status Date / Time Penicillins Allergy Mild Rash Verified 05/11/20 23:14 fenofibrate Allergy Unknown MUSCLE Verified 05/11/20 23:14 WEAKNESS warfarin [From Coumadin] AdvReac Intermediate bruisng Verified 05/11/20 23:14 dronabinol [From Marinol] AdvReac Confusion Verified 05/11/20 23:14 Consultations 05/12/20 00:41 ED Decision to Admit Stat 05/12/20 02:54 Consult Case Management - Discharge Planning Routine Consult Neurology Routine 05/12/20 12:31 Consult Cardiology Routine Ordered Studies 05/11/20 21:52 CT angio head w con Urgent CT angio neck with con Urgent IMPRESSION:Unremarkable CTA of the head and neck. CT head/brain wo con Urgent IMPRESSION: No acute intracranial findings. No change in appearance of the brain. 05/12/20 00:41 MR brain wo con Urgent IMPRESSION: 1. No acute intracranial abnormality, specifically there is no evidence of acute or subacute infarct. 2. Age-related involutional changes with chronic microvascular ischemic disease. Hospital Course (1) Aphasia: Transient aphasia Possible recurrent TIA hx A. fib off anticoagulation secondary to anemia, GI bleed Pt's neurological symptoms has resolved CT brain , CTA head and neck, MRI brain - do not show acute CVA, or significant stenosis likely TIA Discussed with neurology and cardiology Will start pt on Eliquis 2.5 mg BID in the setting of pAfib, and will stop aspirin Chronic diastolic HF 2 to ischemic cardiomyopathy (EF 56%, TTE 2017), patient euvolemic CAD as per records Hypertension, current BP 151/73 Hyperlipidemia on statin Rx Prostate cancer status post surgery Chronic anemia, hemoglobin better than baseline Prediabetes, outpatient hemoglobin A1c of 5.21 October 2019 -current A1c 6.1% - follow up w/ PCP Full code Total Time Total Time Spent Total Time Spent (In Minutes): 35 Total Time Includes: Examination of the Patient, Discharge Planning, Medication Reconciliation and Communication With Other Providers Discharge Plan Discharge Items Patient Disposition: Home - Self-Care Reason For Visit: TIA Discharge Diagnosis: aphasia / TIA pAfib Activity: As commented below Non-emergency contact: Primary Care Provider, Table Assembler and Neurologist Call non-emergency contact if: you have any medication questions and your symptoms worsen Follow-up/Referrals: Sandra Dahl MD [Primary Care Provider] - Diet: Regular Addtl Attending Provider Instructions: Follow up with your primary care doctor in 1-2 weeks. Follow up with your neurologist (Dr. Glover) and standards engineer (Dr. Goodwin). STOP taking ASPIRIN. Instead, start taking Eliquis 2.5 mg twice a day, prescription was sent to your pharmacy. Addtl Inspector Assembly Provider Instructions: Risk Factors for Stroke: You can reduce your chances of stroke by working with your medical provider to adopt a healthy lifestyle. Some specific ways to lower your chance of stroke are: * If you are a smoker, now is the time to stop smoking cigarettes * If you are diabetic, improve the control of your blood sugars * Avoid excessive amounts of alcohol * Control high blood pressure * Lose weight if you are overweight * Be sure to lead an active lifestyle * Eat a healthy diet low in salt, cholesterol and fat You should know about other risk factors for stroke that you are unable to control. These include: * Age 55 years or older * Male gender * Certain racial groups: , or / * Family History of Stroke, Mini stroke or Heart Attack * Sickle Cell Disease Follow Up: It is important for you to keep your follow up appointments with your medical provider. Who to Call and When: Medical Emergencies: Call 911 immediately if you experience any of the following warning signs and symptoms of Stroke: * Sudden numbness or weakness of the face, arm or leg, especially on one side of the body * Sudden confusion, trouble speaking or understanding * Sudden trouble seeing in one or both eyes * Sudden trouble walking, dizziness, loss of balance or coordination * Sudden severe headache with no cause Do not delay calling 911 if you experience any warning signs or symptoms of a stroke. Delay in seeking medical attention may affect what treatments can be given to you. . Pending Studies at Discharge: No Stand-Alone Forms: Medications to Prevent Stroke, My [facility], Smoking Cessation Medications and DC Order Prescriptions: New Eliquis 2.5 mg Tablet 2.5 mg PO BID 30 Days Qty: 60 RF: 0 Continued lidocaine 5 % adhesive patch,medicated 1 patch topical DAILY PRN (Reason: Back Pain) RF: 0 diclofenac sodium 1 % gel 2 g TOPICAL BID PRN (Reason: Back Pain) RF: 0 atorvastatin 40 mg tablet 40 mg PO QPM RF: 0 niacin [Niaspan Extended-Release] 1,000 mg tablet extended release 24 hr 1,000 mg PO QPM RF: 0 digoxin 250 mcg (0.25 mg) tablet 250 mcg PO QPM RF: 0 metoprolol succinate [Toprol XL] 25 mg tablet extended release 24 hr 25 mg PO QPM RF: 0 duloxetine 20 mg capsule,delayed release(DR/EC) 20 mg PO QPM RF: 0 allopurinol 100 mg Tablet 100 mg PO QPM RF: 0 loratadine [Claritin] 10 mg Tablet 10 mg PO QPM RF: 0 ibuprofen 200 mg Tablet 400 mg PO Q6H PRN (Reason: Fever Or Pain) RF: 0 Ibuprofen PM 200-25 mg Capsule 1 cap PO HS PRN (Reason: Insomnia) RF: 0 Discontinued aspirin 81 mg Tablet,Delayed Release (Dr/Ec) 81 mg PO QPM RF: 0 Discharge Orders: Discharge Order (Routine); Ordered 05/12/20 Ordered By: Cyrus Toussaint Admission Data Admit Date/Time: 05/12/20 01:47 Attending Provider: Cyrus Toussaint Admit Provider: Delmar Landis Primary Care Provider: Sandra Dahl Other Providers: Delmar Landis ; Yane Wagoner ; Leeroy Glover Kathleen ; Constantino Mcintosh ; Juan Steinberg
--- NOTE | 2020-05-12 16:13 | Electrocardiogram Report ---
Test Reason : Blood Pressure : / mmHG Vent. Rate : 085 BPM Atrial Rate : 070 BPM P-R Int : 000 ms QRS Dur : 102 ms QT Int : 342 ms P-R-T Axes : 000 -61 093 degrees QTc Int : 406 ms Atrial fibrillation with premature ventricular or aberrantly conducted complexes Left anterior fascicular block Anteroseptal infarct (cited on or before 22-OCT-2013) Abnormal ECG When compared with ECG of 19-OCT-2019 02:51, No significant change was found Confirmed by Pedrito Galvan ([id number]) on 05/12/2020 4:12:45 PM Referred By: REFERRED SELF Confirmed By:Pedrito Galvan
--- NOTE | 2020-05-12 16:16 | Pharmacy Report ---
Pharmacist Stroke Counseling - Date of Service May 12, 2020 - Scope: Pharmacy has been consulted to provide medication discharge counseling for this patient admitted with transient ischemic attack as per the Pharmacist Discharge Counseling for Stroke Patients Protocol. - Medications on Discharge: Home Medications Medication Instructions Recorded Confirmed lidocaine 5 % topical patch 1 patch TOPICAL DAILY PRN ea 01/29/19 05/11/20 aspirin 81 mg PO QPM 06/11/19 05/11/20 atorvastatin 40 mg PO QPM 06/11/19 05/11/20 digoxin 250 mcg PO QPM 06/11/19 05/11/20 duloxetine 20 mg PO QPM 06/11/19 05/11/20 metoprolol succinate [Toprol XL] 25 mg PO QPM 06/11/19 05/11/20 niacin [Niaspan Extended-Release] 1,000 mg PO QPM 06/11/19 05/11/20 allopurinol 100 mg PO QPM 07/18/19 05/11/20 loratadine [Claritin] 10 mg PO QPM 07/18/19 05/11/20 diclofenac sodium 2 g TOPICAL BID PRN 10/01/19 05/11/20 ibuprofen 400 mg PO Q6H PRN 05/11/20 05/11/20 ibuprofen-diphenhydramine HCl 1 cap PO HS PRN 05/11/20 05/11/20 [Ibuprofen PM] New Rx's Medication Instructions Recorded apixaban [Eliquis] 2.5 mg PO BID 30 Days #60 tab 05/12/20 - Action: The above medications, specifically ones for stroke treatment/prophylaxis, have been reviewed in detail with the patient prior to discharge. This includes indication, common adverse reactions, drug interactions, and medication admi nistration. Medication counseling has been employed using the teach-back method to ensure understanding. - Outcome: The patient demonstrated understanding of the medications. Additional comments: - Stroke discharge counseling was completed via telephone secondary to the COVID-19 pandemic - Instructed patient to no longer take baby aspirin - Recommended patient take Acetaminophen for pain/fever rather than NSAID given bleeding risk with NSAIDs Thank you for allowing pharmacy to be involved in the care of this patient. Please call [phone] with any additional questions
[2020-05-12] MEDS ORDERED: LORATADINE 10 MG TAB PO SCH (21:00)
[2020-05-12] MEDS ORDERED: DIGOXIN 0.25 MG TAB PO SCH (21:00)
[2020-05-12] MEDS ORDERED: METOPROLOL SUCC 25MG EXT REL TAB PO SCH (21:00)
[2020-05-12] MEDS ORDERED: NIACIN EXTENDED REL 500 MG TABCR PO SCH (21:00)
[2020-05-12] MEDS ORDERED: ATORVASTATIN 40 MG TAB PO SCH (21:00)
[2020-05-12] MEDS ORDERED: DULoxetine HCL 20 MG CAP PO SCH (21:00)
[2020-05-12] MEDS ORDERED: ASPIRIN 81 MG ECTAB PO SCH (21:00)
[2020-05-12] MEDS ORDERED: allopurinoL 100 MG TAB PO SCH (21:00)
[2020-05-13] MEDS ORDERED: APIXABAN 2.5 MG TAB PO SCH (09:00)
== END 2020-05-12 16:45 | disposition home or self-care (01) ==
LOC: ED 21:38 → 2N 21:38

== ENCOUNTER 2023-12-12 04:53 | Inpatient (IN) ==
--- NOTE | 2023-11-16 08:31 | PAT Medication Instructions ---
Medication Instructions Date of Service November 16, 2023 Home Medications atorvastatin 40 mg tablet 40 mg PO QPM metoprolol succinate 25 mg tablet,extended release 24 hr (Toprol XL) 25 mg PO QPM allopurinol 100 mg tablet 100 mg PO QPM loratadine 10 mg tablet (Claritin) 10 mg PO QPM diclofenac sodium 1 % topical gel 2 g topical BID PRN Lion's Silas 3 cap PO HS apixaban 2.5 mg tablet (Eliquis) 2.5 mg PO BID cholecalciferol (vitamin D3) 50 mcg (2,000 unit) tablet (Vitamin D3) 50 mcg PO HS digoxin 125 mcg (0.125 mg) tablet 125 mcg PO QPM ferrous sulfate 325 mg (65 mg iron) tablet (Iron (ferrous sulfate)) 325 mg PO HS [id number]-wvwfvk tablet 1 tab PO HS ASK your surgeon for instructions diclofenac sodium 1 % topical gel 2 g topical BID PRN ASK your prescriber and surgeon apixaban 2.5 mg tablet (Eliquis) 2.5 mg PO BID(in order for spinal or epidural anesthesia, Eliquis needs to be stopped 72 hours/3 days before surgery. Please check if okay with doctor that prescribes this to you) STOP taking 2 weeks before surgery (or as soon as possible if surgery is within 2 weeks) Lion's Silas 3 cap PO HS Take evening before surgery atorvastatin 40 mg tablet 40 mg PO QPM metoprolol succinate 25 mg tablet,extended release 24 hr (Toprol XL) 25 mg PO QP M allopurinol 100 mg tablet 100 mg PO QPM loratadine 10 mg tablet (Claritin) 10 mg PO QPM cholecalciferol (vitamin D3) 50 mcg (2,000 unit) tablet (Vitamin D3) 50 mcg PO HS digoxin 125 mcg (0.125 mg) tablet 125 mcg PO QPM ferrous sulfate 325 mg (65 mg iron) tablet (Iron (ferrous sulfate)) 325 mg PO HS [id number]-paralc tablet 1 tab PO HS Other Notes NOTHING TO EAT OR DRINK AFTER MIDNIGHT. If you have any questions please call us at [phone] or [phone] or [phone] or [phone]
--- NOTE | 2023-11-21 10:37 | Anesthesiology Consultation ---
Date of Service November 21, 2023 Assessment & Plan (1) Encounter for pre-operative examination: - Case discussed in detail with Dr. Townsend who advised cardiology clearance. Optimization form completed, to be faxed to [facility] cardiology. Surgeon's office and patient made aware. - cardiology office visit 01/09/23 [facility]: "...history of chronic atrial fibrillation, recurrent stroke/TIA episodes, blood loss anemia, mitral regurgitation, chronic back pain...notes feeling well...tolerating Eliquis well without any recurrent GI bleeding...continue Eliquis 2.5 mg twice daily...no longer on lisinopril with past findings of worsening renal function and hyperkalemia...return in about 6 months..." Chart Review Chart Review: Pending: Refer to Additional Notes / Consult section and Patient seen in Pre Admission Testing Teaching & Discussion Pre-Anesthesia Teaching/Discussion Notes: Instructed NPO after midnight before surgery, except medications with 15 cc of water. Medication instructions provided according to the PAT guidelines. History Surgery Operation Date: 12/08/23 12:30 Proposed Procedures p Right Total Hip Arthroplasty - Sebastian Barber MD Height/Weight Height: 5 ft 8 in Weight: 65.8 kg Allergies Allergy/AdvReac Type Severity Reaction Status Date / Time Penicillins Allergy Mild Rash Verified 11/15/23 15:25 fenofibrate Allergy Unknown MUSCLE Verified 11/15/23 15:25 WEAKNESS warfarin [From Coumadin] AdvReac Intermediate bruisng Verified 11/15/23 15:25 dronabinol [From Marinol] AdvReac Unknown Confusion Verified 11/15/23 15:25 Medications Home Medications Medication Instructions Recorded Confirmed Last Taken atorvastatin 40 mg tablet 40 mg PO QPM 06/11/19 11/15/23 05/11/20 metoprolol succinate 25 mg 25 mg PO QPM 06/11/19 11/15/23 05/11/20 tablet,extended release 24 hr (Toprol XL) allopurinol 100 mg tablet 100 mg PO QPM 07/18/19 11/15/23 05/11/20 loratadine 10 mg tablet (Claritin) 10 mg PO QPM 07/18/19 11/15/23 05/11/20 diclofenac sodium 1 % topical gel 2 g topical BID PRN Back Pain 10/01/19 11/15/23 Unknown Lion's Silas 3 cap PO HS 11/15/23 11/15/23 Unknown apixaban 2.5 mg tablet (Eliquis) 2.5 mg PO BID 11/15/23 11/15/23 Unknown cholecalciferol (vitamin D3) 50 50 mcg PO HS 11/15/23 11/15/23 Unknown mcg (2,000 unit) tablet (Vitamin D3) digoxin 125 mcg (0.125 mg) tablet 125 mcg PO QPM 11/15/23 11/15/23 Unknown ferrous sulfate 325 mg (65 mg 325 mg PO HS 11/15/23 11/15/23 Unknown iron) tablet (Iron (ferrous sulfate)) [id number] tablet 1 tab PO HS 11/15/23 11/15/23 Unknown Wheeled Walker #1 ea 11/20/23 Unknown Past Medical History Medical History Anemia Arthritis Atrial fibrillation follows with Dr Goodwin, taking Eliquis Balance disorder with hip dysfunction per pt-denies recent falls-ambulates with walker Brain TIA two episodes of aphasia lasting 5 minutes-most recently 2013 Chronic CHF (congestive heart failure) follows with Dr Goodwin Chronic low back pain CKD (chronic kidney disease) stage 3, GFR 30-59 ml/min no need to follow up with [facility] nephrology, per patient History of GI bleed History of gout History of prostate cancer Hyperlipidemia Hypertension controlled, stable per pt Mitral regurgitation On anticoagulant therapy Scoliosis Sleep apnea Bi pap Patient denies h/o seizures, DM, or blood clots/DVTs. Exercise / Class Metabolic Activity II 4-5 Yardwork/Stairs/Walk up hill (denies chest discomfort or shortness of breath with one flight of stairs) Past Family History Family History Other Family history non-contributory Past Surgical History Surgical History History of arthroplasty of left shoulder History of cardiac cath 2015? NO STENTS NEEDED [facility] History of cataract surgery bilateral History of colonoscopy History of cryosurgery FOR PROSTATE CANCER History of esophagogastroduodenoscopy (EGD) History of prostatectomy after dx of prostate cancer, no chemo or radiation History of total hip arthroplasty LEFT S/p reverse total shoulder arthroplasty right Past Anesthesia History No Hx of Anesthesia Complications and No Family Hx of Anesthesia Complications History of PONV No Hx of PONV and No Hx of Motion Sickness Social History Smoking Status: Never smoker Do You Dip or Chew Tobacco: No Hx Alcohol Use: Yes Alcohol type: beer and wine alcohol intake frequency: a few times a month Hx Substance Use: No substance use type: does not use Substance Use Type Other:: CBD oil--advised Review of Systems Patient denies chest pain, shortness of breath, dyspnea on exertion, fever, chills, cough, wheezing, or palpitations. Physical Exam Vital Signs Vitals BP 115/68 manual left arm sitting P 72 TEMP 98.1 SP02 97% on RA RESP 18 Physical Patient resting comfortably in chair in no acute distress, alert and oriented, responding appropriately throughout visit Full cervical extension range of motion without pain TMD 3.5 finger breadths Mallampati Score 3 Dentition: several caps/crowns, denies chipped or loose teeth, implants or bridges Lungs: normal respiratory effort. Good air movement, clear throughout to auscultation, no adventitious breath sounds Cardiac: regular rate and rhythm, no murmurs noted Carotid arteries: negative bruit bilat Lab Results Anesthesia Preop Results Results Anesthesia Widget: WBC 7.58 K/ul (4.8-10.8) 11/21/23 Hgb 14.9 g/dl (14.0-18.0) 11/21/23 Hct 44.7 % (42.0-52.0) 11/21/23 Plt 128 K/uL (130-400) L 11/21/23 Na 136 mmol/L (136-145) 11/21/23 K 4.6 mmol/L (3.5-5.1) 11/21/23 Cl 105 mmol/L (98-107) 11/21/23 CO2 26 mmol/L (21-32) 11/21/23 BUN 20 mg/dl (6-23) 11/21/23 Creat 1.11 mg/dl (0.6-1.4) 11/21/23 Glucose Level 112 mg/dl (70-99(Fasting)) H 11/21/23 PT 10.8 Seconds (9.0-12.0) 11/21/23 PTT 28 Seconds (21-31) 11/21/23 INR 1.0 (0.9-1.1) 11/21/23 Blood Type O Positive 11/21/23 Antibody Screen NEGATIVE 11/21/23 Testing Electrocardiogram Date: 11/21/23 Afib, rate 84 bpm Left axis deviation Minimal voltage criteria for LVH, may be normal variant Possible inferior infarct, age undetermined Anteroseptal infarct cited on or before 10/22/2013 Chest X-Ray Date: 11/21/23 Mild bibasilar interstitial thickening which has slightly progressed. This is likely chronic. Otherwise, no acute process within the chest Echocardiogram Date: 05/12/20 EF 35-40% Afib during study Moderate global hypokinesis of the LV Mild prolapse of the posterior mitral valve leaflet Moderate to severe mitral regurgitation Mild tricuspid regurgitation Other Testing Head and neck CTA 05/11/20 Unremarkable CTA of the head and neck.
--- OUTSIDE RECORDS SUMMARY | 2023-12-12 05:48 | External Medical Summary | Summary of Care ---
Author Name Unknown Organization [facility] Address [address] [place] [address] Phone [phone] Care Team Providers Care Oil Dipper Name Role Phone Sandra Dahl MD Primary Care Provider + Reason for Visit * Reason Onset Date Comments Advice 11/24/2023 Brenda Turner/ Dr. Goodwin patient Encounter Details Date Type Department Care Team (Late st Contact Info) Description 11/24/2023 Telephone Cardiology, [facility] [address] [facility] [place] [address] Brenda Turner CRNP [address] [facility] [address] Advice (Brenda Turner/Dr. Goodwin patient) Allergies Active Allergy Reactions Criticality Noted Date Comments Amoxicillin Rash 02/10/2005 Dronabinol 10/03/2019 Alters your sense of time Fibrates Muscle pain 04/16/2003 tricor Penicillins Rash 06/08/2000 Warfarin Sodium 11/09/2000 Bruising but at low dosage no bruising-can not take dose higher than 2.5 mg documented as of this encounter (statuses as of 11/28/2023) Medications Medication Sig Dispensed Refills Start Date End Date Status TRIAMCINOLONE ACETONIDE 0.1 % EX CREA Apply to affected area twice a day 15 g 5 06/19/2014 Active Diclofenac Sodium (VOLTAREN) 1 % gel Place 2 g topically on the skin 2 times a day. To affected area as directed. 100 g 07/03/2019 Active Multiple Vitamins-Minerals (CENTRUM SILVER 50+MEN) TABS Take 1 Tab by mouth daily. Active Cetirizine HCl 10 MG Oral Capsule Take 1 Capsule by mouth at bedtime. Active Misc Natural Products (T-RELIEF CBD+13) SUBL Place under the tongue daily as needed for Pain. Active Ferrous Sulfate (IRON) 325 (65 Fe) MG TABS Take by mouth at bedtime. Active Denosumab 60 MG/ML Subcutaneous Solution Prefilled Syringe (Prolia) Inject 60 mg under the skin every 6 months. Active Vitamin D3 50 MCG (2000 UT) Oral Tablet Take 1 Tablet by mouth in the morning. Active BiPAP every night at bedtime . Active Digoxin 125 MCG Oral Tablet (Lanoxin)Indications :Permanent atrial fibrillation (HCC) TAKE 1 TABLET DAILY 90 Tablet 3 12/20/2022 Active Allopurinol 100 MG Oral Tablet (Zyloprim)Indication s:Acute idiopathic gout of right knee TAKE 1 TABLET BY MOUTH ONCE DAILY 90 Tablet 1 06/21/2023 Active Eliquis 2.5 MG Oral Tablet (Apixaban)Indication s:Permanent atrial fibrillation (HCC),Transient cerebral ischemia, unspecified type TAKE 1 TABLET TWICE A DAY 180 Tablet 3 06/21/2023 Active Metoprolol Succinate ER 25 MG Oral Tablet Extended Release 24 Hour (toPROL XL)Indications:Chron ic atrial fibrillation (HCC),Hypertensive heart disease TAKE 1 TABLET DAILY 90 Tablet 3 07/31/2023 Active Atorvastatin Calcium 40 MG Oral Tablet (Lipitor) TAKE 1 TABLET DAILY 90 Tablet 1 09/26/2023 Active documented as of this encounter (statuses as of 11/28/2023) Active Problems Problem Noted Date Diagnosed Date Chronic systolic congestive heart failure 2022 Chronic kidney disease, stage 3a 11/03/2020 Overview: Per CKD protocol Benign hypertension with stage 3a chronic kidney disease 09/29/2020 Overview: Per CKD protocol Prostate cancer 11/15/2019 Acute idiopathic gout of right foot 06/27/2019 Cellulitis of right foot 06/27/2019 Rotator cuff tear arthropathy, right 06/21/2019 Prediabetes 10/29/2018 Overview: Per Prediabetes protocol Abnormal glucose 06/19/2018 History of prostate cancer 04/23/2018 Spinal stenosis of lumbar re gion without neurogenic claudication 11/23/2017 Senile osteoporosis 11/23/2017 Chronic atrial fibrillation 04/01/2015 Mitral regurgitation 12/18/2014 Mixed sleep apnea 01/11/2014 Overview: Respironics BIPAP AutoSV Advanced: Max pressure: 24 EPAP min: 12 EPAP max: 17 PS min: 0 PS max: 7 Rate: Auto Ramp setting per comfort. T&B Mitral valve regurgitation 07/04/2013 DYSLIPIDEMIA, GOAL LDL BELOW 100 04/30/2009 Overview: Per Lipid Taxonomy. HYPERTENSIVE HEART DZ 01/08/2009 Overview: Per Heart Failure Taxonomy Protocol. Osteoporosis 10/08/2008 Peripheral vascular disease 08/31/2007 ADVANCE DIRECTIVE INFORMATION 02/07/2005 Overview: Yes, Patient instructed to provide copy of advance directive for provider to review and to be scanned into Electronic Medical Record IDIO PERIPH NEURPTHY NOS Idiopathic scoliosis Essential mixed cryoglobulinemia documented as of this encounter (statuses as of 11/28/2023) Resolved Problems Problem Noted Date Diagnosed Date Resolved Date Controlled substance agreement signed 07/11/2019 03/29/2023 Kidney disease, chronic, sta ge III (GFR 30-59 ml/min) 07/02/2018 07/03/2019 Overview: Per CKD protocol #1 Abnormal EKG 12/18/2014 11/23/2017 Shoulder pain 07/18/2014 04/23/2018 TIA (transient ischemic attack) 10/20/2013 11/23/2017 Overview: aphasia SOB (shortness of breath) 04/16/2013 Prostate cancer 08/30/2011 11/23/2017 [employer] Research Other*[id number] 09/07/2010 07/25/2011 Overview: PROJECT: #[id number], SPONSOR: Willian, PI: Kenneth Ngo MD SUMMARY: Observational registry to better understand how patients with A-Fib are cared for (utilization, effectiveness, safety of antithrombotic therapy for stroke prevention). Patients are recruited through an invitational letter. Study data will be collected (by research staff) from the EHR for at least 2 years on consenting patients at approximate 6-month intervals when seen at routine clinic visits. There is no study intervention. A BPA will fire in office visit notes and is connected to a flowsheet which has 2-4 questions that must be answered by the visit provider before the encounter can be closed. CONTACT: Asa Leon, Chemist Physical [facility] other surgery 07/27/2009 08/30/2011 Malignant neoplasm of prostate 03/19/2009 08/30/2011 Elevated prostate specific antigen (PSA) 08/06/2007 08/30/2011 Kidney disease, chronic, sta ge III (GFR 30-59 ml/min) 06/14/2007 09/11/2015 Overview: Based on GFR of 48.9 on 04/27/07. Impotence of organic origin 04/26/2007 08/30/2011 Heartburn 08/18/2004 10/20/2006 Atrial fibrillation 04/26/2002 04/23/20 18 HYPERTENSIVE HRT DIS NOS-cardiomyopathy 04/26/2002 01/08/2009 Overview: Per Heart Failure Taxonomy Protocol. Degeneration of intervertebral disc 10/20/2006 Benign hypertension with CKD (chronic kidney disease) stage III 10/01/2020 documented as of this encounter (statuses as of 11/28/2023) Immunizations Name Administration Dates Next Due COVID-19 mRNA, LNP-s, No Pre serve, 2-Dose Series (Tidal[employer]ader) 08/18/2021,02/09/2021,08/01/2020,06/22 COVID-19, mRNA, LNR-S, Bival ent, PF, 3 mcg/0.2 ml (Pfizer) 6m to 4 years 09/23/2021 Covid-19, Mrna, Lnp-s, Pf, B ivalent, 30 Mcg, IM, 12 yrs and above (Pfizer) 02/18/2022 H1N1 2009 Influenza, IM 03/31/2009 Influenza, Whole Virus 02/22/2005 Pneumococcal Conjugate Vacc, 13 Valent (Prevnar) 06/19/2014 Pneumococcal Polysaccharide PPV23 (Pneumovax) 02/09/2019,03/16/2011,01/24/2001,05/2000 Season Influenza, Quad, PF, Adjuvanted, 65+ Yrs, IM (FLUAD) 01/27/2020 Seasonal Influenza Virus Vac cine, Unspecified Formulation 01/25/2018,02/20/2016,01/02/2015,05/2013,03/22/2013,03/18/2013,02/20/20 11,03/05/2010,03/17/2009,02/25/2008,1 ,03/23/2006,02/22/2005,05/19,03/18/2003,03/19/2002, 0 Seasonal Influenza, PF, 6 M & above, IM , (FluLaval or Fluzone) 01/25/2018 Seasonal Influenza, Quad, Na mildred (Flumist) 02/20/2016 Seasonal Influenza, Quadriva lent Hd (Fluzone Hd) 03/04/2021 Seasonal Influenza, Split, I IV3, With Preserve, Inj 01/02/2015,02/19/2014,03/18/2013,05/2010,03/05/2010,03/17/2009,02/25/20 08,02/20/2007,03/23/2006,05/19/2004,1 ,03/19/2002,05/03/2000 05/03/2001 Seasonal Influenza, Trivalen t, Adjuvanted, 65+ yrs 02/04/2022,01/29/2019 TD - Tetanus/Diptheria (ADULT) 01/02/2007 TD, Preservative Free 01/02/2007 TDAP (age 10 and older)(Boostrix) 06/27/2014 Varicella Zoster Vaccine (Adult) 10/20/2006 Zoster Vaccine Recombinant (Shingrix) ,01/29/2019,11/16/2018,10/21 documented as of this encounter Social History Tobacco Use Types Packs/Day Years Used Date Smoking Tobacco: Never Smokeless Tobacco: Never Alcohol Use Standard Drinks/Week Comments Yes 0 (1 standard drink = 0.6 oz pure alcohol) glass a wine a few times a week AUDIT-C Answer Date Recorded Frequency of Alcohol Consumption 2-4 times a mon th 01/08/2020 Average Number of Drinks 1 or 2 020 Frequency of Binge Drinking Not on file 12/20 PHQ-2 Answer Date Recorded PHQ Adult Total Score 1 01/12/2023 Hunger Vital Sign Answer Date Recorded Within the past 12 months, y ou worried that your food would run out before you got the money to buy more. Never true 01/12/20 22 Within the past 12 months, t he food you bought just didn't last and you didn't have money to get more. Never true 01/11/2022 Utilities Answer Date Recorded Do you have trouble paying y our heating, water, or electric bill? (Adult - for ages 18 years and over) Not on file 11/07/2023 Is your family able to pay t he heat, water, or electric bill? (Household - for ages 0-17 years) Not on file 11/07/2023 Does your family have access to good internet? (Household - for ages 0-17 years) Not on file 11/07/2023 Social Connections Answer Date Recorded How often do you feel lonely or isolated from those around you? (Adult - for ages 18 years and over) Not on file 11/07/2023 Sex and Gender Information Value Date Recorded Sex Assigned at Male 07/11/2019 2:17 PM EST Gender Identity Male 07/11/2019 2:17 PM EST Sexual Orientation Choose not to disclose 2019 2:17 PM EST Job Start Date Occupation Industry Not on file Not on file Not on file documented as of this encounter Miscellaneous Notes * Telephone Encounter - Anu Gardner CMA - 11/28/2023 11:48 AM EDT Spoke with [facility] PAT - anesthesia is requesting risk stratification and clearance from Cardiology. Please assist with appointment CHLOÉ. I did advise PAT that surgery may be postponed. * Telephone Encounter - Vernell Minor OSA - 11/28/2023 9:01 AM EDT Person calling: Maximo Ortega Relationship to patient: Number to return call: [phone] Reason for call(brief): cardiac clearance Pharmacy: na Provider Name: Dr. Goodwin Detailed message to office: Pt needs cardiac clearance. * Telephone Encounter - Santy Blackwell RN - 11/27/2023 2:45 PM EDT Called and spoke to the patient and reviewed the message with him from Dr. Goodwin in regards to his Eliquis instruction pre-op. My G also sent * Telephone Encounter - Sebastian Goodwin DO - 11/27/2023 2:35 PM EDT Pt to take last dose of Eliquis in evening 3 days prior to procedure. No Eliquis on the day 2 days before procedure No Eliquis on the day before procedure. No Eliquis the day of procedure. Resume day after procedure if OK with surgeon Sebastian Goodwin DO * Telephone Encounter - Anu Gardner CMA - 11/24/2023 2:02 PM EDT Please see below message and advise if acceptable from a Cardiology standpoint. Patient last evaluated in office December 2022. * Telephone Encounter - Eugene Pete OSA - 11/24/2023 10:50 AM EDT Person calling: Sebastian Joel Relationship to patient: self Number to return call: [phone] Reason for call(brief): Advice Provider Name: Brenda QUINTANA Detailed message to office: Patient calling requesting a call back. Patient is scheduled for Right Hip Surgery w/Dr. Barber at [facility] on 12/08/23 and was advised to hold his Eliquis 3 days prior. Patient is asking when he should take his last dose prior to the upcoming procedure. Patient can be reached at [phone] to discuss. Thank You, Eugene Ext [phone] documented in this encounter Plan of Treatment Upcoming Encounters Date Type Department Care Team (Late st Contact Info) Description 12/04/2023 4:00 PM EDT Office Visit Urology, [facility] [address] [facility] [place] [address] Joey Marie MD [address] [place] [address] 01/18/2024 8:00 AM EDT Nurse Only Ancillary [facility] [address] [facility] [place] [address] [place], Nurse Annual Wellness [facility] [address] [facility] [place] [address] 03/19/2024 8:30 AM EDT Nurse Only Rheumatology [address] [place] [address] Pf, Nurse Rheum [address] [place] [address] [place] [address] 04/02/2024 3:00 PM EST Office Visit General Internal Medicine [facility] [address] [facility] [place] [address] Sandra Dahl MD [address] [facility] [place] [address] 06/25/2024 1:00 PM EST Office Visit Sleep Disorders Ctr [facility] [address] [place] [phone] Morelia Crum CRNP [address] [place] [address] 09/10/2024 9:00 AM EDT Imaging Radiology, [address] [place], [place] [address] Health Maintenance Due Date Last Done Comments COVID-19 Vaccine (2022- season) 2023 02/18/2022, 09/23/2021, 08/18/2021, Additional history exists Depression Screening 01/13/2024 01/12/2023 Influenza Vaccine (FLU shot) (#1) 2024 02/04/2022, 03/04/2021, 01/27/2020, Additional history exists Albumin/Creatinine Ratio 04/04/2024 023, 09/22/2022, 09/02/2021, Additional history exists CKD HGB USE SMARTSET 35697 04/04/202404/04, 01/19/2021, 08/20/2020, Additional history exists CKD PHOS USE SMARTSET 73705 04/04/202403/22, 01/25/2022, 09/02/2021, Additional history exists DIG LEVEL FOR MEDICATION MONITORING YEARLY 04/04/2024 04/04/2023, 01/19/2021, 08/04/2020, Additional history exists HbA1c 04/04/2024 04/04/2023, 12/22, 10/04/2019, Additional history exists DTaP,Tdap,and Td Vaccines (2 - Td or Tdap) 06/27/2024 06/27/2014, 01/02/2007, 01/02/2007 DXA Scan 08/30/2024 08/30/2022, 07/22, 01/10/2017, Additional history exists Zoster Vaccines Completed 01/29/2019, 01/20, 11/16/2018, Additional history exists Pneumococcal Vaccine: 65+ Years Completed 02/09/2019, 06/19/2014, 03/16/2011, Additional history exists VITAMIN D LEVEL ONCE IN A LIFETIME-USE SMARTSET# [id number] Completed 09/11/2023, 01/25/2022, 01/19/2021, Additional history exists HPV (Gardasil) Vaccine Aged Out No lo nger eligible based on patient's age to complete this topic Hepatitis B Vaccine Aged Out No longe r eligible based on patient's age to complete this topic MENINGOCOCCAL (MENACTRA/MENVEO) Aged Out No longer eligible based on patient's age to complete this topic documented as of this encounter Medical Devices Implanted Type Area Client Development Manager Device Identifier Shelf Expiration Date Model / Serial / Lot Lens Intraoc 19.0 - [id number] - [id number] Implanted:Qty: 1 on 04/07/2020 by Rip Diallo MD at OR [facility] Right: Eye [employer] 11/18/2024 [id number] / [id number] / [id number] Lens Intraoc 20.0 - [id number] - [id number] Implanted:Qty: 1 on 04/21/2020 by Rip Diallo MD at OR [facility] Left: Eye [employer] 09/18/2024 [id number] / [id number] / [id number] documented as of this encounter Advance Directives * Full Code (Latest Code Status on File) Date Activated Date Inactivated Comments 07/27/2009 1:14 PM 07/28/2009 2:05 PM This order ref lects the patients wishes and were consensually agreed upon. * Full Code Date Activated Date Inactivated Comments 07/27/2009 7:58 AM 07/27/2009 1:14 PM This order ref lects the patients wishes and were consensually agreed upon. Care Teams Oil Dipper Relationship Specialty Start Date End Date Sandra Dahl MD [address] [place] [address] PCP - General Internal Medicine 06/07/19 documented as of this encounter
--- OUTSIDE RECORDS SUMMARY | 2023-12-12 05:48 | External Medical Summary | Summary of Care ---
Author Name Unknown Organization [facility] Address [address] [place] [address] Phone [phone] Care Team Providers Care Business Operations Consultant Name Role Phone Sandra Dahl MD Primary Care Provider + Reason for Visit * Reason Onset Date Comments Advice 11/24/2023 Brenda Turner/ Dr. Goodwin patient Encounter Details Date Type Department Care Team (Late st Contact Info) Description 11/24/2023 Telephone Cardiology, [facility] [address] [facility] [place] [address] Brenda Turner CRNP [address] [facility] [address] Advice (Brenda Turner/Dr. Goodwin patient) Allergies Active [...] 04/16/2013 Prostate cancer 08/30/2011 11/23/2017 [employer] Other*[id number] 09/07/2010 07/25/2011 Overview: PROJECT: #[id number], SPONSOR: Willian, PI: Kenneth Ngo MD SUMMARY: [...] encounter can be closed. CONTACT: Asa Leon, Residential Substance Abuse Counselor [facility] 07/27/2009 08/30/2011 Malignant neoplasm of [...] mRNA, LNP-s, No Pre serve, 2-Dose Series ([employer]) 08/18/2021,02/09/2021,08/01/2020,06/22 COVID-19, mRNA, LNR-S, Bival ent, PF, [...] of Alcohol Consumption 2-4 times a mon 01/08/2020 Average Number of Drinks 1 or [...] encounter Miscellaneous Notes * Telephone Encounter - Girma Torres, ANDREA - 11/28/2023 1:44 PM EDT Called and spoke with [facility] about the pre-op clearance. Patient is scheduled and [facility] is aware of the date and time, and [facility] stated that the surgery will have be bumped out a few days. Patient is scheduled with Brenda Day on: Nov Arrive by 2:15 PM Appt at 2:30 PM (30 min) Brenda Turner CRNP * Telephone Encounter - Anu Gardner CMA - 11/28/2023 11:48 AM EDT Spoke with [facility] PAT - anesthesia is requesting risk stratification and clearance from Cardiology. Please assist with appointment CHLOÉ. I did advise PAT that surgery may be postponed. * Telephone Encounter - Vernell Minor OSA - 11/28/2023 9:01 AM EDT Person calling: Maximo Ortega Relationship to patient: Number to return call: [phone] Reason for call(brief): cardiac clearance Pharmacy: na Provider Name: Dr. Goodwin Detailed message to office: Pt needs cardiac clearance. * Telephone Encounter - Santy Blackwell, RN - 11/27/2023 2:45 PM EDT Called [...] to patient: self Number to return call: [phone] Reason for call(brief): Advice Provider Name: Brenda QUINTANA Detailed message to office: Patient calling requesting a call back. Patient is scheduled for Right Hip Surgery w/Dr. Barber at [facility] on 12/08/23 and was advised to hold his Eliquis 3 days prior. Patient is asking when he should take his last dose prior to the upcoming procedure. Patient can be reached at [phone] to discuss. Thank You, Eugene Vences [phone] documented in this encounter Plan of Treatment Upcoming Encounters Date Type Department Care Team (Late st Contact Info) Description 12/04/2023 4:00 PM EDT Office Visit Urology, [facility] [address] [place] [address] Joey Marie MD [address] [place] [address] 12/14/2023 2:30 PM EDT [facility] Visit [facility], [facility] [address] [place] [address] Brenda Turner CRNP [address] [place] [address] 01/18/2024 8:00 AM EDT Nurse Only Ancillary [facility] [address] [place] [address] Park, Nurse Annual Wellness Scenery [address] [place] [address] 03/19/2024 8:30 AM EDT Nurse Only Rheumatology [address] [place], [place] [address] Pf, Nurse Rheum [address] [place] [address] [place], [place] [address] 04/02/2024 3:00 PM EST Office Visit General Internal Medicine [facility] [address] [facility] [place] [address] Sandra Dahl MD [address] [place], [place] [address] 06/25/2024 1:00 PM EST Office Visit Sleep Disorders Ctr [facility] [address] [place] [phone] Morelia [facility]rum [facility] [address] 09/10/2024 9:00 AM EDT Imaging Radiology, [address] [place], [place] [address] Health Maintenance Due Date Last Done Comments COVID-19 Vaccine ( season) 2023 02/18/2022, 09/23/2021, 08/18/2021, Additional history exists Depression Screening 01/13/2024 01/12/2023 Influenza Vaccine (FLU shot) (#1) 2024 02/04/2022, 03/04/2021, 01/27/2020, Additional history exists Albumin/Creatinine Ratio 04/04/202404/04/2 023, 09/22/2022, 09/02/2021, Additional history exists CKD HGB USE SMARTSET 26485 04/04/202404/04, 01/19/2021, 08/20/2020, Additional history exists CKD PHOS USE SMARTSET 41060 04/04/202403/22, 01/25/2022, 09/02/2021, Additional history exists DIG [...] D LEVEL ONCE IN A LIFETIME-USE SMARTSET# 96606 Completed 09/11/2023, 01/25/2022, 01/19/2021, Additional history exists [...] this encounter Medical Devices Implanted Type Area Laundry Agent Device Identifier Shelf Expiration Date Model / Serial / Lot Lens Intraoc 19.0 - [id number] - [id number] Implanted:Qty: 1 on 04/07/2020 by Rip Diallo MD at OR [facility] Right: Eye [employer] 11/18/2024 [id number] / [id number] / [id number] Lens Intraoc 20.0 - [id number] - [id number] Implanted:Qty: 1 on 04/21/2020 by Rip Diallo MD at OR [facility] Left: Eye [employer] 09/18/2024 [id number] / [id number] / [id number] documented as of this encounter Advance Directives [...] and were consensually agreed upon. Care Teams Business Operations Consultant Relationship Specialty Start Date End Date Sandra Dahl MD [address] [place] [address] PCP - General Internal Medicine 06/07/19 documented as of this encounter
--- OUTSIDE RECORDS SUMMARY | 2023-12-12 05:48 | External Medical Summary | Summary of Care ---
Author Name Unknown Organization [facility] Address [address] [place] [address] Phone [phone] Care Team Providers Care Pedicurist Name Role Phone Sandra Dahl MD Primary Care Provider + Reason for Visit * Reason Onset Date Comments Test Results 12/04/2023 Encounter Details Date Type Department Care Team (Late st Contact Info) Description 12/04/2023 Telephone Cardiology, [facility] [address] [place] [address] Paul Menjivar, PA-C [address] [place] [address] Test Results Allergies Active Allergy Reactions Criticality Noted Date Comments Amoxicillin Rash 02/10/2005 Dronabinol 10/03/2019 Alters your sense of time Fibrates Muscle pain 04/16/2003 tricor Penicillins Rash 06/08/2000 Warfarin Sodium 11/09/2000 Bruising but at low dosage no bruising-can not take dose higher than 2.5 mg documented as of this encounter (statuses as of 12/04/2023) Medications Medication Sig Dispensed Refills Start Date [...] as of this encounter (statuses as of 12/04/2023) Active Problems Problem Noted Date Diagnosed Date [...] as of this encounter (statuses as of 12/04/2023) Resolved Problems Problem Noted Date Diagnosed Date Resolved Date Controlled substance agreement signed 07/11/2019 03/29/2023 Kidney disease, chronic, sta ge III (GFR 30-59 ml/min) 07/02/2018 07/03/2019 Overview: Per CKD protocol #1 Abnormal EKG 12/18/2014 11/23/2017 Shoulder pain 07/18/2014 04/23/2018 TIA (transient ischemic attack) 10/20/2013 11/23/2017 Overview: aphasia SOB (shortness of breath) 04/16/2013 Prostate cancer 08/30/2011 11/23/2017 [employer] Other*[id number] 09/07/2010 07/25/2011 Overview: PROJECT: #[id number], SPONSOR: [employer], PI: Kenneth Ngo MD SUMMARY: Observational registry [...] encounter can be closed. CONTACT: Asa Leon, Payroll Services Analyst Follow-up examination, [facility] other surgery 07/27/2009 08/30/2011 Malignant neoplasm of [...] as of this encounter (statuses as of 12/04/2023) Immunizations Name Administration Dates Next Due COVID-19 mRNA, LNP-s, No Pre serve, 2-Dose Series (Stand In) 08/18/2021,02/09/2021,08/01/2020,07/04 COVID-19, mRNA, LNR-S, Bival ent, PF, 3 mcg/0.2 ml (Pfizer) 6m to 4 years 09/23/2021 Covid-19, Mrna, Lnp-s, Pf, B ivalent, 30 Mcg, IM, 12 yrs and above (Stand In) 02/18/2022 H1N1 2009 Influenza, IM 03/31/2009 Pneumococcal Conjugate Vacc, 13 Valent (Prevnar) 06/19/2014 Pneumococcal Polysaccharide PPV23 (Pneumovax) 02/09/2019,03/16/2011,05/22/2000 Season Influenza, Quad, PF, Adjuvanted, 65+ Yrs, IM (FLUAD) 01/27/2020 Seasonal Influenza Virus Vac cine, Unspecified Formulation 01/25/2018,02/20/2016,01/02/2015,02/19,03/22/2013,03/18/2013,02/19/2011 ,03/05/2010,03/17/2009,02/25/2008,06/2006,03/23/2006,02/22/2005, 4,03/18/2003,03/19/2002,05/03/2000 Seasonal Influenza, PF, 6 M & above, IM , (FluLaval or Fluzone) 01/25/2018 Seasonal Influenza, Quad, Na mildred (Flumist) 02/20/2016 Seasonal Influenza, Quadriva lent Hd (Fluzone Hd) 03/04/2021 Seasonal Influenza, Split, I IV3, With Preserve, Inj 01/02/2015,02/19/2014,03/18/2013,02/19,03/05/2010,03/17/2009,02/25/2008 ,02/20/2007,03/23/2006 Seasonal Influenza, Trivalen t, Adjuvanted, 65+ yrs 02/04/2022,01/29/2019 TD - Tetanus/Diptheria (ADULT) 01/02/2007 TD, Preservative Free 01/02/2007 TDAP (age 10 and older)(Boostrix) 06/27/2014 Varicella Zoster Vaccine (Adult) 10/20/2006 Zoster Vaccine Recombinant (Shingrix) ,01/29/2019,11/16/2018,11/16 documented as of this encounter Social History [...] encounter Miscellaneous Notes * Telephone Encounter - Candis Gracia CMA - 12/04/2023 3:52 PM EDT Faxed to [facility]. * Telephone Encounter - Candis Gracia CMA - 12/04/2023 3:52 PM EDT ----- Message from Paul Menjivar sent at 12/01/2023 5:24 PM EDT ----- December 01, 2023 TTE Interpretation Summary (as per Dr. Goodwin): Rate controlled atrial fibrillationwas present during the echocardiogram study. There is mild diffuse left ventricular hypokinesis. The qualitative LV ejection fraction is 40-44% (mildly reduced). The left atrium is severely enlarged (>48 ml/m^2,). Borderline to mild aortic stenosis is present. Mild aortic valve regurgitation is present. There is moderate posterior mitral leaflet prolapse. Severe mitral regurgitation is present. The mitral regurgitation jet is anteriorly directed and wall impinging. The estimated pulmonary artery systolic pressure is 26 mm Hg (normal). The aortic root is mildly enlarged. The proximal ascending thoracic aorta is mildly enlarged. Please send preop echo report to [facility] Anesthesia/Preoperative Testing. documented in this encounter Plan of Treatment Upcoming Encounters Date Type Department Care Team (Late st Contact Info) Description 01/18/2024 8:00 AM EDT Nurse Only Ancillary [facility] [address] [facility] [place] [address] Park, Nurse Annual Wellness [facility] [address] [facility] [place] [address] 03/19/2024 8:30 AM EDT Nurse Only Rheumatology [facility] [address] [facility] [place] [address] Pf, Nurse Rheum [facility] [place] [address] 04/02/2024 3:00 PM EST Office Visit General Internal Medicine [facility] [place] [address] [facility] [place] [address] Sandra Dahl MD [address] [facility] [place] [address] 06/25/2024 1:00 PM EST Office Visit Sleep Disorders Ctr [facility] [place] [address] [place] [phone] Morelia Crum CRNP [address] [place] [address] 09/10/2024 9:00 AM EDT Imaging Radiology, [place] [id number] [place] [address] Health Maintenance Due Date Last Done Comments COVID-19 Vaccine ( season) 2023 02/18/2022, 09/23/2021, 08/18/2021, Additional history exists Depression Screening 01/13/2024 01/12/2023 Influenza Vaccine (FLU shot) (#1) 2024 02/04/2022, 03/04/2021, 01/27/2020, Additional history exists Albumin/Creatinine Ratio 04/04/2024 023, 09/22/2022, 09/02/2021, Additional history exists CKD HGB USE SMARTSET 57496 04/04/202404/04, 01/19/2021, 08/20/2020, Additional history exists CKD PHOS USE SMARTSET 50234 04/04/202403/22, 01/25/2022, 09/02/2021, Additional history exists DIG [...] D LEVEL ONCE IN A LIFETIME-USE SMARTSET# 21718 Completed 09/11/2023, 01/25/2022, 01/19/2021, Additional history exists [...] this encounter Medical Devices Implanted Type Area Refinery Operator Visbreaking Device Identifier Shelf Expiration Date Model / Serial / Lot Lens Intraoc 19.0 - [id number] - [id number] Implanted:Qty: 1 on 04/07/2020 by Rip Diallo MD at OR [facility] Right: Eye [employer] 11/18/2024 [id number] / [id number] / [id number] Lens Intraoc 20.0 - [id number] - [id number] Implanted:Qty: 1 on 04/21/2020 by Rip Diallo MD at OR [facility] Left: Eye [employer] 09/18/2024 [id number] / [id number] / [id number] documented as of this encounter Advance Directives [...] and were consensually agreed upon. Care Teams Pedicurist Relationship Specialty Start Date End Date Sandra Dahl MD [address] [place] [address] PCP - General Internal Medicine 06/07/19 documented as of this encounter
--- OUTSIDE RECORDS SUMMARY | 2023-12-12 05:48 | External Medical Summary | Summary of Care ---
Author Name Unknown Organization [facility] Address [address] [place] [address] Phone [phone] Care Team Providers Care Vocational Aide Name Role Phone Sandra Dahl MD Primary Care Provider + Reason for Visit * Reason Comments Follow Up Encounter Details Date Type Department Care Team (Late st Contact Info) Description 12/04/2023 4:00 PM EDT Office Visit Urology, [facility] [address] [facility] [place] [address] Joey Marie MD 27 [facility] [place] [address] Malignant neoplasm of prostate (HCC)*; Erectile dysfunction due to diseases classified elsewhere Allergies Active Allergy Reactions Criticality Noted Date [...] 04/16/2013 Prostate cancer 08/30/2011 11/23/2017 [employer] Other*[id number] 09/07/2010 07/25/2011 Overview: PROJECT: #[id number], SPONSOR: Pia&Pia, PI: Kenneth Ngo MD SUMMARY: [...] encounter can be closed. CONTACT: Asa Leon, Accounting Consultant Follow-up examination, [facility] other surgery 07/27/2009 08/30/2011 Malignant neoplasm of [...] mRNA, LNP-s, No Pre serve, 2-Dose Series (Exo) 08/18/2021,02/09/2021,08/01/2020,07/04 COVID-19, mRNA, LNR-S, Bival ent, PF, 3 mcg/0.2 ml (Pfizer) 6m to 4 years 09/23/2021 Covid-19, Mrna, Lnp-s, Pf, B ivalent, 30 Mcg, IM, 12 yrs and above (Pfizer) 02/18/2022 H1N1 2009 Influenza, IM 03/31/2009 Pneumococcal [...] Frequency of Alcohol Consumption 2-4 times a mon01/08/2020 Average Number of Drinks 1 or 2 [...] on file documented as of this encounter Progress Notes * Joey Marie MD - 12/04/2023 3:59 PM EDT [id number] PCP: SANDRA DAHL [address] [address] Sebastian Joel is a 88 year old male, who presents check for his prostate cancer history with PSA. Patient's past notes reviewed. He is pending hip repair this week. Patient denies changes in his voiding. Erectile dysfunction: Present status post cryotherapy for prostate cancer. Previous trial of oral medications. Husser not tolerated secondary to urethral irritation. Less of an issue Prostate cancer: "He was treated in [place] by Dr. Patrick with cryotherapy back in 2009." PSA Results: Lab Results Component Value Date/Time PSA - [facility] 0.28 11/28/2023 10:59 AM PSA - [facility] 0.25 01/25/2022 07:13 AM PSA - [facility] 0.23 01/19/2021 07:52 AM PSA - [facility] 0.33 01/21/2020 10:20 AM PSA - [facility] 0.24 01/15/2019 07:49 AM PSA - [facility] 0.20 10/13/2017 01:38 PM PSA SCREENING 3.74 10/21/2006 09:54 AM PSA SCREENING 2.74 01/30/2006 03:11 PM PSA SCREENING 1.93 02/07/2005 11:25 AM Current Outpatient Medications Medication Sig Dispense Refill Multiple Vitamins-Minerals (CENTRUM SILVER 50+MEN) TABS Take 1 Tab by mouth daily. Cetirizine HCl 10 MG Oral Capsule Take 1 Capsule by mouth at bedtime. Ferrous Sulfate (IRON) 325 (65 Fe) MG TABS Take by mouth at bedtime. Denosumab 60 MG/ML Subcutaneous Solution Prefilled Syringe (ProlQwilr) Inject 60 mg under the skin every 6 months. Vitamin D3 50 MCG (2000 UT) Oral Tablet Take 1 Tablet by mouth in the morning. Digoxin 125 MCG Oral Tablet (Lanoxin) TAKE 1 TABLET DAILY 90 Tablet 3 Allopurinol 100 MG Oral Tablet (Zyloprim) TAKE 1 TABLET BY MOUTH ONCE DAILY 90 Tablet 1 Eliquis 2.5 MG Oral Tablet (Apixaban) TAKE 1 TABLET TWICE A DAY 180 Tablet 3 Metoprolol Succinate ER 25 MG Oral Tablet Extended Release 24 Hour (toPROL XL) TAKE 1 TABLET DAILY 90 Tablet 3 Atorvastatin Calcium 40 MG Oral Tablet (Lipitor) TAKE 1 TABLET DAILY 90 Tablet 1 TRIAMCINOLONE ACETONIDE 0.1 % EX CREA Apply to affected area twice a day 15 g 5 Diclofenac Sodium (VOLTAREN) 1 % gel Place 2 g topically on the skin 2 times a day. To affected area as directed. 100 g 0 Misc Natural Products (T-RELIEF CBD+13) SUBL Place under the tongue daily as needed for Pain. (Patient not taking: Reported on 12/04/2023) BiPAP every night at bedtime . No current facility-administered medications for this visit. Review of patient's allergies indicates: Allergen Reactions Amoxicillin Rash Dronabinol Alters your sense of time Fibrates Muscle pain tricor Penicillins Rash Warfarin Sodium Bruising but at low dosage no bruising-can not take dose higher than 2.5 mg Social History: Social History Tobacco Use Smoking status: Never Smokeless tobacco: Never Substance Use Topics Alcohol use: Yes Comment: glass a wine a few times a week Vaping/E-Cigarette Use Vaping/E-Cigarette Use Never User Vaping/E-Cigarette Substances Nicotine No Other No Flavoring No THC No Cannabidiol (CBD) Yes prn Vaping/E-Cigarette Devices Disposable No Pre-filled or Refillable Cartridge No Refillable Tank No Pre-filled Pod No Family History Problem Relation Name Age of Onset Cancer Mother ovarian Other (dementia) Mother Heart Disorder Father a fib Cancer Father prostate cancer diagnosed in late 80's age Heart Disorder Sister a fib Past Surgical History: Procedure Laterality Date ANESTH, TOTAL SHOULDER REPLACEMENT 10/2019 right COLONOSCOPY, DIAGNOSTIC (RECTUM) 10/03/2019 single bleeding colonic angioectasia, diverticulosis / INPT [facility] CYSTOSCOPY 07/27/2009 CYSTOURETHROSCOPY performed by JOVANNI PATRICK at [facility] EGD, FLEXIBLE, DIAGNOSTIC 10/02/2019 Gastric erosions without bleeding / INPT [facility] NEEDLE/PUNCH BIOPSY OF PROSTATE 1995 & 2006 Prostate,Needle/Punch Biopsy PARTIAL HIP REPLACEMENT & PROSTH 2000 Hip Replacement Removal PROSTATE CRYOABLATION 07/27/2009 CRYOSURGICAL ABLATION OF PROSTATE performed by JOVANNI PATRICK at [facility] RECONSTRUCT/REPLACE SHOULDER JOINT Left Dr. Hudson RELIEVE INNER EYE PRESSURE Right 04/07/2020 RIGHT GONIOTOMY performed by Rip Diallo MD at [facility] RELIEVE INNER EYE PRESSURE Left 04/21/2020 LEFT GONIOTOMY performed by Rip Diallo MD at [facility] REMOVAL OF TONSILS, UNDER AGE 11 REMOVE CATARACT, INSERT LENS PROSTH Right 04/07/2020 RIGHT EXTRACAPSULAR CATARACT REMOVAL WITH INTRAOCULAR LENS performed by Rip Diallo MD at [facility] REMOVE CATARACT, INSERT LENS PROSTH Left 04/21/2020 LEFT EXTRACAPSULAR CATARACT REMOVAL WITH INTRAOCULAR LENS performed by Rip Diallo MD at [facility] SHOULDER SURGERY PROCEDURE NEC Right 2020 SHOULDER SURGERY PROCEDURE NEC Left 2016 US ECHO TRANSRECTAL/PROSTATE 07/27/2009 ULTRASOUND TRANSRECTAL performed by JOVANNI PATRICK at [facility] VASECTOMY 1988 Past Medical History: Diagnosis Date Abnormal glucose 06/19/2018 Degeneration of intervertebral disc Degenerative Disc Disease Diverticulosis of colon 05/22/2002 screening colo Essential mixed cryoglobulinemia (HCC) Generalized osteoarthritis right hip,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 Peripheral Neuropathy HTN, goal to be determined Hypertension Chronic,unspecified Idiopathic scoliosis lumbar scoliosis Osteoporosis 07/2020 Prostate cancer (HCC) 08/30/2011 Sleep apnea, obstructive Spinal stenosis, unspecified region other than cervical Spinal Stenosis TIA (transient ischemic attack) 10/20/2013 aphasia Patient Active Problem List Diagnosis IDIO PERIPH NEURPTHY NOS Idiopathic scoliosis ADVANCE DIRECTIVE INFORMATION Peripheral vascular disease (HCC) Osteoporosis HYPERTENSIVE HEART DZ DYSLIPIDEMIA, GOAL LDL BELOW 100 Essential mixed cryoglobulinemia (HCC) Mitral valve regurgitation Mixed sleep apnea Mitral regurgitation Chronic atrial fibrillation (HCC) Spinal stenosis of lumbar region without neurogenic claudication Senile osteoporosis History of prostate cancer Abnormal glucose Prediabetes Rotator cuff tear arthropathy, right Acute idiopathic gout of right foot Cellulitis of right foot Prostate cancer (HCC) Benign hypertension with stage 3a chronic kidney disease (HCC) Chronic kidney disease, stage 3a (HCC) Chronic systolic congestive heart failure (HCC) Constitutional: (-) fever ENT: (-) stridor Male : see HPI Musculoskeletal: (+) joint pain Neurology: (+) loss of balance Physical Exam Constitutional: General: He is not in acute distress. Appearance: He is not toxic-appearing. Comments: Using walker HENT: Head: Normocephalic. Right Ear: External ear normal. Left Ear: External ear normal. Nose: Nose normal. Mouth/Throat: Mouth: Mucous membranes are moist. Eyes: Extraocular Movements: Extraocular movements intact. Cardiovascular: Pulses: Normal pulses. Pulmonary: Effort: Pulmonary effort is normal. No respiratory distress. Abdominal: General: There is no distension. Palpations: Abdomen is soft. Musculoskeletal: General: Deformity (arthritic) present. Skin: Coloration: Skin is not pale. Neurological: Mental Status: He is oriented to person, place, and time. Motor: Weakness present. Gait: Gait abnormal. Psychiatric: Behavior: Behavior normal. Impression/Plan: 88-year-old male with a history of prostate cancer, YARELIS x 14 years s/p cryotherapy. We are pleased with the patient's stable PSA. Will continue with yearly checks. Patient inquires regarding testosterone values, discouraged from testosterone supplementation in the context of his cancer. He will contact us with any significant deterioration in his urinary health. Above content is personally reviewed. Patient vocalizes good understanding of the treatment plan. Joey Marie MD 3:59 PM 12/04/2023 documented in this encounter Nursing Notes * Cheyenne Roldan LPN - 12/04/2023 3:46 PM EDT 1 yr ret Prostate cancer PSA Results: Lab Results Component Value Date/Time PSA - [facility] 0.28 11/28/2023 10:59 AM PSA - [facility] 0.25 01/25/2022 07:13 AM PSA - [facility] 0.23 01/19/2021 07:52 AM PSA - [facility] 0.33 01/21/2020 10:20 AM PSA - [facility] 0.24 01/15/2019 07:49 AM PSA - [facility] 0.20 10/13/2017 01:38 PM PSA SCREENING 3.74 10/21/2006 09:54 AM PSA SCREENING 2.74 01/30/2006 03:11 PM PSA SCREENING 1.93 02/07/2005 11:25 AM C/o- nocturia x 3, concerns of testosterone level documented in this encounter Plan of Treatment Upcoming Encounters Date Type Department Care Team (Late st Contact Info) Description 01/18/2024 8:00 AM EDT Nurse Only Ancillary [facility] [address] [place] [address] [place], Nurse [facility] [address] [facility] [place] [address] 03/19/2024 8:30 AM EDT Nurse Only Rheumatology [place] [address] [place] [address] Pf, Nurse Rheum [facility] [place] [address] 04/02/2024 3:00 PM EST Office Visit General Internal Medicine [facility] [address] [facility] [place] [address] Sandra Dahl MD [address] [facility] [place] [address] 06/25/2024 1:00 PM EST Office Visit [facility] Disorders [facility] [address] [facility] [place] [phone] Morelia Crum CRNP [address] [facility] [place] [address] 09/10/2024 9:00 AM EDT Imaging Radiology, [facility] [address] [facility] [place] [address] 12/03/2024 8:30 AM EDT Office Visit Urology, [facility] [address] [facility] [place] [address] Joey Marie MD [address] [place] [address] Scheduled Orders Name Type Priority Associated Diagnoses Orde r Schedule PSA Lab Routine Malignant neoplasm of prostate (HCC) Erectile dysfunction due to diseases classified elsewhere Expected: 11/18/2024 (Approximate), Expires: 12/03/2024 Health Maintenance Due Date Last Done Comments COVID-19 Vaccine ( season) 2023 02/18/2022, 09/23/2021, 08/18/2021, Additional history exists Depression Screening 01/13/2024 01/12/2023 Influenza Vaccine (FLU shot) (#1) 2024 02/04/2022, 03/04/2021, 01/27/2020, Additional history exists Albumin/Creatinine Ratio 04/04/2024 023, 09/22/2022, 09/02/2021, Additional history exists CKD HGB USE SMARTSET 03260 04/04/202404/04, 01/19/2021, 08/20/2020, Additional history exists CKD PHOS USE SMARTSET 36564 04/04/202403/22, 01/25/2022, 09/02/2021, Additional history exists DIG [...] D LEVEL ONCE IN A LIFETIME-USE SMARTSET# 04978 Completed 09/11/2023, 01/25/2022, 01/19/2021, Additional history exists [...] this encounter Medical Devices Implanted Type Area Senior Android Software Engineer Device Identifier Shelf Expiration Date Model / Serial / Lot Lens Intraoc 19.0 - [id number] - [id number] Implanted:Qty: 1 on 04/07/2020 by Rip Diallo MD at OR [facility] Right: Eye [employer] 11/18/2024 [id number] / [id number] / [id number] Lens Intraoc 20.0 - [id number] - [id number] Implanted:Qty: 1 on 04/21/2020 by Rip Diallo MD at OR [facility] Left: Eye [employer] 09/18/2024 [id number] / [id number] / [id number] documented as of this encounter Visit Diagnoses Diagnosis Malignant neoplasm of prostate (HCC)- Primary Malignant neoplasm of prostate Erectile dysfunction due to diseases classified elsewhere documented in this encounter Advance Directives * Full Code (Latest Code Status on File) Date Activated Date Inactivated Comments 07/27/2009 1:14 PM 07/28/2009 2:05 PM This order ref lects the patients wishes and were consensually agreed upon. * Full Code Date Activated Date Inactivated Comments 07/27/2009 7:58 AM 07/27/2009 1:14 PM This order ref lects the patients wishes and were consensually agreed upon. Care Teams Vocational Aide Relationship Specialty Start Date End Date Sandra Dahl MD [address] [place] [address] PCP - General Internal Medicine 06/07/19 documented as of this encounter
--- OUTSIDE RECORDS SUMMARY | 2023-12-12 05:48 | External Medical Summary | Summary of Care ---
Author Name Unknown Organization [facility] Address [address] [place] [address] Phone [phone] Care Team Providers Care Plastic Design Applier Name Role Phone Sandra Dahl MD Primary Care Provider + Reason for Visit * Reason Comments Outpatient Testing Encounter Details Date Type Department Care Team (Late st Contact Info) Description 11/28/2023 11:00 AM EDT Laboratory Laboratory [facility] [address] [place] [phone] [place], Lab Scenery [address] [place] [address] Malignant neoplasm of prostate (HCC) Allergies Active Allergy Reactions Criticality Noted Date [...] 04/16/2013 Prostate cancer 08/30/2011 11/23/2017 [employer] Other*[id number] 09/07/2010 07/25/2011 Overview: PROJECT: #[id number], SPONSOR: Willian, PI: Kenneth Ngo MD SUMMARY: [...] encounter can be closed. CONTACT: Asa Leon, Personnel Psychologist [facility] 07/27/2009 08/30/2011 Malignant neoplasm of [...] mRNA, LNP-s, No Pre serve, 2-Dose Series (Cliq) 08/18/2021,02/09/2021,08/01/2020,07/04 COVID-19, mRNA, LNR-S, Bival ent, PF, 3 mcg/0.2 ml (Pfizer) 6m to 4 years 09/23/2021 Covid-19, Mrna, Lnp-s, Pf, B ivalent, 30 Mcg, IM, 12 yrs and above (Cliq) 02/18/2022 H1N1 2009 Influenza, IM 03/31/2009 Pneumococcal [...] on file documented as of this encounter Plan of Treatment Upcoming Encounters Date Type Department Care Team (Late st Contact Info) Description 12/04/2023 4:00 PM EDT Office Visit Urology, [facility] [address] [facility] [place] [address] Joey Marie MD [address] [place] [address] 01/18/2024 8:00 AM EDT Nurse Only Ancillary [facility] [place] [address] [place] [address] [place], Nurse [facility] [address] [facility] [place] [address] 03/19/2024 8:30 AM EDT Nurse Only Rheumatology [place] [address] [facility] [place], [place] [address] Pf, Nurse Rheum [address] [facility] [place], [place] [address] 04/02/2024 3:00 PM EST Office Visit General Internal Medicine [facility] [address] [facility] [place] [address] Sandra Dahl MD [address] [facility] [place] [address] 06/25/2024 1:00 PM EST Office Visit Sleep Disorders Ctr [facility] [address] [place] [phone] Morelia Crum CRNP [address] [place] [address] 09/10/2024 9:00 AM EDT Imaging Radiology, [facility] [address] [facility] [place], [place] [address] Pending Results Name Type Priority Associated Diagnoses Date /Time PSA Lab Routine Malignant neoplasm of prostate (HCC) 11/28/2023 10:59 AM EDT Health Maintenance Due Date Last Done Comments COVID-19 Vaccine ( season) 2023 02/18/2022, 09/23/2021, 08/18/2021, Additional history exists Depression Screening 01/13/2024 01/12/2023 Influenza Vaccine (FLU shot) (#1) 2024 02/04/2022, 03/04/2021, 01/27/2020, Additional history exists Albumin/Creatinine Ratio 04/04/20242 023, 09/22/2022, 09/02/2021, Additional history exists CKD HGB USE SMARTSET 44544 04/04/202404/04, 01/19/2021, 08/20/2020, Additional history exists CKD PHOS USE SMARTSET 00860 04/04/202403/22, 01/25/2022, 09/02/2021, Additional history exists DIG [...] D LEVEL ONCE IN A LIFETIME-USE SMARTSET# [id number] Completed 09/11/2023, 01/25/2022, 01/19/2021, Additional history exists [...] this encounter Medical Devices Implanted Type Area District Resource Officer Device Identifier Shelf Expiration Date Model / Serial / Lot Lens Intraoc 19.0 - [id number] - [id number] Implanted:Qty: 1 on 04/07/2020 by Rip Diallo MD at OR [facility] Right: Eye [employer] 11/18/2024 [id number] / [id number] / [id number] Lens Intraoc 20.0 - [id number] - [id number] Implanted:Qty: 1 on 04/21/2020 by Rip Diallo MD at OR [facility] Left: Eye [employer] 09/18/2024 [id number] / [id number] / [id number] documented as of this encounter Visit Diagnoses Diagnosis Malignant neoplasm of prostate (HCC) Malignant neoplasm of prostate documented in this encounter Advance Directives * [...] and were consensually agreed upon. Care Teams Plastic Design Applier Relationship Specialty Start Date End Date Sandra Dahl MD [address] [place] [address] PCP - General Internal Medicine 06/07/19 documented as of this encounter
--- OUTSIDE RECORDS SUMMARY | 2023-12-12 05:48 | External Medical Summary | Summary of Care ---
Author Name Unknown Organization [facility] Address [address] [place] [address] Phone [phone] Care Team Providers Care Corrections Lieutenant Name Role Phone Sandra Dahl MD Primary Care Provider + Reason for Referral * Precert (Within 10 days (routine)) - Authorized Specialty Diagnoses / Procedures Referred By Contac t Referred To Contact Cardiac Studies Diagnoses Preoperative cardiovascular examination Non-rheumatic mitral regurgitation Procedures ECHO, COMPLETE (2D), TRANS-THORACIC Paul Menjivar PA-C [address] [place] [address] Referral ID Status Reason Start Date Expiration Date V isits Requested Visits Authorized [id number] Authorized Precert 12/01/2023 999 999 Reason for Visit * Reason Comments Follow Up Encounter Details Date Type Department Care Team (Latest Contact Info) Description 12/01/2023 10:00 AM EDT Office Visit Cardiology, [facility] [address] [place] [address] Paul Menjivar PA-C [address] [place] [address] Chronic atrial fibrillation (HCC)*; Permanent atrial fibrillation (HCC); Preoperative cardiovascular examination; Dyslipidemia, goal LDL below 100; Non-rheumatic mitral regurgitation; Transient cerebral ischemia, unspecified type; Chronic systolic congestive heart failure (HCC) Allergies Active Allergy Reactions Criticality Noted Date Comments Amoxicillin Rash 02/10/2005 Dronabinol 10/03/2019 Alters your sense of time Fibrates Muscle pain 04/16/2003 tricor Penicillins Rash 06/08/2000 Warfarin Sodium 11/09/2000 Bruising but at low dosage no bruising-can not take dose higher than 2.5 mg documented as of this encounter (statuses as of 12/01/2023) Medications Medication Sig Dispensed Refills Start Date [...] Denosumab 60 MG/ML Subcutaneous Solution Prefilled Syringe ([email or web address]) Inject 60 mg under the skin every [...] as of this encounter (statuses as of 12/01/2023) Active Problems Problem Noted Date Diagnosed Date [...] as of this encounter (statuses as of 12/01/2023) Resolved Problems Problem Noted Date Diagnosed Date Resolved Date Controlled substance agreement signed 07/11/2019 03/29/2023 Kidney disease, chronic, sta ge III (GFR 30-59 ml/min) 07/02/2018 07/03/2019 Overview: Per CKD protocol #1 Abnormal EKG 12/18/2014 11/23/2017 Shoulder pain 07/18/2014 04/23/2018 TIA (transient ischemic attack) 10/20/2013 11/23/2017 Overview: aphasia SOB (shortness of breath) 04/16/2013 Prostate cancer 08/30/2011 11/23/2017 [employer] Other*[id number] 09/07/2010 07/25/2011 Overview: PROJECT: #[id number], SPONSOR: Willian, PI: Kenneth Ngo MD SUMMARY: [...] encounter can be closed. CONTACT: Asa Leon, Coloring Room Worker [facility] [...] as of this encounter (statuses as of 12/01/2023) Immunizations Name Administration Dates Next Due COVID-19 mRNA, LNP-s, No Pre serve, 2-Dose Series ([employer]) 08/18/2021,02/09/2021,08/01/2020,07/04 COVID-19, mRNA, LNR-S, Bival ent, PF, 3 mcg/0.2 ml ([employer]) 6m to 4 years 09/23/2021 Covid-19, Mrna, Lnp-s, Pf, B ivalent, 30 Mcg, IM, 12 yrs and above ([employer]) 02/18/2022 H1N1 2009 Influenza, IM 03/31/2009 Pneumococcal [...] on file documented as of this encounter Last Filed Vital Signs Vital Sign Reading Time Taken Comments Blood Pressure 110/68 12/01/2023 9:52 AM EDT Pulse 78 12/01/2023 9:52 AM EDT Temperature - - Respiratory Rate 16 12/01/2023 9:52 AM EDT Oxygen Saturation - - Inhaled Oxygen Concentration - - Weight 65.5 kg (144 lb 8 oz) 12/01/2023 9:52 AM EDT Height - - Body Mass Index 21.34 09/28/2023 8:10 AM EDT documented in this encounter Progress Notes * Paul Menjivar PA-C - 12/01/2023 10:00 AM EDT History of Present Illness: Sebastian Joel is a very pleasant 88-year-old male who is being seen today for preoperative cardiology consultation, risk stratification, prior to elective right total hipreplacement by Dr. Sebastian Barber at [facility] on December 08, 2023. Patient present today noting limiting stabbing pain in the right hip which gives way, without fallswith the help of a walker. Notes still going to [employer], working out with a personal financial representative including ten minutes on an elliptical machine three times per week without chest pain, tachypalpitations, or labored breathing. He has not been going to the [facility] for about the last month because of the hip. No recent cardiac related hospitalizations. No new or worsening cardiopulmonary symptoms. No cough or chest congestion. No abdominal bloating, orthopnea, PND, or lower extremity peripheral edema. No lightheadedness, dizziness, near syncope, or syncope. No epistaxis, hemoptysis, melena, hematochezia, or hematuria. Chronic stable back pain; looks forward to lying down and going to bed each night. Problem List: Chronic atrial fibrillation Recurrent TIAs. Patient hospitalized in April 2020 with a recurrent TIA leading to resumption of low-dose Eliquis anticoagulation Moderate left ventricular systolic dysfunction, ejection fraction 35 to 40% Moderate to severe mitral regurgitation with mild prolapse of the posterior mitral valve leaflet. 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 CT scan of the head showed no acute intracranial findings. Brain MRI showed no acute intracranial abnormality, demonstrating age-related changes, chronic microvascular ischemic disease. CT angio of the head and neck was unremarkable. The patient had notably been off of anticoagulation (Coumadin) for approximately 6 months after having significant symptomatic anemia in September (hemoglobin 5.4 g/dL on October 01, 2019) and again in October (Hemoglobin 6.9 g/dL on November 08, 2019). Hemoglobin on presentation on May 11, 2020 was 12.7 g/dL. He was seen in cardiology consultation by his primary process operator, Dr. Goodwin, with recommendation to initiate Eliquis anticoagulation at the reduced dose of 2.5 mg twice per day given age and body weight. Aspirin was discontinued. Resting echocardiography performed at [facility] on May 12, 2020 revealed moderate reduced left ventricular systolic function with moderate global hypokinesis, ejection fraction 35 to 40%. Atrial fibrillation with a controlled ventricular response was observed. Left ventricular wall thickness was normal. Mild posterior mitral valve leaflet prolapse was observed along with moderate to severe mitral regurgitation, mild tricuspid regurgitation. Doppler findings were not suggestive of pulmonary hypertension. The interatrial septum was noted to be intact, without evidence of an atrial septal defect. Past Medical History: Diagnosis Date Abnormal glucose [...] Stenosis TIA (transient ischemic attack) 10/20/2013 aphasia Past Surgical History: Procedure Laterality Date ANESTH, TOTAL SHOULDER REPLACEMENT 10/2019 right COLONOSCOPY, DIAGNOSTIC (RECTUM) 10/03/2019 single bleeding colonic angioectasia, diverticulosis / INPT [facility] CYSTOSCOPY 07/27/2009 CYSTOURETHROSCOPY performed by JOVANNI CLARKE at [facility] EGD, FLEXIBLE, DIAGNOSTIC 10/02/2019 Gastric erosions without bleeding / INPT [facility] NEEDLE/PUNCH BIOPSY OF PROSTATE 1995 & 2006 Prostate,Needle/Punch Biopsy PARTIAL HIP REPLACEMENT & PROSTH 2000 Hip Replacement Removal PROSTATE CRYOABLATION 07/27/2009 CRYOSURGICAL ABLATION OF PROSTATE performed by JOVANNI CLARKE at OR [facility] RECONSTRUCT/REPLACE SHOULDER JOINT Left Dr. Hudson RELIEVE INNER EYE PRESSURE Right 04/07/2020 RIGHT GONIOTOMY performed by Rip Diallo MD at OR [facility] RELIEVE INNER EYE PRESSURE Left 04/21/2020 LEFT GONIOTOMY performed by Rip Diallo MD at OR [facility] REMOVAL OF TONSILS, UNDER AGE 12 REMOVE CATARACT, INSERT LENS PROSTH Right 04/07/2020 RIGHT EXTRACAPSULAR CATARACT REMOVAL WITH INTRAOCULAR LENS performed by Rip Diallo MD at [facility] REMOVE CATARACT, INSERT LENS PROSTH Left 04/21/2020 LEFT EXTRACAPSULAR CATARACT REMOVAL WITH INTRAOCULAR LENS performed by Rip Diallo MD at OR [facility] SHOULDER SURGERY PROCEDURE NEC Right 2019 SHOULDER SURGERY PROCEDURE NEC Left 2016 US ECHO TRANSRECTAL/PROSTATE 07/27/2009 ULTRASOUND TRANSRECTAL performed by JOVANNI CLARKE at OR [facility] VASECTOMY 1988 Family History Problem Relation Name Age of Onset Cancer Mother ovarian Other (dementia) Mother Heart Disorder Father a fib Cancer Father prostate cancer diagnosed in late 80's age Heart Disorder Sister a fib Social History: Never smoker. Social alcohol only. Lives alone. Has a basement apartment that is rented. in 2019. Two sons in the immediate area. Daughter is a nurse. Daughter in law is an occupational therapies. Complete Review of Systems is as stated above, negative, or noncontributory. Review of patient's allergies indicates: Allergen Reactions Amoxicillin Rash Dronabinol Alters your sense of time Fibrates Muscle pain tricor Penicillins Rash Warfarin Sodium Bruising but at low dosage no bruising-can not take dose higher than 2.5 mg Current Outpatient Medications Medication Sig Dispense Refill TRIAMCINOLONE ACETONIDE 0.1 % EX CREA Apply to affected area twice a day 15 g 5 Diclofenac Sodium (VOLTAREN) 1 % gel Place 2 g topically on the skin 2 times a day. To affected area as directed. 100 g 0 Multiple Vitamins-Minerals (CENTRUM SILVER 50+MEN) TABS Take 1 Tab by mouth daily. Cetirizine HCl 10 MG Oral Capsule Take 1 Capsule by mouth at bedtime. Misc Natural Products (T-RELIEF CBD+13) SUBL Place under the tongue daily as needed for Pain. Ferrous Sulfate (IRON) 325 (65 Fe) MG TABS Take by mouth at bedtime. Denosumab 60 MG/ML Subcutaneous Solution Prefilled Syringe ([employer]) Inject 60 mg under the skin every 6 months. Vitamin D3 50 MCG (2000 UT) Oral Tablet Take 1 Tablet by mouth in the morning. BiPAP every night at bedtime . Digoxin 125 MCG Oral Tablet (Lanoxin) TAKE [...] TAKE 1 TABLET DAILY 90 Tablet 1 No current facility-administered medications for this visit. OBJECTIVE/PHYSICAL EXAMINATION: BP 110/68 (BP Site: Left Arm, BP Position: Sitting, BP Cuff Size: Regular) | Pulse 78 | Resp 16 | Wt 65.5 kg (144 lb 8 oz) | BMI 21.34 kg/m | BSA 1.79 m General: Alert. Cooperative. Pleasant. NAD. Skin: No rash HENT: Normocephalic. Atraumatic. Eyes: PER. Conjunctiva pink, sclera clear. Neck: No carotid bruits. No JVD. No HJR. Heart: Irregularly irregular at 66 bpm. Soft systolic murmur. No rub. PMI is nondisplaced. Lungs: Cleat to auscultation Abdomen: +BS. Soft. Nontender. No masses. No organomegaly. Extremities: No edema. Varicosities. No clubbing. No cyanosis Pulses: posterior tibial=2/4. Limited neurological examination: No focal deficit. Data: July 26, 2016 TTE Interpretation Summary (as per Dr. Steinberg): Normal LV chamber size and wall thickness. Normal LV systolic function without regional wall motion abnormality. Calculated LV ejection Fraction = 56% (biplane method of discs). Left atrial enlargement suggests diastolic left ventricular dysfunction. There is mild posterior mitral leaflet prolapse. Mild mitral regurgitation is present. The mitral regurgitation jet is anteriorly directed. The mitral regurgitation jet is also wall impinging. Severe left atrial enlargement. The estimated pulmonary artery systolic pressure is 40 mm Hg. May 12, 2020 TTE Interpretation Summar ([facility], Dr. Goodwin): Technically adequate. Atrial fibrillation with a controlled ventricular response was present on the echocardiogram. Normal LV wall thickness. Left ventricular systolic function is moderately reduced. There is moderate global hypokinesis of the left ventricle. The left ventricular ejection fraction is 35 to 40%. Mild prolapse of theposterior mitral valve leaflet. Moderate to severe mitral regurgitation. Mild tricuspid regurgitation. Doppler findings do not suggest pulmonary hypertension. The interatrial septum is intact, with no evidence of an atrial septal defect. December 01, 2023 EKG: Atrial fibrillation at 67 bpm. Left axis deviation. Possible old inferior infarct. Possible old anteroseptal infarct. When compared to prior tracings, there is no significant change. IMPRESSION: Very pleasant 88-year-old male here today for preoperative cardiology consultation prior to elective right hip replacement on December 08, 2023 as detailed above. Patient with life-limiting hip discomfort. Options of management discussed. Risks explained. Resting echocardiography requested to assess systolic function and current valvular status, to help guide perioperative management. Recommend holding apixaban (Eliquis) three days prior, resuming postoperatively when determined to be safe. Recommend uninterrupted continuation of metoprolol and digoxin perioperatively. Patient notes plans for rehabilitation at [facility] following surgery. Cardiology follow-up as scheduled or as needed. Paul Menjivar PA-C Department of Cardiology I spent a total of 40-54 minutes (exact time 42 mins) on the date of service in preparation, delivery, and documentation of the care provided to Sebastian Joel excluding any time spent in the performance of separately billed services. This visit involved medical care services related to at least one serious condition or complex condition requiring ongoing care. This chart was completed in part utilizing [employer] Speech Voice Recognition Software. Grammatical errors, random word insertions, prounoun errors, and incomplete sentences are an occasional consequence of this system due to software limitations, ambient noise, and hardware issues. Any formal questions or concerns about the content, text, or information contained within the body of this dictation should be directly addressed to the provider for clarification. documented in this encounter Nursing Notes * Allyn Masterson CMA - 12/01/2023 9:52 AM EDT Examination Room: 1 Name: Sebastian Joel Date of : (1935). Reason for Visit: follow up/pre op Interim Hospitalization(s): denies Problems/Concerns: having right hip surgery on 12-08-2023 Chest Pain/SOB: denies [facility] Discussed: Not applicable [facility] is a way you can talk to your provider online through e-mail. Would you like to sign up? I can activate it for you? ALREADY ACTIVE Patient was instructed to not get up on the exam table until directed and assisted by their provider; patient is to remain seated in the chair/ wheelchair/ exam table for fall prevention and safety reasons. Patient is aware to have assistance to step down off exam table with personnel. Patient voiced full comprehension of instructions. documented in this encounter Plan of Treatment Upcoming Encounters Date Type Department Care Team (Late st Contact Info) Description 12/04/2023 4:00 PM EDT Office Visit Urology, [facility] [address] [facility] [place] [address] Joey Marie MD [address] [facility] [place] [address] 01/18/2024 8:00 AM EDT Nurse Only Ancillary Scenery [place] [address] [place] [address] [place], Nurse Annual Wellness Scenery [address] [facility] [place] [address] 03/19/2024 8:30 AM EDT Nurse Only Rheumatology [place] [id number]ie [address] [place] [address] [place], Nurse Rheum [facility] [place] [address] 04/02/2024 3:00 PM EST Office Visit General Internal Medicine [facility] [address] [place] [address] Sandra Dahl MD [address] [facility] [place] [address] 06/25/2024 1:00 PM EST Office Visit [facility] [address] [place] [phone] Morelia Crum CRNP [address] [facility] [place] [address] 09/10/2024 9:00 AM EDT Imaging Radiology, [address] [place] [address] Pending Results Name Type Priority Associated Diagnoses Date /Time ECHO, COMPLETE (2D), TRANS-THORACIC Echocardiology Routine Preoperative cardiovascular examination Non-rheumatic mitral regurgitation 12/01/2023 11:27 AM EDT Scheduled Orders Name Type Priority Associated Diagnoses Orde r Schedule EKG EKG Routine Chronic atrial fibrillation (HCC) Ordered: 12/01/2023 ECHO, COMPLETE (2D), TRANS-THORACIC Echocardiology Routine Preoperative cardiovascular examination Non-rheumatic mitral regurgitation Expected: 12/01/2023, Expires: 12/31/2025 Health Maintenance Due Date Last Done Comments COVID-19 Vaccine ( season) 2023 02/18/2022, 09/23/2021, 08/18/2021, Additional history exists Depression Screening 01/13/2024 01/12/2023 Influenza Vaccine (FLU shot) (#1) 2024 02/04/2022, 03/04/2021, 01/27/2020, Additional history exists Albumin/Creatinine Ratio 04/04/20242 023, 09/22/2022, 09/02/2021, Additional history exists CKD HGB USE SMARTSET 28534 04/04/202404/04, 01/19/2021, 08/20/2020, Additional history exists CKD PHOS USE SMARTSET 31047 04/04/202403/22, 01/25/2022, 09/02/2021, Additional history exists DIG [...] D LEVEL ONCE IN A LIFETIME-USE SMARTSET# [id number] Completed 09/11/2023, 01/25/2022, 01/19/2021, Additional history exists [...] this encounter Medical Devices Implanted Type Area Grass Cutter Device Identifier Shelf Expiration Date Model / Serial / Lot Lens Intraoc 19.0 - [id number] - [id number] Implanted:Qty: 1 on 04/07/2020 by Rip Diallo MD at OR [facility] Right: Eye [employer] 11/18/2024 [id number] / [id number] / [id number] Lens Intraoc 20.0 - [id number] - [id number] Implanted:Qty: 1 on 04/21/2020 by Rip Diallo MD at [facility] Left: Eye [employer] 09/18/2024 [id number] / [id number] / [id number] documented as of this encounter Visit Diagnoses Diagnosis Chronic atrial fibrillation (HCC)- Primary Atrial fibrillation Permanent atrial fibrillation (HCC) Atrial fibrillation Preoperative cardiovascular examination Pre-operative cardiovascular examination Dyslipidemia, goal LDL below 100 Other and unspecified hyperlipidemia Non-rheumatic mitral regurgitation Mitral valve disorders Transient cerebral ischemia, unspecified type Chronic systolic congestive heart failure (HCC) Chronic systolic heart failure documented in this encounter Advance Directives * [...] and were consensually agreed upon. Care Teams Corrections Lieutenant Relationship Specialty Start Date End Date Sandra Dahl MD [address] [place] [address] PCP - General Internal Medicine 06/07/19 documented as of this encounter"
--- OUTSIDE RECORDS SUMMARY | 2023-12-12 05:48 | External Medical Summary | Summary of Care ---
Author Name Unknown Organization [facility] Address [address] [place] [address] Phone [phone] Care Team Providers Care Rfid Developer Name Role Phone Sandra Dahl MD Primary Care Provider + Reason for Visit * Reason Onset Date Comments Advice 11/24/2023 Brenda Turner/ Dr. Goodwin patient Encounter Details Date Type Department Care Team (Late st Contact Info) Description 11/24/2023 Telephone Cardiology, [facility] [address] [facility] [place] [address] Brenda Turner CRNP [address] [facility] [address] Advice (Brenda Turner/Dr. Goodwin patient) Allergies Active [...] 04/16/2013 Prostate cancer 08/30/2011 11/23/2017 [employer] Research Other*[id number] 09/07/2010 07/25/2011 Overview: PROJECT: #[id number], SPONSOR: Willian, PI: Kenneth Ngo MD SUMMARY: [...] encounter can be closed. CONTACT: Asa Leon, Program Consultant [facility], [facility] other surgery 07/27/2009 08/30/2011 Malignant neoplasm of [...] mRNA, LNP-s, No Pre serve, 2-Dose Series (Adcade) 08/18/2021,02/09/2021,08/01/2020,06/22 COVID-19, mRNA, LNR-S, Bival ent, PF, [...] 1:44 PM EDT Called and spoke with [facility] about the pre-op clearance. Patient is scheduled and [facility] is aware of the date and time, and [facility] stated that the surgery will have be bumped out a few days. Patient is scheduled with Brenda Day on: Nov Arrive by 2:15 PM Appt at 2:30 PM (30 min) Brenda Turner CRNP * Telephone Encounter - Anu Gardner CMA - 11/28/2023 11:48 AM EDT Spoke with [facility] PAT - anesthesia is requesting risk stratification and clearance from Cardiology. Please assist with appointment CHLOÉ. I did advise PAT that surgery may be postponed. * Telephone Encounter - Vernell Minor OSA - 11/28/2023 9:01 AM EDT Person calling: Maximo Ortega Relationship to patient: Number to return call: [phone] Reason for call(brief): cardiac clearance Pharmacy: na [...] to patient: self Number to return call: [phone] Reason for call(brief): Advice Provider Name: Brenda QUINTANA Detailed message to office: Patient calling requesting a call back. Patient is scheduled for Right Hip Surgery w/Dr. Barber at [facility] on 12/08/23 and was advised to hold his Eliquis 3 days prior. Patient is asking when he should take his last dose prior to the upcoming procedure. Patient can be reached at [phone] to discuss. Thank You, [place] V[place] [id number] documented in this encounter Plan of Treatment Upcoming Encounters Date Type Department Care Team (Late st Contact Info) Description 12/04/2023 4:00 PM EDT Office Visit Urology, [facility] [address] [place] [address] Joey Marie MD [address] [place] [address] 12/14/2023 2:30 PM EDT [facility] [address] [place] [address] Brenda Turner CRNP [address] [place] [address] 01/18/2024 8:00 AM EDT Nurse Only Ancillary [facility] [address] [place] [address] [place], Nurse Annual Wellness Scenery [address] [place] [address] 03/19/2024 8:30 AM EDT Nurse Only Rheumatology [address] [place], [place] [address] Pf, Nurse Rheum [address] [place] [address] [place], [place] [address] 04/02/2024 3:00 PM EST Office Visit General Internal Medicine [facility] 200 [facility] [place] [address] Sandra Dahl MD [address] [place], [place] [address] 06/25/2024 1:00 PM EST Office Visit Sleep Disorders Ctr [facility] [address] [place] [phone] Morelia Crum CRNP [facility] [place] [address] 09/10/2024 9:00 AM EDT Imaging Radiology, [address] [place], [place] [address] Health Maintenance Due Date Last Done Comments COVID-19 Vaccine ( season) 2023 02/18/2022, 09/23/2021, 08/18/2021, Additional history exists Depression Screening 01/13/2024 01/12/2023 Influenza Vaccine (FLU shot) (#1) 2024 02/04/2022, 03/04/2021, 01/27/2020, Additional history exists Albumin/Creatinine Ratio 04/04/202404/04/2 023, 09/22/2022, 09/02/2021, Additional history exists CKD HGB USE SMARTSET 70103 04/04/202404/04, 01/19/2021, 08/20/2020, Additional history exists CKD PHOS USE SMARTSET 09235 04/04/202403/22, 01/25/2022, 09/02/2021, Additional history exists DIG [...] D LEVEL ONCE IN A LIFETIME-USE SMARTSET# 48582 Completed 09/11/2023, 01/25/2022, 01/19/2021, Additional history exists [...] this encounter Medical Devices Implanted Type Area Grease Buffer Device Identifier Shelf Expiration Date Model / Serial / Lot Lens Intraoc 19.0 - [id number] - [id number] Implanted:Qty: 1 on 04/07/2020 by Rip Diallo MD at OR [facility] Right: Eye [employer] LOMB 11/18/2024 [id number] / [id number] Lens Intraoc 20.0 - [id number] - [id number] Implanted:Qty: 1 on 04/21/2020 by Rip Diallo MD at OR [facility] Left: Eye BAUSCH & LOMB 09/18/2024 [id number] / [id number] / [id number] documented as of this encounter Advance Directives [...] and were consensually agreed upon. Care Teams Rfid Developer Relationship Specialty Start Date End Date Sandra Dahl MD [address] [place] [address] PCP - General Internal Medicine 06/07/19 documented as of this encounter
--- OUTSIDE RECORDS SUMMARY | 2023-12-12 05:48 | External Medical Summary | Summary of Care ---
Author Name Unknown Organization [facility] Address [address] [place] [address] Phone [phone] Care Team Providers Care Solutions Specialist Name Role Phone Sandra Dahl MD Primary Care Provider + Encounter Details Date Type Department Care Team (Late st Contact Info) Description 11/28/2023 Orders Only PATIENT PORTAL DO NOT DELETE THIS DEPT USED BY [place] WILSON [id number] Allergies Active Allergy Reactions Criticality Noted Date [...] 04/16/2013 Prostate cancer 08/30/2011 11/23/2017 ORBIT-[employer] Research Other*[id number] 09/07/2010 07/25/2011 Overview: PROJECT: #[id number], SPONSOR: Willian, PI: Kenneth Ngo MD SUMMARY: [...] encounter can be closed. CONTACT: Asa Leon, Bridge Repairer Follow-up examination, [facility] other surgery 07/27/2009 08/30/2011 Malignant neoplasm of [...] mRNA, LNP-s, No Pre serve, 2-Dose Series (Samfind) 08/18/2021,02/09/2021,08/01/2020,07/04 COVID-19, mRNA, LNR-S, Bival ent, PF, 3 mcg/0.2 ml (Samfind) 6m to 4 years 09/23/2021 Covid-19, Mrna, [...] 12/04/2023 4:00 PM EDT Office Visit Urology, [facility] 132 [facility] [place] [address] Joey Marie MD [address] [place] [address] 01/18/2024 8:00 AM EDT Nurse Only [facility] [address] [place] [address] [place], Nurse Annual Wellness Scenery [address] [facility] [place] [address] 03/19/2024 8:30 AM EDT Nurse Only Rheumatology [place] [id number] [place] [address] Pf, Nurse Rheum [facility]0 [address] [place] [address] 04/02/2024 3:00 PM EST Office Visit General Internal Medicine [facility] [address] [place], [place] [address] Sandra Dahl MD [address] [facility] [place] [address] 06/25/2024 1:00 PM EST Office Visit Sleep Disorders Ctr [facility] [address] [place] [phone] Morelia Crum CRNP [address] [place] [address] 09/10/2024 9:00 AM EDT Imaging Radiology, [facility] [address] [facility] [place] [address] Health Maintenance Due Date Last Done Comments COVID-19 Vaccine ( season) 2023 02/18/2022, 09/23/2021, 08/18/2021, Additional history exists Depression Screening 01/13/2024 01/12/2023 Influenza Vaccine (FLU shot) (#1) 2024 02/04/2022, 03/04/2021, 01/27/2020, Additional history exists Albumin/Creatinine Ratio 04/04/2024 023, 09/22/2022, 09/02/2021, Additional history exists CKD HGB USE SMARTSET 59819 04/04/202404/04, 01/19/2021, 08/20/2020, Additional history exists CKD PHOS USE SMARTSET 67298 04/04/202403/22, 01/25/2022, 09/02/2021, Additional history exists DIG LEVEL FOR MEDICATION MONITORING YEARLY 04/04/2024 04/04/2023, 01/19/2021, 08/04/2020, Additional history exists HbA1c 04/04/2024 04/04/2023, 12/22, 10/04/2019, Additional history exists DTaP,Tdap,and Td Vaccines (2 - Td or Tdap) 06/27/2024 06/27/2014, 01/02/2007, 01/02/2007 DXA Scan 08/30/2024 08/30/2022, /, 01/10/2017, Additional history exists Zoster Vaccines Completed 01/29/2019, 01/20, 11/16/2018, Additional history exists Pneumococcal Vaccine: 65+ Years Completed 02/09/2019, 06/19/2014, 03/16/2011, Additional history exists VITAMIN D LEVEL ONCE IN A LIFETIME-USE SMARTSET# 35346 Completed 09/11/2023, 01/25/2022, 01/19/2021, Additional history exists [...] this encounter Medical Devices Implanted Type Area Automotive Warranty Administrator Device Identifier Shelf Expiration Date Model / Serial / Lot Lens Intraoc 19.0 - [id number] - [id number] Implanted:Qty: 1 on 04/07/2020 by Rip Diallo MD at OR [facility] Right: Eye BAUSCH [employer] LOMB 11/18/2024 [id number] / [id number] / [id number] Lens Intraoc 20.0 - [id number] - [id number] Implanted:Qty: 1 on 04/21/2020 by Rip Diallo MD at OR [facility] Left: Eye BAUSCH & LOMB 09/18/2024 [id number] / [id number] / [id number] documented as of this encounter Advance Directives [...] and were consensually agreed upon. Care Teams Solutions Specialist Relationship Specialty Start Date End Date Sandra Dahl MD 200 [facility] [place] [address] PCP - General Internal Medicine 06/07/19 documented as of this encounter
--- OUTSIDE RECORDS SUMMARY | 2023-12-12 05:49 | External Medical Summary | Summary of Care ---
Author Name Unknown Organization [facility] Address [address] [place] [address] Phone [phone] Care Team Providers Care Aluminum Boat Assembly Supervisor Name Role Phone Sandra Dahl MD Primary Care Provider + Reason for Visit * Reason Onset Date Comments Advice 11/24/2023 Brenda Turner/ Dr. Goodwin patient Encounter Details Date Type Department Care Team (Late st Contact Info) Description 11/24/2023 Telephone Cardiology, [facility] [address] [place] [address] Brenda Turner CRNP [address] [facility] [address] Advice (Brenda Turner/Dr. Goodwin patient) Allergies Active Allergy Reactions Criticality Noted Date Comments Amoxicillin Rash 02/10/2005 Dronabinol 10/03/2019 Alters your sense of time Fibrates Muscle pain 04/16/2003 tricor Penicillins Rash 06/08/2000 Warfarin Sodium 11/09/2000 Bruising but at low dosage no bruising-can not take dose higher than 2.5 mg documented as of this encounter (statuses as of 11/27/2023) Medications Medication Sig Dispensed Refills Start Date [...] as of this encounter (statuses as of 11/27/2023) Active Problems Problem Noted Date Diagnosed Date [...] as of this encounter (statuses as of 11/27/2023) Resolved Problems Problem Noted Date Diagnosed Date Resolved Date Controlled substance agreement signed 07/11/2019 03/29/2023 Kidney disease, chronic, sta ge III (GFR 30-59 ml/min) 07/02/2018 07/03/2019 Overview: Per CKD protocol #1 Abnormal EKG 12/18/2014 11/23/2017 Shoulder pain 07/18/2014 04/23/2018 TIA (transient ischemic attack) 10/20/2013 11/23/2017 Overview: aphasia SOB (shortness of breath) 04/16/2013 Prostate cancer 08/30/2011 11/23/2017 ORBIT-[employer] Research Other*[id number] 09/07/2010 07/25/2011 Overview: PROJECT: #[id number], SPONSOR: Willian, PI: Kenneth Ngo MD SUMMARY: [...] encounter can be closed. CONTACT: Asa Leon, Loom Blower [facility] 07/27/2009 08/30/2011 Malignant [...] as of this encounter (statuses as of 11/27/2023) Immunizations Name Administration Dates Next Due COVID-19 mRNA, LNP-s, No Pre serve, 2-Dose Series (Selectable Media) 08/18/2021,02/09/2021,08/01/2020,07/04 COVID-19, mRNA, LNR-S, Bival ent, PF, 3 mcg/0.2 ml (Pfizer) 6m to 4 years 09/23/2021 Covid-19, Mrna, Lnp-s, Pf, B ivalent, 30 Mcg, IM, 12 yrs and above ([employer]able [employer]) 02/18/2022 H1N1 2009 Influenza, IM 03/31/2009 Pneumococcal Conjugate Vacc, 13 Valent (Prevnar) 06/19/2014 Pneumococcal Polysaccharide PPV23 (Pneumovax) 02/09/2019,03/16/2011,05/22/2000 Season Influenza, Quad, PF, Adjuvanted, 65+ Yrs, IM (FLUAD) 01/27/2020 Seasonal Influenza Virus Vac cine, Unspecified Formulation 01/25/2018,02/20/2016,01/02/2015,02/19,03/22/2013,03/18/2013,02/19/2011 ,03/05/2010,03/17/2009,02/25/2008,06/2006,03/23/2006,02/22/2005,,03/18/2003,03/19/2002,05/03/2000 Seasonal Influenza, PF, 6 M & above, [...] encounter Miscellaneous Notes * Telephone Encounter - Santy Blackwell RN [...] to patient: self Number to return call: [phone] Reason for call(brief): Advice Provider Name: Brenda QUINTANA Detailed message to office: Patient calling requesting a call back. Patient is scheduled for Right Hip Surgery w/Dr. Barber at [facility] on 12/08/23 and was advised to hold his Eliquis 3 days prior. Patient is asking when he should take his last dose prior to the upcoming procedure. Patient can be reached at [phone] to discuss. Thank You, [place] Vences [id number] documented in this encounter Plan of Treatment Upcoming Encounters Date Type Department Care Team (Late st Contact Info) Description 12/04/2023 4:00 PM EDT Office Visit Urology, [facility] 132 [facility] [place] [address] Joey Marie MD [address] [place] [address] 01/18/2024 8:00 AM EDT Nurse Only Ancillary [facility] [place] [address] [place] [address] [place], Nurse Annual Wellness Scenery [address] [place] [address] 03/19/2024 8:30 AM EDT Nurse Only Rheumatology [address] [place], [place] [address] Pf, Nurse Rheum [address] [place] [address] [place], [place] [address] 04/02/2024 3:00 PM EST Office Visit General Internal Medicine [facility] 200 [facility] [place] [address] Sandra Dahl MD 200 [facility] [place] [address] 06/25/2024 1:00 PM EST Office Visit [facility] Disorders Ctr [facility] [place] [phone] Morelia Crum CRNP 132 [facility] [place] [address] 09/10/2024 9:00 AM EDT Imaging Radiology, [address] [place], [place] [address] Health Maintenance Due Date Last Done Comments COVID-19 Vaccine ( season) 2023 02/18/2022, 09/23/2021, 08/18/2021, Additional history exists Depression Screening 01/13/2024 01/12/2023 Influenza Vaccine (FLU shot) (#1) 2024 02/04/2022, 03/04/2021, 01/27/2020, Additional history exists Albumin/Creatinine Ratio 04/04/202404/04/2 023, 09/22/2022, 09/02/2021, Additional history exists CKD HGB USE SMARTSET 55004 04/04/202404/04, 01/19/2021, 08/20/2020, Additional history exists CKD PHOS USE SMARTSET 24500 04/04/202403/22, 01/25/2022, 09/02/2021, Additional history exists DIG [...] D LEVEL ONCE IN A LIFETIME-USE SMARTSET# 97248 Completed 09/11/2023, 01/25/2022, 01/19/2021, Additional history exists [...] this encounter Medical Devices Implanted Type Area X Ray Equipment Tester Device Identifier Shelf Expiration Date Model / Serial / Lot Lens Intraoc 19.0 - [id number] - [id number] Implanted:Qty: 1 on 04/07/2020 by Rip Diallo MD at OR [facility] Right: Eye BAUSCH [employer] LOMB 11/18/2024 [id number] / [id number] / [id number] Lens Intraoc 20.0 - [id number] - [id number] Implanted:Qty: 1 on 04/21/2020 by Rip Diallo MD at OR [facility] Left: Eye BAUSCH [employer] LOMB 09/18/2024 [id number] / [id number] / [id number] documented as of this encounter Advance Directives [...] and were consensually agreed upon. Care Teams Aluminum Boat Assembly Supervisor Relationship Specialty Start Date End Date Sandra Dahl MD 200 [place] [address] PCP - General Internal Medicine 06/07/19 documented as of this encounter
--- OUTSIDE RECORDS SUMMARY | 2023-12-12 05:49 | External Medical Summary ---
Author Name Unknown Address Unknown Organization K01:[facility] [address] [place] [address] Laboratory Report Ordering Provider Test Date Status LISA SONG 11/28/2023 10:59:31 Final Observation Date Value Abnormality Reference (Units ) Status PSA 11/28/2023 10:59:31 0.28 <4.10 (ng/ mL) Final Performing Location [facility] [address] [place] [address]
--- OUTSIDE RECORDS SUMMARY | 2023-12-12 05:49 | External Medical Summary | Summary of Care ---
Author Name Unknown Organization [facility] Address [address] [place] [address] Phone [phone] Care Team Providers Care Chinese Instructor Name Role Phone Sandra Dahl MD Primary Care Provider + Reason for Visit * Reason Onset Date Comments Advice 11/24/2023 Brenda Turner/ Dr. Goodwin patient Encounter Details Date Type Department Care Team (Late st Contact Info) Description 11/24/2023 Telephone Cardiology, [facility] [address] [facility] [place] [address] Brenda Turner CRNP [address] [facility] [address] Advice (Brenda Turner/Dr. Goodwin patient) Allergies Active [...] 04/16/2013 Prostate cancer 08/30/2011 11/23/2017 [employer] Research Other*[id number] 09/07/2010 07/25/2011 Overview: PROJECT: #[id number], SPONSOR: Willian, PI: Kenneth Ngo MD SUMMARY: [...] encounter can be closed. CONTACT: Asa Leon, Workers Compensation Adjuster [facility], [facility] other surgery 07/27/2009 08/30/2011 Malignant neoplasm of [...] mRNA, LNP-s, No Pre serve, 2-Dose Series ([employer]) 08/18/2021,02/09/2021,08/01/2020,06/22 COVID-19, mRNA, LNR-S, Bival ent, PF, [...] encounter Miscellaneous Notes * Telephone Encounter - Vernell Minor OSA - 11/28/2023 9:01 AM EDT Person calling: Maximo Ortega Relationship to patient: Number to return call: [phone] Reason for call(brief): cardiac clearance Pharmacy: na [...] to patient: self Number to return call: [phone] Reason for call(brief): Advice Provider Name: Brenda QUINTANA Detailed message to office: Patient calling requesting a call back. Patient is scheduled for Right Hip Surgery w/Dr. Barber at [facility] on 12/08/23 and was advised to hold his Eliquis 3 days prior. Patient is asking when he should take his last dose prior to the upcoming procedure. Patient can be reached at [phone] to discuss. Thank You, [place] Vences [id number] documented in this encounter Plan of Treatment Upcoming Encounters Date Type Department Care Team (Late st Contact Info) Description 12/04/2023 4:00 PM EDT Office Visit Urology, [facility] [address] [place] [address] Joey Marie MD [address] [place] [address] 01/18/2024 8:00 AM EDT Nurse Only Ancillary [facility] [place] [address] [place] [address] [place], Nurse Annual Wellness [facility] 200 [facility] [place] [address] 03/19/2024 8:30 AM EDT Nurse Only Rheumatology [facility] [address] [place] [address] Pf, Nurse Rheum [facility] [place] [address] 04/02/2024 3:00 PM EST Office Visit General Internal Medicine [facility] [place] [address] [place] [address] Sandra Dahl MD 200 [facility] [place] [address] 06/25/2024 1:00 PM EST Office Visit Sleep Disorders Ctr [facility] [place] [address] [place] [phone] Morelia Crum CRNP [address] [place] [address] 09/10/2024 9:00 AM EDT Imaging Radiology, [place] [address] [place] [address] Health Maintenance Due Date Last Done Comments COVID-19 Vaccine ( season) 2023 02/18/2022, 09/23/2021, 08/18/2021, Additional history exists Depression Screening 01/13/2024 01/12/2023 Influenza Vaccine (FLU shot) (#1) 2024 02/04/2022, 03/04/2021, 01/27/2020, Additional history exists Albumin/Creatinine Ratio 04/04/2024 023, 09/22/2022, 09/02/2021, Additional history exists CKD HGB USE SMARTSET 95829 04/04/202404/04, 01/19/2021, 08/20/2020, Additional history exists CKD PHOS USE SMARTSET 44573 04/04/202403/22, 01/25/2022, 09/02/2021, Additional history exists DIG [...] D LEVEL ONCE IN A LIFETIME-USE SMARTSET# 00970 Completed 09/11/2023, 01/25/2022, 01/19/2021, Additional history exists [...] this encounter Medical Devices Implanted Type Area Offline Editor Device Identifier Shelf Expiration Date Model / Serial / Lot Lens Intraoc 19.0 - [id number] - [id number] Implanted:Qty: 1 on 04/07/2020 by Rip Diallo MD at OR [facility] Right: Eye [employer]CH [employer] LOMB 11/18/2024 [id number] / [id number] / [id number] Lens Intraoc 20.0 - [id number] - [id number] Implanted:Qty: 1 on 04/21/2020 by Rip Diallo MD at OR [facility] Left: Eye BAUSCH [employer] LOMB 09/18/2024 [id number] / [id number] / [id number] documented as of this encounter Advance Directives [...] and were consensually agreed upon. Care Teams Chinese Instructor Relationship Specialty Start Date End Date Sandra Dahl MD 200 [place] [address] PCP - General Internal Medicine 06/07/19 documented as of this encounter
[2023-12-12] MEDS: LR 60ML/HR IV SCH (05:55)
[2023-12-12] MEDS: LR 500ML BOLUS, THEN 15ML/HR IV SCH (05:55)
[2023-12-12] MEDS: dexAMETHasone**PF** 10 MG/ML VIAL IV SCH (05:55)
[2023-12-12] MEDS: FAMOTIDINE 20 MG TAB PO SCH (05:55)
[2023-12-12] MEDS: ACETAMINOPHEN 500 MG TAB PO SCH ×2 (05:55→13:24)
[2023-12-12] MEDS: CeleBREX 200 MG CAP PO SCH (05:55)
[2023-12-12] MEDS: METOCLOPRAMIDE HCL 10 MG TABLET PO SCH (05:55)
[2023-12-12] MEDS ORDERED: BUPIVACAINE 0.5 % 5 MG/1 ML PF 10ML VIAL ONE (06:15)
[2023-12-12] MEDS ORDERED: ONDANSETRON INJ 2 MG/ML 2 ML VIAL IV PRN ×2 (06:40→10:47)
[2023-12-12] MEDS ORDERED: ePHEDrine sulfate 50 MG/ML AMP IV PRN (06:40)
[2023-12-12] MEDS ORDERED: fentaNYL citrate PF 100 MCG/2 ML VIAL IV PRN (06:40)
[2023-12-12] MEDS ORDERED: ATROPINE SULFATE 0.1 MG/ML 10ML SYR IV PRN (06:40)
[2023-12-12] MEDS: TRANEXAMIC ACID 1,000 MG **IV Pre-op IV SCH (06:42)
[2023-12-12] MEDS ORDERED: fentaNYL citrate PF 100 MCG/2 ML VIAL ONE (06:43)
--- NOTE | 2023-12-12 06:45 | History & Physical Bridge Note ---
Date of Service December 12, 2023 History & Physical Bridge Note I have examined the patient, reviewed the History & Physical and in the interval since the performance of the History & Physical I have noted the following changes of clinical significance: no changes noted
[2023-12-12] MEDS ORDERED: PROPOFOL IV EMULSION 10 MG/ML 20 ML VIAL IV ONE (06:53)
[2023-12-12] MEDS: ceFAZolin 2000MG 2,000 MG/15 ML SYR IV SCH (06:58)
[2023-12-12] MEDS ORDERED: PHENYLEPHRINE 100MCG/ML 10ML SYR IV ONE (07:10)
[2023-12-12] MEDS: BUPIVACAINE/EPINEPHRINE 0.5% MPF 1:200,000 30 ML VIAL ONE (07:33)
--- NOTE | 2023-12-12 08:22 | Operative Report ---
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 He had grade 4 [id number] disease of the femoral head and acetabulum. He had a moderate-sized joint effusion. Of note, this patient's right leg seemed a bit longer than the left even preoperatively. Specimens Right femoral head sent for pathology Anesthesia Type Spinal MAC Complications none Disposition Accompanied Patient To Recovery: No Indications Patient is an 79-year-old gentleman with a history of multiple orthopedic issues over the years. He had his left hip replaced in the past about 25 years ago and both shoulders replaced. Over the past year he has developed increased pain discomfort in the right hip but got significantly worse over the past 6 months to the point where he said use a cane to get around. X-rays show advanced right hip arthritis. Failed conservative measures. He was having difficulty maintaining any degree of active lifestyle. He was seen by his medical doctors and credit and collections representative and medically optimized. He elected proceed with surgical treatment/hip replacement. Description of Procedure Operative implants consist of: 1 Biomet G7 size 58 mm acetabular shell. 2. 6.5 cancellous acetabular screws 1 at 35 mm length and 1 of 30 mm length. 3. Dual mobility metal liner. 4. Size 12 Corail KLA femoral stem. 5. +5/28 mm ceramic articular ball with a 44 mm dual mobility liner. The patient was taken to the op room, identified, placed on the operating table in the supine position but all contact areas were appropriately padded. IV antibiotics were provided by the anesthesia team. A spinal anesthetic had been implemented holding area. The patient was then placed in the left lateral decubitus position. An axillary roll was placed. Stulberg hip positioner was used for positioning. The right hip and leg were then prepped and draped in usual sterile fashion. A posterolateral approach to the right hip was then performed to a curvilinear incision centered over the greater trochanter. Sharp dissection Through subcutaneous tissue down over the IT band gluteal fascia. The IT band gluteal fascia were incised longitudinally in line with skin incision. The underlying greater bursa was excised. The piriformis and external rotators along with the posterior hip joint capsule were then released from the posterior aspect the hip as a single layer. The hip was internally rotated and dislocated. Femoral neck osteotomy cut was made with Final Cut 15 mm above the lesser trochanter. Femoral head was removed and sent for pathology. The femur was retracted anteriorly. Attention drawn the acetabulum. The acetabular labrum was excised. The pulmonary fat was excised. Sequential reaming the acetabular was then performed beginning with size 45 and progressing up to a 57. I then reamed a little bit with a 50 reamer and placed a 58 mm Biomet G7 acetabular shell in about 40 degrees lateral opening and 20 degrees of anteversion. It was fixed with two 6.5 screws. A trial liner was placed. Attention drawn the femur. The proximal femur was entered with a cookie cutter followed by canal finder. I then broached beginning with size 8 and progressed up to 12 to get excellent fitted to 12. I trialed the hip and the +5 articular ball provide full stability. Due to this patient's severe fixed kyphosis deformity we elected to use a dual mobility cup and liner. Attention drawn to placing the permanent components. All trial components were removed. A dual mobility metal liner was placed. A size 12 KLA femoral stem was impacted in position. A +5/28 mm ceramic articular ball with a 44 mm bipolar liner was placed and the hip was relocated. The hip was fully stable. The leg lengths appeared pretty equal. He once again still seem just a little bit long on this compared to the opposite side but this is what he was like preoperatively. Attention drawn toward closing. Wounds irrigated coconuts pulsatile lavage solution. I did inject locally with 60 cc of half percent Marcaine with epinephrine. Posterior capsule and external rotators were then repaired through drill holes in the posterior trochanter with #2 Tycron suture. The IT band gluteal fascia then closed in 1 PDS suture in a running fashion. Subcutaneous tissues then closed with 2 layers the deep layer #1 Vicryl suture and subcutaneous tissues with 2-0 Dexon suture in a buried interrupted fashion. Skin was closed skin isaiah. Leg was then cleaned and dried and sterile dressing with Xeroform, 4 fours, ABD pad and foam tape was applied. The patient was then transferred to the recovery room in stable condition. Patient tolerated procedure well and there were no complications. Xavier Power, my physician sociology research assistant, was present for the entire procedure. His assistance was essential and required for appropriate patient positioning, prepping and draping, surgical exposure, performing the technical details of the operation, placement the implants, closure of the wound, and placement of the sterile bandage. I attest to the content of the Intraoperative Record and any orders documented therein. Any exceptions are noted below.
--- NOTE | 2023-12-12 09:25 | XRay Report ---
AP PELVIS, CROSSTABLE LATERAL RIGHT HIP History: Right total hip arthroplasty. Degenerative arthritis. Postop. FINDINGS: The patient is status post a right total hip arthroplasty. The hardware is intact. No fract ure or dislocation. Skin isaiah are in place. Evidence for prior left total hip arthroplasty. IMPRESSION: Right total hip arthroplasty. No evidence for hardware complication ACT 112: Negative or not required by law. Electronically signed by: Girma Ashton M.D. 12/12/2023 9:23 AM
--- NOTE | 2023-12-12 10:22 | Anesthesiology Progress Note ---
Date of Service December 12, 2023 Anesthesia Post Procedure Vital Signs Vital Signs: Temp Pulse Pulse Resp BP Pulse Ox O2 Del Method 12/12/23 10:15 87 21 122/71 97 Room Air 12/12/23 10:00 97.3 F L 74 22 117/80 98 Room Air 12/12/23 09:45 72 17 120/85 98 Room Air 12/12/23 09:30 71 19 116/76 95 Room Air 12/12/23 09:20 75 22 114/68 98 Room Air 12/12/23 09:10 73 20 107/78 95 Room Air 12/12/23 09:00 69 18 109/75 99 Room Air 12/12/23 08:50 71 12 111/79 96 Room Air 12/12/23 08:40 66 21 109/68 97 Room Air 12/12/23 08:30 82 23 103/72 97 Room Air 12/12/23 08:20 76 22 110/62 100 Oxymask 12/12/23 08:11 97.0 F L 78 20 106/54 L 97 Oxymask 12/12/23 05:38 Room Air, BiPAP 12/12/23 05:38 97.7 F 81 18 145/76 H 97 Room Air, BiPAP O2 Flow Rate 12/12/23 10:15 12/12/23 10:00 12/12/23 09:45 12/12/23 09:30 12/12/23 09:20 12/12/23 09:10 12/12/23 09:00 12/12/23 08:50 12/12/23 08:40 12/12/23 08:30 12/12/23 08:20 3 12/12/23 08:11 6 12/12/23 05:38 12/12/23 05:38 Pain Intensity Right Hip: Pain Intensity: 2 Transfer of Care Handoff Completed per policy Notes Mental Status: alert / awake / arousable and participated in evaluation Patient Amnestic to Procedure: Yes Nausea / Vomiting: adequately controlled Pain: adequately controlled Airway Patency, RR, SpO2: stable & adequate BP & HR: stable & adequate Hydration State: stable & adequate Neuraxial Anesthesia: was administered and sensory block is resolving Anesthetic Complications: no major complications apparent and Pt Satisfied with anesthetic care
[2023-12-12] MEDS ORDERED: ALUMINUM/MAGNESIUM SUSP 30 ML UDC PO PRN (10:47)
[2023-12-12] MEDS ORDERED: TAMSULOSIN HCL 0.4 MG CAP PO PRN (10:47)
[2023-12-12] MEDS ORDERED: NALOXONE HCL 0.4 MG/1 ML VIAL/CARP IV PRN (10:47)
[2023-12-12] MEDS ORDERED: bisacodyL 10 MG SUPP PR PRN (10:47)
[2023-12-12] MEDS ORDERED: SENNA 8.6 MG TAB PO SCH (10:47)
[2023-12-12] MEDS ORDERED: HYDROmorphone INJ 0.5 MG/0.5 ML SYR IV PRN (10:47)
[2023-12-12] MEDS ORDERED: METOCLOPRAMIDE HCL INJ 5 MG/ML 2 ML VIAL IV PRN (10:47)
[2023-12-12] MEDS: SODIUM CHLORIDE 0.9% 1,000 ML IV SCH (10:59)
[2023-12-12] MEDS: KETOROLAC TROMETHAMINE 15 MG/ML VIAL IV SCH (11:24)
[2023-12-12] MEDS: DOCUSATE SODIUM 100 MG CAP PO SCH (11:24)
[2023-12-12] MEDS: MULTIVITAMIN TAB PO SCH (11:58)
[2023-12-12] MEDS: TRANEXAMIC ACID / 0.7% NACL 1,000 MG/100 ML BAG IV SCH (13:32)
[2023-12-12] MEDS: ceFAZolin 1000MG 1,000 MG/7.5 ML SYR IV SCH (15:06)
[2023-12-12] MEDS: ASCORBIC ACID 500 MG TAB PO SCH (16:19)
[2023-12-12] MEDS: SENNA 8.6 MG TAB PO SCH (20:17)
[2023-12-12] MEDS: LORATADINE 10 MG TAB PO SCH (20:18)
[2023-12-12] MEDS: ATORVASTATIN 40 MG TAB PO SCH (20:18)
[2023-12-12] MEDS: allopurinoL 100 MG TAB PO SCH (20:18)
[2023-12-12] MEDS: METOPROLOL SUCC 25MG EXT REL TAB PO SCH (20:18)
[2023-12-12] MEDS: FERROUS SULFATE 325 MG TAB PO SCH (20:18)
[2023-12-12] MEDS: DIGOXIN 0.125 MG TAB PO SCH (20:18)
[2023-12-12] MEDS: CHOLECALCIFEROL 25 MCG (1000 UNITS) TAB PO SCH (20:18)
[2023-12-12] MEDS ORDERED: LION S MANE PO SCH (21:00)
[2023-12-12] MEDS ORDERED: NON-FORMULARY MEDICATION (Multivitamin-Minerals-Lutein Tablet) PO SCH (21:00)
[2023-12-13] MEDS: traMADol HCL 50 MG TABLET PO PRN (03:32)
[2023-12-13] MEDS: APIXABAN 2.5 MG TAB PO SCH (07:50)
[2023-12-13] MEDS: dexAMETHasone 10 MG in SYRINGE 0 ML IV SCH (07:51)
[2023-12-13] MEDS: ACETAMINOPHEN 500 MG TAB PO SCH (07:59)
[2023-12-13] MEDS: ceFAZolin 2000MG 2,000 MG/15 ML SYR IV SCH (08:00)
[2023-12-13] MEDS: CeleBREX 200 MG CAP PO SCH (08:00)
[2023-12-13] MEDS: dexAMETHasone**PF** 10 MG/ML VIAL IV SCH (08:00)
[2023-12-13] MEDS: LR 500ML BOLUS, THEN 15ML/HR IV SCH (08:01)
[2023-12-13] MEDS: FAMOTIDINE 20 MG TAB PO SCH (08:01)
[2023-12-13] MEDS: TRANEXAMIC ACID 1,000 MG **IV Pre-op IV SCH (08:02)
[2023-12-13] MEDS: METOCLOPRAMIDE HCL 10 MG TABLET PO SCH (08:02)
[2023-12-13 08:07] LABS: BUN Creatinine Ratio 23.3 (10-20); Basophils # (auto) 0.02 K/uL (0.00-0.20); Basophils % (auto) 0.2 %; Creatinine Clr Calc Pharmacy 30.2 ml/min; Est GFR (African American) 47.2 ml/min; Est GFR (Non-African American) 40.7 ml/min; Hematocrit (blood only) 36.4 % (42.0-52.0); Hemoglobin 12.3 g/dl (14.0-18.0); Immature Granulocytes # (auto) 0.07 K/uL (0.01-0.20); Immature Granulocytes % (auto) 0.6 %; Lymphocytes # (auto) 0.71 K/uL (1.20-3.40); Mean Corpuscular Hemoglobin 32.5 pg (25.0-34.0); Mean Corpuscular Hgb Conc 33.8 g/dL (32.0-36.0); Mean Corpuscular Volume 96.3 fL (80.0-100.0); Mean Platelet Volume 12.1 fL (9.4-12.4); Monocytes # (auto) 1.26 K/uL (0.11-0.59); Monocytes % (auto) 10.6 %; Neutrophils # (auto) 9.85 K/uL (1.40-6.50); Neutrophils % (auto) 82.6 %; Platelet Count 103 K/uL (130-400); Potassium 4.7 mmol/L (3.5-5.1); RDW Coefficient of Variation 12.7 % (11.5-14.5); RDW Standard Deviation 44.5 fL (36.4-46.3); Red Blood Count 3.78 M/uL (4.70-6.10); White Blood Count 11.91 K/ul (4.8-10.8)
--- NOTE | 2023-12-13 08:56 | Orthopedic Progress Note ---
Date of Service December 13, 2023 Assessment & Plan (1) S/P total right hip arthroplasty: Pain controlled. dvt prophylaxis: teds, scd's, elicandiceis PT/OT wbat, emphasized hip precautions with him d/c planning: would like to go to rehab Subjective .88 year old patient POD #1 from right rios. Doing well. Had some thigh pain but was relieved with 1 tramadol. No new complaints. Review of Systems All systems reviewed & are unremarkable except as noted in HPI & below. Physical Exam .alert and oriented. NAD. VSS Right leg: dressing clean, dry, intact. No pain with motion. Able to dorsiflex and plantarflex. NVI. Hip located. Results & Data Results & Data Laboratory Results . Diagnostic Findings . PG Care Time/CCT Total # of Minutes Spent Total Time Spent with Patient: Total time spent is greater than 50% in coordination of care (as documented) at patient's floor/unit and/or counseling patient: Coding Level of Care Code 54134 Post Operative Follow-Up Diagnoses S/P total right hip arthroplasty Z96.641
--- NOTE | 2023-12-14 09:20 | Orthopedic Progress Note ---
Date of Service December 14, 2023 Assessment & Plan (1) S/P total right hip arthroplasty: d/c planning: awaiting discharge to rehab PT/OT: wbat, hip precautions dvt prophylaxis: teds, scds, eliquis Seen and examined by Dr. Sunil Shoemaker .88 year old patient POD #2 from right rios. Pain controlled. No new complaints. Awaiting discharge to rehab potentially. Review of Systems All systems reviewed & are unremarkable except as noted in HPI & below. Physical Exam . alert and oriented. NAD. VSS dressing clean, dry, intact. hip is located. NVI Results & Data Results & Data Laboratory Results . Diagnostic Findings . PG Care Time/CCT Total # of Minutes Spent Total Time Spent with Patient: Total time spent is greater than 50% in coordination of care (as documented) at patient's floor/unit and/or counseling patient: Coding Level of Care Code 78089 Post Operative Follow-Up Diagnoses S/P total right hip arthroplasty Z96.641
[2023-12-14 09:56] LABS: BUN Creatinine Ratio 26.6 (10-20); Creatinine Clr Calc Pharmacy 29.4 ml/min; Est GFR (African American) 45.7 ml/min; Est GFR (Non-African American) 39.4 ml/min; Potassium 4.6 mmol/L (3.5-5.1)
--- NOTE | 2023-12-15 07:42 | Orthopedic Progress Note ---
Date of Service December 15, 2023 Assessment & Plan (1) S/P total right hip arthroplasty: Plan: 88-year-old gentleman postop day 3 from a right total hip placement doing well orthopedically. He was hoping to go to rehab but got denied. He is now hoping to go to a fdc. He lives by himself and be difficult for him to manage is probably going home. Plan: Continue DVT prophylaxis including thigh-high teds, SCDs, he is back on his Eliquis. He can weight-bear as tolerated. Needs to follow-up hip precautions. Hopefully we can find him a fdc facility. Admission and Anticipated Discharge Date Admission Date: December 12, 2023 Subjective 88-year-old gentleman postop day 3 from a right total hip replacement. He is doing pretty well. He was hoping to go to rehab but got denied. He is now looking to go to maybe [facility]. His pains controlled. No new complaints. Physical Exam Physical Exam: Physical exam shows a pleasant elderly male. Lying bed looks pretty comfortable this morning. Examination of the right hip reveals the dressing be clean dry and intact. Leg lengths are equal. Thigh is soft and supple. He is neurologically intact. Results & Data Vital Signs (Past 12 Hours) Vital Signs Temp Pulse Pulse Resp BP Pulse Ox O2 Del Method 12/14/23 20:24 77 12/14/23 19:46 36.6 C 77 16 132/92 96 Room Air Laboratory Results Labs are pending.
[2023-12-15 09:38] LABS: Calcium 9.1 mg/dl (8.6-10.3); Est GFR (African American) 58.2 ml/min; Est GFR (Non-African American) 50.2 ml/min; Potassium 4.9 mmol/L (3.5-5.1)
--- NOTE | 2023-12-16 08:30 | Orthopedic Progress Note ---
Date of Service December 16, 2023 Assessment & Plan (1) S/P total right hip arthroplasty: Plan: 88-year-old gentleman now 4 days out from a right total hip replacement. Orthopedically he is doing pretty well. A little bit of bloody drainage. He is on Eliquis. For just waiting for placement really. His creatinine is improved. Plan: 1. DVT prophylaxis including thigh-high teds, SCDs, Eliquis twice a day. 2. PT/OT. He can fully weight-bear as tolerated. Does [place] hip precautions. 3. Pain control. Doing well with current pain regimen. Really not have much in the way of pain. 4. Disposition would just wait for placement. He has been denied rehab. They are looking into [facility] as well as [facility]. He would greatly benefit from some degree of for [facility] facility stay considering his age, the nature of this operation, and his living by himself. Admission and Anticipated Discharge Date Admission Date: December 12, 2023 Subjective 88-year-old gentleman now postop day 4 from a right total hip replacement. Just waiting for placement. He is getting a little bit depressed just waiting around. Really not have much pain. Denies any chest pain or shortness of breath. Physical Exam Physical Exam: Examination reveals a frail elderly male. He is lying in bed. Looks pretty much at baseline. He looks comfortable. Examination of the hip reveals the dressing in place. There is a little bloody drainage on the dressing. Skeletal blood bruising at the incision site. The leg lengths are equal. Hips located. He is neurologically intact. Results & Data Vital Signs (Past 12 Hours) Vital Signs Temp Pulse Resp BP Pulse Ox O2 Del Method 12/16/23 07:35 36.5 C 87 18 126/79 95 Room Air Laboratory Results Most recent labs revealed creatinine improved at 1.26.
--- NOTE | 2023-12-17 08:59 | Orthopedic Progress Note ---
Date of Service December 17, 2023 Assessment & Plan (1) Arthritis of right hip: Plan: POD#4 s/p R MYRIAM, doing well Continue WBAT with walker PT/OT Continue DVT prophylaxis. Continue pain control. D/C planning, awaiting bed placement. Dr. Ken covering for Dr. Barber. Admission and Anticipated Discharge Date Admission Date: December 12, 2023 Subjective Feeling weak Physical Exam Physical Exam: Sitting comfortably in a chair. RLE: Dressing clean, dry, intact. Sensation to light touch intact distally. Wiggling toe and ankle, able to extend the knee. 1+ PT pulse. Results & Data Vital Signs (Past 12 Hours) Vital Signs Temp Pulse Resp BP Pulse Ox O2 Del Method 12/17/23 07:28 36.2 C L 86 18 111/69 95 Room Air
--- NOTE | 2023-12-18 11:28 | Orthopedic Progress Note ---
Date of Service December 18, 2023 Assessment & Plan (1) S/P total right hip arthroplasty: Plan: 88-year-old gentleman now 6 days out from a total hip replacement doing pretty well. He has just been waiting for placement for several days. Had a little drainage initially which is stopped. Plan: 1. DVT prophylaxis including thigh-high teds, SCDs, back on his normal Eliquis dose. 2. PT/OT. Weight-bear as. Right total hip protocol. 3. Pain control doing okay with current pain regimen. Would really not have much pain to speak of. Disposition plan to do discharge to a senior living facility. I believe he has been accepted by [facility] today. Hopefully we can get him there. Admission and Anticipated Discharge Date Admission Date: December 12, 2023 Subjective 88-year-old gentleman now postop day 6 from a right total hip replacement. He is doing well. Really not much pain to speak of. He is just been waiting for placement. No chest pain or shortness of breath. Not feeling dizzy or lightheaded. Physical Exam Physical Exam: Physical examination reveals a pleasant elderly male. He is lying bed looks pretty comfortable this morning. Examination of the right hip and leg reveals the incision to be well-approximated. Got a lot of bruising in the area but no drainage. No signs of hematoma just bruising. Leg lengths are equal. His hips located. He is neurologically intact. Results & Data Vital Signs (Past 12 Hours) Vital Signs Temp Pulse Resp BP Pulse Ox O2 Del Method 12/18/23 07:36 36.3 C L 86 16 115/58 L 95 Room Air
[2023-12-18] MEDS: MAGNESIUM HYDROXIDE SUSP 30 ML UDC PO PRN (19:32)
--- NOTE | 2023-12-19 11:54 | Orthopedic Progress Note ---
Date of Service December 19, 2023 Assessment & Plan (1) S/P total right hip arthroplasty: Plan: 88-year-old gentleman with now 1 week out from a total hip replacement with history of A-fib on Eliquis. He is doing quite well but he lives by himself. He has been denied rehab but now denied nursing home facility yesterday. Unfortunately he is going to need to go home by himself with home health. I think this less than optimal. I think it is somewhat risky but I do not think he is got much of a choice. Plan: [place] to continue DVT prophylaxis including thigh-high teds, SCDs, and Eliquis. He is going to be discharged to home with some home health. This is not our desire but he has been to rehab all as well as nursing home facilities. Reinforced the importance of the hip precautions. Admission and Anticipated Discharge Date Admission Date: December 12, 2023 Subjective 88-year-old gentleman now one 1 week postop from a total hip replacement. He continues to do quite well. His pains controlled. Today he was still hoping to go to rehab as he lives alone. No chest pain or shortness of breath. Physical Exam Physical Exam: [place] is a pleasant elderly male. He is sitting up in his bedside chair and looks comfortable. Examination of the right hip reveals the incision to be clean dry and intact he is got some mild bruising in the area but no drainage. No obvious fluid collections. And leg lengths are equal. He is neurologically intact. Results & Data Vital Signs (Past 12 Hours) Vital Signs Temp Pulse Resp BP Pulse Ox O2 Del Method 12/19/23 07:05 36.3 C L 85 16 116/69 96 Room Air
--- NOTE | 2023-12-24 18:49 | Discharge Summary ---
Date of Service December 24, 2023 Discharge Data Procedures Performed Operation Date: 12/12/23 07:00 Actual Procedures p Right Total Hip Arthroplasty, Uncemented(Right) - Sebastian Barber MD Hospital Course (1) S/P total right hip arthroplasty: This is a 88 year old patient admitted on 12/12/23 and underwent total hip arthroplasty. He tolerated the procedure well and there were no complications. Transferred to the PACU post op and later to the orthopedic floor for further care. He was given ancef for antibiotic prophylaxis. He was also given ANURADHA stockings, SCDs, and eliquis for DVT prophylaxis. Hemoglobin, hematocrit, and vital signs were monitored during his hospital stay and remained stable. Did not require any blood transfusions. There were no complications during his hospital stay. He was denied discharge to rehab or shelter facility by his insurance. By post op day #7 the patient was tolerating a regular diet, pain was reasonably controlled with oral pain medicine, and he was participating in physical therapy. On post op day #7 the patient was discharged home and set up with home health care. He was given printed discharge instructions including prescriptions for extra strength tylenol, zofran, senokot, flomax, and tramadol. Continue hip precautions. Continue physical therapy, weight bearing as tolerated. Continue ANURADHA stockings. Follow up approximately 2 weeks post op or sooner if there are problems or concerns. Coding Level of Care Code None Diagnoses S/P total right hip arthroplasty Z96.641
== END 2023-12-19 16:58 | disposition home health service (06) | DRG 470 ==
LOC: ASU 04:53 → 3N 08:15
DX: Z88.0 Allergy status to penicillin; Z96.642 Presence of left artificial hip joint; Z96.611 Presence of right artificial shoulder joint; I48.91 Unspecified atrial fibrillation; Z96.612 Presence of left artificial shoulder joint; M16.11 Unilateral primary osteoarthritis, right hip; Z88.8 Allergy status to other drugs, medicaments and biological substances